=== PATIENT | female | born 1980 | race Caucasian/White ===

== ENCOUNTER 2019-12-20 11:40 | Outpatient (CLI) | payer OTHER, SELFPAY ==
--- NOTE | ~2019-12-20 | XR_ITS ---
XR lumbar spine 6V w bending 12/20/2019 12:26 Indication: Right hip pain Procedure: 7 views of the lumbar spine including oblique and flexion/extension views. Comparison: No prior studies for comparison. Findings: There is mild disc narrowing at L4-5 and L5-S1. No fracture, subluxation or dislocation. No evidence for spondylolysis or spondylolisthesis. No alteration of alignment with flexion/extension. There are mild lower lumbar facet degenerative changes. No spondylolysis. Pedicles intact. Sacral for amen are symmetric. Impression: 1: Mild lumbar spondylosis. Reviewed, dictated and finalized at location A. 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
--- NOTE | ~2019-12-20 | XR_ITS ---
XR hip RT 2V w AP pelvis DATE: 12/20/2019 12:26 INDICATION: Right hip pain TECHNIQUE: AP pelvis. AP, lateral and crosstable lateral views of right hip COMPARISON: None FINDINGS: No pelvic fracture or bone destruction is detected. The pubic symphysis and sacroiliac join ts are intact. Hip joint spaces are symmetric and well preserved. No fracture, dislocation, avascular necrosis or bone destruction of the right hip. IMPRESSION: Negative Reviewed, dictated and finalized at location A. 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
== END 2019-12-20 11:41 | disposition home or self-care (01) ==
PROVIDERS: PCP Internal Medicine; Visit Provider Internal Medicine
DX: M25.551 Pain in right hip (principal); M47.816 Spondylosis without myelopathy or radiculopathy, lumbar region
CPT/HCPCS: 72114; 73502; 73521

== ENCOUNTER 2020-01-04 00:37 | Day surgery (SDC) | payer OTHER, SELFPAY ==
[2020-01-02 15:13] VITALS: BMI 26.7
[2020-01-04 09:32] VITALS: BP 155/99; PULSE 110; RESP 20; TEMP 36.7; O2SAT 100
[2020-01-04] MEDS: LACTATED RINGERS 1,000 ML 150 ML IV CONT (09:45)
--- NOTE | 2020-01-04 10:01 | WPDANESEPPF ---
Anes - Initial Pre Proc Eval Procedure: Operation Date: 01/04/20 10:30 Proposed Procedures p Screening Colonoscopy - Sebastián Huston MD Date/Time: 01/04/20 10:01 Surgeon: Sebastián Huston MD Pre Op Diagnosis: Fam Hx of Colon Ca Patient Data Age: 39 Gender: F Height: 5 ft 5 in Weight: 71 kg Last Vital Signs Temp 36.7 C 01/04/20 09:32 Pulse 110 H 01/04/20 09:32 Resp 20 01/04/20 09:32 BP 155/99 H 01/04/20 09:32 Pulse Ox 100 01/04/20 09:32 Allergies Allergy/AdvReac Type Severity Reaction Status Date / Time No Known Allergies Allergy Unverified 01/04/20 09:30 Home Medications Medication Instructions Recorded Confirmed Type levothyroxine 100 mcg tablet 100 mcg PO DAILY #90 tablet 10/05/19 01/04/20 Rx linaclotide 145 mcg capsule 145 mcg PO DAILY 11/19/19 01/04/20 History sertraline 50 mg tablet 50 mg PO DAILY 11/19/19 01/04/20 History calcium carbonate 600 mg calcium 600 mg PO BID 12/18/19 01/04/20 History (1,500 mg) tablet Patient hx anesthesia problems: none Family hx anesthesia problems: none PMFSH Past Medical History Medical History Anxiety with depression Benign essential hypertension BMI 27.0-27.9,adult Colon cancer screening Drug overdose, intentional Encounter for preventive health examination Encounter for routine adult health examination without abnormal findings Encounter for screening mammogram for malignant neoplasm of breast FHx: colon cancer FHx: type 2 diabetes mellitus History of renal stone Hx pulmonary embolism Hypothyroidism (acquired) IBS (irritable bowel syndrome) 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 Right hip pain RUQ abdominal pain SOB (shortness of breath) Strain of lumbar paraspinal muscle Tachycardia Vitamin D deficiency Family History Family History Mother Hypertension Carcinoma of colon Family history of diabetes mellitus in first degree relative Family history of gastrointestinal disorder Family history of elevated blood lipids Grandparent Family history of rheumatoid arthritis Father Hypertension, Onset Age: 197 Family history of elevated blood lipids Patient's father is Sibling Hypertension Other Cerebrovascular accident Diabetes mellitus Family history of arthritis Family history of cardiovascular disease Family history of malignant neoplasm Family history of mental disorder Family history of seizure disorder Family history of thyroid disease Malignant neoplasm of prostate Social History Social History Smoking status: Never smoker Alcohol intake: never Anes - Eval Final PreProcedure Day of Procedure 01/04/20 10:01 Patient weight: overweight Heart: regular rate and rhythm Lungs: clear to auscultation Airway: Mallampati scale class II Neurological: alert and oriented Last oral intake: >/= 8 hours ASA classification: II Emergent: no Anesthetic plan: proceed Anesthesia type and monitoring: general GIVS and standard monitoring Informed Consent: The patient's anesthetic plan and its attendant risks and benefits were discussed with the patient/family/POA. Questions were solicited and answers provided to the satisfaction of the patient/family/POA.
--- NOTE | 2020-01-04 10:19 | PM.HPGS ---
History of Present Illness History of Present Illness Consent: Risks, benefits, and alternatives have been discussed and questions answered. Patient agrees to proceed with procedure. Chief complaint: Fam Hx of Colon Ca Narrative: Melissa Man is a 39 year old female with a s family history of colon cancer. 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 Right hip pain RUQ abdominal pain SOB (shortness of breath) Strain of lumbar paraspinal muscle Tachycardia Vitamin D deficiency Family History Family History Mother Hypertension Carcinoma of colon Family history of diabetes mellitus in first degree relative Family history of gastrointestinal disorder Family history of elevated blood lipids Grandparent Family history of rheumatoid arthritis Father Hypertension, Onset Age: 197 Family history of elevated blood lipids Patient's father is Sibling Hypertension Other Cerebrovascular accident Diabetes mellitus Family history of arthritis Family history of cardiovascular disease Family history of malignant neoplasm Family history of mental disorder Family history of seizure disorder Family history of thyroid disease Malignant neoplasm of prostate Social History Social History Smoking status: Never smoker Alcohol intake: never Meds Home Medications and Allergies Home Medications Medication Instructions Recorded Confirmed Type levothyroxine 100 mcg tablet 100 mcg PO DAILY #90 tablet 10/05/19 01/04/20 Rx linaclotide 145 mcg capsule 145 mcg PO DAILY 11/19/19 01/04/20 History sertraline 50 mg tablet 50 mg PO DAILY 11/19/19 01/04/20 History calcium carbonate 600 mg calcium 600 mg PO BID 12/18/19 01/04/20 History (1,500 mg) tablet Allergies Allergy/AdvReac Type Severity Reaction Status Date / Time No Known Allergies Allergy Unverified 01/04/20 09:30 Vital Signs Vital Signs - 24 hr 01/04/20 09:32 Temperature 36.7 C Pulse Rate 110 H Respiratory Rate 20 Blood Pressure 155/99 H Pulse Oximetry 100 Exam Resp: Auscultation: clear to auscultation bilaterally Cardio: Rate: regular rate Rhythm: regular rhythm GI: GI Palp: Yes Soft to palpation and No Tenderness to palpation present (GI) Assessment and Plan Assessment and plan (1) FHx: colon cancer: Code(s): Z80.0 - Family history of malignant neoplasm of digestive organs Status: Acute Assessment and Plan: Colonoscopy with possible biopsy or polypectomy or cautery or injection of substances.
[2020-01-04 10:51] VITALS: BP 123/59; PULSE 82; RESP 20; O2SAT 99
[2020-01-04 11:01] VITALS: BP 135/82; PULSE 74; RESP 20; O2SAT 100
[2020-01-04 11:11] VITALS: BP 140/85; PULSE 70; RESP 20; O2SAT 100
== END 2020-01-04 11:29 | disposition home or self-care (01) ==
PROVIDERS: PCP Internal Medicine; Visit Provider Internal Medicine Gastroenterology
PROC: 0DJD8ZZ Inspection of Lower Intestinal Tract, Via Natural or Artificial Opening Endoscopic (ICD-10-PCS; CPT 45378; principal; 2020-01-04 10:30)
DX: Z12.11 Encounter for screening for malignant neoplasm of colon (principal); D12.5 Benign neoplasm of sigmoid colon; Z80.0 Family history of malignant neoplasm of digestive organs; I10 Essential (primary) hypertension; F41.8 Other specified anxiety disorders; E03.9 Hypothyroidism, unspecified; K58.9 Irritable bowel syndrome, unspecified; E55.9 Vitamin D deficiency, unspecified; Z86.711 Personal history of pulmonary embolism
CPT/HCPCS: 45385; 88305; J2704; J7120

== ENCOUNTER 2020-06-13 08:23 | Outpatient (CLI) | payer OTHER, SELFPAY ==
[2020-06-13 08:52] LABS: Basophils Percent Auto 0.6 % (0.2-1.2); Eosinophils Absolute Auto 0.1 K/mm3 (0-0.3); Eosinophils Percent Auto 2.5 % (0-4.4); Hematocrit 37.1 % (37.0-47.0); Hemoglobin 12.8 g/dL (12.0-15.0); Lymphocytes Absolute Auto 1.71 K/mm3 (0.9-3.2); Lymphocytes Percent Auto 33.1 % (18.3-44.2); Mean Corpuscular HGB Conc 34.5 g/dl (32-36); Mean Corpuscular Hemoglobin 31.1 pg (26-34); Mean Platelet Volume 10.2 fl (7.4-10.4); Monocytes Absolute Auto 0.6 K/mm3 (0.1-0.6); Monocytes Percent Auto 10.9 % (2.6-8.5); Neutrophils Absolute Auto 2.7 K/mm3 (1.3-6.7); Neutrophils Percent Auto 52.9 % (45.5-73.1); Platelet Count Result 272 k/mm3 (150-375); Red Blood Count 4.12 M/mm3 (4.2-5.4); Red Cell Distribution Width 12.8 % (11.5-14.5); White Blood Count 5.2 K/mm3 (4.5-10.0)
[2020-06-13 08:59] LABS: Add Urine Microscopic? YES; Appearance Urine Clear (Clear); Bacteria Urine Trace /hpf; Bilirubin Urine Negative (Negative); Blood Urine 1+ (Negative); Color Urine Yellow (Yellow); Glucose Urine UA Negative (Negative); Ketones Urine Negative (Negative); Leukocyte Esterase Ur Trace LEU/UL (NEGATIVE); Mucus Urine Few /lpf; Nitrate Urine Negative (Negative); Protein Urine 1+ mg/dL (Negative); Specific Grav Ur 1.031 (1.001-1.035); Squamous Epithelial Cell Urine Rare /hpf (Few); Urobilinogen Urine Negative mg/dL (<2.0)
[2020-06-13 09:14] LABS: Anion Gap 13.8 mmol/L (7-16); Blood Urea Nitrogen 26 mg/dL (7-17); Carbon Dioxide 23 mmol/L (22-30); Chloride 107 mmol/L (98-107); Cholesterol 179 mg/dL (0-200); Estimated Glomerular Filt Rate > 60; Glucose 84 mg/dL (65-105); HDL Direct 56 mg/dL; Potassium 3.8 mmol/L (3.4-5.0); Sodium 140 mmol/L (137-145); Triglycerides 47 mg/dL (<150)
[2020-06-13 09:24] LABS: LDL Cholesterol Direct 110 mg/dL
[2020-06-13 09:34] LABS: Free T4 Free Thyroxine 1.92 ng/mL (0.78-2.19)
== END 2020-06-13 08:24 | disposition home or self-care (01) ==
PROVIDERS: PCP Internal Medicine; Visit Provider Internal Medicine
DX: E03.9 Hypothyroidism, unspecified (principal); I10 Essential (primary) hypertension; Z79.899 Other long term (current) drug therapy
CPT/HCPCS: 36415; 80048; 80061; 81001; 84439; 84443; 85025

== ENCOUNTER 2020-09-01 11:47 | Outpatient (CLI) | payer OTHER, SELFPAY ==
[2020-09-01 12:48] LABS: Hemoglobin A1C 4.7 % (<5.7)
[2020-09-01 12:50] LABS: Alanine Aminotransferase 14 U/L (4-35); Albumin Level 4.2 g/dL (3.5-5.1); Alkaline Phosphatase 59 U/L (38-126); Anion Gap 10 mmol/L (8-16); Aspartate Amino Transferase 19 U/L (14-36); Bilirubin,Total 0.5 mg/dL (0.2-1.3); Blood Urea Nitrogen 17 mg/dL (7-17); Calcium 9.1 mg/dL (8.4-10.2); Carbon Dioxide 20 mmol/L (22-30); Chloride 111 mmol/L (98-107); Cholesterol 167 mg/dL (0-200); Estimated Glomerular Filt Rate > 60; Glucose 96 mg/dL (65-105); HDL Direct 56 mg/dL; Sodium 141 mmol/L (137-145); Triglycerides 48 mg/dL (<150)
[2020-09-01 13:02] LABS: LDL Cholesterol Direct 100 mg/dL
[2020-09-01 13:20] LABS: Thyroid Stimulating Hormone 0.385 uIU/mL (0.465-4.680)
[2020-09-01 13:32] LABS: Vitamin D 25 Hydroxy 22.9 ng/mL
[2020-09-05 05:54] LABS: Insulin Level Total 8.1 uIU/mL (<=19.6)
== END 2020-09-01 11:48 | disposition home or self-care (01) ==
LOC: ANHLAB 11:49
PROVIDERS: PCP Internal Medicine; Visit Provider Internal Medicine
DX: R51.9 Headache, unspecified (principal); Z79.899 Other long term (current) drug therapy
CPT/HCPCS: 36415; 80048; 80061; 80076; 82306; 83036; 83525; 84443

== ENCOUNTER 2020-12-23 10:08 | Outpatient (CLI) | payer OTHER, SELFPAY ==
[2020-12-23 10:38] LABS: Anion Gap 7 mmol/L (8-16); Blood Urea Nitrogen 13 mg/dL (7-17); Calcium 8.9 mg/dL (8.4-10.2); Carbon Dioxide 27 mmol/L (22-30); Chloride 105 mmol/L (98-107); Cholesterol 169 mg/dL (0-200); Estimated Glomerular Filt Rate > 60; Glucose 94 mg/dL (65-105); HDL Direct 57 mg/dL; Sodium 139 mmol/L (137-145); Triglycerides 50 mg/dL (<150)
[2020-12-23 10:49] LABS: LDL Cholesterol Direct 99 mg/dL
[2020-12-23 11:08] LABS: Thyroid Stimulating Hormone 0.049 uIU/mL (0.465-4.680)
== END 2020-12-23 10:09 | disposition home or self-care (01) ==
PROVIDERS: PCP Internal Medicine; Visit Provider Internal Medicine
DX: E03.9 Hypothyroidism, unspecified (principal); Z79.899 Other long term (current) drug therapy
CPT/HCPCS: 36415; 80048; 80061; 84439; 84443

== ENCOUNTER 2021-01-14 10:18 | Outpatient (CLI) | payer OTHER, SELFPAY ==
--- NOTE | ~2021-01-14 | MM_ITS ---
EXAMINATION: MM screening denny BI w lizy HISTORY: Screening mammogram TECHNIQUE: Craniocaudal and mediolateral oblique 3-D tomosynthesis images were obtained and synthetic 2-D images were generated. CAD analysis was submitted and interpreted. COMPARISON: 01/30/2019, 12/26/2017 bilateral digital screening mammogram examinations BREAST PARENCHYMAL COMPOSITION: There are scattered areas of fibroglandular density. FINDINGS: There is no evidence of suspicious mass, calcification, or architectural distortion to sugg est malignancy in either breast. There has been no suspicious interval change. IMPRESSION: 1. No mammographic evidence of malignancy. 2. Recommend routine screening mammography in one year. BI-RADS Category 1: Negative Reviewed, dictated and finalized at location A. 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
== END 2021-01-14 10:19 | disposition home or self-care (01) ==
PROVIDERS: PCP Internal Medicine; Visit Provider Obstetrics & Gynecology
DX: Z12.31 Encounter for screening mammogram for malignant neoplasm of breast (principal)
CPT/HCPCS: 77063; 77067

== ENCOUNTER 2021-04-15 17:16 | Outpatient (CLI) | payer OTHER, SELFPAY ==
--- NOTE | ~2021-04-15 | US_ITS ---
EXAMINATION:US venous doppler LE RT INDICATION:Right leg swelling TECHNIQUE: Multiple grayscale, color flow and Doppler images of the right lower extremity deep venous systems were obtained and reviewed. COMPARISON:04/08/2016 FINDINGS: The common femoral, superficial femoral and popliteal veins demonstrate normal respiratory variation, augmentation and compressibility. Color flow is also seen within the posterior tibial, pe roneal, greater saphenous and profunda veins. IMPRESSION: 1: No lower extremity deep venous thrombosis. Reviewed, dictated and finalized at location A.
--- NOTE | ~2021-04-15 | CT_ITS ---
EXAMINATION: CTA chest PE protocol DATE: 04/15/2021 16:07 INDICATION: Left chest pain. TECHNIQUE: Computed tomography angiography (CTA) of the chest was performed with 100 mL Omnipaque-350 intravenous contrast timed to evaluate the pulmonary arteries. Coronal maximum intensity projection 3D-reconstructions were created by the technologist. Automated exposure control and iterative reconst ruction technique were employed. The dose-length product was 409.02 mGy-cm. COMPARISON: Chest CT 08/19/2016 FINDINGS: There is mild dependent atelectasis bilaterally. No pleural effusion. The heart size is nor mal. No pericardial effusion. There is no pulmonary embolus. There is a benign bone island in left fi fth rib. There is mild thoracic spondylosis. IMPRESSION: 1. No pulmonary embolus. Reviewed, dictated and finalized at location B. IMPRESSION: 1. No pulmonary embolus.
[2021-04-15 17:33] LABS: Basophils Percent Auto 0.4 % (0.2-1.2); Eosinophils Absolute Auto 0.1 K/mm3 (0-0.3); Eosinophils Percent Auto 1.1 % (0-4.4); Hematocrit 38.4 % (37.0-47.0); Hemoglobin 12.5 g/dL (12.0-15.0); Immature Granulocyte Absolute 0.01 K/mm3 (0.00-0.031); Immature Granulocyte Percent A 0.2 % (0-0.5); Lymphocytes Absolute Auto 0.96 K/mm3 (0.9-3.2); Lymphocytes Percent Auto 20.6 % (18.3-44.2); Mean Corpuscular HGB Conc 32.6 g/dl (32-36); Mean Corpuscular Hemoglobin 28.7 pg (26-34); Mean Corpuscular Volume 88.3 fl (80-100); Mean Platelet Volume 10.3 fl (7.4-10.4); Monocytes Absolute Auto 0.4 K/mm3 (0.1-0.6); Monocytes Percent Auto 8.8 % (2.6-8.5); Neutrophils Absolute Auto 3.2 K/mm3 (1.3-6.7); Neutrophils Percent Auto 68.9 % (45.5-73.1); Platelet Count Result 234 k/mm3 (150-375); Red Blood Count 4.35 M/mm3 (4.2-5.4); Red Cell Distribution Width 13.4 % (11.5-14.5); White Blood Count 4.7 K/mm3 (4.5-10.0)
[2021-04-15 17:42] LABS: INR 0.9
[2021-04-15 17:46] LABS: D Dimer 0.27 ug/mL (<0.48)
== END 2021-04-15 17:17 | disposition home or self-care (01) ==
PROVIDERS: PCP Internal Medicine; Visit Provider Internal Medicine
DX: R07.9 Chest pain, unspecified (principal); R60.0 Localized edema
CPT/HCPCS: 36415; 71275; 85025; 85380; 85610; 93971; Q9967

== ENCOUNTER 2021-04-17 08:38 | Outpatient (CLI) | payer OTHER, SELFPAY ==
--- NOTE | ~2021-04-17 | XR_ITS ---
EXAMINATION:XR cervical spine 4-5V DATE: 04/17/2021 09:10 INDICATION: Neck pain TECHNIQUE: AP, lateral, lateral swimmers and odontoid views of the cervical spine are provided. COMPARISON: None FINDINGS: There is 1 mm retrolisthesis of C5 on C6. The odontoid is intact. No fracture is identified . Vertebral body heights and disk spaces are normal. Prevertebral soft tissues are normal. There is m ild facet osteoarthritis in the lower cervical spine. IMPRESSION: 1. Mild cervical spondylosis without acute findings. Reviewed, dictated and finalized at location D.
--- NOTE | ~2021-04-17 | XR_ITS ---
EXAMINATION: XR lumbar spine 6V w bending DATE: 04/17/2021 09:10 INDICATION: Low back pain TECHNIQUE: Anteroposterior, lateral in neutral, flexion and extension, and bilateral oblique views of the lumbar spine, and cone-down lateral view of the lumbosacral junction were obtained. COMPARISON: 12/20/2019, 10/06/2017 FINDINGS: There are 2 mm of anterolisthesis of L4 on L5. There is no laxity with flexion or extension . Bone alignment is otherwise normal. There is mild facet osteoarthritis of the lower lumbar spine. M ild loss of intervertebral disc space height is seen at L4-5 and L5-S1. There is no fracture. The bow el gas pattern is normal. IMPRESSION: 1. Mild lumbar spondylosis without acute findings or significant interval change. Reviewed, dictated and finalized at location D. IMPRESSION: 1. Mild lumbar spondylosis without acute findings or significant interval tc dockery
== END 2021-04-17 08:39 | disposition home or self-care (01) ==
PROVIDERS: PCP Internal Medicine; Visit Provider Internal Medicine
DX: R07.89 Other chest pain (principal); M47.817 Spondylosis without myelopathy or radiculopathy, lumbosacral region; M47.812 Spondylosis without myelopathy or radiculopathy, cervical region
CPT/HCPCS: 72050; 72114

== ENCOUNTER 2021-07-30 14:46 | Outpatient (CLI) | payer OTHER, SELFPAY ==
[2021-07-30 15:20] LABS: Anion Gap 6 mmol/L (8-16); Blood Urea Nitrogen 18 mg/dL (7-17); Calcium 9.3 mg/dL (8.4-10.2); Carbon Dioxide 25 mmol/L (22-30); Chloride 109 mmol/L (98-107); Cholesterol 176 mg/dL (0-200); Estimated Glomerular Filt Rate > 60; Glucose 106 mg/dL (65-110); HDL Direct 42 mg/dL; Potassium 3.6 mmol/L (3.4-5.0); Sodium 140 mmol/L (137-145); Triglycerides 67 mg/dL (<150)
[2021-07-30 15:31] LABS: LDL Cholesterol Direct 95 mg/dL
[2021-07-30 15:35] LABS: Add Urine Microscopic? YES; Appearance Urine Clear (Clear); Bilirubin Urine Negative (Negative); Blood Urine 3+ (Negative); Color Urine Yellow (Yellow); Glucose Urine UA Negative (Negative); Ketones Urine Negative (Negative); Leukocyte Esterase Ur Negative LEU/UL (NEGATIVE); Mucus Urine Rare /lpf; Nitrate Urine Negative (Negative); Protein Urine Negative (Negative); Specific Grav Ur 1.023 (1.001-1.035); Squamous Epithelial Cell Urine Few /hpf (Few); Urobilinogen Urine Negative mg/dL (<2.0); WBC Urine 0-3 /hpf (0-3)
[2021-07-30 16:39] LABS: Free T4 Free Thyroxine 1.77 ng/mL (0.78-2.19)
[2021-08-04 09:00] LABS: Vitamin D 1,25 (OH)2 Total 33 pg/mL (18-72); Vitamin D2 1,25 (OH)2 <8 pg/mL; Vitamin D3 1,25 (OH)2 33 pg/mL
== END 2021-07-30 14:47 | disposition home or self-care (01) ==
PROVIDERS: PCP Internal Medicine; Visit Provider Internal Medicine
DX: E03.9 Hypothyroidism, unspecified (principal); I10 Essential (primary) hypertension; E55.9 Vitamin D deficiency, unspecified; Z79.899 Other long term (current) drug therapy
CPT/HCPCS: 36415; 80048; 80061; 81001; 82652; 84439; 84443

== ENCOUNTER 2021-08-24 23:28 | Emergency (ER) | payer OTHER, SELFPAY ==
--- NOTE | ~2021-08-24 | CT_ITS ---
EXAMINATION: CT abdomen pelvis wo con DATE: 08/25/2021 01:13 INDICATION: Left flank pain. TECHNIQUE: Computed tomography (CT) of the abdomen and pelvis was performed without intravenous contr ast. Automated exposure control and iterative reconstruction technique were employed. The dose-length product was 728.75 mGy-cm. COMPARISON: CT abdomen and pelvis 10/06/2017 FINDINGS: The visualized portions of the lung bases demonstrate mild atelectasis. No pleural effusion . The heart size is normal. No pericardial effusion. The liver, gallbladder, spleen, pancreas, and ad renal glands are normal. There is a 2 mm stone in right kidney. There is a 2 mm stone in left kidney. There is mild left hydronephrosis. There is a 6 mm stone in proximal left ureter. There is asymmetri c edema around left kidney. There are no dilated loops of bowel. The appendix is normal. There is a l arge volume of stool in the colon. There are no pathologically enlarged lymph nodes. There is no free intraperitoneal fluid. There is mild thoracolumbar spondylosis. IMPRESSION: 1. 6 mm stone in proximal left ureter with mild left hydronephrosis. 2. Small bilateral nonobstructing kidney stones. Reviewed, dictated and finalized at location A.
[2021-08-24 23:41] VITALS: BP 146/89; PULSE 104; RESP 16; TEMP 36.7; O2SAT 99
[2021-08-25 00:21] LABS: Basophils Percent Auto 0.5 % (0.2-1.2); Eosinophils Absolute Auto 0.2 K/mm3 (0-0.3); Eosinophils Percent Auto 1.8 % (0-4.4); Hemoglobin 11.7 g/dL (12.0-15.0); Immature Granulocyte Absolute 0.02 K/mm3 (0.00-0.031); Immature Granulocyte Percent A 0.2 % (0-0.5); Lymphocytes Absolute Auto 1.17 K/mm3 (0.9-3.2); Lymphocytes Percent Auto 14.4 % (18.3-44.2); Mean Corpuscular HGB Conc 34.4 g/dl (32-36); Mean Corpuscular Hemoglobin 29.5 pg (26-34); Mean Corpuscular Volume 85.6 fl (80-100); Mean Platelet Volume 9.9 fl (7.4-10.4); Monocytes Absolute Auto 0.7 K/mm3 (0.1-0.6); Monocytes Percent Auto 8.8 % (2.6-8.5); Neutrophils Absolute Auto 6.1 K/mm3 (1.3-6.7); Neutrophils Percent Auto 74.3 % (45.5-73.1); Platelet Count Result 224 k/mm3 (150-375); Red Blood Count 3.97 M/mm3 (4.2-5.4); Red Cell Distribution Width 14.9 % (11.5-14.5); White Blood Count 8.2 K/mm3 (4.5-10.0)
[2021-08-25 00:24] LABS: Anion Gap 11 mmol/L (8-16); Blood Urea Nitrogen 21 mg/dL (7-17); Calcium 8.6 mg/dL (8.4-10.2); Carbon Dioxide 21 mmol/L (22-30); Chloride 107 mmol/L (98-107); Estimated CRCL calculation 73 ml/min; Estimated Glomerular Filt Rate > 60; Glucose 90 mg/dL (65-110); Potassium 3.9 mmol/L (3.4-5.0); Sodium 139 mmol/L (137-145)
[2021-08-25 00:25] LABS: Add Urine Microscopic? YES; Appearance Urine Clear (Clear); Bilirubin Urine Negative (Negative); Blood Urine 2+ (Negative); Color Urine Yellow (Yellow); Glucose Urine UA Negative (Negative); Ketones Urine Negative (Negative); Leukocyte Esterase Ur Negative LEU/UL (Negative); Mucus Urine Rare /lpf; Nitrate Urine Negative (Negative); Protein Urine Negative (Negative); RBC Urine 0-2 /hpf (0-2); Specific Grav Ur 1.009 (1.001-1.035); Squamous Epithelial Cell Urine Rare /hpf (Few); Urobilinogen Urine Negative mg/dL (<2.0); WBC Urine 0-3 /hpf
[2021-08-25] MEDS: ONDANSETRON INJ 4 MG/2 ML VIAL IV PUSH (00:57)
[2021-08-25] MEDS: SODIUM CHLORIDE 0.9% IV 1,000 ML 999 ML IV CONT (00:57)
[2021-08-25] MEDS: KETOROLAC 30 MG/ML VIAL (*BKC) IV PUSH (00:57)
[2021-08-25 01:45] VITALS: BP 141/88; PULSE 82; RESP 18; O2SAT 100
--- NOTE | 2021-08-25 02:45 | ED.ABDPAIN ---
HPI - Abdominal Pain General Chief Complaint: Abdominal Pain Stated Complaint: Kidney Stone Time Seen by Provider: 08/24/21 23:35 Source: patient Mode of arrival: ambulatory Limitations: no limitations History of Present Illness HPI narrative: 41-year-old female with history of irritable bowel complaining of left flank pain starting suddenly at 2 PM today. Left flank pain rating to the left lower quadrant sharp constant improved with nothing. Patient does have a history of renal stones in the past and says this is similar. Patient is also complains of nausea and dry heaves,. No fever, no dysuria, no hematuria, no STD risk factors no vaginal discharge. No other complaints. Related Data Home Medications Medication Instructions Recorded Confirmed evening primrose oil 500 mg capsule 500 mg PO DAILY cap 08/04/21 08/05/21 mecobalamin (vitamin B12) 1,000 1,000 mcg SUBLINGUAL DAILY 08/04/21 08/05/21 mcg disintegrating tablet,sublingual Allergies Allergy/AdvReac Type Severity Reaction Status Date / Time No Known Allergies Allergy Verified 08/04/21 14:38 Review of Systems Review of Systems: CONSTITUTIONAL: no fever, no weight loss, no confusion EYES: no vision changes, no eye pain ENT: no rhinorrhea, no sore throat, no difficulty swallowing CARDIOVASCULAR: no chest pain, no leg edema, no palpitations RESPIRATORY: no cough, no shortness of breath, no hemoptysis GASTROINTESTINAL: LLQ abdominal pain, positive for nausea and vomiting, no diarrhea GENITOURINARY: left flank pain, no dysuria, no hematuria SKIN: no rash, no jaundice MUSCULOSKELETAL: no back pain, no trauma. NEUROLOGIC: No headache, no dizziness, no focal weakness PSYCHIATRIC: No hallucinations, no suicidal ideation PMFSH Past Medical History Medical History Anxiety with depression Benign essential hypertension BMI 26.0-26.9,adult BMI 27.0-27.9,adult BMI 28.0-28.9,adult Colon cancer screening Drug overdose, intentional Encounter for preventive health examination Encounter for routine adult health examination without abnormal findings Encounter for screening mammogram for malignant neoplasm of breast FHx: colon cancer FHx: type 2 diabetes mellitus History of renal stone Hx pulmonary embolism Hypothyroidism (acquired) IBS (irritable bowel syndrome) Microscopic hematuria Migraine 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 Persistent headaches Right hip pain RUQ abdominal pain SOB (shortness of breath) Strain of lumbar paraspinal muscle Tachycardia Vitamin D deficiency Family History Family History Mother Hypertension Carcinoma of colon Family history of diabetes mellitus in first degree relative Family history of gastrointestinal disorder Family history of elevated blood lipids Grandparent Family history of rheumatoid arthritis Father Hypertension, Onset Age: 197 Family history of elevated blood lipids Patient's father is Sibling Hypertension Other Cerebrovascular accident Diabetes mellitus Family history of arthritis Family history of cardiovascular disease Family history of malignant neoplasm Family history of mental disorder Family history of seizure disorder Family history of thyroid disease Malignant neoplasm of prostate Social History Social History Smoking status: Never smoker Alcohol intake: never Exam Narrative: General: alert, afebrile, answering all questions appropriately Head: normocephalic, atraumatic Eyes: EOMI bilaterally, anicteric, no injection ENT: moist mucous membranes, oropharynx patent, no rhinorrhea Neck: supple, trachea midline, no JVD Chest: equal chest rise bilaterally, no chest wall trauma noted Lungs: clear to auscultation bilaterally, respirations unlabored CV: regular rate, no GLORY B, calf size equ
[2021-08-25 03:45] VITALS: BP 132/84; PULSE 79; RESP 20
== END 2021-08-25 03:49 | disposition home or self-care (01) ==
PROVIDERS: Emergency Provider Emergency Medicine; PCP Internal Medicine
DX: N13.2 Hydronephrosis with renal and ureteral calculous obstruction (principal); K58.9 Irritable bowel syndrome, unspecified; I10 Essential (primary) hypertension; E03.9 Hypothyroidism, unspecified; E55.9 Vitamin D deficiency, unspecified; Z87.442 Personal history of urinary calculi; Z86.711 Personal history of pulmonary embolism
CPT/HCPCS: 36415; 74176; 80048; 81001; 81025; 85025; 96365; 96366; 96375; 99284; J0131; J1885; J2405; J7030

== ENCOUNTER 2021-08-26 09:32 | Outpatient (CLI) | payer OTHER, SELFPAY ==
--- NOTE | ~2021-08-26 | XR_ITS ---
EXAMINATION: XR abdomen/kub 1V EXAM DATE: 08/26/2021 09:35 INDICATION: Calculus of ureter, left flank pain. TECHNIQUE: Frontal projection of the upper abdomen, frontal projection lower abdomen/pelvis for inter pretation. Comparison is made to prior examination from 07/21/2015. Correlation was made with CT scan from yesterday. FINDINGS: There is 7 mm left UPJ stone identified, indicated. Moderate amount of colonic stool and ga s. No small bowel obstruction. There is no organomegaly. Mild bilateral hip primary osteoarthritis. IMPRESSION: 1. Left UPJ 7 mm stone identified. Reviewed, dictated and finalized at location A.
[2021-08-26 11:05] LABS: Folic Acid > 20.0 ng/mL (2.76->20)
[2021-08-30 10:27] LABS: Vitamin B1 41 nmol/L (8-30)
[2021-08-31 03:27] LABS: Vitamin B6 66.8 ng/mL (2.1-21.7)
[2021-09-01 16:51] LABS: Vitamin B2 15.8 nmol/L (6.2-39.0)
== END 2021-08-26 09:33 | disposition home or self-care (01) ==
PROVIDERS: PCP Internal Medicine; Visit Provider Urology
DX: N20.1 Calculus of ureter (principal); E53.9 Vitamin B deficiency, unspecified; E53.8 Deficiency of other specified B group vitamins
CPT/HCPCS: 36415; 74018; 82607; 82746; 84207; 84252; 84425

== ENCOUNTER 2021-08-27 09:54 | Day surgery (SDC) | payer OTHER, SELFPAY ==
[2021-08-27] VITALS (8 sets, daily range): BP systolic 112–141; BP diastolic 63–80; PULSE 82–102; RESP 14–20; TEMP 36.2–36.4; O2SAT 97–100; BMI 28.3
--- NOTE | ~2021-08-27 | XR_ITS ---
EXAMINATION: XR retrograde pyelo w/stent LT EXAM DATE: 08/27/2021 14:51 INDICATION: Left-sided retrograde, stent placement. Obstructive nephropathy. TECHNIQUE: Fluoroscopy used during XR retrograde pyelo w/stent LT performed by Dr. Narendra mckinney MD, urologist. The radiologist Jeremi Smith M.D. dictating this report of the image(s) availabl e was not present for the procedure. Total fluoroscopic time of 44 seconds. The DAP for this proced ure was 696 radcm2. A total of 11 images sent to PACS from the exam. Correlation is made to CT from yesterday. FINDINGS: Left ureter was cannulated, injected. There is mild to moderate left hydronephrosis. A nino ble-J ureteral stent was placed. Correlate with procedure note. IMPRESSION: Mild to moderate left hydronephrosis. Stent in position. Reviewed, dictated and finalized at location G.
--- NOTE | 2021-08-27 12:35 | WPDANESEPPF ---
Anes - Initial Pre Proc Eval Procedure: Operation Date: 08/27/21 15:00 Proposed Procedures p Cystoscopy, Left Retrograde Pyelogram, Left Stent Placement - Narendra Felix MD Date/Time: 08/27/21 12:35 Surgeon: Narendra Felix MD Pre Op Diagnosis: left ureteral calculus Patient Data Age: 41 Gender: F Height: 1.65 m Weight: 77.11 kg Allergies Allergy/AdvReac Type Severity Reaction Status Date / Time No Known Allergies Allergy Verified 08/27/21 13:39 Home Medications Medication Instructions Recorded Confirmed Type rizatriptan 10 mg disintegrating See Rx Instructions PO .COMPLEX 01/15/21 08/27/21 Rx tablet #18 tablet levothyroxine 100 mcg tablet See Rx Instructions .ROUTE 03/16/21 08/27/21 Rx .COMPLEX #90 tablet erenumab-aooe 70 mg/mL See Rx Instructions .ROUTE 05/28/21 08/27/21 Rx subcutaneous auto-injector .COMPLEX #1 ml linaclotide 145 mcg capsule 145 mcg PO DAILY #90 cap 06/12/21 08/27/21 Rx celecoxib 200 mg capsule See Rx Instructions .ROUTE 07/23/21 08/27/21 Rx .COMPLEX #60 cap evening primrose oil 500 mg capsule 500 mg PO DAILY cap 08/04/21 08/27/21 History levomefolate calcium 7.5 mg tablet 7.5 mg PO DAILY #90 tablet 08/04/21 08/27/21 Rx mecobalamin (vitamin B12) 1,000 1,000 mcg SUBLINGUAL DAILY 08/04/21 08/27/21 History mcg disintegrating tablet,sublingual cephalexin 250 mg PO Q6H 7 Days #28 cap 08/25/21 08/27/21 Rx ibuprofen 800 mg PO TID PRN #30 tablet 08/25/21 08/27/21 Rx ondansetron 4 mg PO Q6H PRN #20 tablet 08/25/21 08/27/21 Rx tamsulosin [Flomax] 0.4 mg PO DAILY #5 cap 08/25/21 08/27/21 Rx duloxetine [Cymbalta] 60 mg PO HS 08/27/21 08/27/21 History hydrocodone-acetaminophen 1 tablet PO PRN 08/27/21 08/27/21 History Patient hx anesthesia problems: none Family hx anesthesia problems: none Results Review: All pre-operative results and documents have been reviewed as part of the pre-operative evaluation. [facility] Past Medical History Medical History (Updated 08/27/21 @ 12:35 by Mihir Berrios DO) Anxiety with depression Benign essential hypertension BMI 26.0-26.9,adult BMI 27.0-27.9,adult BMI 28.0-28.9,adult Colon cancer screening Drug overdose, intentional Encounter for preventive health examination Encounter for routine adult health examination without abnormal findings Encounter for screening mammogram for malignant neoplasm of breast History of renal stone Hx pulmonary embolism Hypothyroidism (acquired) IBS (irritable bowel syndrome) Microscopic hematuria Migraine 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 Persistent headaches Right hip pain RUQ abdominal pain SOB (shortness of breath) Strain of lumbar paraspinal muscle Tachycardia Vitamin D deficiency Family History Family History Mother Hypertension Carcinoma of colon Family history of diabetes mellitus in first degree relative Family history of gastrointestinal disorder Family history of elevated blood lipids Grandparent Family history of rheumatoid arthritis Father Hypertension, Onset Age: 197 Family history of elevated blood lipids Patient's father is Sibling Hypertension Other Cerebrovascular accident Diabetes mellitus Family history of arthritis Family history of cardiovascular disease Family history of malignant neoplasm Family history of mental disorder Family history of seizure disorder Family history of thyroid disease Malignant neoplasm of prostate Social History Social History Smoking status: Never smoker Alcohol intake: never Substance use: never Substance use type: does not use Spiritual care concerns: No Anes - Eval Final PreProcedure Day of Procedure 08/27/21 12:35 Patient weight: obese Heart: regular rate and rhythm Lungs: clear to auscultation and normal air movement Airway: Mallampati scale
--- NOTE | 2021-08-27 13:31 | WPDHPUPDATE1 ---
History and Physical Update Update Date/Time: 08/27/21 13:31 History and Physical has been reviewed, including an updated exam of the patient. There are NO changes in the patient's condition. Risks, benefits, and alternatives have been discussed and questions answered. Patient agrees to proceed with procedure. Proceed with cysto, left rpg, left stent placement
[2021-08-27] MEDS: LACTATED RINGERS 1,000 ML 30 ML IV CONT ×2 (13:48→15:18)
[2021-08-27] MEDS: ceFAZolin 2 GM/D5W 50 ML 2 GM/50 ML BAG IVPB (14:18)
[2021-08-27] MEDS: LIDOCAINE HCL 2% GEL UROJET 10 ML PKG MUCOUS MEM (14:40)
--- NOTE | 2021-08-27 14:42 | P.OP_ITS ---
Procedure Note - Detailed Date of Procedure 08/27/21 Pre-op Diagnosis left ureteral calculus Post-op Diagnosis same Procedure Performed Cystoscopy, left retrograde pyelogram, left ureteral stent placement 4.8 x 26 Salvadorean Surgeon Narendra Felix MD Anesthesia general Description of Procedure Patient was taken the operative suite correctly identified. Once anesthesia was obtained she was placed in dorsal lithotomy position and prepped draped usual sterile fashion. Nineteen Salvadorean scope was inserted into the bladder. There are no tumors noted. Left orifice was cannulated with a guidewire. We then placed a [place] catheter in and this appeared to push the stone into the lower pole. Pyelogram was Aubrey Sineff then performed. 4.8 x 26 Salvadorean stent was then placed with the proximal end coiled in the renal pelvis and the distal end in the bladder. Bladder was drained. 2% viscous lidocaine was inserted into the urethra patient is taken recovery stable condition. She will be scheduled for a lithotripsy for left renal calculus in the near future. Drains Yes Packing No Pathology none sent Complications No immediate complications Condition stable Disposition PACU
== END 2021-08-27 16:20 | disposition home or self-care (01) ==
PROVIDERS: PCP Internal Medicine; Visit Provider Urology
PROC: (CPT 52352; principal; 2021-08-27 15:00)
DX: N13.2 Hydronephrosis with renal and ureteral calculous obstruction (principal); I10 Essential (primary) hypertension; F41.8 Other specified anxiety disorders; E03.9 Hypothyroidism, unspecified; K58.9 Irritable bowel syndrome, unspecified; E55.9 Vitamin D deficiency, unspecified; Z86.711 Personal history of pulmonary embolism; E66.9 Obesity, unspecified; Z68.30 Body mass index [BMI] 30.0-30.9, adult
CPT/HCPCS: 52332; 74420; A9270; C1758; C1769; C2617; J0690; J1100; J2250; J2405; J2704; J3010; J7120; Q9966

== ENCOUNTER 2021-08-27 12:39 | Outpatient (CLI) | payer OTHER, SELFPAY ==
[2021-08-27 13:16] LABS: EDCOVIDSCREEN Negative (Negative)
== END 2021-08-27 12:40 | disposition home or self-care (01) ==
LOC: ANHSURGERY 12:41
PROVIDERS: PCP Internal Medicine; Visit Provider Urology
DX: Z01.812 Encounter for preprocedural laboratory examination (principal); Z20.822 Contact with and (suspected) exposure to COVID-19
CPT/HCPCS: 87426; C9803

== ENCOUNTER 2021-09-14 08:49 | Outpatient (CLI) | payer OTHER, SELFPAY ==
[2021-09-14 09:16] LABS: INR 0.8; Prothrombin Time 11.1 Seconds (11.1-14.7)
[2021-09-14 09:17] LABS: Partial Thromboplastin Time 24.4 SECONDS (22.3-36.8)
[2021-09-14 09:33] LABS: Beta HCG Quantitative < 2.39 mIU/ML
== END 2021-09-14 08:50 | disposition home or self-care (01) ==
LOC: ANHSURGERY 08:52
PROVIDERS: PCP Internal Medicine; Visit Provider Urology
DX: N20.0 Calculus of kidney (principal); Z01.818 Encounter for other preprocedural examination
CPT/HCPCS: 36415; 84702; 85610; 85730; 87086

== ENCOUNTER → 2021-09-15 01:31 | Outpatient (CLI) | payer OTHER, SELFPAY ==
[2021-09-15 18:23] LABS: SARS-CoV-2 RNA PCR Negative
== END ==
PROVIDERS: PCP Internal Medicine; Visit Provider Urology
DX: Z01.812 Encounter for preprocedural laboratory examination (principal); Z20.822 Contact with and (suspected) exposure to COVID-19
CPT/HCPCS: C9803; U0003; U0005

== ENCOUNTER 2021-09-18 00:52 | Day surgery (SDC) | payer OTHER, SELFPAY ==
[2021-09-11 10:44] VITALS: BMI 29.9
[2021-09-18] VITALS (7 sets, daily range): BP systolic 121–147; BP diastolic 74–92; PULSE 69–89; RESP 15–16; TEMP 36.5–36.9; O2SAT 96–100
--- NOTE | ~2021-09-18 | XR_ITS ---
EXAMINATION: XR abdomen/kub 1V INDICATION: Left nephrolithiasis TECHNIQUE: Supine views of the abdomen were obtained on 2 radiographs. COMPARISON: 08/26/2021 FINDINGS: A left internal ureteral stent is in expected position. An 8 mm stone is seen in the lower pole of the left kidney. No additional urolithiasis is identified. A large volume of colonic stool is present. IMPRESSION: 1. 8 mm stone in the lower pole of the left kidney with left internal ureteral stent in expected posi tion. Reviewed, dictated and finalized at location A. IMPRESSION: 1. 8 mm stone in the lower pole of the left kidney with left internal ureteral stent in expected position.
--- NOTE | 2021-09-18 07:27 | WPDHPUPDATE1 ---
History and Physical Update Update Date/Time: 09/18/21 07:27 History and Physical has been reviewed, including an updated exam of the patient. There are NO changes in the patient's condition. Risks, benefits, and alternatives have been discussed and questions answered. Patient agrees to proceed with procedure. Proceed with left renal/upj eswl
--- NOTE | 2021-09-18 08:03 | WPDANESEPPF ---
Anes - Initial Pre Proc Eval Procedure: Operation Date: 09/18/21 09:30 Proposed Procedures p Left Ureteropelvic Junction Extracorporeal Shock Wave Lithotripsy - Narendra Felix MD Date/Time: 09/18/21 08:03 Surgeon: Narendra Felix MD Pre Op Diagnosis: Left UPJ Stone Patient Data Age: 41 Gender: F Height: 1.65 m Weight: 84.3 kg Allergies Allergy/AdvReac Type Severity Reaction Status Date / Time No Known Allergies Allergy Verified 09/18/21 07:50 Home Medications Medication Instructions Recorded Confirmed Type rizatriptan 10 mg disintegrating See Rx Instructions PO .COMPLEX 01/15/21 09/18/21 Rx tablet #18 tablet erenumab-aooe 70 mg/mL See Rx Instructions .ROUTE 05/28/21 09/18/21 Rx subcutaneous auto-injector .COMPLEX #1 ml linaclotide 145 mcg capsule 145 mcg PO DAILY #90 cap 06/12/21 09/18/21 Rx celecoxib 200 mg capsule See Rx Instructions .ROUTE 07/23/21 09/18/21 Rx .COMPLEX #60 cap evening primrose oil 500 mg capsule 500 mg PO DAILY cap 08/04/21 09/18/21 History levomefolate calcium 7.5 mg tablet 7.5 mg PO DAILY #90 tablet 08/04/21 09/18/21 Rx mecobalamin (vitamin B12) 1,000 1,000 mcg SUBLINGUAL DAILY 08/04/21 09/18/21 History mcg disintegrating tablet,sublingual ibuprofen 800 mg PO TID PRN #30 tablet 08/25/21 09/18/21 Rx ondansetron 4 mg PO Q6H PRN #20 tablet 08/25/21 09/14/21 Rx duloxetine [Cymbalta] 60 mg PO HS 08/27/21 09/18/21 History hydrocodone-acetaminophen 1 tablet PO PRN PRN 08/27/21 09/18/21 History tamsulosin 0.4 mg capsule 0.4 mg PO DAILY #14 cap 09/03/21 09/18/21 Rx oxybutynin chloride 5 mg PO BID PRN 09/11/21 09/18/21 History levothyroxine 100 mcg tablet See Rx Instructions .ROUTE 09/16/21 09/18/21 Rx .COMPLEX #90 tablet Patient hx anesthesia problems: none Family hx anesthesia problems: none Results Review: All pre-operative results and documents have been reviewed as part of the pre-operative evaluation. [facility] Past Medical History Medical History (Updated 09/14/21 @ 17:23 by Kadi Balderrama) Anxiety with depression Benign essential hypertension BMI 26.0-26.9,adult BMI 27.0-27.9,adult BMI 28.0-28.9,adult Colon cancer screening Drug overdose, intentional Encounter for preventive health examination Encounter for routine adult health examination without abnormal findings Encounter for screening mammogram for malignant neoplasm of breast History of renal stone Hx pulmonary embolism Hypothyroidism (acquired) IBS (irritable bowel syndrome) Kidney stone Microscopic hematuria Migraine Muscle cramps On penitentiary drug therapy Persistent headaches Right hip pain RUQ abdominal pain Screening for lipid disorders SOB (shortness of breath) Strain of lumbar paraspinal muscle Tachycardia Vitamin D deficiency Family History Family History Mother Hypertension Carcinoma of colon Family history of diabetes mellitus in first degree relative Family history of gastrointestinal disorder Family history of elevated blood lipids Grandparent Family history of rheumatoid arthritis Father Hypertension, Onset Age: 197 Family history of elevated blood lipids Patient's father is Sibling Hypertension Other Cerebrovascular accident Diabetes mellitus Family history of arthritis Family history of cardiovascular disease Family history of malignant neoplasm Family history of mental disorder Family history of seizure disorder Family history of thyroid disease Malignant neoplasm of prostate Social History Social History Smoking status: Never smoker Alcohol intake: never Substance use: never Substance use type: does not use Living arrangements: alone Spiritual care concerns: No Anes - Eval Final PreProcedure Day of Procedure 09/18/21 08:03 Patient weight: obese Heart: regular rate and rhythm Lungs
[2021-09-18] MEDS: LACTATED RINGERS 1,000 ML 30 ML IV CONT (08:37)
[2021-09-18] MEDS: ceFAZolin 2 GM/D5W 50 ML 2 GM/50 ML BAG IVPB (09:37)
--- NOTE | 2021-09-18 10:19 | W.PM.PROC2 ---
Procedure Note - Detailed Date of Procedure 09/18/21 Pre-op Diagnosis Left UPJ Stone Post-op Diagnosis same Procedure Performed ESWL left renal calculus Surgeon Narendra Felix MD Anesthesia general Description of Procedure patient is taken the operative suite and correctly identified. Once anesthesia was obtained the stone was localized in both planes. Two thousand five hundred shocks were given the stone. There appeared to be good fragmentation. Patient is taken recovery stable condition. She will follow up in 7-10 days with KUB And possible stent removal Drains No Packing No Pathology none sent Complications No immediate complications Condition stable Disposition PACU
== END 2021-09-18 12:30 | disposition home or self-care (01) ==
PROVIDERS: PCP Internal Medicine; Visit Provider Urology
PROC: (CPT 50590; principal; 2021-09-18 09:30)
DX: N20.0 Calculus of kidney (principal); E03.9 Hypothyroidism, unspecified; F32.9 Major depressive disorder, single episode, unspecified; Z86.711 Personal history of pulmonary embolism; K58.9 Irritable bowel syndrome, unspecified; E55.9 Vitamin D deficiency, unspecified; R00.0 Tachycardia, unspecified; E66.9 Obesity, unspecified; Z68.30 Body mass index [BMI] 30.0-30.9, adult
CPT/HCPCS: 50590; 74018; J0690; J1100; J2250; J2270; J2405; J2704; J7120

== ENCOUNTER 2021-09-29 06:59 | Outpatient (CLI) | payer OTHER, SELFPAY ==
--- NOTE | ~2021-09-29 | XR_ITS ---
EXAMINATION: XR abdomen/kub 1V INDICATION: Calculus of ureter with left stent TECHNIQUE: Supine views of the abdomen were obtained on 2 radiographs. COMPARISON: 09/18/2021 FINDINGS: A left internal ureteral stent is in expected position. There has been interval treatment o f the previously described stone in the left kidney lower pole. No definite stone fragments are ident ified along the internal ureteral stent. The bowel gas pattern is normal. IMPRESSION: 1. Interval treatment of the previously described left kidney stone without identifiable urolithiasis . Reviewed, dictated and finalized at location B. [employer] IMPRESSION: 1. Interval treatment of the previously described left kidney stone without viktoriya ntifiable urolithiasis.
== END 2021-09-29 07:00 | disposition home or self-care (01) ==
LOC: ANHIMG 07:02
PROVIDERS: PCP Internal Medicine; Visit Provider Urology
DX: N20.1 Calculus of ureter (principal)
CPT/HCPCS: 74018

== ENCOUNTER 2022-01-08 09:56 | Outpatient (CLI) | payer OTHER, SELFPAY ==
[2022-01-08 10:51] LABS: Basophils Percent Auto 0.5 % (0.2-1.2); Eosinophils Absolute Auto 0.1 K/mm3 (0-0.3); Eosinophils Percent Auto 2.1 % (0-4.4); Hematocrit 39.5 % (37.0-47.0); Hemoglobin 13.8 g/dL (12.0-15.0); Immature Granulocyte Absolute 0.01 K/mm3 (0.00-0.031); Immature Granulocyte Percent A 0.2 % (0-0.5); Lymphocytes Absolute Auto 1.71 K/mm3 (0.9-3.2); Mean Corpuscular HGB Conc 34.9 g/dl (32-36); Mean Corpuscular Hemoglobin 30.6 pg (26-34); Mean Corpuscular Volume 87.6 fl (80-100); Mean Platelet Volume 10.5 fl (7.4-10.4); Monocytes Absolute Auto 0.5 K/mm3 (0.1-0.6); Monocytes Percent Auto 7.1 % (2.6-8.5); Neutrophils Percent Auto 63.1 % (45.5-73.1); Platelet Count Result 234 k/mm3 (150-375); Red Blood Count 4.51 M/mm3 (4.2-5.4); White Blood Count 6.3 K/mm3 (4.5-10.0)
[2022-01-08 11:01] LABS: Alanine Aminotransferase 16 U/L (4-35); Albumin Level 4.3 g/dL (3.5-5.1); Alkaline Phosphatase 72 U/L (38-126); Anion Gap 11 mmol/L (8-16); Aspartate Amino Transferase 27 U/L (14-36); Bilirubin,Total 0.4 mg/dL (0.2-1.3); Blood Urea Nitrogen 28 mg/dL (7-17); Calcium 9.7 mg/dL (8.4-10.2); Carbon Dioxide 24 mmol/L (22-30); Chloride 104 mmol/L (98-107); Cholesterol 198 mg/dL (0-200); Estimated Glomerular Filt Rate > 60; Glucose 92 mg/dL (65-110); HDL Direct 45 mg/dL; Potassium 3.7 mmol/L (3.4-5.0); Sodium 139 mmol/L (137-145); Triglycerides 88 mg/dL (<150)
[2022-01-08 11:12] LABS: LDL Cholesterol Direct 123 mg/dL
[2022-01-08 12:22] LABS: Free T4 Free Thyroxine 1.53 ng/mL (0.78-2.19); Vitamin D 25 Hydroxy 36.5 ng/mL
== END 2022-01-08 09:57 | disposition home or self-care (01) ==
PROVIDERS: PCP Internal Medicine; Visit Provider Internal Medicine
DX: E03.9 Hypothyroidism, unspecified (principal); Z13.220 Encounter for screening for lipoid disorders; F41.8 Other specified anxiety disorders; E55.9 Vitamin D deficiency, unspecified; Z51.81 Encounter for therapeutic drug level monitoring; Z79.899 Other long term (current) drug therapy
CPT/HCPCS: 36415; 80053; 80061; 82306; 84439; 84443; 85025

== ENCOUNTER 2022-04-23 07:34 | Outpatient (CLI) | payer OTHER, SELFPAY ==
--- NOTE | ~2022-04-23 | MM_ITS ---
EXAMINATION: MM screening denny BI w lizy HISTORY: Screening mammogram TECHNIQUE: Craniocaudal and mediolateral oblique 3-D tomosynthesis images were obtained and synthetic 2-D images were generated. CAD analysis was submitted and interpreted. COMPARISON: 01/10/2021, 01/30/2019, 12/26/2017 bilateral screening mammogram examinations BREAST PARENCHYMAL COMPOSITION: There are scattered areas of fibroglandular density. FINDINGS: There is no evidence of suspicious mass, calcification, or architectural distortion to sugg est malignancy in either breast. There has been no suspicious interval change. IMPRESSION: 1. No mammographic evidence of malignancy. 2. Recommend routine screening mammography in one year. BI-RADS Category 1: Negative Reviewed, dictated and finalized at location A.
== END 2022-04-23 07:35 | disposition home or self-care (01) ==
PROVIDERS: PCP Internal Medicine; Visit Provider Obstetrics & Gynecology
DX: Z12.31 Encounter for screening mammogram for malignant neoplasm of breast (principal)
CPT/HCPCS: 77063; 77067

== ENCOUNTER 2022-05-04 17:09 | Outpatient (CLI) | payer OTHER, SELFPAY ==
--- NOTE | ~2022-05-04 | DEXA_ITS ---
Bone Density Report Name: CORKY OBRIEN Age: 42 Sex: Female Ethnicity: White Date of : 1980 Indication: height loss; Referring Provider: VIRAL WILSON Study: Bone densitometry was performed. Exam Date: May 04, 2022 Accession number: [id number] Bone Density: Region BMD T-score Z-score Classification AP Spine(L1-L4) 1.071 0.2 0.6 Normal Femoral Neck (Left) 0.888 0.4 0.7 Normal Total Hip (Left) 1.036 0.8 1.0 Normal Femoral Neck (Right) 0.856 0.1 0.5 Normal Total Hip (Right) 0.978 0.3 0.6 Normal Total Hip Mean 1.007 0.6 0.8 Normal World Health Organization criteria for BMD impression classify patients as: Normal (T-score at or above -1.0), Osteopenia (T-score between -1.0 and -2.5), or Osteoporosis (T-score at or below -2.5). 10-year Fracture Risk: FRAX not reported because: Premenopausal woman All T-scores for Spine Total, Hip Total, Femoral Neck at or above -1.0 Clinical Information Provided by Patient: Has used the following medications: Vitamin D, Calcium Patient maximum height was 66 Drinks caffeinated beverages Onset of menses at age 14 Premenopausal Number of children 1 Impression: The patient's bone mass is within expected range for age, gender and ethnicity. Discussion: BONE DENSITY IS WITHIN EXPECTED LIMITS FOR AGE, SEX AND RACE. Bone density is within expected limits for age, sex and race at all sites measured. The patient should follow a healthful lifestyle (good nutrition with adequate calcium and vitamin D, and appropriate weight-bearing exercise). Follow-Up: Consider repeating this study in 5 years or sooner if there is some new clinical indication. Reported by: FRANCESCO on 05/04/2022 4:50:00 PM. Reviewed, dictated and finalized at location A.
[2022-05-04 17:39] LABS: Basophils Percent Auto 0.4 % (0.2-1.2); Eosinophils Absolute Auto 0.2 K/mm3 (0-0.3); Hematocrit 39.9 % (37.0-47.0); Hemoglobin 14.1 g/dL (12.0-15.0); Immature Granulocyte Absolute 0.01 K/mm3 (0.00-0.031); Immature Granulocyte Percent A 0.2 % (0-0.5); Lymphocytes Absolute Auto 1.45 K/mm3 (0.9-3.2); Lymphocytes Percent Auto 26.8 % (18.3-44.2); Mean Corpuscular HGB Conc 35.3 g/dl (32-36); Mean Corpuscular Hemoglobin 32.6 pg (26-34); Mean Corpuscular Volume 92.4 fl (80-100); Monocytes Absolute Auto 0.4 K/mm3 (0.1-0.6); Monocytes Percent Auto 7.4 % (2.6-8.5); Neutrophils Absolute Auto 3.4 K/mm3 (1.3-6.7); Neutrophils Percent Auto 62.2 % (45.5-73.1); Platelet Count Result 249 k/mm3 (150-375); Red Blood Count 4.32 M/mm3 (4.2-5.4); Red Cell Distribution Width 12.4 % (11.5-14.5); White Blood Count 5.4 K/mm3 (4.5-10.0)
[2022-05-04 17:48] LABS: Anion Gap 7 mmol/L (8-16); Blood Urea Nitrogen 27 mg/dL (7-17); Calcium 9.2 mg/dL (8.4-10.2); Carbon Dioxide 29 mmol/L (22-30); Chloride 104 mmol/L (98-107); Estimated Glomerular Filt Rate > 60; Glucose 93 mg/dL (65-110); Potassium 3.4 mmol/L (3.4-5.0); Sodium 140 mmol/L (137-145)
[2022-05-04 18:26] LABS: Iron 84 ug/dL (37-170)
[2022-05-04 18:35] LABS: Percent Iron Saturation 23 % (20-50)
[2022-05-04 19:28] LABS: Folic Acid > 20.0 ng/mL (2.76->20); Vitamin B12 > 1000.0 pg/mL (239-931)
[2022-05-04 19:29] LABS: Vitamin D 25 Hydroxy 69.6 ng/mL
[2022-05-05 10:54] LABS: Cholesterol 172 mg/dL (0-200); HDL Direct 45 mg/dL; Triglycerides 71 mg/dL (<150)
[2022-05-05 11:05] LABS: LDL Cholesterol Direct 97 mg/dL
[2022-05-07 16:28] LABS: Zinc 92 mcg/dL (60-130)
[2022-05-09 09:47] LABS: Vitamin B1 66 nmol/L (8-30)
[2022-05-10 12:05] LABS: Vitamin B6 145.7 ng/mL (2.1-21.7)
== END 2022-05-04 17:10 | disposition home or self-care (01) ==
PROVIDERS: PCP Internal Medicine; Referring Provider Internal Medicine; Visit Provider Obstetrics & Gynecology
DX: R29.890 Loss of height (principal); E53.9 Vitamin B deficiency, unspecified; Z79.899 Other long term (current) drug therapy; I10 Essential (primary) hypertension; E55.9 Vitamin D deficiency, unspecified; E53.8 Deficiency of other specified B group vitamins; D50.9 Iron deficiency anemia, unspecified; E78.5 Hyperlipidemia, unspecified
CPT/HCPCS: 36415; 77080; 80048; 80061; 82306; 82607; 82728; 82746; 83540; 83550; 84207; 84252; 84425; 84630; 85025

== ENCOUNTER 2022-07-22 12:05 | Outpatient (CLI) | payer OTHER, SELFPAY ==
--- NOTE | ~2022-07-22 | XR_ITS ---
EXAMINATION: XR abdomen/kub 1V INDICATION: Abdominal pain, nausea and vomiting TECHNIQUE: Supine views of the abdomen were obtained on 2 radiographs. COMPARISON: 09/29/2021, 09/18/2021 FINDINGS: The left internal ureteral stent has been removed. No urolithiasis is identified. A tubal l igation clip projects in the left pelvis. There is also a phlebolith of the left pelvis. The bowel ga s pattern is normal. 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 There appears to be a surgical staple line in the upper abdomen. IMPRESSION: 1. No urolithiasis identified. Reviewed, dictated and finalized at location A.
== END 2022-07-22 12:06 | disposition home or self-care (01) ==
LOC: ANHIMG 12:08
PROVIDERS: PCP Internal Medicine; Visit Provider Nurse Practitioner
DX: R10.9 Unspecified abdominal pain (principal); R11.2 Nausea with vomiting, unspecified; R19.4 Change in bowel habit
CPT/HCPCS: 74018

== ENCOUNTER 2022-07-29 06:56 | Outpatient (CLI) | payer OTHER, SELFPAY ==
[2022-07-29 07:26] LABS: Basophils Percent Auto 0.4 % (0.2-1.2); Eosinophils Absolute Auto 0.2 K/mm3 (0-0.3); Eosinophils Percent Auto 3.5 % (0-4.4); Hematocrit 39.3 % (37.0-47.0); Hemoglobin 13.4 g/dL (12.0-15.0); Immature Granulocyte Absolute 0.01 K/mm3 (0.00-0.031); Immature Granulocyte Percent A 0.2 % (0-0.5); Lymphocytes Absolute Auto 1.82 K/mm3 (0.9-3.2); Lymphocytes Percent Auto 33.1 % (18.3-44.2); Mean Corpuscular HGB Conc 34.1 g/dl (32-36); Mean Corpuscular Hemoglobin 31.3 pg (26-34); Mean Corpuscular Volume 91.8 fl (80-100); Mean Platelet Volume 10.2 fl (7.4-10.4); Monocytes Absolute Auto 0.6 K/mm3 (0.1-0.6); Monocytes Percent Auto 10.4 % (2.6-8.5); Neutrophils Absolute Auto 2.9 K/mm3 (1.3-6.7); Neutrophils Percent Auto 52.4 % (45.5-73.1); Platelet Count Result 265 k/mm3 (150-375); Red Blood Count 4.28 M/mm3 (4.2-5.4); Red Cell Distribution Width 12.3 % (11.5-14.5); White Blood Count 5.5 K/mm3 (4.5-10.0)
[2022-07-29 07:45] LABS: Alanine Aminotransferase 21 U/L (6-35); Albumin Level 4.6 g/dL (3.5-5.1); Alkaline Phosphatase 79 U/L (38-126); Anion Gap 15 mmol/L (8-16); Aspartate Amino Transferase 26 U/L (14-36); Bilirubin,Total 0.4 mg/dL (0.2-1.3); Blood Urea Nitrogen 29 mg/dL (7-17); Calcium 8.8 mg/dL (8.4-10.2); Carbon Dioxide 26 mmol/L (22-30); Chloride 98 mmol/L (98-107); Estimated Glomerular Filt Rate > 60; Glucose 94 mg/dL (65-110); Potassium 3.8 mmol/L (3.4-5.0); Sodium 139 mmol/L (137-145)
[2022-07-29 07:58] LABS: Free T4 Free Thyroxine 1.56 ng/mL (0.78-2.19); Hemoglobin A1C 4.7 % (<5.7); Vitamin D 25 Hydroxy 43.7 ng/mL
[2022-08-02 07:08] LABS: Apolipoprotein B 86 mg/dL (<90)
== END 2022-07-29 06:57 | disposition home or self-care (01) ==
LOC: ANHLAB 06:57
PROVIDERS: PCP Internal Medicine; Visit Provider Internal Medicine
DX: E78.5 Hyperlipidemia, unspecified (principal); I10 Essential (primary) hypertension; Z13.1 Encounter for screening for diabetes mellitus; Z79.899 Other long term (current) drug therapy; E55.9 Vitamin D deficiency, unspecified; E03.9 Hypothyroidism, unspecified
CPT/HCPCS: 36415; 80053; 82172; 82306; 83036; 84439; 84443; 85025

== ENCOUNTER 2022-08-04 08:27 | Outpatient (CLI) | payer OTHER, SELFPAY ==
--- NOTE | ~2022-08-04 | CT_ITS ---
EXAMINATION: CT abdomen pelvis w con INDICATION: Abdominal pain, change in bowel habits TECHNIQUE: Computed tomographic images of the abdomen and pelvis were obtained after the administrati on of 100 cc of Omnipaque 350 intravenous contrast. The dose-length product (DLP) was 409.50 mGy-cm. Automated exposure control and iterative reconstruction technique were employed. COMPARISON: 08/25/2021 FINDINGS: The lung bases are clear. The heart size is normal. There appear to be changes of interval gastric sleeve surgery. There is focal fatty infiltration of the liver near the ligamentum teres. The spleen, pancreas, gallbladder, and adrenal glands are normal. Hypoattenuating lesions in the kidneys , measuring up to 5 mm on the right, are too small to characterize but likely represent cysts. No pat hologically enlarged abdominal or pelvic lymph nodes are identified. There is no free intraperitoneal gas or evidence of bowel obstruction. A large volume of colonic stool is present. There is mild lumb ar spondylosis. IMPRESSION: 1. Constipation. Reviewed, dictated and finalized at location B. IMPRESSION: 1. Constipation.
== END 2022-08-04 08:28 | disposition home or self-care (01) ==
PROVIDERS: PCP Internal Medicine; Visit Provider Nurse Practitioner
DX: R10.9 Unspecified abdominal pain (principal); R11.2 Nausea with vomiting, unspecified; K59.00 Constipation, unspecified
CPT/HCPCS: 74177; Q9967

== ENCOUNTER 2022-09-01 06:45 | Outpatient (CLI) | payer OTHER, SELFPAY ==
[2022-09-01 08:10] LABS: Thyroid Stimulating Hormone 0.418 uIU/mL (0.465-4.680)
[2022-09-01 08:50] LABS: Free T4 Free Thyroxine 1.85 ng/mL (0.78-2.19)
== END 2022-09-01 06:46 | disposition home or self-care (01) ==
LOC: ANHLAB 06:47
PROVIDERS: PCP Internal Medicine; Visit Provider Internal Medicine
DX: E03.9 Hypothyroidism, unspecified (principal)
CPT/HCPCS: 36415; 84439; 84443

== ENCOUNTER 2022-09-24 10:39 | Outpatient (RCR) | payer OTHER, SELFPAY | END 2022-12-13 13:40 | disposition home or self-care (01) | LOC: ANHPT 10:39 | PROVIDERS: PCP Internal Medicine; Visit Provider Nurse Practitioner | DX: K62.3 Rectal prolapse (principal); K59.09 Other constipation | CPT/HCPCS: 99199 ==

== ENCOUNTER 2022-09-24 22:46 | Emergency (ER) | payer OTHER, SELFPAY ==
--- NOTE | ~2022-09-24 | XR_ITS ---
XR chest 2V DATE: 09/24/2022 23:18 INDICATION: Chest pain, tachycardia, hypertension TECHNIQUE: PA and lateral views COMPARISON: 04/15/2021 CT pulmonary scan 06/09/2016 portable AP chest FINDINGS: Normal heart size. No hilar or mediastinal enlargement. No pulmonary infiltrate or consolid ation, pleural effusion or pulmonary vascular congestion or pneumothorax. Surgical clips overlying left upper quadrant of abdomen. Included skeletal structures are unremarkable. IMPRESSION: No active cardiopulmonary disease Reviewed, dictated and finalized at location A.
--- NOTE | ~2022-09-24 | CT_ITS ---
EXAMINATION: CTA chest PE protocol DATE: 09/25/2022 04:02 INDICATION: Racing heart. Elevated d-dimer. TECHNIQUE: Computed tomography angiography (CTA) of the chest was performed with 100 mL Omnipaque-350 intravenous contrast timed to evaluate the pulmonary arteries. Coronal maximum intensity projection 3D-reconstructions were created by the technologist. Automated exposure control and iterative reconst ruction technique were employed. Exam dose: 274.00 mGy-cm total exam DLP. COMPARISON: 04/15/2021 CT pulmonary scan FINDINGS: There is moderate opacification the pulmonary arteries and no evidence of pulmonary embolis m. No thoracic aortic aneurysm or dissection. No hilar or mediastinal mass lesion or lymphadenopathy. Normal heart size. No pericardial or pleural effusion. No pulmonary infiltrate or consolidation or pulmonary mass lesion. Normal morphology of the adrenal glands. 4.7 x 5.6 mm left renal pelvic calculus. 2 mm left renal calculus. IMPRESSION: No evidence of pulmonary embolism Left renal pelvic 4.7 x 5.6 mm calculus, 2 mm left renal calculus Reviewed, dictated and finalized at Location A. Reviewed, dictated and finalized at location A.
[2022-09-24 22:49] VITALS: BP 158/106; PULSE 140; RESP 18; TEMP 36.3; O2SAT 98
--- NOTE | 2022-09-24 23:05 | ECG_ITS ---
Measurements Intervals [place] Rate: 128 P: 49 AL: 152 QRS: 44 QRSD: 72 T: 34 QT: 280 QTc: 409 Interpretive Statements SINUS TACHYCARDIA BASELINE WANDER- V4-V6 ABNORMAL ECG NO PREVIOUS ECG AVAILABLE FOR COMPARISON Electronically Signed On 09-25-2022 7:32:37 CDT by David Villegas D.O.
[2022-09-24 23:17] LABS: Basophils Percent Auto 0.4 % (0.2-1.2); Eosinophils Percent Auto 0.4 % (0-4.4); Hematocrit 37.6 % (37.0-47.0); Hemoglobin 13.2 g/dL (12.0-15.0); Immature Granulocyte Absolute 0.01 K/mm3 (0.00-0.031); Immature Granulocyte Percent A 0.2 % (0-0.5); Lymphocytes Absolute Auto 1.14 K/mm3 (0.9-3.2); Lymphocytes Percent Auto 20.8 % (18.3-44.2); Mean Corpuscular HGB Conc 35.1 g/dl (32-36); Mean Corpuscular Volume 91.3 fl (80-100); Mean Platelet Volume 9.4 fl (7.4-10.4); Monocytes Absolute Auto 0.4 K/mm3 (0.1-0.6); Monocytes Percent Auto 6.7 % (2.6-8.5); Neutrophils Absolute Auto 3.9 K/mm3 (1.3-6.7); Neutrophils Percent Auto 71.5 % (45.5-73.1); Platelet Count Result 314 k/mm3 (150-375); Red Blood Count 4.12 M/mm3 (4.2-5.4); Red Cell Distribution Width 12.7 % (11.5-14.5); White Blood Count 5.5 K/mm3 (4.5-10.0)
[2022-09-24 23:28] LABS: INR 0.9
[2022-09-24 23:29] LABS: Partial Thromboplastin Time 24.3 SECONDS (22.3-36.8)
[2022-09-24 23:32] LABS: Alanine Aminotransferase 19 U/L (6-35); Albumin Level 4.3 g/dL (3.5-5.1); Alkaline Phosphatase 87 U/L (38-126); Anion Gap 15 mmol/L (8-16); Aspartate Amino Transferase 31 U/L (14-36); Bilirubin,Total 0.3 mg/dL (0.2-1.3); Blood Urea Nitrogen 13 mg/dL (7-17); Calcium 8.6 mg/dL (8.4-10.2); Carbon Dioxide 21 mmol/L (22-30); Chloride 104 mmol/L (98-107); Estimated CRCL calculation 108 ml/min; Estimated Glomerular Filt Rate > 60; Glucose 110 mg/dL (65-110); Lipase 125 U/L (23-300); Potassium 3.5 mmol/L (3.4-5.0); Sodium 140 mmol/L (137-145)
[2022-09-24 23:43] LABS: Troponin I < 0.012 ng/mL (0.000-0.034)
[2022-09-24 23:47] VITALS: BP 165/104; PULSE 118; PULSE 120; RESP 22; RESP 24; O2SAT 99
[2022-09-24 23:48] VITALS: BP 165/104; PULSE 112; RESP 17; O2SAT 100
--- NOTE | 2022-09-24 23:59 | ED.ARRPALP ---
HPI - Arrhythmia/Palpitations General Chief Complaint: Arrhythmia/Palpitations Stated Complaint: palpitations Time Seen by Provider: 09/24/22 23:47 Source: patient, RN notes reviewed and old records reviewed Mode of arrival: EMS Limitations: no limitations History of Present Illness HPI narrative: This is a 42 year old female who presents for evaluation of heart racing. Patient states around 4 pm she developed rapid heart rate. She states she just feels her heart pound. This has been constant since 4 pm. She denies associated chest pain, dizziness, nausea, vomiting, diarrhea, or abdominal pain. She states her synthroid was increased from 100 mcg to 125 mg 2 months ago , but her levels have been rechecked and they are fine. She also reports she had throbbing headache on Tuesday so she tested herself for covid on Tuesday. Her test returned positive. Otherwise she has been asymptomatic and her headache has resolved. She reports history of PE several years ago but she does not take anticoagulation. Related Data Home Medications Medication Instructions Recorded Confirmed evening primrose oil 500 mg capsule 500 mg PO DAILY 08/04/21 08/17/22 Saccharomyces boulardii 250 mg 250 mg PO BID 07/22/22 08/17/22 capsule (Digest Probiotic (S.boulardii)) docusate sodium 100 mg capsule 100 mg PO BID 07/22/22 08/17/22 omeprazole 20 mg capsule,delayed 20 mg PO BID 07/22/22 08/17/22 release lactulose 20 gram oral packet 10 g PO DAILY 08/17/22 08/17/22 Allergies Allergy/AdvReac Type Severity Reaction Status Date / Time No Known Allergies Allergy Verified 08/17/22 11:26 Review of Systems Review of Systems: All systems reviewed & are unremarkable except as noted in HPI and below Constitutional: Constitutional: Denies chills, Denies fatigue and Denies fever(s) Eyes: Eyes: Denies change in vision ENT: Denies sore throat Cardiovascular: Cardiovascular: Denies chest pain, Reports rapid heart rate and Denies radiating jaw, neck or arm pain Respiratory: Respiratory: Denies chest congestion and Denies cough Gastrointestinal: Gastrointestinal: Denies abdominal pain, Denies nausea and Denies vomiting Neurologic: Denies dizziness and Denies syncope [facility] Past Medical History Medical History Abdominal pain Anxiety with depression Benign essential hypertension BMI 24.0-24.9, adult BMI 26.0-26.9,adult BMI 27.0-27.9,adult BMI 28.0-28.9,adult BMI 30.0-30.9,adult Change in bowel habits Chondromalacia of patella Colon cancer screening Contusion of left knee Drug overdose, intentional DUB (dysfunctional uterine bleeding) Encounter for preventive health examination Encounter for routine adult health examination without abnormal findings Encounter for screening mammogram for malignant neoplasm of breast Hepatic steatosis History of renal stone Hx of adenomatous colonic polyps Hx pulmonary embolism Hypothyroidism (acquired) IBS (irritable bowel syndrome) Impingement of left knee joint Irritable bowel syndrome with constipation Kidney stone Microscopic hematuria Migraine Muscle cramps Nausea and vomiting On senior care drug therapy Persistent headaches Pneumonia of both lungs Right foot pain Right hip pain RUQ abdominal pain Screening for lipid disorders SOB (shortness of breath) Strain of lumbar paraspinal muscle Tachycardia Vitamin D deficiency Weight gain Surgical History Surgical History H/O tubal ligation History of gastric surgery Hx of hand surgery Hx of laparoscopic partial gastrectomy Family History Family History Mother Hypertension Carcinoma of colon Family history of diabetes mellitus in first degree relative Family history of gastrointestinal disorder Family history of elevated blood lipids Grandparent Family history of rheumatoid arth
[2022-09-25] VITALS (29 sets, daily range): BP systolic 140–157; BP diastolic 90–102; PULSE 88–112; RESP 15–23; O2SAT 97–100
[2022-09-25] MEDS: SODIUM CHLORIDE 0.9% IV 1,000 ML 999 ML IV CONT (00:10)
[2022-09-25 01:01] LABS: Magnesium 1.8 mg/dL (1.6-2.3)
[2022-09-25 01:07] LABS: D Dimer 0.66 ug/mL (<0.48)
[2022-09-25 02:14] LABS: Thyroid Stimulating Hormone Reflex 0.159 uIU/mL (0.465-4.68)
[2022-09-25 02:30] LABS: Troponin I < 0.012 ng/mL (0.000-0.034)
[2022-09-25 03:20] LABS: Free T4 Free Thyroxine Reflex 0.96 ng/dL (0.78-2.19)
[2022-09-25 04:17] LABS: Total Triiodothyronine (T3) 0.95 NG/ML (0.97-1.69)
[2022-09-25] MEDS: ALPRAZolam (*CRX) 0.5 MG TABLET 0.25 MG PO (04:39)
[2022-09-25] MEDS: ONDANSETRON INJ 4 MG/2 ML VIAL IV PUSH (04:39)
[2022-09-25 05:46] LABS: Troponin I < 0.012 ng/mL (0.000-0.034)
== END 2022-09-25 07:10 | disposition home or self-care (01) ==
PROVIDERS: Preventive Medicine Aerospace Medicine; Emergency Provider General Practice; PCP Internal Medicine
DX: R00.0 Tachycardia, unspecified (principal); R00.2 Palpitations; F41.9 Anxiety disorder, unspecified; I10 Essential (primary) hypertension; K58.1 Irritable bowel syndrome with constipation; E03.9 Hypothyroidism, unspecified; E55.9 Vitamin D deficiency, unspecified; Z86.010 Personal history of colon polyps; Z87.442 Personal history of urinary calculi; Z87.01 Personal history of pneumonia (recurrent); Z86.711 Personal history of pulmonary embolism
CPT/HCPCS: 36415; 71046; 71275; 80053; 83690; 83735; 84439; 84443; 84480; 84484; 85025; 85380; 85610; 85730; 93005; 96361; 96374; 99284; A9270; J2405; J7030; Q9967

== ENCOUNTER 2022-11-04 10:25 | Emergency (ER) | payer OTHER, SELFPAY ==
--- NOTE | ~2022-11-04 | CT_ITS ---
CT Abdomen and Pelvis with contrast. History: Abdominal pain. Spiral CT of the abdomen and pelvis was performed after the administration of intravenous contrast. 100 cc of Omnipaque 350 was administered intravenously without complication. Dose reduction technique was used on this scan by utilizing automated exposure control and iterative reconstruction technique . The dose-length product (DLP) was 421.23 mGy-cm. COMPARISON: 08/04/2022 Findings: Scans through the lung bases demonstrate mild atelectatic change. The liver, spleen, pancreas, gallbladder, adrenals and kidneys are within normal limits. No evidence of aortic aneurysm. No lymphadenopathy is seen. There is no evidence of bowel obstruction. There is no evidence to suggest acute appendicitis or dive rticulitis. Images through the pelvis were performed. Tiny bubbles of air present in the urinary bladder. No sign ificant adnexal mass seen. No ascites is seen. Impression: Tiny bubbles of air in urinary bladder. Correlate for iatrogenic air. Moderate stool suggests constipation. Reviewed, dictated and finalized at location [] [employer] Impression: Tiny bubbles of air in urinary bladder. Correlate for iatrogenic air. Moderate stool suggests constipation.
[2022-11-04 10:32] VITALS: BP 135/86; PULSE 113; RESP 14; TEMP 36.4; O2SAT 99
--- NOTE | 2022-11-04 10:54 | ED.ABDPAIN ---
HPI - Abdominal Pain General Chief Complaint: Abdominal Pain Stated Complaint: ABD Pain x3 days Time Seen by Provider: 11/04/22 10:40 History of Present Illness HPI narrative: 42-year-old female history of migraine headaches, hypothyroidism, anxiety depression, IBS, status post gastric sleeve presents to the emergency room for evaluation of diffuse abdominal pain for several days. Patient states her last bowel movement was 10 days ago. Normally takes Linzess and Metamucil for this but has not produced any results. Patient denies any dysuria or back pain. Reportedly had 1 episode of nonbilious nonbloody emesis last night. Patient also endorses fever with a T-max of 101. Patient's PCP encouraged her to come to the emergency room for further evaluation. Related Data Home Medications Medication Instructions Recorded Confirmed evening primrose oil 500 mg capsule 500 mg PO DAILY 08/04/21 10/29/22 Saccharomyces boulardii 250 mg 250 mg PO BID 07/22/22 10/29/22 capsule (Digest Probiotic (S.boulardii)) docusate sodium 100 mg capsule 100 mg PO BID 07/22/22 10/29/22 omeprazole 20 mg capsule,delayed 20 mg PO BID 07/22/22 10/29/22 release cholecalciferol (vitamin D3) 50 50 mcg PO DAILY 10/28/22 10/29/22 mcg (2,000 unit) capsule multivitamin 1 tablet PO DAILY 10/28/22 10/29/22 Allergies Allergy/AdvReac Type Severity Reaction Status Date / Time No Known Allergies Allergy Verified 10/28/22 13:20 Review of Systems Review of Systems: CONSTITUTIONAL: Denies fever, chills, or sweats. EYES: Denies visual changes, redness, or discharge. ENT: Denies rhinorrhea, congestion, sore throat, or otalgia. CARDIOVASCULAR: Denies chest pain, palpitations, or edema. RESPIRATORY: Denies cough or dyspnea. GASTROINTESTINAL: Reports abdominal pain, constipation GENITOURINARY: Denies dysuria or hematuria. SKIN: Denies rash or itching. MUSCULOSKELETAL: Denies back pain, joint pain, or myalgia. NEUROLOGIC: Denies headache, numbness, dizziness, or weakness. PSYCHIATRIC: Denies anxiety or depression. [facility] Past Medical History Medical History Abdominal pain Anxiety with depression Benign essential hypertension BMI 24.0-24.9, adult BMI 25.0-25.9,adult BMI 26.0-26.9,adult BMI 27.0-27.9,adult BMI 28.0-28.9,adult BMI 30.0-30.9,adult Change in bowel habits Chondromalacia of patella Colon cancer screening Contusion of left knee Drug overdose, intentional DUB (dysfunctional uterine bleeding) Encounter for preventive health examination Encounter for routine adult health examination without abnormal findings Encounter for screening mammogram for malignant neoplasm of breast Hepatic steatosis History of renal stone Hx of adenomatous colonic polyps Hx pulmonary embolism Hypothyroidism (acquired) IBS (irritable bowel syndrome) Impingement of left knee joint Irritable bowel syndrome with constipation Kidney stone Microscopic hematuria Migraine Muscle cramps Nausea and vomiting On technician terminal and repeater drug therapy Persistent headaches Pneumonia of both lungs Right foot pain Right hip pain RUQ abdominal pain Screening for lipid disorders SOB (shortness of breath) Strain of lumbar paraspinal muscle Tachycardia Vitamin D deficiency Weight gain Surgical History Surgical History H/O tubal ligation History of gastric surgery Hx of hand surgery Hx of laparoscopic partial gastrectomy Family History Family History Mother Hypertension Carcinoma of colon Family history of diabetes mellitus in first degree relative Family history of gastrointestinal disorder Family history of elevated blood lipids Grandparent Family history of rheumatoid arthritis Father Hypertension, Onset Age: 197 Family history of elevated blood lipids Patient's father is Sibling Hypertensi
[2022-11-04 11:17] LABS: Basophils Percent Auto 0.3 % (0.2-1.2); Eosinophils Absolute Auto 0.1 K/mm3 (0-0.3); Eosinophils Percent Auto 2.1 % (0-4.4); Hematocrit 39.5 % (37.0-47.0); Hemoglobin 13.6 g/dL (12.0-15.0); Immature Granulocyte Absolute 0.02 K/mm3 (0.00-0.031); Immature Granulocyte Percent A 0.3 % (0-0.5); Lymphocytes Absolute Auto 0.89 K/mm3 (0.9-3.2); Lymphocytes Percent Auto 15.2 % (18.3-44.2); Mean Corpuscular HGB Conc 34.4 g/dl (32-36); Mean Corpuscular Hemoglobin 32.1 pg (26-34); Mean Corpuscular Volume 93.2 fl (80-100); Mean Platelet Volume 10.1 fl (7.4-10.4); Monocytes Absolute Auto 0.5 K/mm3 (0.1-0.6); Monocytes Percent Auto 9.1 % (2.6-8.5); Neutrophils Absolute Auto 4.3 K/mm3 (1.3-6.7); Platelet Count Result 301 k/mm3 (150-375); Red Blood Count 4.24 M/mm3 (4.2-5.4); Red Cell Distribution Width 12.7 % (11.5-14.5); White Blood Count 5.8 K/mm3 (4.5-10.0)
[2022-11-04 11:20] LABS: Add Urine Microscopic? YES; Appearance Urine Clear (Clear); Bilirubin Urine Negative (Negative); Blood Urine 1+ (Negative); Color Urine Yellow (Yellow); Glucose Urine UA Negative (Negative); Ketones Urine Trace mg/dL (Negative); Leukocyte Esterase Ur Negative LEU/UL (Negative); Nitrate Urine Negative (Negative); Protein Urine Trace mg/dL (Negative); Specific Grav Ur 1.025 (1.001-1.035); Urobilinogen Urine 0.2 mg/dL (<2.0)
[2022-11-04] MEDS: SODIUM CHLORIDE 0.9% IV 1,000 ML 999 ML IV CONT (11:27)
[2022-11-04 11:28] LABS: Alanine Aminotransferase 16 U/L (6-35); Albumin Level 3.3 g/dL (3.5-5.1); Alkaline Phosphatase 61 U/L (38-126); Anion Gap 4 mmol/L (8-16); Aspartate Amino Transferase 27 U/L (14-36); Bilirubin,Total 0.2 mg/dL (0.2-1.3); Blood Urea Nitrogen 14 mg/dL (7-17); Calcium 6.8 mg/dL (8.4-10.2); Carbon Dioxide 23 mmol/L (22-30); Chloride 110 mmol/L (98-107); Estimated Glomerular Filt Rate > 60; Glucose 72 mg/dL (65-110); Lactic Acid Reflex 0.8 mmol/L (0.7-2.0); Lipase 42 U/L (23-300); Potassium 3.1 mmol/L (3.4-5.0); Sodium 137 mmol/L (137-145)
[2022-11-04 11:35] LABS: Bacteria Urine Trace /hpf; Mucus Urine Few /lpf; Squamous Epithelial Cell Urine Few /hpf (Few); WBC Urine 0-3 /hpf
== END 2022-11-04 14:00 | disposition home or self-care (01) ==
PROVIDERS: Emergency Provider Nurse Practitioner Family; PCP Internal Medicine
DX: K58.1 Irritable bowel syndrome with constipation (principal); I10 Essential (primary) hypertension; E55.9 Vitamin D deficiency, unspecified; Z98.84 Bariatric surgery status; Z87.442 Personal history of urinary calculi; Z86.711 Personal history of pulmonary embolism; Z87.01 Personal history of pneumonia (recurrent)
CPT/HCPCS: 36415; 74177; 80053; 81001; 83605; 83690; 85025; 96360; 99284; J7030; Q9967

== ENCOUNTER 2022-11-25 09:47 | Outpatient (CLI) | payer OTHER, SELFPAY ==
[2022-11-25 10:17] LABS: Alanine Aminotransferase 19 U/L (6-35); Albumin Level 3.8 g/dL (3.5-5.1); Alkaline Phosphatase 79 U/L (38-126); Anion Gap 1 mmol/L (8-16); Aspartate Amino Transferase 24 U/L (14-36); Bilirubin,Total < 0.1 mg/dL (0.2-1.3); Blood Urea Nitrogen 18 mg/dL (7-17); Calcium 8.1 mg/dL (8.4-10.2); Carbon Dioxide 30 mmol/L (22-30); Chloride 105 mmol/L (98-107); Estimated Glomerular Filt Rate > 60; Glucose 102 mg/dL (65-110); Magnesium 2.1 mg/dL (1.6-2.3); Potassium 3.4 mmol/L (3.4-5.0); Sodium 136 mmol/L (137-145)
[2022-11-25 10:35] LABS: Free T4 Free Thyroxine 1.11 ng/mL (0.78-2.19); Vitamin D 25 Hydroxy 44.7 ng/mL
[2022-11-25 10:48] LABS: Thyroid Stimulating Hormone 0.247 uIU/mL (0.465-4.680)
== END 2022-11-25 09:48 | disposition home or self-care (01) ==
LOC: ANHLAB 09:49
PROVIDERS: PCP Internal Medicine; Visit Provider Internal Medicine
DX: R00.2 Palpitations (principal); Z79.899 Other long term (current) drug therapy; E03.9 Hypothyroidism, unspecified; E55.9 Vitamin D deficiency, unspecified; F32.A Depression, unspecified; I10 Essential (primary) hypertension
CPT/HCPCS: 36415; 80053; 82306; 83735; 84439; 84443

== ENCOUNTER 2022-12-25 02:54 | Emergency (ER) | payer OTHER, SELFPAY ==
[2022-12-25 02:59] VITALS: BP 130/75; PULSE 93; RESP 18; TEMP 36.4; O2SAT 100
--- NOTE | 2022-12-25 03:14 | ED.GENADULT ---
HPI - General Adult General Chief complaint: Headache Stated complaint: migraine since midnight, hx of Time Seen by Provider: 12/25/22 02:58 History of Present Illness HPI narrative: 42-year-old female presented the emergency department for evaluation of cute onset of a migraine that started approximately midnight. Patient reports she does have a prior history of migraines. Patient reports this does feel similar to her previous migraines and onset and character although it is more intense than usual. Patient describes a frontal headache with associated nausea and vomiting and light sensitivity. Patient denies any fevers. Patient denies any falls or injuries. Patient did take Maxalt with no improvement Related Data Home Medications Medication Instructions Recorded Confirmed evening primrose oil 500 mg capsule 500 mg PO DAILY 08/04/21 12/01/22 Saccharomyces boulardii 250 mg 250 mg PO BID 07/22/22 12/01/22 capsule (Digest Probiotic (S.boulardii)) docusate sodium 100 mg capsule 100 mg PO BID 07/22/22 12/01/22 omeprazole 20 mg capsule,delayed 20 mg PO BID 07/22/22 12/01/22 release cholecalciferol (vitamin D3) 50 50 mcg PO DAILY 10/28/22 12/01/22 mcg (2,000 unit) capsule multivitamin 1 tablet PO DAILY 10/28/22 12/01/22 Allergies Allergy/AdvReac Type Severity Reaction Status Date / Time No Known Allergies Allergy Verified 11/30/22 15:27 Review of Systems Review of Systems: CONSTITUTIONAL: Denies fever, chills, or sweats. EYES: Denies visual changes, redness, or discharge. ENT: Denies rhinorrhea, congestion, sore throat, or otalgia. CARDIOVASCULAR: Denies chest pain, palpitations, or edema. RESPIRATORY: Denies cough or dyspnea. GASTROINTESTINAL: Nausea and vomiting GENITOURINARY: Denies dysuria or hematuria. SKIN: Denies rash or itching. MUSCULOSKELETAL: Denies back pain, joint pain, or myalgia. NEUROLOGIC: See HPI [facility] Past Medical History Medical History Abdominal pain Anxiety with depression Benign essential hypertension BMI 24.0-24.9, adult BMI 25.0-25.9,adult BMI 26.0-26.9,adult BMI 27.0-27.9,adult BMI 28.0-28.9,adult BMI 30.0-30.9,adult Change in bowel habits Chondromalacia of patella Colon cancer screening Contusion of left knee Drug overdose, intentional DUB (dysfunctional uterine bleeding) Encounter for preventive health examination Encounter for routine adult health examination without abnormal findings Encounter for screening mammogram for malignant neoplasm of breast Hepatic steatosis History of renal stone Hx of adenomatous colonic polyps Hx pulmonary embolism Hypothyroidism (acquired) IBS (irritable bowel syndrome) Impingement of left knee joint Irritable bowel syndrome with constipation Kidney stone Microscopic hematuria Migraine Muscle cramps Nausea and vomiting On 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 Persistent headaches Pneumonia of both lungs Right foot pain Right hip pain RUQ abdominal pain Screening for lipid disorders SOB (shortness of breath) Strain of lumbar paraspinal muscle Tachycardia Vitamin D deficiency Weight gain Surgical History Surgical History H/O tubal ligation History of gastric surgery Hx of hand surgery Hx of laparoscopic partial gastrectomy Family History Family History Mother Hypertension Carcinoma of colon Family history of diabetes mellitus in first degree relative Family history of gastrointestinal disorder Family history of elevated blood lipids Grandparent Family history of rheumatoid arthritis Father Hypertension, Onset Age: 197 Family history of elevated blood lipids Patient's father is Sibling Hypertension Other Cerebrovascular accident Diabetes mellitus Family history of arthritis Family history of cardiovascular disease Family history of rochelle
[2022-12-25 03:28] VITALS: BP 118/80; PULSE 80; RESP 16; O2SAT 97
[2022-12-25] MEDS: SODIUM CHLORIDE 0.9% IV 1,000 ML 999 ML IV CONT (03:37)
[2022-12-25] MEDS: diphenhydrAMINE HCl INJ 50 MG/ML VIAL 25 MG IV PUSH (03:38)
[2022-12-25] MEDS: KETOROLAC 15 MG/ML VIAL (*BKC) IV PUSH (03:38)
[2022-12-25] MEDS: PROCHLORPERAZINE EDISYLATE 10 MG/2 ML VIAL IV PUSH (03:38)
[2022-12-25 03:46] VITALS: BP 118/82; PULSE 77; O2SAT 96
[2022-12-25 04:01] VITALS: BP 106/75; PULSE 75; O2SAT 94
[2022-12-25 04:49] VITALS: BP 103/81; PULSE 76; RESP 16; O2SAT 96
== END 2022-12-25 04:54 | disposition home or self-care (01) ==
LOC: ANHED 03:47
PROVIDERS: Emergency Provider Emergency Medicine; PCP Internal Medicine
DX: G43.909 Migraine, unspecified, not intractable, without status migrainosus (principal); I10 Essential (primary) hypertension; E03.9 Hypothyroidism, unspecified; Z86.711 Personal history of pulmonary embolism
CPT/HCPCS: 96361; 96374; 96375; 99284; J0780; J1200; J1885; J7030

== ENCOUNTER 2023-01-09 14:44 | Emergency (ER) | payer OTHER, SELFPAY ==
[2023-01-09] VITALS (7 sets, daily range): BP systolic 127–161; BP diastolic 91–109; PULSE 103–141; RESP 15–25; TEMP 36.6; O2SAT 98–100
--- NOTE | ~2023-01-09 | CT_ITS ---
EXAMINATION: CT abdomen pelvis w con DATE: 01/09/2023 21:00 INDICATION: gen Abd pain, N/V x2 weeks, history of IBS TECHNIQUE: Computed tomography (CT) of the abdomen and pelvis was performed with 100 mL Omnipaque-350 intravenous contrast. Automated exposure control and iterative reconstruction technique were employe d. The dose-length product was 510.39 mGy-cm. COMPARISON: 11/04/2022. FINDINGS: Lower thorax: Unremarkable Liver: Normal. Biliary/Gallbladder: Gallbladder is normal. No bile duct dilation. Pancreas: No mass or duct dilation. Spleen: Normal. Surgical clips adjacent to the medial portion of the spleen. Adrenals:No mass. Kidneys: Multiple hypodensities, too small to characterize but most likely represent cysts. No suspic ious mass. No obstructing calcification. Punctate left midpole calcification. No hydronephrosis GI tract: Mild distal esophageal and antral wall edema. Prior gastric surgery. No small or large oswaldo l dilation. Diffuse colonic wall edema. Submucosal colonic fat deposition as can be seen with chronic IBD. The appendix is not confidently identified. Mesentery/Peritoneum: No ascites, mass, or free air. Retroperitoneum: No mass. Pelvis: Pelvic organs are within normal limits. Soft Tissues: Soft tissues and body wall unremarkable. Bones: No acute osseous finding. IMPRESSION: Esophagitis/gastritis. Diffuse colonic wall edema likely representing an acute flare of IBS. Reviewed, dictated and finalized at location K. DOCTOR
[2023-01-09 15:27] LABS: Basophils Absolute Auto 0.1 K/mm3 (0.0-0.1); Basophils Percent Auto 1.1 % (0.2-1.2); Eosinophils Percent Auto 0.8 % (0-4.4); Hematocrit 44.3 % (37.0-47.0); Hemoglobin 15.3 g/dL (12.0-15.0); Immature Granulocyte Absolute 0.01 K/mm3 (0.00-0.031); Immature Granulocyte Percent A 0.2 % (0-0.5); Lymphocytes Absolute Auto 1.51 K/mm3 (0.9-3.2); Lymphocytes Percent Auto 28.7 % (18.3-44.2); Mean Corpuscular HGB Conc 34.5 g/dl (32-36); Mean Corpuscular Hemoglobin 31.4 pg (26-34); Mean Corpuscular Volume 90.8 fl (80-100); Mean Platelet Volume 9.7 fl (7.4-10.4); Monocytes Absolute Auto 0.5 K/mm3 (0.1-0.6); Monocytes Percent Auto 9.9 % (2.6-8.5); Neutrophils Absolute Auto 3.1 K/mm3 (1.3-6.7); Neutrophils Percent Auto 59.3 % (45.5-73.1); Platelet Count Result 337 k/mm3 (150-375); Red Blood Count 4.88 M/mm3 (4.2-5.4); Red Cell Distribution Width 14.1 % (11.5-14.5); White Blood Count 5.3 K/mm3 (4.5-10.0)
[2023-01-09 15:44] LABS: Alanine Aminotransferase 34 U/L (6-35); Albumin Level 3.5 g/dL (3.5-5.1); Alkaline Phosphatase 93 U/L (38-126); Anion Gap 8 mmol/L (8-16); Aspartate Amino Transferase 52 U/L (14-36); Bilirubin,Total 0.5 mg/dL (0.2-1.3); Blood Urea Nitrogen 22 mg/dL (7-17); Calcium 7.7 mg/dL (8.4-10.2); Carbon Dioxide 23 mmol/L (22-30); Chloride 102 mmol/L (98-107); Estimated CRCL calculation 92 ml/min; Estimated Glomerular Filt Rate > 60; Glucose 152 mg/dL (65-110); Sodium 133 mmol/L (137-145)
[2023-01-09 16:12] LABS: Lipase 130 U/L (23-300)
--- NOTE | 2023-01-09 16:58 | ED.NAVMDI ---
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 History of IBS with constipation last bowel movement was today. Patient maxed out on Linzess and currently on Motegrity 2 mg once a day. Patient reports a lot of stress lately. Did not go to work for the last 2 weeks. She denies abdominal pain. Related Data Home Medications Medication Instructions Recorded Confirmed evening primrose oil 500 mg capsule 500 mg PO DAILY 08/04/21 12/01/22 Saccharomyces boulardii 250 mg 250 mg PO BID 07/22/22 12/01/22 capsule (Digest Probiotic (S.boulardii)) docusate sodium 100 mg capsule 100 mg PO BID 07/22/22 12/01/22 omeprazole 20 mg capsule,delayed 20 mg PO BID 07/22/22 12/01/22 release cholecalciferol (vitamin D3) 50 50 mcg PO DAILY 10/28/22 12/01/22 mcg (2,000 unit) capsule multivitamin 1 tablet PO DAILY 10/28/22 12/01/22 Allergies Allergy/AdvReac Type Severity Reaction Status Date / Time No Known Allergies Allergy Verified 11/30/22 15:27 Review of Systems Review of Systems: All systems reviewed & are unremarkable except as noted in HPI and below PMFSH Past Medical History Medical History Abdominal pain Anxiety with depression Benign essential hypertension BMI 24.0-24.9, adult BMI 25.0-25.9,adult BMI 26.0-26.9,adult BMI 27.0-27.9,adult BMI 28.0-28.9,adult BMI 30.0-30.9,adult Change in bowel habits Chondromalacia of patella Colon cancer screening Contusion of left knee Drug overdose, intentional DUB (dysfunctional uterine bleeding) Encounter for preventive health examination Encounter for routine adult health examination without abnormal findings Encounter for screening mammogram for malignant neoplasm of breast Hepatic steatosis History of renal stone Hx of adenomatous colonic polyps Hx pulmonary embolism Hypothyroidism (acquired) IBS (irritable bowel syndrome) Impingement of left knee joint Irritable bowel syndrome with constipation Kidney stone Microscopic hematuria Migraine Muscle cramps Nausea and vomiting On mcc drug therapy Persistent headaches Pneumonia of both lungs Right foot pain Right hip pain RUQ abdominal pain Screening for lipid disorders SOB (shortness of breath) Strain of lumbar paraspinal muscle Tachycardia Vitamin D deficiency Weight gain Surgical History Surgical History H/O tubal ligation History of gastric surgery Hx of hand surgery Hx of laparoscopic partial gastrectomy Family History Family History Mother Hypertension Carcinoma of colon Family history of diabetes mellitus in first degree relative Family history of gastrointestinal disorder Family history of elevated blood lipids Grandparent Family history of rheumatoid arthritis Father Hypertension, Onset Age: 197 Family history of elevated blood lipids Patient's father is Sibling Hypertension Other Cerebrovascular accident Diabetes mellitus Family history of arthritis Family history of cardiovascular disease Family history of malignant neoplasm Family history of mental disorder Family history of seizure disorder Family history of thyroid disease Malignant neoplasm of prostate Social History Social History Smoking status: Never smoker Alcohol intake: never Substance use: never Substance use type: does not use Lack of Transportation: No
[2023-01-09] MEDS: SODIUM CHLORIDE 0.9% IV 1,000 ML 999 ML IV CONT ×2 (20:15→21:56)
[2023-01-09] MEDS: ONDANSETRON INJ 4 MG/2 ML VIAL IV PUSH (21:32)
[2023-01-09] MEDS: diphenhydrAMINE HCl INJ 50 MG/ML VIAL IV PUSH (21:32)
[2023-01-09] MEDS: METOCLOPRAMIDE HCL INJ 10 MG/2 ML VIAL IV PUSH (21:32)
[2023-01-09 21:39] LABS: Appearance Urine Clear (Clear); Bilirubin Urine Negative (Negative); Blood Urine Trace-intact (Negative); Color Urine Yellow (Yellow); Glucose Urine UA Negative (Negative); Ketones Urine Negative (Negative); Leukocyte Esterase Ur Negative LEU/UL (Negative); Nitrate Urine Negative (Negative); Protein Urine Negative (Negative); Urobilinogen Urine 0.2 mg/dL (<2.0); pH Urine 5.5 (5.0-9.0)
[2023-01-09 21:42] LABS: RBC Urine 0-2 /hpf (0-2); Squamous Epithelial Cell Urine Rare /hpf (Few); WBC Urine 0-3 /hpf
[2023-01-09 21:58] LABS: Add Urine Microscopic? YES
[2023-01-09] MEDS: LORazepam INJ (*CRX) 2 MG/ML VIAL 1 MG IV PUSH (22:52)
== END 2023-01-09 23:09 | disposition home or self-care (01) ==
PROVIDERS: Emergency Provider Emergency Medicine; PCP Internal Medicine
DX: K58.1 Irritable bowel syndrome with constipation (principal); E03.9 Hypothyroidism, unspecified; Z86.711 Personal history of pulmonary embolism; Z87.442 Personal history of urinary calculi; Z87.01 Personal history of pneumonia (recurrent); E55.9 Vitamin D deficiency, unspecified
CPT/HCPCS: 36415; 74177; 80053; 81001; 81025; 83690; 85025; 96361; 96374; 96375; 99284; J1200; J2060; J2405; J2765; J7030; Q9967

== ENCOUNTER 2023-01-17 07:20 | Outpatient (CLI) | payer OTHER, SELFPAY ==
[2023-01-17 07:53] LABS: Basophils Percent Auto 0.4 % (0.2-1.2); Eosinophils Absolute Auto 0.1 K/mm3 (0-0.3); Eosinophils Percent Auto 1.8 % (0-4.4); Hematocrit 39.5 % (37.0-47.0); Hemoglobin 13.3 g/dL (12.0-15.0); Immature Granulocyte Absolute 0.02 K/mm3 (0.00-0.031); Immature Granulocyte Percent A 0.4 % (0-0.5); Lymphocytes Absolute Auto 1.54 K/mm3 (0.9-3.2); Lymphocytes Percent Auto 30.1 % (18.3-44.2); Mean Corpuscular HGB Conc 33.7 g/dl (32-36); Mean Corpuscular Hemoglobin 32.9 pg (26-34); Mean Corpuscular Volume 97.8 fl (80-100); Mean Platelet Volume 10.1 fl (7.4-10.4); Monocytes Absolute Auto 0.4 K/mm3 (0.1-0.6); Monocytes Percent Auto 7.6 % (2.6-8.5); Neutrophils Absolute Auto 3.1 K/mm3 (1.3-6.7); Neutrophils Percent Auto 59.7 % (45.5-73.1); Platelet Count Result 212 k/mm3 (150-375); Red Blood Count 4.04 M/mm3 (4.2-5.4); Red Cell Distribution Width 15.1 % (11.5-14.5); White Blood Count 5.1 K/mm3 (4.5-10.0)
[2023-01-17 08:03] LABS: Alanine Aminotransferase 81 U/L (6-35); Albumin Level 3.3 g/dL (3.5-5.1); Alkaline Phosphatase 93 U/L (38-126); Anion Gap 6 mmol/L (8-16); Aspartate Amino Transferase 55 U/L (14-36); Bilirubin,Total 0.7 mg/dL (0.2-1.3); Blood Urea Nitrogen 13 mg/dL (7-17); CRP < 0.5 mg/dL (<1.0); Calcium 8.3 mg/dL (8.4-10.2); Carbon Dioxide 24 mmol/L (22-30); Chloride 101 mmol/L (98-107); Cholesterol 153 mg/dL (0-200); Estimated Glomerular Filt Rate > 60; Glucose 100 mg/dL (65-110); HDL Direct 41 mg/dL; Potassium 3.3 mmol/L (3.4-5.0); Sodium 131 mmol/L (137-145); Triglycerides 241 mg/dL (<150)
[2023-01-17 08:17] LABS: LDL Cholesterol Direct 72 mg/dL
[2023-01-17 08:43] LABS: Erythrocyte Sedimentation Rate 7 mm/hr (0-20)
[2023-01-17 08:53] LABS: Free T4 Free Thyroxine 1.46 ng/mL (0.78-2.19); Vitamin D 25 Hydroxy 52.7 ng/mL
[2023-01-17 23:23] LABS: Appearance Urine Cloudy (Clear); Bacteria Urine 1+ /hpf; Bilirubin Urine 1+ (Negative); Blood Urine Negative (Negative); Color Urine Dark Yellow (Yellow); Glucose Urine UA Negative (Negative); Ketones Urine Trace mg/dL (Negative); Leukocyte Esterase Ur 2+ LEU/UL (Negative); Need Manual Microscopic Reviewed; Nitrate Urine Negative (Negative); Protein Urine 1+ mg/dL (Negative); Specific Grav Ur 1.025 (1.001-1.035); Squamous Epithelial Cell Urine Moderate /hpf (Few); WBC Urine 21-50 /hpf
[2023-01-17 23:28] LABS: Add Urine Microscopic? YES
== END 2023-01-17 07:21 | disposition home or self-care (01) ==
PROVIDERS: PCP Internal Medicine; Referring Provider Nurse Practitioner; Visit Provider Internal Medicine
DX: E03.9 Hypothyroidism, unspecified (principal); E55.9 Vitamin D deficiency, unspecified; I10 Essential (primary) hypertension; Z79.899 Other long term (current) drug therapy; Z83.3 Family history of diabetes mellitus; K63.9 Disease of intestine, unspecified
CPT/HCPCS: 36415; 80053; 80061; 81001; 82306; 83036; 84439; 84443; 85025; 85652; 86140; 87086

== ENCOUNTER 2023-01-17 21:07 | Emergency (ER) | payer OTHER, SELFPAY ==
[2023-01-17] VITALS (7 sets, daily range): BP systolic 98–119; BP diastolic 72–84; PULSE 95–137; RESP 12–20; TEMP 36.6; O2SAT 93–100
--- NOTE | ~2023-01-17 | CT_ITS ---
EXAMINATION: CT brain wo con DATE: 01/17/2023 22:44 INDICATION: AMS, difficulty walking . TECHNIQUE: Computed tomography (CT) of the head was performed without intravenous contrast. The mA wa s adjusted according to patient size. Iterative reconstruction technique was employed. The dose-lengt h product was 605.33 mGy-cm. COMPARISON: None. FINDINGS: No acute intracranial hemorrhage or extra-axial fluid collection. No hydrocephalus, mass, or herniation. No acute ischemic infarct. Unremarkable dural venous sinus attenuation. No acute osseous abnormality. The aerated spaces are clear. IMPRESSION: No acute intracranial process. Reviewed, dictated and finalized at location K. INUOUS MINING MACHINE OPERATOR
--- NOTE | ~2023-01-17 | XR_ITS ---
EXAMINATION: XR chest 1V Exam Date/Time: 01/17/2023 22:37 PRESS OPERATOR MEAT HISTORY: weakness Comparison: 09/24/2022. RESULT: Lines, tubes, and devices: Surgical clips over the GE junction. Lungs and pleura: Clear. Cardiomediastinal silhouette: Stable. Other: No acute osseous or upper abdominal finding. IMPRESSION: No acute cardiopulmonary process. Reviewed, dictated and finalized at location K. S OPERATOR MEAT
--- NOTE | ~2023-01-17 | XR_ITS ---
Right foot Technique: AP, oblique, and lateral views were obtained. Clinical History: Heel puncture wound Findings: No acute fracture or dislocation is seen. Mild hallux valgus noted. Joint spaces are preser chad without erosive or degenerative change. Soft tissues are unremarkable. Impression: No acute abnormality. Mild hallux valgus. Reviewed, dictated and finalized at [facility]. SHIFT SUPERVISOR Impression: No acute abnormality. Mild hallux valgus.
--- NOTE | 2023-01-17 21:20 | ECG_ITS ---
Measurements Intervals [place] Rate: 124 P: 24 VA: 150 QRS: 12 QRSD: 79 T: 14 QT: 306 QTc: 440 Interpretive Statements SINUS TACHYCARDIA ABNORMAL RHYTHM ECG COMPARED TO ECG 09/24/2022 23:05:43 NO SIGNIFICANT CHANGES Electronically Signed On 01-18-2023 11:34:33 BUSINESS INSIGHT AND ANALYTICS MANAGER by Donna Jack M.D.
[2023-01-17 21:48] LABS: Basophils Percent Auto 0.4 % (0.2-1.2); Eosinophils Absolute Auto 0.1 K/mm3 (0-0.3); Eosinophils Percent Auto 1.8 % (0-4.4); Hematocrit 38.6 % (37.0-47.0); Immature Granulocyte Absolute 0.01 K/mm3 (0.00-0.031); Immature Granulocyte Percent A 0.2 % (0-0.5); Lymphocytes Absolute Auto 1.25 K/mm3 (0.9-3.2); Lymphocytes Percent Auto 27.4 % (18.3-44.2); Mean Corpuscular HGB Conc 33.7 g/dl (32-36); Mean Corpuscular Hemoglobin 32.3 pg (26-34); Mean Platelet Volume 10.4 fl (7.4-10.4); Monocytes Absolute Auto 0.4 K/mm3 (0.1-0.6); Monocytes Percent Auto 9.4 % (2.6-8.5); Neutrophils Absolute Auto 2.8 K/mm3 (1.3-6.7); Neutrophils Percent Auto 60.8 % (45.5-73.1); Platelet Count Result 231 k/mm3 (150-375); Red Blood Count 4.02 M/mm3 (4.2-5.4); Red Cell Distribution Width 14.9 % (11.5-14.5); White Blood Count 4.6 K/mm3 (4.5-10.0)
[2023-01-17 21:57] LABS: Alanine Aminotransferase 68 U/L (6-35); Albumin Level 3.4 g/dL (3.5-5.1); Alkaline Phosphatase 102 U/L (38-126); Anion Gap 8 mmol/L (8-16); Aspartate Amino Transferase 47 U/L (14-36); Bilirubin,Total 0.5 mg/dL (0.2-1.3); Blood Urea Nitrogen 14 mg/dL (7-17); Calcium 8.2 mg/dL (8.4-10.2); Carbon Dioxide 22 mmol/L (22-30); Chloride 106 mmol/L (98-107); Estimated CRCL calculation 70 ml/min; Estimated Glomerular Filt Rate > 60; Glucose 109 mg/dL (65-110); Potassium 3.4 mmol/L (3.4-5.0); Sodium 136 mmol/L (137-145)
[2023-01-17 22:01] LABS: INR 0.9; Prothrombin Time 12.1 Seconds (11.1-14.7)
[2023-01-17 22:02] LABS: Partial Thromboplastin Time 23.1 SECONDS (22.3-36.8)
--- NOTE | 2023-01-17 22:08 | PC.NURSE ---
Patient endorses auditory/visual hallucinations since around 10pm last night. Patient first noticed these hallucinations when she woke up last night. Patient states that she has been having conversations with people who are not there. Patient is concerned that her electrolytes are off, and that is what is causing the hallucinations. Patient states that she is also experiencing abdominal pain, and has not had a bowel movement in 7 days. Hx IBS.
[2023-01-17] MEDS: SODIUM CHLORIDE 0.9% IV 1,000 ML 999 ML IV CONT (23:05)
--- NOTE | 2023-01-17 23:14 | ED.AMS ---
HPI - Altered Mental Status General Chief Complaint: Altered Mental Status Stated Complaint: AMS Time Seen by Provider: 01/17/23 21:50 Source: patient, RN notes reviewed and old records reviewed Mode of arrival: ambulatory Limitations: no limitations History of Present Illness HPI narrative: This is a 42 year old female with history of depression and IBS who presents for evaluation of hallucinations. Patient states she has been having visual hallucinations since yesterday. She reports she thought she saw her sister and she was having full conversation with her. She also reports thinking she saw a young child at her house and that she needed to perform urinary catherization. She was evaluated by her psychiatrist today and they thought she was having psychosis likely due to electrolyte abnormalities. She reports that she has fallen 3 times. She reports this falls involved using the stairs. She also reports step on nail with right foot. She denies headache. She reports issues of nausea and vomiting for weeks due to IBS. She denies history of hallucinations. She states no recent medication changes. Her Cymbalta was increased 6 months ago. Related Data Home Medications Medication Instructions Recorded Confirmed evening primrose oil 500 mg capsule 500 mg PO DAILY 08/04/21 01/18/23 Saccharomyces boulardii 250 mg 250 mg PO BID 07/22/22 01/18/23 capsule (Digest Probiotic (S.boulardii)) docusate sodium 100 mg capsule 100 mg PO BID 07/22/22 01/18/23 omeprazole 20 mg capsule,delayed 20 mg PO BID 07/22/22 01/18/23 release cholecalciferol (vitamin D3) 50 50 mcg PO DAILY 10/28/22 01/18/23 mcg (2,000 unit) capsule multivitamin 1 tablet PO DAILY 10/28/22 01/18/23 aripiprazole 2 mg tablet 2 mg PO DAILY 01/18/23 01/18/23 buspirone 5 mg tablet 5 mg PO TID PRN Anxiety 01/18/23 01/18/23 rizatriptan 10 mg disintegrating See Rx Instructions .Route .COMPLEX 01/18/23 01/18/23 tablet (Maxalt-PUMP TESTER) Allergies Allergy/AdvReac Type Severity Reaction Status Date / Time No Known Allergies Allergy Verified 01/18/23 10:20 Review of Systems Constitutional: Constitutional: Reports weakness Cardiovascular: Cardiovascular: Denies syncope, Denies rapid heart rate, Denies irregular heart rhythm, Denies leg edema and Denies dyspnea Respiratory: Respiratory: Denies chest congestion, Denies hemoptysis, Denies excessive phlegm production and Denies dyspnea Gastrointestinal: Gastrointestinal: Denies abdominal pain, Denies hematochezia, Denies diarrhea, Reports nausea and Reports vomiting Genitourinary: Genitourinary: Denies hematuria and Denies dysuria Musculoskeletal: Musculoskeletal: Denies joint swelling, Denies loss of height and Reports muscle weakness Neurologic: Denies syncope, Denies focal weakness and Reports weakness Psychiatric: Psychiatric: Reports anxiety, Reports depression, Denies homicidal ideation and Denies suicidal ideation [facility] Past Medical History Medical History Abdominal pain Anxiety with depression Benign essential hypertension BMI 24.0-24.9, adult BMI 25.0-25.9,adult BMI 26.0-26.9,adult BMI 27.0-27.9,adult BMI 28.0-28.9,adult BMI 30.0-30.9,adult Change in bowel habits Chondromalacia of patella Colon cancer screening Colon wall thickening Contusion of left knee Drug overdose, intentional DUB (dysfunctional uterine bleeding) Encounter for preventive health examination Encounter for routine adult health examination without abnormal findings Encounter for screening mammogram for malignant neoplasm of breast Hepatic steatosis History of renal stone Hx of adenomatous colonic polyps Hx pulmonary embolism Hypothyroidism (acquired) IBS (irritable bowel syndrome) Impingement of left knee joint Irritable bowel syndrome with constipation Kidney stone Microscopic hematuria Migraine Muscle cramps Nausea and vomiting On alf drug therapy Persistent headaches
[2023-01-17 23:18] LABS: Ammonia < 9 umol/L (9-30); Ethanol < 10 mg/dL (<10)
[2023-01-17 23:18] LABS: Lactic Acid Reflex 1.2 mmol/L (0.7-2.0)
[2023-01-17 23:52] LABS: Amphetamine Screen Urine Negative (Negative); Barbiturate Screen Urine Negative (Negative); Benzodiazepines Screen Urine Negative (Negative); Cannabinoid Screen Urine Negative (Negative); Cocaine Screen Urine Negative (Negative); Methadone Screen Urine Negative (Negative); Opiate Screen Urine Negative (Negative); Phencyclidine Screen Urine Negative (Negative)
--- NOTE | 2023-01-18 00:40 | PC.NURSE ---
Pt states Somebody just squeezed my legs and I don't know who it was. Dr. Beltran aware.
[2023-01-18 00:42] VITALS: BP 113/74; PULSE 88
[2023-01-18 00:46] VITALS: BP 119/86; PULSE 93
[2023-01-18 00:50] VITALS: BP 120/83; PULSE 111
--- NOTE | 2023-01-18 02:15 | PC.NURSE ---
pt states she wants to sign out AMA because she has 7 animals to care for. states she will come back tomorrow if Dr. Ortiz wants her to. Dr. Beltran aware
[2023-01-18] MEDS: TETANUS,DIPHTHERIA,AC PERTUSSIS ADULT (0.5 ML) BOOSTRIX IM (02:17)
[2023-01-18 02:25] LABS: SARS-CoV-2 RNA PCR Negative
== END 2023-01-18 02:58 | disposition left against medical advice (07) ==
LOC: ANHED 21:55
PROVIDERS: Emergency Provider General Practice; PCP Internal Medicine
DX: R44.1 Visual hallucinations (principal); Z20.822 Contact with and (suspected) exposure to COVID-19; I10 Essential (primary) hypertension; F41.8 Other specified anxiety disorders; Z23 Encounter for immunization; Z87.442 Personal history of urinary calculi; Z86.010 Personal history of colon polyps; K58.1 Irritable bowel syndrome with constipation; Z86.711 Personal history of pulmonary embolism; E03.9 Hypothyroidism, unspecified; Z87.01 Personal history of pneumonia (recurrent); E55.9 Vitamin D deficiency, unspecified; Z98.84 Bariatric surgery status; R00.0 Tachycardia, unspecified; M20.11 Hallux valgus (acquired), right foot
CPT/HCPCS: 36415; 70450; 71045; 73630; 80053; 80307; 81025; 82140; 83605; 84443; 85025; 85610; 85730; 87040; 90471; 90715; 93005; 96360; 99284; J7030; U0003; U0005

== ENCOUNTER 2023-01-18 05:46 | Observation (INO) | payer OTHER, SELFPAY ==
[2023-01-18] VITALS (9 sets, daily range): BP systolic 100–113; BP diastolic 56–79; PULSE 84–108; RESP 16–22; TEMP 36.4–36.5; O2SAT 96–100
--- NOTE | ~2023-01-18 | XR_ITS ---
EXAMINATION: XR lumbar puncture diagnostic DATE: 01/18/2023 09:41 INDICATION: Altered mental status. TECHNIQUE: The procedure including the risks, benefits, and alternatives was discussed with the patie nt. Risks discussed included spinal headache, cerebrospinal fluid leak, bleeding, and infection. The patient understood the risks and agreed to proceed. A timeout was performed to verify the patient' s name, date of , and procedure to be performed. The skin overlying the L3-L4 level was prepped and draped in usual sterile fashion. Subcutaneous 1% lidocaine was used for local anesthesia. A 20 gauge spinal needle was advanced under fluoroscopic guidance. The needle was removed and the entry s ite was cleaned and dressed. There were no immediate complications. Fluoroscopy exposure time was 0. 1 minutes. The total number of images was 1. FINDINGS: Real-time fluoroscopy demonstrates the needle at the L3-L4 level. The opening pressure was 12 cm water (Normal range is variably defined as 6-20 cm water and up to 25 cm water in obese patient s. Pressure >25 cm water is one of the modified Dandy criteria for idiopathic intracranial hypertensi on). 13 mL of clear, colorless fluid was collected in 4 tubes. IMPRESSION: 1. Successful fluoro-guided lumbar puncture. Reviewed, dictated and finalized at location A. K SANDER
--- NOTE | ~2023-01-18 | MR_ITS ---
MRI of the brain Clinical History: Hallucinations Technique: Axial and sagittal T1-weighted images were acquired. These were followed by axial T2-weigh christy, diffusion weighted, gradient, and FLAIR images. Findings: No significant signal abnormality seen in the brain parenchyma. No acute infarct, intracran ial hemorrhage, or mass lesion. Ventricles and subarachnoid spaces are unremarkable. Orbits are unremarkable. Paranasal sinuses and m astoid air cells are clear. Major intracranial flow voids are intact. Sagittal midline structures are intact. IMPRESSION: Unremarkable exam. Reviewed, dictated and finalized at location M. D DEVELOPER IMPRESSION: Unremarkable exam.
--- NOTE | ~2023-01-18 | CT_ITS ---
CT of the Abdomen and Pelvis: Indication: Abdominal pain Technique: 2.5 mm axial scans were obtained through the abdomen and pelvis following intravenous adm inistration of 100 cc of Omnipaque 350. Dose reduction technique was used on this scan by utilizing a utomated exposure control and iterative reconstruction technique. The dose-length product (DLP) was 5 33.52 mGy-cm. COMPARISON: 01/09/2023 Findings: Scans through the lung bases demonstrate left basilar atelectatic change. Probable diffuse fatty infiltration of the liver noted. The spleen, pancreas, gallbladder, adrenals a nd kidneys are within normal limits. No evidence of aortic aneurysm. No lymphadenopathy. No bowel obstruction or bowel wall thickening. Large amount stool present in the right colon. No acut e inflammatory process identified. Images through the pelvis were performed. Urinary bladder unremarkable. No adnexal mass seen. No asci wayne. Impression: Diffuse fatty infiltration of the liver. Large amount of stool in the right colon with air distention of transverse colon. Correlate for const ipation. Reviewed, dictated and finalized at location M. AGE ENGINEER Impression: Diffuse fatty infiltration of the liver. Large amount of stool in the right colon with air distention of transverse colo n. Correlate for constipation.
--- NOTE | 2023-01-18 07:18 | ED.GENADULT ---
HPI - General Adult General Chief complaint: Unspecified Stated complaint: AMS Time Seen by Provider: 01/18/23 06:56 Related Data Home Medications Medication Instructions Recorded Confirmed evening primrose oil 500 mg capsule 500 mg PO DAILY 08/04/21 12/01/22 Saccharomyces boulardii 250 mg 250 mg PO BID 07/22/22 12/01/22 capsule (Digest Probiotic (S.boulardii)) docusate sodium 100 mg capsule 100 mg PO BID 07/22/22 12/01/22 omeprazole 20 mg capsule,delayed 20 mg PO BID 07/22/22 12/01/22 release cholecalciferol (vitamin D3) 50 50 mcg PO DAILY 10/28/22 12/01/22 mcg (2,000 unit) capsule multivitamin 1 tablet PO DAILY 10/28/22 12/01/22 Allergies Allergy/AdvReac Type Severity Reaction Status Date / Time No Known Allergies Allergy Verified 11/30/22 15:27 [facility] Past Medical History Medical History Abdominal pain Anxiety with depression Benign essential hypertension BMI 24.0-24.9, adult BMI 25.0-25.9,adult BMI 26.0-26.9,adult BMI 27.0-27.9,adult BMI 28.0-28.9,adult BMI 30.0-30.9,adult Change in bowel habits Chondromalacia of patella Colon cancer screening Colon wall thickening Contusion of left knee Drug overdose, intentional DUB (dysfunctional uterine bleeding) Encounter for preventive health examination Encounter for routine adult health examination without abnormal findings Encounter for screening mammogram for malignant neoplasm of breast Hepatic steatosis History of renal stone Hx of adenomatous colonic polyps Hx pulmonary embolism Hypothyroidism (acquired) IBS (irritable bowel syndrome) Impingement of left knee joint Irritable bowel syndrome with constipation Kidney stone Microscopic hematuria Migraine Muscle cramps Nausea and vomiting On alf drug therapy Persistent headaches Pneumonia of both lungs Right foot pain Right hip pain RUQ abdominal pain Screening for lipid disorders SOB (shortness of breath) Strain of lumbar paraspinal muscle Tachycardia Vitamin D deficiency Weight gain Surgical History Surgical History H/O tubal ligation History of gastric surgery Hx of hand surgery Hx of laparoscopic partial gastrectomy Family History Family History Mother Hypertension Carcinoma of colon Family history of diabetes mellitus in first degree relative Family history of gastrointestinal disorder Family history of elevated blood lipids Grandparent Family history of rheumatoid arthritis Father Hypertension, Onset Age: 197 Family history of elevated blood lipids Patient's father is Sibling Hypertension Other Cerebrovascular accident Diabetes mellitus Family history of arthritis Family history of cardiovascular disease Family history of malignant neoplasm Family history of mental disorder Family history of seizure disorder Family history of thyroid disease Malignant neoplasm of prostate Social History Social History Smoking status: Never smoker Alcohol intake: never Substance use: never Substance use type: does not use Lack of Transportation: No Lack of Food: Never True Current Housing: I Have Housing Concerned About Future Housing: No Difficulty Paying Gas/Electric Bills: No Difficulty Paying for Meds: No Currently Unemployed: No Education: Associate Degree Difficulty w/ Childcare or Family Care: No Living arrangements: alone Occupation/Education: occupation Gender identity (if verbalized by the patient): Female Spiritual care concerns: No Course Vital Signs Vital signs: Vital Signs Temperature 97.6 F 01/18/23 05:49 Pulse Rate 108 H 01/18/23 05:49 Respiratory Rate 18 01/18/23 05:49 Blood Pressure 106/79 01/18/23 05:49 Pulse Oximetry 99 01/18/23 05:49 Oxygen Deliv
--- NOTE | 2023-01-18 07:19 | ED.GENADULT ---
HPI - General Adult General Chief complaint: Unspecified Stated complaint: AMS Time Seen by Provider: 01/18/23 06:56 History of Present Illness HPI narrative: 42-year-old female presenting to the emergency department for evaluation of hallucinations. Patient reports over the last few weeks she has had some nausea vomiting with associated lower abdominal pain and urine frequency. Patient followed up with her primary care physician and was found to have a negative UA. Patient reports yesterday she started having hallucinations of family members including her mother. Patient was evaluated last night in the emergency department and the plan that was discussed with the hospitalist was for treatment with Vanco Zosyn and acyclovir and admission for suspected viral meningitis with an LP pending. Prior to getting admitted patient left AMA because she had to take care of her animals. Patient did present back to the emergency department this morning for evaluation. Related Data Home Medications Medication Instructions Recorded Confirmed evening primrose oil 500 mg capsule 500 mg PO DAILY 08/04/21 01/18/23 Saccharomyces boulardii 250 mg 250 mg PO BID 07/22/22 01/18/23 capsule (Digest Probiotic (S.boulardii)) docusate sodium 100 mg capsule 100 mg PO BID 07/22/22 01/18/23 omeprazole 20 mg capsule,delayed 20 mg PO BID 07/22/22 01/18/23 release cholecalciferol (vitamin D3) 50 50 mcg PO DAILY 10/28/22 01/18/23 mcg (2,000 unit) capsule multivitamin 1 tablet PO DAILY 10/28/22 01/18/23 aripiprazole 2 mg tablet 2 mg PO DAILY 01/18/23 01/18/23 buspirone 5 mg tablet 5 mg PO TID 01/18/23 01/18/23 rizatriptan 10 mg disintegrating See Rx Instructions .Route .COMPLEX 01/18/23 01/18/23 tablet (Maxalt-PEDIATRIC ONCOLOGIST) Allergies Allergy/AdvReac Type Severity Reaction Status Date / Time No Known Allergies Allergy Verified 01/18/23 10:20 Review of Systems Review of Systems: CONSTITUTIONAL: Denies fever, chills, or sweats. EYES: Denies visual changes, redness, or discharge. ENT: Denies rhinorrhea, congestion, sore throat, or otalgia. CARDIOVASCULAR: Denies chest pain, palpitations, or edema. RESPIRATORY: Denies cough or dyspnea. GASTROINTESTINAL: See HPI GENITOURINARY: Denies dysuria or hematuria. SKIN: Denies rash or itching. MUSCULOSKELETAL: Denies back pain, joint pain, or myalgia. NEUROLOGIC: Denies headache, numbness, or weakness. PSYCHIATRIC: Hallucinations [facility] Past Medical History Medical History Abdominal pain Anxiety with depression Benign essential hypertension BMI 24.0-24.9, adult BMI 25.0-25.9,adult BMI 26.0-26.9,adult BMI 27.0-27.9,adult BMI 28.0-28.9,adult BMI 30.0-30.9,adult Change in bowel habits Chondromalacia of patella Colon cancer screening Colon wall thickening Contusion of left knee Drug overdose, intentional DUB (dysfunctional uterine bleeding) Encounter for preventive health examination Encounter for routine adult health examination without abnormal findings Encounter for screening mammogram for malignant neoplasm of breast Hepatic steatosis History of renal stone Hx of adenomatous colonic polyps Hx pulmonary embolism Hypothyroidism (acquired) IBS (irritable bowel syndrome) Impingement of left knee joint Irritable bowel syndrome with constipation Kidney stone Microscopic hematuria Migraine Muscle cramps Nausea and vomiting On halfway drug therapy Persistent headaches Pneumonia of both lungs Right foot pain Right hip pain RUQ abdominal pain Screening for lipid disorders SOB (shortness of breath) Strain of lumbar paraspinal muscle Tachycardia Vitamin D deficiency Weight gain Surgical History Surgical History H/O tubal ligation History of gastric surgery Hx of hand surgery Hx of laparoscopic partial gastrectomy Family History Family History (Reviewed 01/18/23 @ 17:08 by Niki Machado
--- NOTE | 2023-01-18 07:34 | PC.NURSE ---
Assumed care. Pt talking to Dalia . No other person present in the room.
[2023-01-18] MEDS: ACYCLOVIR SODIUM IVPB 800 MG in DEXTROSE 5% IN WATER 250 ML 266 MG IVPB (08:02)
--- NOTE | 2023-01-18 09:02 | PM.IMHP ---
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 She had been seen in the ER a few times over the last week for nausea, vomiting and abdominal pain as well as dysuria. UA so far had been negative for infection. She then presented with new onset auditory and visual hallucinations. She does have a history of depression and anxiety and has been seen by Psychiatry in the past. She denies any headaches or vision changes. She denies chest pain, shortness a breath. No fevers or chills. No sick contacts or recent travel. She states her double bowel syndrome has been much worse over the last year. She states she has been under lot of stress over the last year as well. She also notes that she has been off balance and had several falls over the last week. In the ER, she was started on broad-spectrum antibiotics antivirals and LP was ordered for possible meningitis. Screening labs including a urine drug screen and serum alcohol level were all done and negative for any etiology noted. Review of Systems Review of Systems: 12 point review of systems was assessed and was negative except as noted in the HPI [facility] Past Medical History Medical History Abdominal pain Anxiety with depression Benign essential hypertension BMI 24.0-24.9, adult BMI 25.0-25.9,adult BMI 26.0-26.9,adult BMI 27.0-27.9,adult BMI 28.0-28.9,adult BMI 30.0-30.9,adult Change in bowel habits Chondromalacia of patella Colon cancer screening Colon wall thickening Contusion of left knee Drug overdose, intentional DUB (dysfunctional uterine bleeding) Encounter for preventive health examination Encounter for routine adult health examination without abnormal findings Encounter for screening mammogram for malignant neoplasm of breast Hepatic steatosis History of renal stone Hx of adenomatous colonic polyps Hx pulmonary embolism Hypothyroidism (acquired) IBS (irritable bowel syndrome) Impingement of left knee joint Irritable bowel syndrome with constipation Kidney stone Microscopic hematuria Migraine Muscle cramps Nausea and vomiting On fpc drug therapy Persistent headaches Pneumonia of both lungs Right foot pain Right hip pain RUQ abdominal pain Screening for lipid disorders SOB (shortness of breath) Strain of lumbar paraspinal muscle Tachycardia Vitamin D deficiency Weight gain Surgical History Surgical History H/O tubal ligation History of gastric surgery Hx of hand surgery Hx of laparoscopic partial gastrectomy Family History Family History Mother Hypertension Carcinoma of colon Family history of diabetes mellitus in first degree relative Family history of gastrointestinal disorder Family history of elevated blood lipids Grandparent Family history of rheumatoid arthritis Father Hypertension, Onset Age: 197 Family history of elevated blood lipids Patient's father is Sibling Hypertension Other Cerebrovascular accident Diabetes mellitus Family history of arthritis Family history of cardiovascular disease Family history of malignant neoplasm Family history of mental disorder Family history of seizure disorder Family history of thyroid disease Malignant neoplasm of prostate Social History Social History Smoking status: Never smoker Alcohol intake: current Drinks per week: 2 Substance use: current Substance use type: does not use Lack
[2023-01-18 09:10] LABS: Influenza A QL RT-PCR Negative (Negative); Influenza B QL RT-PCR Negative (Negative); RSV RNA, RT-PCR Negative (Negative); SARS-CoV-2 RNA PCR Negative
--- NOTE | 2023-01-18 10:11 | ADMGEN ---
This patient, Melissa Man, was admitted to Medical Room 247-. Patient/family oriented to hospital policies and general routines including ID bracelet, bed and alarms, visiting hours, pain management, procedures, bathroom and other care routines, personal items, smoking policy, room service/diet, and visiting hours. Information on how to activate the Rapid Response Team has been discussed. Patient/Family are encouraged to report perceived risks to care and to ask questions if they do not understand what they are told or what they should do.
[2023-01-18 10:15] LABS: Glucose CSF 66 mg/dL (40-70); Total Protein CSF 23 mg/dL (12-60)
[2023-01-18 11:14] LABS: Appearance CSF Clear (Clear); CSF source CSF; Color CSF Colorless (Colorless)
[2023-01-18 11:16] LABS: Nucleated Cell CSF 1 /uL (0-5); Red Blood Cell CSF < 2000 (0-2)
[2023-01-18] MEDS: SACCHAROMYCES BOULARDII 250 MG CAPSULE PO (16:57)
[2023-01-18] MEDS: DOCUSATE SODIUM 100 MG CAPSULE PO (16:57)
[2023-01-18] MEDS: POTASSIUM CHLORIDE 20 MEQ TABLET.ER PO (16:57)
[2023-01-18 17:38] LABS: Basophils Percent Auto 0.8 % (0.2-1.2); Eosinophils Absolute Auto 0.1 K/mm3 (0-0.3); Eosinophils Percent Auto 2.4 % (0-4.4); Hematocrit 34.4 % (37.0-47.0); Hemoglobin 11.2 g/dL (12.0-15.0); Immature Granulocyte Absolute 0.01 K/mm3 (0.00-0.031); Immature Granulocyte Percent A 0.4 % (0-0.5); Lymphocytes Absolute Auto 0.54 K/mm3 (0.9-3.2); Lymphocytes Percent Auto 21.3 % (18.3-44.2); Mean Corpuscular HGB Conc 32.6 g/dl (32-36); Mean Corpuscular Hemoglobin 32.2 pg (26-34); Mean Corpuscular Volume 98.9 fl (80-100); Mean Platelet Volume 9.9 fl (7.4-10.4); Monocytes Absolute Auto 0.3 K/mm3 (0.1-0.6); Monocytes Percent Auto 12.2 % (2.6-8.5); Neutrophils Absolute Auto 1.6 K/mm3 (1.3-6.7); Neutrophils Percent Auto 62.9 % (45.5-73.1); Platelet Count Result 163 k/mm3 (150-375); Red Blood Count 3.48 M/mm3 (4.2-5.4); Red Cell Distribution Width 15.3 % (11.5-14.5); White Blood Count 2.5 K/mm3 (4.5-10.0)
[2023-01-18] MEDS: busPIRone HCL 5 MG TABLET PO (17:43)
[2023-01-18 17:49] LABS: Alanine Aminotransferase 51 U/L (6-35); Albumin Level 2.9 g/dL (3.5-5.1); Alkaline Phosphatase 84 U/L (38-126); Anion Gap 5 mmol/L (8-16); Aspartate Amino Transferase 34 U/L (14-36); Bilirubin,Total 0.4 mg/dL (0.2-1.3); Blood Urea Nitrogen 11 mg/dL (7-17); Calcium 7.7 mg/dL (8.4-10.2); Carbon Dioxide 27 mmol/L (22-30); Chloride 106 mmol/L (98-107); Estimated CRCL calculation 108 ml/min; Estimated Glomerular Filt Rate > 60; Glucose 86 mg/dL (65-110); Potassium 3.1 mmol/L (3.4-5.0); Sodium 138 mmol/L (137-145)
[2023-01-18] MEDS: PANTOPRAZOLE 40 MG TABLET PO (20:37)
--- NOTE | 2023-01-18 22:52 | WPDCNPSYCH ---
[facility] Data of Consult Date/Time: 01/18/23 22:52 Requesting Physician: Niki Bui DO Primary Care Provider: Catracho Guerrero MD Consult Narrative Narrative: CHIEF COMPLAINT/REASON FOR PSYCHIATRIC CONSULTATION: Patient is a 42-year-old lady admitted for new onset psychosis. HISTORY OF PRESENT ILLNESS: Emergency department documentation: Over the past few weeks the patient has been having nausea, vomiting, lower abdominal pain, and urinary frequency. Her primary care practitioner performed a urinalysis that was negative. On the day prior to admission the patient started having hallucinations of family members including her mother. She came to the hospital on the day prior to admission and underwent initial evaluation and rather than be admitted at that moment the patient left against medical advice because she needed to take care of her 7 animals. She then returned to the emergency department today for ongoing evaluation and treatment. Admitting physician documentation: About 1 year ago the patient had a gastric sleeve procedure and has lost 50lb since then. She has been having new onset auditory and visual hallucinations. In the emergency department the patient was started on antibiotics. Nurses report: The patient was having delusions that people were at her house taking care of patients. The patient had been off of her medications for a while. 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 The patient also has been having frequent falls at home. She has continued today to sometimes see shadows out of the corner of her eyes or see other movements in her room. Patient encounter with psychiatrist: The patient reports that she has been treated for irritable bowel syndrome since May 2022. Her sister has been helping her sporadically. The patient reports that on Tuesday she had a dream it was quite vivid and when she awoke from the dream she was seeING supervisors in her bedroom. The 1 rubber stamps and dies supervisor asked the patient to help another rubber stamps and dies supervisor. The patient told hallucinated supervisors that she was on FMLA. The supervisors than left. Later that Tuesday night, the patient texted her rubber stamps and dies supervisor who said that she was not in the patient's home. On Tuesday the patient awoke from another vivid dream and saw her sister in her room. The patient then began to talk with her sister however her sister would not speak to the patient. Suddenly the sister was gone. The patient then got up and was wandering about her home trying to find her sister. On the kitchen table the patient Nia other people on her table. She also saw her sister. She then started searching her whole home looking again for her sister. While she did so she could not find her sister and she could not find the people who were on the table. The patient then called her sister who told the patient that the sister was at the sister's home all night and was not in the patient's home. On Tuesday when the patient presented in the emergency department she was at her house and her nephew was there too. The patient went to sleep and when she awoke suddenly there was in entire operating room team present in her house. One of the OR nurses was acting quite oddly. There was the certified nurse's aide present in the patient then sat with that certified nurse's aide and they had a conversation with 1 another. The nurse would open and close the door to the patient's craft room oddly. The patient then went downstairs and found several other nurses were there and they had a variety of conversations. They decided that an indwelling Mchugh catheter kit was needed so our patient went to the hospital and went to the OB carrion where she worked to get a catheter kit. The staff there were concerned about her mental status change and had her go to the emergency room. She then underwent evalu
[2023-01-18] MEDS: LORazepam (*CRX) 0.5 MG TABLET PO (22:53)
[2023-01-19] MEDS: ARIPiprazole 10 MG TABLET PO (00:04)
[2023-01-19] MEDS: ARIPiprazole 5 MG TABLET PO (00:04)
[2023-01-19 01:53] LABS: Ammonia < 9 umol/L (9-30)
[2023-01-19 02:11] LABS: Vitamin D 25 Hydroxy 39.5 ng/mL
[2023-01-19 02:33] LABS: HIV 1/2 Ab P24 Ag Result Negative (Negative)
[2023-01-19 02:39] LABS: Cholesterol 145 mg/dL (0-200); HDL Direct 49 mg/dL; Lipase 78 U/L (23-300); Triglycerides 93 mg/dL (<150)
[2023-01-19 02:53] LABS: Hepatitis B Surface Antigen Negative (Negative)
[2023-01-19 02:56] LABS: LDL Cholesterol Direct 87 mg/dL
[2023-01-19 02:59] LABS: HAV RESULT Negative (Negative); Hepatitis B Core IgM Result Negative (Negative)
[2023-01-19 03:11] LABS: Hepatitis C Virus Antibody Negative (Negative)
[2023-01-19 04:18] LABS: Folic Acid > 20.0 ng/mL (2.76->20)
[2023-01-19 05:14] LABS: Basophils Percent Auto 0.4 % (0.2-1.2); Eosinophils Absolute Auto 0.1 K/mm3 (0-0.3); Hematocrit 28.6 % (37.0-47.0); Hemoglobin 9.4 g/dL (12.0-15.0); Immature Granulocyte Absolute 0.01 K/mm3 (0.00-0.031); Immature Granulocyte Percent A 0.4 % (0-0.5); Lymphocytes Percent Auto 34.3 % (18.3-44.2); Mean Corpuscular HGB Conc 32.9 g/dl (32-36); Mean Corpuscular Hemoglobin 32.1 pg (26-34); Mean Corpuscular Volume 97.6 fl (80-100); Mean Platelet Volume 10.4 fl (7.4-10.4); Monocytes Absolute Auto 0.3 K/mm3 (0.1-0.6); Neutrophils Absolute Auto 1.2 K/mm3 (1.3-6.7); Neutrophils Percent Auto 49.9 % (45.5-73.1); Platelet Count Result 140 k/mm3 (150-375); Red Blood Count 2.93 M/mm3 (4.2-5.4); Red Cell Distribution Width 15.2 % (11.5-14.5); White Blood Count 2.3 K/mm3 (4.5-10.0)
[2023-01-19 05:19] LABS: Alanine Aminotransferase 39 U/L (6-35); Albumin Level 2.4 g/dL (3.5-5.1); Alkaline Phosphatase 70 U/L (38-126); Anion Gap 2 mmol/L (8-16); Aspartate Amino Transferase 27 U/L (14-36); Bilirubin,Total 0.4 mg/dL (0.2-1.3); Blood Urea Nitrogen 10 mg/dL (7-17); Calcium 7.4 mg/dL (8.4-10.2); Carbon Dioxide 26 mmol/L (22-30); Chloride 109 mmol/L (98-107); Estimated CRCL calculation 108 ml/min; Estimated Glomerular Filt Rate > 60; Glucose 93 mg/dL (65-110); Potassium 2.9 mmol/L (3.4-5.0); Sodium 137 mmol/L (137-145)
[2023-01-19] MEDS: LEVOTHYROXINE SODIUM 125 MCG TABLET BY MOUTH (05:58)
[2023-01-19 06:00] VITALS: BP 116/67; PULSE 83; RESP 18; TEMP 36.6; O2SAT 97
[2023-01-19] MEDS: CHOLECALCIFEROL 1,000 UNITS TABLET 2000 UNITS PO (08:50)
[2023-01-19] MEDS: busPIRone HCL 5 MG TABLET PO ×3 (08:50→16:41)
[2023-01-19] MEDS: MULTIVITAMINS THERAPEUTIC TAB (*BKC) 1 TABLET PO (08:50)
[2023-01-19] MEDS: POTASSIUM CHLORIDE 20 MEQ TABLET.ER PO ×2 (08:50→16:41)
[2023-01-19] MEDS: DULoxetine HCL 60 MG CAPSULE.DR BY MOUTH (08:50)
[2023-01-19] MEDS: DULoxetine HCL 30 MG CAPSULE.DR PO (08:51)
[2023-01-19] MEDS: DOCUSATE SODIUM 100 MG CAPSULE PO ×2 (08:51→16:41)
[2023-01-19] MEDS: dilTIAZem HCL CD 180 MG CAP.ER.24H PO (08:51)
[2023-01-19] MEDS: PANTOPRAZOLE 40 MG TABLET PO ×2 (08:51→20:55)
[2023-01-19] MEDS: SACCHAROMYCES BOULARDII 250 MG CAPSULE PO ×2 (08:52→16:41)
[2023-01-19 10:51] VITALS: O2SAT 97
[2023-01-19 11:57] LABS: Rapid Plasma Reagin Non-Reactive (NonReactive)
[2023-01-19 16:17] VITALS: BP 120/79; PULSE 110; RESP 18; TEMP 36.4; O2SAT 96
[2023-01-19] MEDS: LORazepam (*CRX) 0.5 MG TABLET PO (16:41)
--- NOTE | 2023-01-19 17:59 | PM.IMPN ---
Progress Note: A&P Assessment and Plan (1) Hallucinations: Code(s): R44.3 - Hallucinations, unspecified Status: Inactive Assessment and Plan: Patient presents with complaints of hallucinations. MRI brain showing no acute findings. LP showing RBC but no WBC. Other testing pending. UDS negative. RPR, HIV negative. Hepatitis panel negative. Uncertain etiology. Due to late onset, organic brain disorder such as schizophrenia less likely. 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 UPT negative. Appreciate Psychiatry input. Only on Vanco IV. Not on ampicillin, rocephin or acycolivir. She is improving clinically. Will stop Vanco and follow culture results. (2) IBS (irritable bowel syndrome): Qualifiers: Irritable bowel syndrome type: unspecified Qualified Code(s): K58.9 - Irritable bowel syndrome without diarrhea Code(s): K58.9 - Irritable bowel syndrome without diarrhea Status: Acute Assessment and Plan: Appears to be in exacerbation over the last few weeks. Complains of constipation today. She follows with GI for this. (3) Hypothyroidism (acquired): Code(s): E03.9 - Hypothyroidism, unspecified Status: Acute Assessment and Plan: TSH normal. Continue levothyroxine Plan Pancytopenia - noted. B12/folate normal. Iron studies normal in April. Medciation related from acyclovir? Viral? Follow DVT prophylaxis with SCDs Code status full code Subjective Date/time seen: 01/19/23 17:59 Interval history: 42yo female with HTN, anxiety and depression here for hallucinations. Assuming care. Chart reviewed. Patient states that she saw some shadows the last evening but no further hallucinations. She feels better overall. She is requesting outpatient treatment because she has 7 animals at home that need to be cared for. She does mention that her last bowel movement was 8 days ago. She has chronic issues with constipation. She does feel weak in the legs when she is walking to the bathroom. She feels this is related to her electrolyte issues. Exam Narrative: AF 97.5 120/79 110 18 96% ra Gen - NARD Chest - CTA bilaterally, nml RR CV - RRR S1/S2 Abd - Soft, NT/ND, Positive BS Ext - No pedal edema Neuro - Alert and oriented. Nonfocal exam. Psych - Nml mood and affect. Does become tearful when discussing her pets and concern about finding someone to care for them Skin - Warm and dry Objective Data Vital Signs Vital Signs: Vital Signs - 24 hr 01/18/23 22:00 01/19/23 06:00 01/19/23 08:50 Temperature 97.7 F 97.8 F Pulse Rate 104 H 83 Respiratory Rate 21 H 18 Blood Pressure 100/56 L 116/67 Pulse Oximetry 100 97 Oxygen Delivery Room Air 01/19/23 10:51 01/19/23 16:17 Temperature 97.5 F L Pulse Rate 110 H Respiratory Rate 18 Blood Pressure 120/79 Pulse Oximetry 97 96 Oxygen Delivery Room Air Intake/Output Intake/Output: Intake & Output 01/16/23 01/17/23 01/18/23 01/19/23 23:59 23:59 23:59 23:59 Intake Total 1526 1230 Balance 1526 1230 Meds/Results Medications: Active Medications Generic Name Dose Route Start Last Admin Trade Name Freq PRN Reason Stop Dose Admin Aripiprazole 5 mg 01/19/23 00:00 01/19/23 00:04 Aripiprazole 5 Mg Tablet PO 5 mg DAILY LIUDMILA Administration Aripiprazole 10 mg 01/19/23 00:00 01/19/23 00:04 Aripiprazole 10 Mg Tablet PO 10 mg DAILY LIUDMILA Administration Buspirone HCl 5 mg 01/18/23 17:20 01/19/23 16:41 Buspirone Hcl 5 Mg Tablet PO 5 mg TID LIUDMILA Administration Diltiazem HCl 180 mg 01/19/23 09:00 01/19/23 08:51 Diltiazem Hcl Cd 180 Mg Cap.Er.24h PO 180 mg DAILY LIUDMILA Administration Docusate Sodium 100 mg 01/18/23 17:00 01/19/23 16:41 Docusate Sodium 100 Mg Capsule PO 100 mg BID LIUDMILA Administration Duloxetine HCl 30 mg 01/19/23 09:00 01/19/23 08:51 Duloxetine Hcl 30 Mg Capsule.Dr PO 30 mg DAILY LIUDMILA
[2023-01-19] MEDS: polyethylene glycoL 3350 17 GM POWD.PACK PO (18:18)
[2023-01-19 21:11] VITALS: BP 121/85; PULSE 100; RESP 16; TEMP 36.6; O2SAT 100
[2023-01-19] MEDS: NEOMYCIN/POLYMYXIN/BACITRACIN OINTMENT 15 GM TUBE 1 APPLIC TOPICAL (22:27)
[2023-01-20 05:51] LABS: Basophils Percent Auto 0.8 % (0.2-1.2); Eosinophils Absolute Auto 0.1 K/mm3 (0-0.3); Eosinophils Percent Auto 2.3 % (0-4.4); Hematocrit 30.2 % (37.0-47.0); Hemoglobin 9.7 g/dL (12.0-15.0); Lymphocytes Absolute Auto 0.94 K/mm3 (0.9-3.2); Lymphocytes Percent Auto 36.2 % (18.3-44.2); Mean Corpuscular HGB Conc 32.1 g/dl (32-36); Mean Corpuscular Hemoglobin 32.4 pg (26-34); Mean Platelet Volume 10.4 fl (7.4-10.4); Monocytes Absolute Auto 0.3 K/mm3 (0.1-0.6); Monocytes Percent Auto 13.1 % (2.6-8.5); Neutrophils Absolute Auto 1.2 K/mm3 (1.3-6.7); Neutrophils Percent Auto 47.6 % (45.5-73.1); Platelet Count Result 150 k/mm3 (150-375); Red Blood Count 2.99 M/mm3 (4.2-5.4); Red Cell Distribution Width 15.5 % (11.5-14.5); White Blood Count 2.6 K/mm3 (4.5-10.0)
[2023-01-20 06:10] LABS: Alanine Aminotransferase 38 U/L (6-35); Albumin Level 2.5 g/dL (3.5-5.1); Alkaline Phosphatase 68 U/L (38-126); Anion Gap 2 mmol/L (8-16); Aspartate Amino Transferase 29 U/L (14-36); Bilirubin,Total 0.3 mg/dL (0.2-1.3); Blood Urea Nitrogen 9 mg/dL (7-17); Calcium 7.4 mg/dL (8.4-10.2); Carbon Dioxide 27 mmol/L (22-30); Chloride 107 mmol/L (98-107); Estimated CRCL calculation 108 ml/min; Estimated Glomerular Filt Rate > 60; Glucose 79 mg/dL (65-110); Magnesium 1.8 mg/dL (1.6-2.3); Sodium 136 mmol/L (137-145)
[2023-01-20] MEDS: LEVOTHYROXINE SODIUM 125 MCG TABLET BY MOUTH (06:16)
[2023-01-20] MEDS: LORazepam (*CRX) 0.5 MG TABLET PO ×2 (06:18→16:26)
[2023-01-20 06:40] VITALS: BP 103/51; PULSE 83; RESP 14; TEMP 36.6; O2SAT 97
[2023-01-20] MEDS: polyethylene glycoL 3350 17 GM POWD.PACK PO ×2 (08:35→16:26)
[2023-01-20] MEDS: DOCUSATE SODIUM 100 MG CAPSULE PO ×2 (08:35→16:27)
[2023-01-20] MEDS: SACCHAROMYCES BOULARDII 250 MG CAPSULE PO ×2 (08:35→16:27)
[2023-01-20] MEDS: DULoxetine HCL 30 MG CAPSULE.DR PO (08:36)
[2023-01-20] MEDS: POTASSIUM CHLORIDE 20 MEQ TABLET.ER PO ×2 (08:36→16:27)
[2023-01-20] MEDS: MULTIVITAMINS THERAPEUTIC TAB (*BKC) 1 TABLET PO (08:36)
[2023-01-20] MEDS: ARIPiprazole 5 MG TABLET PO (08:36)
[2023-01-20] MEDS: PANTOPRAZOLE 40 MG TABLET PO ×2 (08:36→20:59)
[2023-01-20] MEDS: busPIRone HCL 5 MG TABLET PO ×3 (08:37→16:26)
[2023-01-20] MEDS: CHOLECALCIFEROL 1,000 UNITS TABLET 2000 UNITS PO (08:37)
[2023-01-20] MEDS: dilTIAZem HCL CD 180 MG CAP.ER.24H PO (08:37)
[2023-01-20] MEDS: ARIPiprazole 10 MG TABLET PO (08:37)
[2023-01-20] MEDS: DULoxetine HCL 60 MG CAPSULE.DR BY MOUTH (08:38)
[2023-01-20] MEDS: MAGNESIUM SULF 2 GM/WATER 50ML 2 GM/50 ML BAG IVPB (08:41)
[2023-01-20] MEDS: POTASSIUM CHLORIDE 20 MEQ TABLET 40 MEQ PO (08:41)
[2023-01-20] MEDS: NEOMYCIN/POLYMYXIN/BACITRACIN OINTMENT 15 GM TUBE 1 APPLIC TOPICAL (08:42)
--- NOTE | 2023-01-20 13:41 | PM.IMPN ---
Progress Note: A&P Assessment and Plan (1) Hallucinations: Code(s): R44.3 - Hallucinations, unspecified Status: Inactive Assessment and Plan: Patient presents with complaints of hallucinations. MRI brain showing no acute findings. LP showing RBC but no WBC. Other testing pending. UDS negative. RPR, HIV negative. Hepatitis panel negative. Uncertain etiology. Due to late onset, organic brain disorder such as schizophrenia less likely. 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 UPT negative. Appreciate Psychiatry input. Was only on Vanco IV. Not on ampicillin, rocephin or acycolivir. She is improving clinically so abx stopped and will follow culture results. Plan for placement at a facility that does ECT therapy per psychiatry. (2) IBS (irritable bowel syndrome): Qualifiers: Irritable bowel syndrome type: unspecified Qualified Code(s): K58.9 - Irritable bowel syndrome without diarrhea Code(s): K58.9 - Irritable bowel syndrome without diarrhea Status: Acute Assessment and Plan: Appears to be in exacerbation over the last few weeks. Still with complaints of constipation. She follows with GI for this with colonoscopy planned in about 1 week. Contineu Miralax. (3) Hypothyroidism (acquired): Code(s): E03.9 - Hypothyroidism, unspecified Status: Acute Assessment and Plan: TSH normal. Continue levothyroxine Plan Pancytopenia - noted. B12/folate normal. Iron studies normal in April. Medciation related from acyclovir? Viral? Levels better today. Continue to follow DVT prophylaxis with SCDs Code status full code Subjective Date/time seen: 01/20/23 13:41 Interval history: 42yo female with HTN, anxiety and depression here for hallucinations. Denies any further hallucinations. She feels well. Still with occasional crampy abdominal pain. No BMs. Exam Narrative: AF 103/51 83 14 97% ra Gen - NARD Chest - CTA bilaterally, nml RR CV - RRR S1/S2 Abd - Soft, NT/ND, Positive BS Ext - No pedal edema Psych - Nml mood and affect. Skin - Warm and dry Objective Data Vital Signs Vital Signs: Vital Signs - 24 hr 01/19/23 16:17 01/19/23 21:11 01/20/23 06:40 Temperature 97.5 F L 97.8 F 97.8 F Pulse Rate 110 H 100 83 Respiratory Rate 18 16 14 Blood Pressure 120/79 121/85 103/51 L Pulse Oximetry 96 100 97 Oxygen Delivery 01/20/23 07:55 Temperature Pulse Rate Respiratory Rate Blood Pressure Pulse Oximetry Oxygen Delivery Room Air Intake/Output Intake/Output: Intake & Output 01/17/23 01/18/23 01/19/23 01/20/23 23:59 23:59 23:59 23:59 Intake Total 1526 3379 840 Balance 1526 3379 840 Meds/Results Medications: Active Medications Generic Name Dose Route Start Last Admin Trade Name Freq PRN Reason Stop Dose Admin Aripiprazole 5 mg 01/19/23 00:00 01/20/23 08:36 Aripiprazole 5 Mg Tablet PO 5 mg DAILY LIUDMILA Administration Aripiprazole 10 mg 01/19/23 00:00 01/20/23 08:37 Aripiprazole 10 Mg Tablet PO 10 mg DAILY LIUDMILA Administration Buspirone HCl 5 mg 01/18/23 17:20 01/20/23 12:10 Buspirone Hcl 5 Mg Tablet PO 5 mg TID LIUDMILA Administration Diltiazem HCl 180 mg 01/19/23 09:00 01/20/23 08:37 Diltiazem Hcl Cd 180 Mg Cap.Er.24h PO 180 mg DAILY LIUDMILA Administration Docusate Sodium 100 mg 01/18/23 17:00 01/20/23 08:35 Docusate Sodium 100 Mg Capsule PO 100 mg BID LIUDMILA Administration Duloxetine HCl 30 mg 01/19/23 09:00 01/20/23 08:36 Duloxetine Hcl 30 Mg Capsule.Dr PO 30 mg DAILY LIUDMILA Administration Duloxetine HCl 60 mg 01/19/23 09:00 01/20/23 08:38 Duloxetine Hcl 60 Mg Capsule.Dr BY MOUTH 60 mg DAILY LIUDMILA Administration Lactulose 10 gm 01/18/23 15:08 Lactulose 20 Gm/30 Ml Udc PO BID PRN constipation Levothyroxine Sodium 125 mcg 01/19/23 06:30 01/20/23 06:16 Levothyroxine Sodium 125 Mcg Tablet BY MOUTH 125 mc
[2023-01-20 15:39] VITALS: BP 117/65; PULSE 107; RESP 18; TEMP 36.3; O2SAT 97
[2023-01-20] MEDS: ACETAMINOPHEN 325 MG TABLET 650 MG PO (16:22)
[2023-01-20 16:32] LABS: Herpes Simplex Type 1 DNA PCR Not Detected (Not Detected); Herpes Simplex Type 2 DNA PCR Not Detected (Not Detected)
[2023-01-20 17:30] LABS: Epstein Barr Virus DNA PCR Not Detected (Not Detected); Source Epstein Barr Virus CSF
[2023-01-20 17:46] LABS: Varicella IgM Antibody <=0.90 (<=0.90)
[2023-01-20 19:33] VITALS: BP 105/73; PULSE 103; RESP 20; TEMP 36.3; O2SAT 98
[2023-01-21] MEDS: LORazepam (*CRX) 0.5 MG TABLET PO ×3 (01:33→14:50)
[2023-01-21 04:13] VITALS: BP 112/74; PULSE 88; RESP 18; TEMP 36.3; O2SAT 97
[2023-01-21 04:54] LABS: Basophils Percent Auto 0.8 % (0.2-1.2); Eosinophils Absolute Auto 0.1 K/mm3 (0-0.3); Eosinophils Percent Auto 2.7 % (0-4.4); Hemoglobin 9.5 g/dL (12.0-15.0); Immature Granulocyte Absolute 0.01 K/mm3 (0.00-0.031); Immature Granulocyte Percent A 0.4 % (0-0.5); Lymphocytes Absolute Auto 0.92 K/mm3 (0.9-3.2); Mean Corpuscular HGB Conc 31.7 g/dl (32-36); Mean Corpuscular Hemoglobin 32.2 pg (26-34); Mean Corpuscular Volume 101.7 fl (80-100); Mean Platelet Volume 10.2 fl (7.4-10.4); Monocytes Absolute Auto 0.3 K/mm3 (0.1-0.6); Monocytes Percent Auto 10.6 % (2.6-8.5); Neutrophils Absolute Auto 1.3 K/mm3 (1.3-6.7); Neutrophils Percent Auto 50.5 % (45.5-73.1); Platelet Count Result 167 k/mm3 (150-375); Red Blood Count 2.95 M/mm3 (4.2-5.4); Red Cell Distribution Width 15.7 % (11.5-14.5); White Blood Count 2.6 K/mm3 (4.5-10.0)
[2023-01-21 05:16] LABS: Alanine Aminotransferase 35 U/L (6-35); Albumin Level 2.6 g/dL (3.5-5.1); Alkaline Phosphatase 63 U/L (38-126); Anion Gap 2 mmol/L (8-16); Aspartate Amino Transferase 32 U/L (14-36); Bilirubin,Total 0.3 mg/dL (0.2-1.3); Blood Urea Nitrogen 12 mg/dL (7-17); Calcium 7.4 mg/dL (8.4-10.2); Carbon Dioxide 27 mmol/L (22-30); Chloride 106 mmol/L (98-107); Estimated CRCL calculation 108 ml/min; Estimated Glomerular Filt Rate > 60; Glucose 81 mg/dL (65-110); Magnesium 2.1 mg/dL (1.6-2.3); Potassium 4.1 mmol/L (3.4-5.0); Sodium 135 mmol/L (137-145)
[2023-01-21] MEDS: LEVOTHYROXINE SODIUM 125 MCG TABLET BY MOUTH (06:18)
[2023-01-21] MEDS: CHOLECALCIFEROL 1,000 UNITS TABLET 2000 UNITS PO (08:15)
[2023-01-21] MEDS: dilTIAZem HCL CD 180 MG CAP.ER.24H PO (08:16)
[2023-01-21] MEDS: PANTOPRAZOLE 40 MG TABLET PO (08:16)
[2023-01-21] MEDS: DULoxetine HCL 60 MG CAPSULE.DR BY MOUTH (08:17)
[2023-01-21] MEDS: SACCHAROMYCES BOULARDII 250 MG CAPSULE PO (08:17)
[2023-01-21] MEDS: DULoxetine HCL 30 MG CAPSULE.DR PO (08:17)
[2023-01-21] MEDS: ARIPiprazole 10 MG TABLET PO (08:17)
[2023-01-21] MEDS: busPIRone HCL 5 MG TABLET PO ×2 (08:17→14:50)
[2023-01-21] MEDS: ARIPiprazole 5 MG TABLET PO (08:17)
[2023-01-21] MEDS: DOCUSATE SODIUM 100 MG CAPSULE PO (08:17)
[2023-01-21] MEDS: POTASSIUM CHLORIDE 20 MEQ TABLET.ER PO (08:18)
[2023-01-21] MEDS: polyethylene glycoL 3350 17 GM POWD.PACK PO (08:18)
[2023-01-21] MEDS: MULTIVITAMINS THERAPEUTIC TAB (*BKC) 1 TABLET PO (08:18)
[2023-01-21 11:22] LABS: Amphetamine Screen Urine Negative (Negative); Barbiturate Screen Urine Negative (Negative); Benzodiazepines Screen Urine Negative (Negative); Cannabinoid Screen Urine Negative (Negative); Cocaine Screen Urine Negative (Negative); Methadone Screen Urine Negative (Negative); Opiate Screen Urine Negative (Negative); Phencyclidine Screen Urine Negative (Negative)
--- NOTE | 2023-01-21 13:27 | PM.DS ---
DS: Admitting Diagnosis Discharge Date 01/21/23 Admitting Diagnosis Hallucinations DS: Discharge Diagnosis Discharge Diagnosis (1) Hallucinations: Code(s): R44.3 - Hallucinations, unspecified Status: Inactive (2) IBS (irritable bowel syndrome): Qualifiers: Irritable bowel syndrome type: unspecified Qualified Code(s): K58.9 - Irritable bowel syndrome without diarrhea Code(s): K58.9 - Irritable bowel syndrome without diarrhea Status: Acute (3) Hypothyroidism (acquired): Code(s): E03.9 - Hypothyroidism, unspecified Status: Acute (4) Pancytopenia: Code(s): D61.818 - Other pancytopenia Status: Acute DS: Summary Hospital Course Reason for hospitalization: 42yo female with HTN, anxiety and depression here for hallucinations. Please see H&P for details Hospital Course: Patient presents with complaints of hallucinations. MRI brain showing no acute findings. LP showing RBC but no WBC. UDS negative. RPR, HIV negative. Hepatitis panel negative. CSF HSV PCR negative. CSF EBV PCR negative. Appreciate Psychiatry input. They recommended placement at a facility that does ECT therapy but patient refused placement. She is not suicidal or homicidal. Was having complaints of constipation. She follows with GI for this with colonoscopy planned in about 1 week. Treated with Miralax with benefit.?Pancytopenia noted. B12/folate normal. Iron studies normal in April. Medication related from acyclovir? Viral? Levels better. Will repeat CBC as outpatient. Her hallucinations resolved. Crisis did see the patient and felt the patient could go home with safety contract. She overall did well and was able to be discharged home on 01/21/23. She has a follow-up with her counselor on 01/27/23. I recommended she contact her psychiatry provider to be seen within 1 week. I left a message with her provider to call me to discuss. Left message with psychiatry as well. Status at Discharge Cognitive/behavioral status at discharge: Stable Time Spent with Patient Time attestation: Total time spent providing and/or coordinating discharge services: 35 minutes Time spent: Greater than 30 minutes Exam Narrative: AF 112/74 88 18 97% ra Gen - NARD Chest - CTA bilaterally, nml RR CV - RRR S1/S2 Abd - Soft, NT/ND, Positive BS Ext - No pedal edema Psych - Nml mood and affect. Skin - Warm and dry DS: Data Data Completed and Pending Completed studies during hospitalization: Pending at discharge 01/18/23 07:25 Cytology [PTH] Routine Labs on day of discharge: Labs from last 24 hours 01/21/23 01/21/23 01/21/23 10:34 04:27 04:27 WBC 2.6 L RBC 2.95 L Hgb 9.5 L Hct 30.0 L MCV 101.7 H MCH 32.2 MCHC 31.7 L RDW 15.7 H Plt Count 167 MPV 10.2 Immature Gran % (Auto) 0.4 Neut % (Auto) 50.5 Lymph % (Auto) 35.0 [place] % (Auto) 10.6 H Eos % (Auto) 2.7 Baso % (Auto) 0.8 Lymph # (Auto) 0.92 [place] # (Auto) 0.3 Eos # (Auto) 0.1 Baso # (Auto) 0.0 Abs Immat Gran (auto) 0.01 Absolute Neuts (auto) 1.3 Absolute Nucleated RBC 0.0 Nucleated RBC % 0.0 Sodium 135 L Potassium 4.1 Chloride 106 Carbon Dioxide 27 Anion Gap 2 L BUN 12 Creatinine 0.50 L Estim Creat Clear Calc 108 Estimated GFR > 60 Glucose 81 Calcium 7.4 L Magnesium 2.1 Total Bilirubin 0.3 AST 32 ALT 35 Alkaline Phosphatase 63 Total Protein 5.0 L Albumin 2.6 L Fluid EBV Source CSF EBV DNA (PCR) CSF Herpes I DNA (PCR) CSF Herpes II DNA (PCR) Urine Opiates Screen Negative Urine Methadone Screen Negative Ur Barbiturates Screen Negative Ur Phencyclidine Scrn Negative Ur Amphetamine Screen Negative U Benzodiazepines Scrn Negative Urine Cocaine Screen Negative U Cannabinoids Screen Negative HSV (PCR) Source VZV IgG Antibody VZV IgM Antibody 01/18/23 0
[2023-01-21 15:21] LABS: GGT 79 U/L (3-55)
== END 2023-01-21 17:13 | disposition home or self-care (01) ==
LOC: ANHED 07:52 → ANH2MED 17:45
PROVIDERS: Psychiatry & Neurology Psychiatry; Admitting Provider Student in an Organized Health Care Education/Training Program; Emergency Provider Emergency Medicine; PCP Internal Medicine; Referring Provider Internal Medicine Gastroenterology; Visit Provider Internal Medicine
DX: R44.3 Hallucinations, unspecified (principal); K58.9 Irritable bowel syndrome, unspecified; E03.9 Hypothyroidism, unspecified; D61.818 Other pancytopenia; F41.8 Other specified anxiety disorders; K76.0 Fatty (change of) liver, not elsewhere classified; G43.909 Migraine, unspecified, not intractable, without status migrainosus; Z11.4 Encounter for screening for human immunodeficiency virus [HIV]; E55.9 Vitamin D deficiency, unspecified; F10.90 Alcohol use, unspecified, uncomplicated; Z90.3 Acquired absence of stomach [part of]; Z98.84 Bariatric surgery status; Z86.711 Personal history of pulmonary embolism; Z79.899 Other long term (current) drug therapy; Z83.79 Family history of other diseases of the digestive system
CPT/HCPCS: 36415; 62328; 70551; 74177; 80053; 80061; 80074; 80307; 82140; 82306; 82607; 82746; 82945; 82977; 83690; 83735; 84157; 85025; 86592; 86703; 86787; 87015; 87040; 87070; 87116; 87206; 87255; 87529; 87637; 87798; 88108; 89051; 96365; 96366; 96367; 96375; 99285; A9270; G0378; G0432; J2543; J3370; J3475; J7060; Q9967

== ENCOUNTER 2023-01-27 11:09 | Outpatient (CLI) | payer OTHER, SELFPAY ==
[2023-01-27 12:13] LABS: Basophils Absolute Auto 0.1 K/mm3 (0.0-0.1); Eosinophils Absolute Auto 0.1 K/mm3 (0-0.3); Eosinophils Percent Auto 1.6 % (0-4.4); Hematocrit 37.2 % (37.0-47.0); Hemoglobin 11.8 g/dL (12.0-15.0); Immature Granulocyte Absolute 0.01 K/mm3 (0.00-0.031); Immature Granulocyte Percent A 0.2 % (0-0.5); Lymphocytes Absolute Auto 1.12 K/mm3 (0.9-3.2); Lymphocytes Percent Auto 22.2 % (18.3-44.2); Mean Corpuscular HGB Conc 31.7 g/dl (32-36); Mean Corpuscular Hemoglobin 32.3 pg (26-34); Mean Corpuscular Volume 101.9 fl (80-100); Mean Platelet Volume 9.5 fl (7.4-10.4); Monocytes Absolute Auto 0.4 K/mm3 (0.1-0.6); Monocytes Percent Auto 8.5 % (2.6-8.5); Neutrophils Absolute Auto 3.4 K/mm3 (1.3-6.7); Neutrophils Percent Auto 66.5 % (45.5-73.1); Platelet Count Result 354 k/mm3 (150-375); Red Blood Count 3.65 M/mm3 (4.2-5.4); Red Cell Distribution Width 14.9 % (11.5-14.5); White Blood Count 5.1 K/mm3 (4.5-10.0)
[2023-02-07 01:17] LABS: Calprotectin, Stool 900 mcg/g
== END 2023-01-27 11:10 | disposition home or self-care (01) ==
PROVIDERS: PCP Internal Medicine; Referring Provider Internal Medicine; Visit Provider Nurse Practitioner
DX: D61.818 Other pancytopenia (principal); K63.9 Disease of intestine, unspecified
CPT/HCPCS: 36415; 83993; 85025; 87045; 87269; 87427

== ENCOUNTER 2023-01-28 01:15 | Day surgery (SDC) | payer OTHER, SELFPAY ==
[2023-01-20 09:24] VITALS: BMI 25.0
--- NOTE | 2023-01-27 12:27 | PM.HPGS ---
History of Present Illness History of Present Illness Consent: Risks, benefits, and alternatives have been discussed and questions answered. Patient agrees to proceed with procedure. Chief complaint: Abnormal Radiology Findings,Gastric Wall Thicken Narrative: Melissa Man is a 42 year old female Referred for endoscopy because of a recent abnormality on CT scan. She had a CT scan that showed some thickening in the distal part of the stomach. Likewise there was an abnormality in the right side of the colon, with diffuse colonic wall thickening. A subsequent CT scan week later actually did not show that change. Review of Systems Review of Systems: All systems reviewed & are unremarkable except as noted in HPI and below PMFSH Past Medical History Medical History Abdominal pain Anxiety with depression Benign essential hypertension BMI 24.0-24.9, adult BMI 25.0-25.9,adult BMI 26.0-26.9,adult BMI 27.0-27.9,adult BMI 28.0-28.9,adult BMI 30.0-30.9,adult Change in bowel habits Chondromalacia of patella Colon cancer screening Colon wall thickening Contusion of left knee Drug overdose, intentional DUB (dysfunctional uterine bleeding) Encounter for preventive health examination Encounter for routine adult health examination without abnormal findings Encounter for screening mammogram for malignant neoplasm of breast Hepatic steatosis History of renal stone Hx of adenomatous colonic polyps Hx pulmonary embolism Hypothyroidism (acquired) IBS (irritable bowel syndrome) Impingement of left knee joint Irritable bowel syndrome with constipation Kidney stone Microscopic hematuria Migraine Muscle cramps Nausea and vomiting On press 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 long goods drug 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 Pancytopenia Persistent headaches Pneumonia of both lungs Right foot pain Right hip pain RUQ abdominal pain Screening for lipid disorders SOB (shortness of breath) Strain of lumbar paraspinal muscle Tachycardia Vitamin D deficiency Weight gain Surgical History Surgical History H/O tubal ligation History of gastric surgery Hx of hand surgery Hx of laparoscopic partial gastrectomy Family History Family History Mother Hypertension Carcinoma of colon Family history of diabetes mellitus in first degree relative Family history of gastrointestinal disorder Family history of elevated blood lipids Grandparent Family history of rheumatoid arthritis Father Hypertension, Onset Age: 197 Family history of elevated blood lipids Patient's father is Sibling Hypertension Other Cerebrovascular accident Diabetes mellitus Family history of arthritis Family history of cardiovascular disease Family history of malignant neoplasm Family history of mental disorder Family history of seizure disorder Family history of thyroid disease Malignant neoplasm of prostate Social History Social History Smoking status: Former smoker Alcohol intake: current Drinks per week: 2 Alcohol use details: social Substance use: current Substance use type: does not use Lack of Transportation: No Lack of Food: Never True Current Housing: I Have Housing Concerned About Future Housing: No Difficulty Paying Gas/Electric Bills: No Difficulty Paying for Meds: No Currently Unemployed: No Education: Associate Degree Difficulty w/ Childcare or Family Care: No Living arrangements: alone Occupation/Education: occupation Gender identity (if verbalized by the patient): Female Spiritual care concerns: No Meds Home Medications and Allergies Home Medications Medication Instructions Recorded Confirmed Type evening primrose oil 500 mg capsule 500 mg PO BID 08/04/21 01/28/23 History Saccharomyces boulardii 250 mg 250 mg PO BID 09
[2023-01-28 10:10] VITALS: BP 136/86; PULSE 104; RESP 16; TEMP 35.8; O2SAT 100
--- NOTE | 2023-01-28 10:13 | WPDANESEPPF ---
Anes - Initial Pre Proc Eval Procedure: Operation Date: 01/28/23 11:00 Proposed Procedures p Esophagogastroduodenoscopy & Colonoscopy - Sebastián Huston MD Date/Time: 01/28/23 10:13 Surgeon: Sebastián Huston MD Pre Op Diagnosis: Abnormal Radiology Findings,Gastric Wall Thicken Patient Data Age: 42 Gender: F Height: 1.65 m Weight: 68.3 kg Allergies Allergy/AdvReac Type Severity Reaction Status Date / Time No Known Allergies Allergy Verified 01/28/23 10:08 Home Medications Medication Instructions Recorded Confirmed Type evening primrose oil 500 mg capsule 500 mg PO BID 08/04/21 01/28/23 History Saccharomyces boulardii 250 mg 250 mg PO BID 07/22/22 01/28/23 History capsule (Digest Probiotic (S.boulardii)) docusate sodium 100 mg capsule 100 mg PO BID 07/22/22 01/28/23 History omeprazole 20 mg capsule,delayed 20 mg PO BID 07/22/22 01/28/23 History release lactulose 10 gram/15 mL (15 mL) 10 g (15 mL) PO BID PRN 08/17/22 01/28/23 Rx oral solution constipation #1,440 mL ondansetron 8 mg disintegrating 8 mg PO Q8H PRN nausea and 08/25/22 01/28/23 Rx tablet vomiting #30 tabs cholecalciferol (vitamin D3) 50 50 mcg PO DAILY 10/28/22 01/28/23 History mcg (2,000 unit) capsule multivitamin 1 tablet PO DAILY 10/28/22 01/28/23 History diltiazem HCl 180 mg 180 mg PO DAILY #30 caps 11/30/22 01/28/23 Rx capsule,extended release 24 hr levomefolate calcium 7.5 mg tablet See Rx Instructions .Route 11/30/22 01/28/23 Rx .COMPLEX #90 tabs erenumab-aooe 70 mg/mL See Rx Instructions .Route 12/21/22 01/28/23 Rx subcutaneous auto-injector .COMPLEX #1 mL (Aimovig Autoinjector) potassium chloride 20 mEq 20 meq PO BID #4 tabs 01/17/23 01/28/23 Rx tablet,extended release buspirone 5 mg tablet 5 mg PO TID 01/18/23 01/28/23 History rizatriptan 10 mg disintegrating See Rx Instructions .Route .COMPLEX 01/18/23 01/28/23 History tablet (Maxalt-NIGHT TIME NANNY) aripiprazole 5 mg tablet 15 mg PO DAILY 01/20/23 01/28/23 History duloxetine 60 mg capsule,delayed 60 mg PO DAILY 01/20/23 01/28/23 History release levothyroxine 125 mcg tablet 125 mcg PO DAILY 01/20/23 01/28/23 History prucalopride 2 mg tablet 2 mg PO DAILY 01/20/23 01/28/23 History (Motegrity) lorazepam 0.5 mg tablet 0.5 mg PO TID PRN anxiety #50 tabs 01/26/23 01/28/23 Rx Patient hx anesthesia problems: none Family hx anesthesia problems: none Results Review: All pre-operative results and documents have been reviewed as part of the pre-operative evaluation. [facility] Past Medical History Medical History (Updated 01/28/23 @ 10:17 by Murtaza Iyer MD) Abdominal pain Anxiety with depression Benign essential hypertension BMI 24.0-24.9, adult BMI 25.0-25.9,adult BMI 26.0-26.9,adult BMI 27.0-27.9,adult BMI 28.0-28.9,adult BMI 30.0-30.9,adult Change in bowel habits Chondromalacia of patella Colon cancer screening Colon wall thickening Contusion of left knee Drug overdose, intentional DUB (dysfunctional uterine bleeding) Encounter for preventive health examination Encounter for routine adult health examination without abnormal findings Encounter for screening mammogram for malignant neoplasm of breast Hepatic steatosis History of renal stone Hx of adenomatous colonic polyps Hx pulmonary embolism Hypothyroidism (acquired) IBS (irritable bowel syndrome) Impingement of left knee joint Irritable bowel syndrome with constipation Kidney stone Microscopic hematuria Migraine Muscle cramps Nausea and vomiting On watermaster drug therapy Pancytopenia Persistent headaches Pneumonia of both lungs Right foot pain Right hip pain RUQ abdominal pain Screening for lipid disorders SOB (shortness of breath) Strain of lumbar paraspinal muscle Tachycardia Vitamin D deficiency Weight gain Surgical History Surgical History H/O tubal ligation History of gastric surgery Hx of hand surgery Hx o
[2023-01-28] MEDS: LACTATED RINGERS 1,000 ML 150 ML IV CONT (10:25)
--- NOTE | 2023-01-28 11:06 | SUR.OPER ---
EGD END 1058 COLONOSCOPY START 1104
[2023-01-28 11:21] VITALS: BP 122/81; PULSE 90; RESP 20; O2SAT 100
[2023-01-28 11:31] VITALS: BP 118/84; PULSE 98; RESP 18; O2SAT 100
[2023-01-28 11:41] VITALS: BP 127/87; PULSE 90; RESP 18; O2SAT 100
== END 2023-01-28 11:55 | disposition home or self-care (01) ==
PROVIDERS: PCP Internal Medicine; Visit Provider Internal Medicine Gastroenterology
PROC: 0DJ08ZZ Inspection of Upper Intestinal Tract, Via Natural or Artificial Opening Endoscopic (ICD-10-PCS; CPT 43235; principal; 2023-01-28 11:00)
DX: R93.3 Abnormal findings on diagnostic imaging of other parts of digestive tract (principal); I10 Essential (primary) hypertension; K76.0 Fatty (change of) liver, not elsewhere classified; K58.1 Irritable bowel syndrome with constipation; E03.9 Hypothyroidism, unspecified; E55.9 Vitamin D deficiency, unspecified; F41.9 Anxiety disorder, unspecified; F32.A Depression, unspecified; Z80.0 Family history of malignant neoplasm of digestive organs; Z79.899 Other long term (current) drug therapy; Z86.010 Personal history of colon polyps; Z86.711 Personal history of pulmonary embolism; Z98.84 Bariatric surgery status
CPT/HCPCS: 45378; 43239; 87081; 88305; J2704; J7120

== ENCOUNTER 2023-02-17 08:44 | Outpatient (CLI) | payer OTHER, SELFPAY ==
[2023-02-23 13:02] LABS: Gliadin AB, IgG <1.0 U/mL (<15.0); TTG IGA AB <1.0 U/mL (<15.0)
[2023-02-24 19:57] LABS: Calprotectin, Stool 285 mcg/g
== END 2023-02-17 08:45 | disposition home or self-care (01) ==
PROVIDERS: PCP Internal Medicine; Visit Provider Nurse Practitioner
DX: K58.1 Irritable bowel syndrome with constipation (principal); R19.5 Other fecal abnormalities
CPT/HCPCS: 36415; 83993; 86255; 86364

== ENCOUNTER 2023-02-23 08:13 | Outpatient (CLI) | payer OTHER, SELFPAY ==
--- NOTE | 2023-02-23 08:30 | ECHO_ITS ---
Patient Info Name: Melissa Man Age: 42 years : 1980 Gender: Female Ht: 65 in Wt: 170 lbs BSA: 1.90 m2 HR: 97 bpm BP: 123 / 103 mmHg Technical Quality: Good Exam Date: 02/23/2023 8:41 AM Exam Location: [facility] Patient Status: Outpatient Admit Date: 02/23/2023 Staff Ordering Physician: Catracho Guerrero MD Care Administrative Tech: Mann Abbott, JOHNSON, RT Attending Provider: Catracho Guerrero MD Referring Physician: Yolanda HENNESSY; Exam Type: CA echo doppler color flow Study Info Indications R00.0 - Tachycardia, unspecified Complete two-dimensional, color flow and Doppler transthoracic echocardiogram is performed. Strain analysis performed. Summary 1. Complete two-dimensional, color flow and Doppler transthoracic echocardiogram is performed. 2. Left ventricular chamber dimension is normal. 3. Left ventricular systolic function is normal, estimated at 60-65%. 4. There is mild concentric increased left ventricular wall thickness. 5. The left ventricular diastolic function is grade I diastolic dysfunction. 6. E/e' 4 is not elevated. 7. Global longitudinal strain is abnormal at -15.4%. Left Ventricle E/e' 4 is not elevated. Global longitudinal strain is abnormal at -15.4%. Left ventricular chamber dimension is normal. Left ventricular systolic function is normal, estimated at 60-65%. There is mild concentric increased left ventricular wall thickness. The left ventricular diastolic function is grade I diastolic dysfunction. Right Ventricle Right ventricular systolic function is normal and with normal TAPSE 2.4 cm. Right ventricular chamber dimension is normal. Left Atria Left atrial chamber dimension is normal. Right Atria Right atrial chamber dimension is normal. Aortic Valve The aortic valve is trileaflet. There is no aortic valve stenosis. There is no aortic valve regurgitation. Pulmonic Valve There is no pulmonic regurgitation. Mitral Valve There is no mitral valve stenosis. There is no mitral valve regurgitation. Tricuspid Valve There is no tricuspid valve regurgitation. Pericardium/Pleural There is no pericardial effusion. Inferior Vena Cava Normal inferior vena cava with >50% collapse upon inspiration consistent with normal right atrial pressure, 5 mmHg. Aorta The aortic root size at the sinus of Valsalva is normal. Left Ventricular Outflow Tract Name Value Normal LVOT 2D LVOT Diameter 2.0 cm LVOT Doppler LVOT Peak Gradient 3 mmHg LVOT Mean Gradient 2 mmHg LVOT VTI 14 cm LVOT VTI/AV VTI Ratio 0.7 LVOT Stroke Volume 45 ml LVOT CO 4.7 l/min LVOT CI 2.5 l/min/m2 Mitral Valve Name Value Normal MV Doppler
--- NOTE | 2023-02-28 16:44 | WPDHOLTEREM ---
Holter/Event Monitor Holter/Event Monitor Date of procedure: 02/23/23 Holter/Event Procedure: 48 Hr Holter Monitor Indications: Tachycardia Conclusion: 1. 48 hour holter monitor on 02/23/23. 2. Underlying rhythm is sinus rhythm. HR range 78-182 bpm; average HR 108 bpm. HR at 182 bpm was probably sinus tachycardia at 18:42 with underlying baseline artifact. 3. There are 2 premature supraventricular complexes and 1 supraventricular couplet. No supraventricular tachycardia. 4. There are 7 premature ventricular complexes, 1 ventricular couplet and 1 ventricular triplet. No ventricular tachycardia. 5. No sinoatrial or atrioventricular blocks. No significant pauses greater than 2 seconds. 6. Patient reports symptoms of pounding heart beat, chest heaviness, flushed and neck larson which demonstrate sinus rhythm, HR range 86-136 bpm.
== END 2023-02-23 08:14 | disposition home or self-care (01) ==
PROVIDERS: PCP Internal Medicine; Visit Provider Internal Medicine
DX: R00.0 Tachycardia, unspecified (principal)
CPT/HCPCS: 93225; 93226; 93306

== ENCOUNTER 2023-03-01 09:17 | Outpatient (CLI) | payer OTHER, SELFPAY ==
--- NOTE | ~2023-03-01 | XR_ITS ---
EXAMINATION: XR small bowel follow through DATE: 03/01/2023 12:58 INDICATION: Irritable bowel syndrome with constipation. TECHNIQUE: Oral contrast was administered, and a time course of radiographs of the abdomen was obtain ed. Fluoroscopy of the small bowel was not performed. Fluoroscopy exposure time was 0 minutes. The to sergey number of images was 9. COMPARISON: CT abdomen and pelvis 01/18/2023 FINDINGS: The maintenance painter apprentice radiograph demonstrates a large volume of stool in the colon. There are no dilated loops of small bowel. No abnormal mass or stricture. The terminal ileum is normal. Transit time from the stom ach to proximal colon was approximately 2.5 hours. IMPRESSION: 1. Normal small bowel. Reviewed, dictated and finalized at location A. IMPRESSION: 1. Normal small bowel.
== END 2023-03-01 09:18 | disposition home or self-care (01) ==
LOC: ANHIMG 09:19
PROVIDERS: PCP Internal Medicine; Visit Provider Nurse Practitioner
DX: K58.1 Irritable bowel syndrome with constipation (principal); R19.5 Other fecal abnormalities
CPT/HCPCS: 74250

== ENCOUNTER 2023-03-08 11:56 | Emergency (ER) | payer OTHER, SELFPAY ==
[2023-03-08 12:26] VITALS: BP 119/73; PULSE 128; RESP 18; TEMP 36.4; O2SAT 98
[2023-03-08 12:38] LABS: Basophils Percent Auto 0.5 % (0.2-1.2); Eosinophils Absolute Auto 0.1 K/mm3 (0-0.3); Eosinophils Percent Auto 0.8 % (0-4.4); Hematocrit 34.6 % (37.0-47.0); Hemoglobin 11.2 g/dL (12.0-15.0); Immature Granulocyte Absolute 0.01 K/mm3 (0.00-0.031); Immature Granulocyte Percent A 0.2 % (0-0.5); Lymphocytes Absolute Auto 1.99 K/mm3 (0.9-3.2); Lymphocytes Percent Auto 33.1 % (18.3-44.2); Mean Corpuscular HGB Conc 32.4 g/dl (32-36); Mean Corpuscular Volume 92.8 fl (80-100); Mean Platelet Volume 9.4 fl (7.4-10.4); Monocytes Absolute Auto 0.4 K/mm3 (0.1-0.6); Monocytes Percent Auto 7.3 % (2.6-8.5); Neutrophils Absolute Auto 3.5 K/mm3 (1.3-6.7); Neutrophils Percent Auto 58.1 % (45.5-73.1); Platelet Count Result 363 k/mm3 (150-375); Red Blood Count 3.73 M/mm3 (4.2-5.4); Red Cell Distribution Width 13.4 % (11.5-14.5)
[2023-03-08 12:52] LABS: Alanine Aminotransferase 27 U/L (6-35); Albumin Level 4.4 g/dL (3.5-5.1); Alkaline Phosphatase 85 U/L (38-126); Anion Gap 9 mmol/L (8-16); Aspartate Amino Transferase 29 U/L (14-36); Bilirubin,Total 0.3 mg/dL (0.2-1.3); Blood Urea Nitrogen 17 mg/dL (7-17); Calcium 8.8 mg/dL (8.4-10.2); Carbon Dioxide 24 mmol/L (22-30); Chloride 102 mmol/L (98-107); Estimated CRCL calculation 91 ml/min; Estimated Glomerular Filt Rate > 60; Glucose 98 mg/dL (65-110); Lipase 192 U/L (23-300); Potassium 4.3 mmol/L (3.4-5.0); Sodium 135 mmol/L (137-145)
[2023-03-08 13:01] LABS: Appearance Urine Cloudy (Clear); Bacteria Urine None Seen /hpf; Bilirubin Urine Negative (Negative); Blood Urine Negative (Negative); Color Urine Yellow (Yellow); Glucose Urine UA Negative (Negative); Ketones Urine Negative (Negative); Leukocyte Esterase Ur Negative LEU/UL (Negative); Need Manual Microscopic Reviewed; Nitrate Urine Negative (Negative); Non Pathogenic Casts 0-2; Protein Urine Negative (Negative); Specific Grav Ur 1.013 (1.001-1.035); Squamous Epithelial Cell Urine Occasional /hpf (Few); Urobilinogen Urine 0.2 mg/dL (<2.0); WBC Urine 0-5 /hpf; pH Urine 6.5 (5.0-9.0)
[2023-03-08 13:04] LABS: Add Urine Microscopic? YES
== END 2023-03-08 14:50 | disposition left against medical advice (07) ==
PROVIDERS: Emergency Provider Emergency Medicine; PCP Internal Medicine
DX: R11.10 Vomiting, unspecified (principal)
CPT/HCPCS: 36415; 80053; 81001; 81025; 83690; 85025; 99199

== ENCOUNTER 2023-04-13 08:49 | Outpatient (CLI) | payer OTHER, SELFPAY ==
--- NOTE | 2023-05-09 10:34 | WPDSLEEPSTUD ---
Sleep Study Date of Study: 04/13/23 Ordering Provider: Avel Young, Interpreting Physician: Xiomara Alvarado MD Sleep Study Type: Polysomnogram Height: 1.65 m Weight: 81.647 kg Body Mass Index: 29.9 Neck Circumference (inches): 14 Pride: 18 Reason for Sleep Study Episode of hallucinations and altered mental status upon waking up, occurred once on 01/18/23. Reports feeling constantly tired, unmotivated. Sleep History Melissa Man is a 43-year-old female with history of depression, anxiety, GERD, IBS with constipation who presents for a sleep study due to hypersomnolence and evaluation after an episode of hallucinations and altered mental status upon waking up 01/18/23. She rarely awakens from sleep short of breath. She rarely awakens at night with heartburn, belching or cough.? She occasionally has trouble sleeping when she has a cold. She rarely wakes up gasping for breath during the night. She rarely has breathing problems at night. She occasionally sweats excessively at night. She occasionally notices her heart pounding or beating irregularly during the night. She occasionally falls asleep during the day. She rarely falls asleep involuntarily however she occasionally falls asleep while driving. She rarely experiences loss of muscle tone with strong emotion. She occasionally has trouble at work because of sleepiness. She rarely feels paralyzed on waking or falling asleep. She occasionally experiences vivid dreams upon waking or falling asleep. She does not feel afraid of going to sleep. She occasionally has nightmares. She occasionally recalls her dreams. She occasionally has thoughts racing through her mind. She constantly feels sad or depressed. She constantly feels anxiety or worry about things. She frequently notices parts of her body jerk. She occasionally kicks during the night. She frequently feels crawling or aching feelings in her legs. She occasionally feels leg pain (aching) at night. She never grinds her teeth or has morning jaw pain. She occasionally feels bothered by pain during the day and is rarely awakened by pain during the night. She occasionally wakes up feeling stiff in the morning. She frequently wakes up feeling sore or achy in the morning with pain in her neck, spine, or joints. 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 Normal bedtime is around 7:30am on the weekdays and 9pm on the weekends, taking 1 hour to fall asleep. She typically gets about 8 to 12 hours of sleep per night. Her wake up time is around noon on the weekdays and same on the weekends. She typically wakes up several per night, can be awake up to 2 hours. She will try to stay in bed and reposition to go back to sleep. Habits:? Never smoked tobacco. She drinks 1 caffeinated beverage per day. No alcohol or recreational substances. [facility] Past Medical History Medical History Abdominal pain Anxiety with depression Benign essential hypertension BMI 27.0-27.9,adult BMI 28.0-28.9,adult Change in bowel habits Chondromalacia of patella Colon cancer screening Colon wall thickening Contusion of left knee Dehydration Drug overdose, intentional DUB (dysfunctional uterine bleeding) Elevated fecal calprotectin Encounter for preventive health examination Encounter for routine adult health examination without abnormal findings Encounter for screening mammogram for malignant neoplasm of breast Hepatic steatosis History of renal stone Hx of adenomatous colonic polyps Hx pulmonary embolism Hypothyroidism (acquired) Impingement of left knee joint Irritable bowel syndrome with constipation Irritable bowel syndrome with constipation Kidney stone Microscopic hematuria Migraine Muscle cramps Nausea and vomiting On 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
[2023-05-09 10:49] VITALS: BMI 29.9
== END 2023-04-14 06:45 | disposition home or self-care (01) ==
LOC: ANHCSM 08:50
PROVIDERS: PCP Internal Medicine; Visit Provider Psychiatry & Neurology Psychiatry
DX: G47.13 Recurrent hypersomnia (principal); G47.61 Periodic limb movement disorder
CPT/HCPCS: 95810

== ENCOUNTER 2023-04-27 19:07 | Emergency (ER) | payer OTHER, SELFPAY ==
--- NOTE | ~2023-04-27 | XR_ITS ---
EXAMINATION: XR chest 1V portable INDICATION: Nausea and vomiting, hypertension TECHNIQUE: Portable AP chest at 1934 hours COMPARISON: 01/17/2023 FINDINGS: The lungs are free of acute opacities. No pleural effusion or pneumothorax. The cardiomedia stinal silhouette is normal. The visualized bones and soft tissues are unremarkable. IMPRESSION: 1. No acute cardiopulmonary abnormality. Reviewed, dictated and finalized at location F.
--- NOTE | ~2023-04-27 | CT_ITS ---
EXAMINATION: CT abdomen pelvis w con INDICATION: Nausea and vomiting TECHNIQUE: Computed tomographic images of the abdomen and pelvis were obtained after the administrati on of 100 cc of Omnipaque 350 intravenous contrast. The dose-length product (DLP) was 778.70 mGy-cm. Automated exposure control and iterative reconstruction technique were employed. COMPARISON: 01/18/2023 FINDINGS: Minimal dependent atelectasis is present in the lung bases. The heart size is normal. The l iver is diffusely low in attenuation when compared with the spleen, consistent with hepatic steatosis . The spleen, pancreas, gallbladder, and adrenal glands are normal. Surgical changes of the stomach l ikely reflecting gastric sleeve surgery. Hypoattenuating lesions in the kidneys, measuring up to 5 mm on the right, are too small to characterize but likely represent cysts. No pathologically enlarged a bdominal or pelvic lymph nodes are identified. No free intraperitoneal gas or evidence of bowel obstr uction. IMPRESSION: 1. No CT correlate for the patient's symptoms. Reviewed, dictated and finalized at location F.
[2023-04-27 19:08] VITALS: BP 136/94; PULSE 114; RESP 16; TEMP 36.8; O2SAT 99
--- NOTE | 2023-04-27 19:23 | ECG_ITS ---
Measurements Intervals [place] Rate: 98 P: 30 VT: 149 QRS: 10 QRSD: 84 T: 18 QT: 355 QTc: 454 Interpretive Statements SINUS RHYTHM LOW QRS VOLTAGE IN PRECORDIAL LEADS [QRS DEFLECTION < 1.0 mV IN CHEST LEADS] COMPARED TO ECG 01/17/2023 21:23:32 SINUS RHYTHM NOW PRESENT Electronically Signed On 04-28-2023 10:48:38 CDT by Donna Jack M.D.
[2023-04-27 19:39] LABS: Basophils Absolute Auto 0.1 K/mm3 (0.0-0.1); Basophils Percent Auto 0.9 % (0.2-1.2); Eosinophils Absolute Auto 0.1 K/mm3 (0-0.3); Eosinophils Percent Auto 0.9 % (0-4.4); Hematocrit 38.6 % (37.0-47.0); Hemoglobin 12.4 g/dL (12.0-15.0); Immature Granulocyte Absolute 0.01 K/mm3 (0.00-0.031); Immature Granulocyte Percent A 0.2 % (0-0.5); Lymphocytes Absolute Auto 2.37 K/mm3 (0.9-3.2); Lymphocytes Percent Auto 43.9 % (18.3-44.2); Mean Corpuscular HGB Conc 32.1 g/dl (32-36); Mean Corpuscular Hemoglobin 27.5 pg (26-34); Mean Corpuscular Volume 85.6 fl (80-100); Mean Platelet Volume 9.3 fl (7.4-10.4); Monocytes Absolute Auto 0.6 K/mm3 (0.1-0.6); Monocytes Percent Auto 10.4 % (2.6-8.5); Neutrophils Absolute Auto 2.4 K/mm3 (1.3-6.7); Neutrophils Percent Auto 43.7 % (45.5-73.1); Platelet Count Result 419 k/mm3 (150-375); Red Blood Count 4.51 M/mm3 (4.2-5.4); Red Cell Distribution Width 15.7 % (11.5-14.5); White Blood Count 5.4 K/mm3 (4.5-10.0)
[2023-04-27] MEDS: SODIUM CHLORIDE 0.9% IV 2,000 ML 999 ML IV CONT (19:40)
[2023-04-27] MEDS: ONDANSETRON INJ 4 MG/2 ML VIAL IV PUSH (19:42)
[2023-04-27 19:45] LABS: INR 1.2; Prothrombin Time 15.2 Seconds (11.1-14.7)
[2023-04-27 19:47] LABS: Partial Thromboplastin Time 31.8 SECONDS (22.3-36.8)
[2023-04-27 19:52] LABS: Alanine Aminotransferase 27 U/L (6-35); Albumin Level 3.4 g/dL (3.5-5.1); Alkaline Phosphatase 66 U/L (38-126); Anion Gap 6 mmol/L (8-16); Aspartate Amino Transferase 42 U/L (14-36); Bilirubin,Total 0.3 mg/dL (0.2-1.3); Blood Urea Nitrogen 21 mg/dL (7-17); Calcium 7.6 mg/dL (8.4-10.2); Carbon Dioxide 27 mmol/L (22-30); Chloride 102 mmol/L (98-107); Estimated CRCL calculation 71 ml/min; Estimated Glomerular Filt Rate > 60; Glucose 114 mg/dL (65-110); Magnesium 2.1 mg/dL (1.6-2.3); Potassium 3.4 mmol/L (3.4-5.0); Sodium 135 mmol/L (137-145)
[2023-04-27 19:53] LABS: Glucose Point of Care 116 mg/dl (65-105)
[2023-04-27 20:00] LABS: Lipase 129 U/L (23-300)
[2023-04-27 20:32] LABS: Influenza A QL RT-PCR Negative (Negative); Influenza B QL RT-PCR Negative (Negative); RSV RNA, RT-PCR Negative (Negative); SARS-CoV-2 RNA PCR Negative (Negative)
[2023-04-27 20:41] VITALS: BP 110/74; PULSE 88; RESP 15; O2SAT 100
[2023-04-27 21:08] LABS: Lactic Acid Reflex 1.3 mmol/L (0.7-2.0)
[2023-04-27 21:51] VITALS: BP 144/98; PULSE 104; RESP 16; O2SAT 100
--- NOTE | 2023-04-27 22:53 | ED.GENADULT ---
HPI - General Adult General Chief complaint: Nausea/Vomiting/Diarrhea Stated complaint: n/v History of Present Illness HPI narrative: A 43-year-old female presenting ED with chief complaint of nausea and vomiting. Patient has been having nausea and vomiting for the last several days. Additionally she feels like she has not had a good bowel movement in the last 2 weeks. She has been taking large doses of MiraLax to try to have a BM. She has not had 1 in 2 days. Now she has developed nausea and vomiting. She is still passing gas. No other complaints. Patient has a history of irritable bowel syndrome and multiple abdominal complaints. Related Data Home Medications Medication Instructions Recorded Confirmed evening primrose oil 500 mg capsule 500 mg PO BID 08/04/21 02/21/23 Saccharomyces boulardii 250 mg 250 mg PO BID 07/22/22 02/21/23 capsule (Digest Probiotic (S.boulardii)) docusate sodium 100 mg capsule 100 mg PO BID 07/22/22 02/21/23 omeprazole 20 mg capsule,delayed 20 mg PO BID 07/22/22 02/21/23 release cholecalciferol (vitamin D3) 50 50 mcg PO DAILY 10/28/22 02/21/23 mcg (2,000 unit) capsule multivitamin 1 tablet PO DAILY 10/28/22 02/21/23 rizatriptan 10 mg disintegrating See Rx Instructions .Route .COMPLEX 01/18/23 02/21/23 tablet (Maxalt-LOT ASSOCIATE) aripiprazole 5 mg tablet 15 mg PO DAILY 01/20/23 02/21/23 duloxetine 60 mg capsule,delayed 60 mg PO DAILY 01/20/23 02/21/23 release levothyroxine 125 mcg tablet 125 mcg PO DAILY 01/20/23 02/21/23 buspirone 7.5 mg tablet 7.5 mg PO TID 02/03/23 02/21/23 polyethylene glycol 3350 17 17 g PO DAILY 02/03/23 02/21/23 gram/dose oral powder (Miralax) Allergies Allergy/AdvReac Type Severity Reaction Status Date / Time No Known Allergies Allergy Verified 04/27/23 19:16 [facility] Past Medical History Medical History Abdominal pain Anxiety with depression Benign essential hypertension BMI 27.0-27.9,adult BMI 28.0-28.9,adult Change in bowel habits Chondromalacia of patella Colon cancer screening Colon wall thickening Contusion of left knee Dehydration Drug overdose, intentional DUB (dysfunctional uterine bleeding) Elevated fecal calprotectin Encounter for preventive health examination Encounter for routine adult health examination without abnormal findings Encounter for screening mammogram for malignant neoplasm of breast Hepatic steatosis History of renal stone Hx of adenomatous colonic polyps Hx pulmonary embolism Hypothyroidism (acquired) Impingement of left knee joint Irritable bowel syndrome with constipation Irritable bowel syndrome with constipation Kidney stone Microscopic hematuria Migraine Muscle cramps Nausea and vomiting 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 Pancytopenia Persistent headaches Pneumonia of both lungs Reflux esophagitis Right foot pain Right hip pain RUQ abdominal pain Screening for lipid disorders SOB (shortness of breath) Strain of lumbar paraspinal muscle Tachycardia Vitamin D deficiency Weight gain Surgical History Surgical History H/O tubal ligation History of gastric surgery Hx of hand surgery Hx of laparoscopic partial gastrectomy Family History Family History Mother Hypertension Carcinoma of colon Family history of diabetes mellitus in first degree relative Family history of gastrointestinal disorder Family history of elevated blood lipids Grandparent Family history of rheumatoid arthritis Father Hypertension, Onset Age: 197 Family history of elevated blood lipids Patient's father is Sibling Hypertension Other Cerebrovascular accident Diabetes mellitus Family history of arthritis Family history of cardiovascular disease Family history of malignant neoplasm Family history of mental disorder Family history of seizure di
[2023-04-28 00:05] VITALS: BP 138/90; PULSE 74; RESP 15; O2SAT 100
== END 2023-04-28 00:06 | disposition home or self-care (01) ==
PROVIDERS: Emergency Provider Emergency Medicine; PCP Internal Medicine
DX: R11.2 Nausea with vomiting, unspecified (principal); K58.1 Irritable bowel syndrome with constipation; Z20.822 Contact with and (suspected) exposure to COVID-19; E03.9 Hypothyroidism, unspecified; E55.9 Vitamin D deficiency, unspecified; K21.00 Gastro-esophageal reflux disease with esophagitis, without bleeding; F41.8 Other specified anxiety disorders; Z86.711 Personal history of pulmonary embolism; Z86.010 Personal history of colon polyps; Z87.442 Personal history of urinary calculi; Z87.891 Personal history of nicotine dependence; Z98.84 Bariatric surgery status
CPT/HCPCS: 36415; 71045; 74177; 80053; 82948; 83605; 83690; 83735; 85025; 85610; 85730; 87637; 93005; 96361; 96374; 99284; J2405; J7030; Q9967

== ENCOUNTER 2023-05-13 12:47 | Outpatient (CLI) | payer OTHER, SELFPAY ==
[2023-05-13 13:35] LABS: Iron 77 ug/dL (37-170)
[2023-05-13 13:44] LABS: Percent Iron Saturation 19 % (20-50)
== END 2023-05-13 12:48 | disposition home or self-care (01) ==
LOC: ANHLAB 12:48
PROVIDERS: PCP Internal Medicine; Visit Provider Internal Medicine
DX: R25.2 Cramp and spasm (principal); Z79.899 Other long term (current) drug therapy
CPT/HCPCS: 36415; 82728; 83540; 83550

== ENCOUNTER 2023-08-02 13:52 | Outpatient (CLI) | payer OTHER, SELFPAY ==
[2023-08-02 15:33] LABS: Alanine Aminotransferase 16 U/L (6-35); Aspartate Amino Transferase 25 U/L (14-36)
== END 2023-08-02 13:53 | disposition home or self-care (01) ==
PROVIDERS: PCP Internal Medicine; Visit Provider Podiatrist Foot & Ankle Surgery
DX: B35.1 Tinea unguium (principal)
CPT/HCPCS: 36415; 84450; 84460

== ENCOUNTER 2023-08-16 12:37 | Outpatient (CLI) | payer OTHER, SELFPAY ==
[2023-08-16 13:41] LABS: Thyroid Stimulating Hormone 0.541 uIU/mL (0.465-4.680)
[2023-08-16 13:42] LABS: Alanine Aminotransferase 18 U/L (6-35); Albumin Level 4.6 g/dL (3.5-5.1); Alkaline Phosphatase 93 U/L (38-126); Amylase 46 U/L (30-110); Anion Gap 14 mmol/L (8-16); Aspartate Amino Transferase 25 U/L (14-36); Bilirubin,Total 0.4 mg/dL (0.2-1.3); Blood Urea Nitrogen 6 mg/dL (7-17); Calcium 8.9 mg/dL (8.4-10.2); Carbon Dioxide 24 mmol/L (22-30); Chloride 94 mmol/L (98-107); Estimated Glomerular Filt Rate 60; Glucose 110 mg/dL (65-110); Lipase 81 U/L (23-300); Potassium 2.8 mmol/L (3.4-5.0); Sodium 132 mmol/L (137-145)
[2023-08-16 14:08] LABS: Free T4 Free Thyroxine 2.03 ng/mL (0.78-2.19)
[2023-08-19 16:47] LABS: GGT 55 U/L (3-55)
== END 2023-08-16 12:38 | disposition home or self-care (01) ==
LOC: ANHLAB 12:37
PROVIDERS: PCP Internal Medicine; Visit Provider Internal Medicine
DX: E03.9 Hypothyroidism, unspecified (principal); Z79.899 Other long term (current) drug therapy; R11.2 Nausea with vomiting, unspecified; R10.9 Unspecified abdominal pain
CPT/HCPCS: 36415; 80053; 82150; 82977; 83690; 84439; 84443

== ENCOUNTER 2023-08-30 10:30 | Outpatient (CLI) | payer OTHER, SELFPAY ==
[2023-08-30 16:55] LABS: Anion Gap 11 mmol/L (8-16); Blood Urea Nitrogen 11 mg/dL (7-17); Calcium 9.2 mg/dL (8.4-10.2); Carbon Dioxide 24 mmol/L (22-30); Chloride 102 mmol/L (98-107); Estimated Glomerular Filt Rate > 60; Glucose 101 mg/dL (65-110); Potassium 3.6 mmol/L (3.4-5.0); Sodium 137 mmol/L (137-145)
== END 2023-08-30 10:31 | disposition home or self-care (01) ==
LOC: ANHWCLAB 10:31
PROVIDERS: PCP Internal Medicine; Visit Provider Internal Medicine
DX: E87.6 Hypokalemia (principal)
CPT/HCPCS: 36415; 80048

== ENCOUNTER 2023-09-05 08:19 | Outpatient (CLI) | payer OTHER, SELFPAY ==
--- NOTE | ~2023-09-05 | XR_ITS ---
EXAMINATION: XR UGIAC w small bowel DATE: 09/05/2023 11:04 INDICATION: One year of chronic worsening vomiting TECHNIQUE: The patient drank thick barium, gas-producing crystals, and thin barium. Conventional supi ne abdomen radiographs and fluoroscopic spot radiographs of the esophagus, stomach, and proximal smal l bowel were obtained. Additional overhead radiographs were obtained during the transit through the s mall bowel. Spot fluoroscopic images of the small bowel were obtained upon contrast reaching the cec um. Fluoroscopy exposure time was 2.8 minutes. A total of 543 fluoroscopic images and 9 overhead radi ographs were obtained. Total DAP was 222.9 Gycm^2. COMPARISON: CT dated 04/27/2023 FINDINGS: The esophagus is normal without mass or stricture. Esophageal motility is normal. There is no hiatal hernia. Postoperative change of prior sleeve gastrectomy with suture line along the greater curvature of the stomach. The stomach is otherwise unremarkable. There are additional surgical clips in the le ft upper quadrant. There was no gastroesophageal reflux with provocative maneuvers. Transit time from the stomach to proximal colon was approximately 35 minutes. There is normal caliber and mucosal fold pattern throughout the small bowel. Terminal ileum was unable to be clearly disting uished from multiple overlapping loops of small bowel in the right lower quadrant however no abnormal small bowel loops are identified in this region. No tethering or abnormal mass effect observed upon the small bowel with real-time fluoroscopy. IMPRESSION: 1. Status post sleeve gastrectomy. Otherwise normal upper GI and small bowel follow-through study. Reviewed, dictated and finalized at location A. IMPRESSION: 1. Status post sleeve gastrectomy. Otherwise normal upper GI and small bowel fo llow-through study.
== END 2023-09-05 08:20 | disposition home or self-care (01) ==
PROVIDERS: PCP Internal Medicine; Visit Provider Internal Medicine
DX: R11.2 Nausea with vomiting, unspecified (principal)
CPT/HCPCS: 74246; 74248

== ENCOUNTER 2023-09-05 14:09 | Outpatient (CLI) | payer OTHER, SELFPAY ==
--- NOTE | ~2023-09-05 | MM_ITS ---
EXAMINATION: MM screening denny BI w lizy HISTORY: Screening TECHNIQUE: Craniocaudal and mediolateral oblique 3-D tomosynthesis images were obtained and synthetic 2-D images were generated. CAD analysis was submitted and interpreted. COMPARISON: Comparison to multiple prior studies sequentially, with oldest reviewed study dated 01/30. BREAST PARENCHYMAL COMPOSITION: There are scattered areas of fibroglandular density. FINDINGS: There is no evidence of suspicious mass, calcification, or architectural distortion to sugg est malignancy in either breast. There has been no suspicious interval change. IMPRESSION: 1. No mammographic evidence of malignancy. 2. Recommend routine screening mammography in one year. BI-RADS Category 1: Negative Reviewed, dictated and finalized at location A.
== END 2023-09-05 14:10 | disposition home or self-care (01) ==
LOC: ANHIMG 14:10
PROVIDERS: PCP Internal Medicine; Visit Provider Obstetrics & Gynecology
DX: Z12.31 Encounter for screening mammogram for malignant neoplasm of breast (principal)
CPT/HCPCS: 77063; 77067

== ENCOUNTER 2023-09-23 08:26 | Outpatient (CLI) | payer OTHER, SELFPAY ==
--- NOTE | ~2023-09-23 | US_ITS ---
US abdomen limited DATE: 09/23/2023 08:57 INDICATION: Nausea and vomiting TECHNIQUE: Real-time imaging of liver, pancreas, gallbladder COMPARISON: 04/27/2023 CT abdomen pelvis FINDINGS: No hepatic or pancreatic space-occupying mass lesion is detected. There is hepatopedal port al venous flow. No gallstones or gallbladder wall thickening. Negative sonographic Abbott's sign. The common bile omar t measures 5 mm, within normal range. IMPRESSION: No significant abnormality Reviewed, dictated and finalized at Location A. Reviewed, dictated and finalized at location B. IMPRESSION: No significant abnormality
== END 2023-09-23 08:27 | disposition home or self-care (01) ==
PROVIDERS: PCP Internal Medicine; Visit Provider Internal Medicine
DX: R11.2 Nausea with vomiting, unspecified (principal); R10.9 Unspecified abdominal pain
CPT/HCPCS: 76705

== ENCOUNTER 2023-10-25 09:00 | Outpatient (RCR) | payer OTHER, SELFPAY ==
--- NOTE | 2023-08-04 11:45 | OPREHPOC ---
Outpatient Therapy Plan of Care This is a Multidisciplinary Plan of Care that may contain components documented by all disciplines (PT, OT, and ST.) PT Problem 1 PT Problem #1 Knowledge Deficit PT Goal 1 Goal 1. Patient will perform independent HEP 2. Patient will verbalize understanding of toileting strategies and fiber intake Target Visit 5 PT Problem 2 PT Problem #2 Pain PT Goal 1 Goal 1. Patient able to do all ADL's with abdominal pain no higher than 3/10 Target Visit 4 PT Problem 3 PT Problem #3 Impaired Functional ADLs PT Goal 1 Goal 1. Patient will report no limitation with activities at home or going out in the community due to symptoms Target Visit 4 PT Problem 4 PT Problem #4 Impaired Strength PT Goal 1 Goal 1. Improve pelvic floor strength to 3/5 to decrease incontinence
--- NOTE | 2023-08-04 11:45 | PTOPEVAL1 ---
Assessment and note entered by Clementina Frias DPT Evaluation Information Assessment Status Evaluation Subjective Information Pt reports she has IBS with constipation and recently had anal manometry test and recommended therapy. Unsure results but thinks she is not relaxing fully. Denies pelvic pain, reports abdominal cramping and feels the urge to have a BM but can't. Voids 8 times a day, sometimes 1 time at night. Urinary incontinence with coughing or vomiting, typically 3 times a week. Variable volume of incontinence. Denies incontinence of stool. BM may be up to 1 every 15 days, with medicine. Has been dealing with the constipation for 2 years but has been getting worse over time. Also does bowel preps. Has tried dietary changes, drinking miralax, fiber gummies. Pt has had 1 vaginal deliveries, had an episiotomy. Reports when she gets constipated she gets very painful and uncomfortable, does not do as many activities at home and is not going out in the community as much. No return visit to MD scheduled right now. Patient goal: increase how often she has a BM. Gastric sleeve in 2021. Tubal ligation in 1999. Reported Pain Level Pain Score 0: Self Report Assessment PT Clinical Summary The patient is presenting to skilled therapy with a history of worsening constipation and also reports urinary incontinence. She demonstrates decreased pelvic floor strength and decreased core /hip strength which are contributing to her constipation and incontinence and difficulty performing typical activities. She will benefit from therapy to address these impairments and education on other strategies to decrease constipation and return to prior level of function . Plan of Care Interventions Electrical Stimulation,Hot Pack/Cold Pack,Manual Therapy,Neuro Re-education,Patient/Caregiver Education,Therapeutic Activities,Therapeutic Exercise PT Services Indicated Yes Treatment Frequency and 1 time a week for 4 visits Duration These treatments will address the objective and functional deficits as defined above. The patient will be advanced safely and appropriately in order for the patient to progress towards his/her prior level of function. Additional exercises will be introduced and as well as a comprehensive home exercise program upon dis
--- NOTE | 2023-08-30 11:40 | OPREHPOC ---
Outpatient Therapy Plan of Care This is a Multidisciplinary Plan of Care that may contain components documented by all disciplines (PT, OT, and ST.) PT Problem 1 PT Problem #1 Knowledge Deficit PT Goal 1 Goal 1. Patient will perform independent HEP 2. Patient will verbalize understanding of toileting strategies and fiber intake Target Visit 5 Progress Partially Met PT Problem 2 PT Problem #2 Pain PT Goal 1 Goal 1. Patient able to do all ADL's with abdominal pain no higher than 3/10 Target Visit 4 Progress Partially Met Comment 5/10 on 08/30/23 PT Problem 3 PT Problem #3 Impaired Functional ADLs PT Goal 1 Goal 1. Patient will report no limitation with activities at home or going out in the community due to symptoms Target Visit 5 Progress Not Met PT Problem 4 PT Problem #4 Impaired Strength PT Goal 1 Goal 1. Improve pelvic floor strength to 3/5 to decrease incontinence Target Visit 5 Progress Met
--- NOTE | 2023-08-30 11:40 | PTOPPROG ---
Assessment and note entered by Clementina Frias DPT Evaluation Information Assessment Status Progress Subjective Information Pt reports she thinks therapy is going well so far . Has incorporated new strategies to improve toileting. Did have an episode of vomiting last week and her potassium is low and now is addressing that with her physician. Highest abdominal pain in last week 5/10 and lowest 0/10. Last BM 5 days ago and had been 10 days before that one. Assessment PT Clinical Summary The patient has attended 3 sessions of therapy and reports some improvements so far. She continues to have abdominal pain and constipation but decreased somewhat to 1 BM every 10 days at the most. She demonstrates improved pelvic floor strength/activation and improved hip strength. Due to her progress but continued pain, constipation, and increased pelvic floor muscle tone she will benefit from further therapy to decrease symptoms and return to full function. Plan of Care Interventions Electrical Stimulation,Hot Pack/Cold Pack,Manual Therapy,Neuro Re-education,Patient/Caregiver Education,Therapeutic Activities,Therapeutic Exercise PT Services Indicated Yes Treatment Frequency and 1 time a week for 4 visits Duration These treatments will address the objective and functional deficits as defined above. The patient will be advanced safely and appropriately in order for the patient to progress towards his/her prior level of function. Additional exercises will be introduced and as well as a comprehensive home exercise program upon discharge, if needed, ?to ensure carryover of functional gains achieved in the clinic. This treatment plan has been reviewed and agreement upon by the patient.
--- NOTE | 2023-09-16 10:53 | PCPTNOTE ---
Patient called to cancel appointment on 09/16/23 due to illness.
--- NOTE | 2023-09-29 13:12 | OPREHPOC ---
Outpatient Therapy Plan of Care This is a Multidisciplinary Plan of Care that may contain components documented by all disciplines (PT, OT, and ST.) PT Problem 1 PT Problem #1 Knowledge Deficit PT Goal 1 Goal 1. Patient will perform independent HEP 2. Patient will verbalize understanding of toileting strategies and fiber intake Target Visit 9 Progress Met PT Problem 2 PT Problem #2 Pain PT Goal 1 Goal 1. Patient able to do all ADL's with abdominal pain no higher than 3/10 Target Visit 9 Progress Met PT Problem 3 PT Problem #3 Impaired Functional ADLs PT Goal 1 Goal 1. Patient will report no limitation with activities at home or going out in the community due to symptoms Target Visit 9 Progress Partially Met PT Problem 4 PT Problem #4 Impaired Strength PT Goal 1 Goal 1. Improve pelvic floor strength to 3/5 to decrease incontinence Target Visit 5 Progress Met
--- NOTE | 2023-09-29 13:12 | PTOPPROG ---
Assessment and note entered by Clementina Frias DPT Evaluation Information Assessment Status Progress Subjective Information Pt reports she noticed improvement after using the e-stim for constipation last visit and had a BM. Highest pain in last week 2/10 and lowest 0/10. Urinary incontinence is only happening if she gets sick and vomits, not on a daily basis. Assessment PT Clinical Summary The patient has made good progress in therapy so far. She reports decreased pain overall and improvements with frequency of BM. She demonstrates improved LE strength. Due to her progress, plan to continue therapy to further reduce pain and improve motility and overall function/participation in ADL's, work, and community activities. Plan of Care Interventions Electrical Stimulation,Hot Pack/Cold Pack,Manual Therapy,Neuro Re-education,Patient/Caregiver Education,Therapeutic Activities,Therapeutic Exercise PT Services Indicated Yes Treatment Frequency and 1 time a week for 4 weeks Duration These treatments will address the objective and functional deficits as defined above. The patient will be advanced safely and appropriately in order for the patient to progress towards his/her prior level of function. Additional exercises will be introduced and as well as a comprehensive home exercise program upon discharge, if needed, ?to ensure carryover of functional gains achieved in the clinic. This treatment plan has been reviewed and agreement upon by the patient.
--- NOTE | 2023-10-11 08:27 | PCPTNOTE ---
Patient called to cancel appointment for 10/14/23 due to testing positive for covid.
--- NOTE | 2023-10-25 09:37 | PTOPDC ---
Assessment and note entered by Clementina Frias DPT Evaluation Information Assessment Status Discharge Subjective Information Pt reports motility has improved and is now having a BM every 3-4 days. Also reports less sense of bloating. Reported Pain Level Pain Score 0: Self Report Assessment PT Clinical Summary The patient has made excellent progress in therapy and reports overall reduction in abdominal/pelvic pain, constipation, and urinary incontinence. She reports she is now averaging BM every 3-4 days. Due to her progress in therapy, plan for discharge to home plan at this time. She has been educated to follow up with MD and/or PT as needed. Plan of Care PT Services Indicated No
== END 2023-10-25 14:31 | disposition home or self-care (01) ==
LOC: ANHPT 09:00
PROVIDERS: PCP Internal Medicine; Visit Provider Nurse Practitioner Family
DX: K62.3 Rectal prolapse (principal); K59.09 Other constipation
CPT/HCPCS: 97014; 97110; 97140; 97162; 97530; G0283

== ENCOUNTER 2023-12-07 14:10 | Outpatient (CLI) | payer OTHER, SELFPAY ==
[2023-12-07 14:52] LABS: Alanine Aminotransferase 23 U/L (6-35); Aspartate Amino Transferase 31 U/L (14-36)
== END 2023-12-07 14:11 | disposition home or self-care (01) ==
LOC: ANHLAB 14:12
PROVIDERS: PCP Internal Medicine; Visit Provider Podiatrist Foot & Ankle Surgery
DX: B35.1 Tinea unguium (principal)
CPT/HCPCS: 36415; 84450; 84460

== ENCOUNTER 2024-02-16 13:43 | Outpatient (CLI) | payer OTHER, SELFPAY ==
--- NOTE | 2024-02-16 13:51 | ECHO_ITS ---
Patient Info Name: Melissa Man Age: 43 years : 1980 Gender: Female Ht: 65 in Wt: 196 lbs BSA: 2.05 m2 HR: 78 bpm BP: 110 / 89 mmHg Heart Rhythm: Sinus Rhythm Technical Quality: Good Exam Date: 02/16/2024 2:15 PM Exam Location: Echo Lab Patient Status: Outpatient Admit Date: 02/16/2024 Staff Ordering Physician: Catracho Guerrero MD [employer] Anchor: Libby Sprague RDCS Attending Provider: Catracho Guerrero MD Referring Physician: Yolanda HENNESSY; Exam Type: CA echo doppler color flow Study Info Indications - ABN EKG Complete two-dimensional, color flow and Doppler transthoracic echocardiogram is performed. Summary 1. Complete two-dimensional, color flow and Doppler transthoracic echocardiogram is performed. 2. Left ventricular chamber dimension is normal. 3. Left ventricular systolic function is normal, estimated at 60-65%. 4. The left ventricular diastolic function is normal. 5. E/e' 10 is mildly elevated. 6. No pulmonary hypertension, estimated pulmonary arterial systolic pressure is 15 mmHg. Left Ventricle E/e' 10 is mildly elevated. Left ventricular chamber dimension is normal. Left ventricular systolic function is normal, estimated at 60-65%. The left ventricular diastolic function is normal. Right Ventricle Right ventricular systolic function is normal and with normal TAPSE 2.5 cm. Right ventricular chamber dimension is normal. Left Atria Left atrial chamber dimension is normal. Right Atria Right atrial chamber dimension is normal. Aortic Valve The aortic valve is trileaflet. There is no aortic valve stenosis. There is no aortic valve regurgitation. Pulmonic Valve There is no pulmonic regurgitation. Mitral Valve There is no mitral valve stenosis. There is no mitral valve regurgitation. Tricuspid Valve There is no tricuspid valve regurgitation. No pulmonary hypertension, estimated pulmonary arterial systolic pressure is 15 mmHg. Pericardium/Pleural There is no pericardial effusion. Inferior Vena Cava Normal inferior vena cava with >50% collapse upon inspiration consistent with normal right atrial pressure, 5 mmHg. Aorta The aortic root size at the sinus of Valsalva is normal. Left Ventricular Outflow Tract Name Value Normal LVOT 2D LVOT Diameter 2.0 cm LVOT Doppler LVOT Peak Gradient 4 mmHg LVOT Mean Gradient 3 mmHg LVOT VTI 23 cm LVOT VTI/AV VTI Ratio 1.0 LVOT Stroke Volume 71 ml LVOT CO 6.1 l/min LVOT CI 3.0 l/min/m2 Pulmonic Valve Name Value Normal RVOT Doppler RVOT Peak Gradient 3 mmHg PV Doppler PV Peak Gradient 5 mmHg Mitral Valve
[2024-02-16 15:22] LABS: Alanine Aminotransferase 17 U/L (6-35); Albumin Level 4.3 g/dL (3.5-5.1); Alkaline Phosphatase 85 U/L (38-126); Amylase 68 U/L (30-110); Anion Gap 14 mmol/L (4-12); Aspartate Amino Transferase 27 U/L (14-36); Bilirubin,Total 0.2 mg/dL (0.2-1.3); Blood Urea Nitrogen 5 mg/dL (7-17); Calcium 9.3 mg/dL (8.4-10.2); Carbon Dioxide 15 mmol/L (22-30); Chloride 105 mmol/L (98-107); Estimated Glomerular Filt Rate > 60; Glucose 86 mg/dL (65-110); Lipase 204 U/L (23-300); Potassium 3.6 mmol/L (3.4-5.0); Sodium 134 mmol/L (137-145)
== END 2024-02-16 13:44 | disposition home or self-care (01) ==
LOC: ANHCARD 13:45
PROVIDERS: PCP Internal Medicine; Visit Provider Internal Medicine
DX: R94.31 Abnormal electrocardiogram [ECG] [EKG] (principal); R00.0 Tachycardia, unspecified; R11.14 Bilious vomiting
CPT/HCPCS: 36415; 80053; 82150; 83690; 93306

== ENCOUNTER 2024-03-01 08:19 | Outpatient (CLI) | payer OTHER, SELFPAY ==
[2024-03-01 09:01] LABS: Basophils Percent Auto 0.4 % (0.2-1.2); Eosinophils Percent Auto 0.4 % (0-4.4); Hemoglobin 10.9 g/dL (12.0-15.0); Immature Granulocyte Absolute 0.02 K/mm3 (0.00-0.031); Immature Granulocyte Percent A 0.4 % (0-0.5); Lymphocytes Absolute Auto 0.81 K/mm3 (0.9-3.2); Lymphocytes Percent Auto 14.9 % (18.3-44.2); Mean Corpuscular HGB Conc 32.1 g/dl (32-36); Mean Corpuscular Hemoglobin 30.2 pg (26-34); Mean Corpuscular Volume 94.2 fl (80-100); Mean Platelet Volume 9.4 fl (7.4-10.4); Monocytes Absolute Auto 0.4 K/mm3 (0.1-0.6); Monocytes Percent Auto 7.2 % (2.6-8.5); Neutrophils Absolute Auto 4.2 K/mm3 (1.3-6.7); Neutrophils Percent Auto 76.7 % (45.5-73.1); Platelet Count Result 298 k/mm3 (150-375); Red Blood Count 3.61 M/mm3 (4.2-5.4); Red Cell Distribution Width 17.1 % (11.5-14.5); White Blood Count 5.4 K/mm3 (4.5-10.0)
[2024-03-01 09:26] LABS: Alanine Aminotransferase 30 U/L (6-35); Albumin Level 4.3 g/dL (3.5-5.1); Alkaline Phosphatase 105 U/L (38-126); Anion Gap 10 mmol/L (4-12); Aspartate Amino Transferase 37 U/L (14-36); Bilirubin,Total 0.3 mg/dL (0.2-1.3); Blood Urea Nitrogen 3 mg/dL (7-17); Calcium 9.4 mg/dL (8.4-10.2); Carbon Dioxide 20 mmol/L (22-30); Chloride 109 mmol/L (98-107); Cholesterol 181 mg/dL (0-200); Estimated Glomerular Filt Rate > 60; Glucose 121 mg/dL (65-110); HDL Direct 66 mg/dL; Potassium 3.9 mmol/L (3.4-5.0); Sodium 139 mmol/L (137-145); Triglycerides 283 mg/dL (<150)
[2024-03-01 09:36] LABS: LDL Cholesterol Direct 90 mg/dL
[2024-03-01 09:52] LABS: Iron 67 ug/dL (37-170)
[2024-03-01 10:04] LABS: Percent Iron Saturation 14 % (20-50)
[2024-03-01 10:05] LABS: Vitamin D 25 Hydroxy 19.3 ng/mL
[2024-03-01 10:28] LABS: Free T4 Free Thyroxine 1.25 ng/mL (0.78-2.19)
[2024-03-01 10:30] LABS: Folic Acid 1.7 ng/mL (2.76->20)
[2024-03-01 10:51] LABS: Hemoglobin A1C 4.9 % (<5.7)
[2024-03-20 07:34] LABS: Vitamin B6 45.9
[2024-03-24 11:37] LABS: Vitamin B2 <5.0
== END 2024-03-01 08:20 | disposition home or self-care (01) ==
LOC: ANHLAB 08:21
PROVIDERS: PCP Internal Medicine; Visit Provider Internal Medicine
DX: E03.9 Hypothyroidism, unspecified (principal); Z13.1 Encounter for screening for diabetes mellitus; Z79.899 Other long term (current) drug therapy; E53.8 Deficiency of other specified B group vitamins; D50.9 Iron deficiency anemia, unspecified; E55.9 Vitamin D deficiency, unspecified; I10 Essential (primary) hypertension; Z13.220 Encounter for screening for lipoid disorders; E53.9 Vitamin B deficiency, unspecified
CPT/HCPCS: 36415; 80053; 80061; 82306; 82607; 82728; 82746; 83036; 83540; 83550; 84207; 84252; 84439; 84443; 85025

== ENCOUNTER 2024-03-21 07:48 | Outpatient (CLI) | payer OTHER, SELFPAY ==
--- NOTE | ~2024-03-21 | XR_ITS ---
EXAMINATION: XR UGI w barium swallow DATE: 03/21/2024 08:32 INDICATION: Nausea with vomiting. TECHNIQUE: The patient drank thick barium, gas-producing crystals, and thin barium. Fluoroscopy of th e esophagus, stomach, and proximal small bowel was performed. Fluoroscopy exposure time was 0.5 minut es. The total number of images was 275. Total dose-area product was 2.026 Gy-cm^2. COMPARISON: CT abdomen and pelvis 04/27/2023, upper gastrointestinal series 09/05/2023 FINDINGS: There is no mass or stricture of the esophagus. There is spasm of the lower esophagus. The patient vomited during the exam. Esophageal motility is otherwise normal. There is no hiatal hernia. There are changes of gastric sleeve procedure. IMPRESSION: 1. Spasm of the lower esophagus. The patient vomited during the exam. 2. Surgical changes of gastric sleeve procedure. Reviewed, dictated and finalized at location A.
== END 2024-03-21 07:49 | disposition home or self-care (01) ==
PROVIDERS: PCP Internal Medicine; Visit Provider Internal Medicine
DX: R11.2 Nausea with vomiting, unspecified (principal); Z98.890 Other specified postprocedural states; K21.00 Gastro-esophageal reflux disease with esophagitis, without bleeding
CPT/HCPCS: 74240

== ENCOUNTER 2024-04-27 10:18 | Outpatient (CLI) | payer OTHER, SELFPAY ==
--- NOTE | ~2024-04-27 | XR_ITS ---
3 VIEWS LUMBAR SPINE Ordering provider: Catracho Guerrero MD History: . Dorsalgia, unspecified, PAIN BACK AFTER VOMITING YESTERDAY . Comparison: None. FINDINGS: VERTEBRAL BODIES:Very minimal anterolisthesis at the level of L4-L5. No visible fracture or subluxat ion. DISK SPACES: Slight narrowing of the disc L4-L5. SOFT TISSUES: Normal. IMPRESSION: No acute osseous abnormality lumbar spine. Reviewed, dictated and finalized at location A.
--- NOTE | ~2024-04-27 | XR_ITS ---
Thoracic spine: Clinical Indication: Back pain AP and lateral views were performed. No fracture is seen. There is normal alignment of the vertebrae. The intervertebral disc spaces appe ar normal. Paravertebral soft tissues appear normal. Impression: No significant abnormalities noted. Reviewed, dictated and finalized at [facility]. Impression: No significant abnormalities noted.
== END 2024-04-27 10:19 | disposition home or self-care (01) ==
PROVIDERS: PCP Internal Medicine; Visit Provider Internal Medicine
DX: M54.9 Dorsalgia, unspecified (principal)
CPT/HCPCS: 72070; 72100

== ENCOUNTER 2024-05-18 01:54 | Day surgery (SDC) | payer OTHER, SELFPAY ==
[2024-05-07 14:04] VITALS: BMI 30.8
[2024-05-18 12:15] VITALS: BP 99/53; PULSE 92; RESP 18; TEMP 36.6; O2SAT 98
[2024-05-18] MEDS: LACTATED RINGERS 1,000 ML 150 ML IV CONT (12:22)
--- NOTE | 2024-05-18 12:30 | WPDANESEPPF ---
Anes - Initial Pre Proc Eval Procedure: Operation Date: 05/18/24 14:30 Proposed Procedures p Esophagogastroduodenoscopy - Kevin Hollins MD Date/Time: 05/18/24 12:30 Surgeon: Kevin Hollins MD Pre Op Diagnosis: Dyskinesia of esophagus,Vomiting, Dysphagia Patient Data Age: 44 Gender: F Height: 1.65 m Weight: 84 kg Last Vital Signs Temp 97.9 F 05/18/24 12:15 Pulse 92 05/18/24 12:15 Resp 18 05/18/24 12:15 BP 99/53 L 05/18/24 12:15 Pulse Ox 98 05/18/24 12:15 O2 Del Method Room Air 05/18/24 12:15 Allergies Allergy/AdvReac Type Severity Reaction Status Date / Time No Known Allergies Allergy Verified 05/18/24 12:14 Home Medications Medication Instructions Recorded Confirmed Type cholecalciferol (vitamin D3) 50 50 mcg PO DAILY 10/28/22 05/07/24 History mcg (2,000 unit) capsule polyethylene glycol 3350 17 17 g PO DAILY 02/03/23 05/07/24 History gram/dose oral powder (Miralax) diltiazem HCl 360 mg capsule,24 360 mg PO DAILY #90 caps 03/01/23 05/07/24 Rx hr,extended release brexpiprazole 1 mg tablet (Rexulti) 2 mg PO DAILY 08/16/23 05/07/24 History losartan 50 mg-hydrochlorothiazide 1 tablet PO DAILY #90 tabs 03/01/24 05/07/24 Rx 12.5 mg tablet ferrous sulfate 325 mg (65 mg 325 mg PO BID 03/02/24 05/07/24 History iron) tablet folic acid 1 mg tablet 1 mg PO DAILY 03/02/24 05/07/24 History mecobalamin (vitamin B12) 1,000 1,000 mcg PO DAILY 03/02/24 05/07/24 History mcg chewable tablet fluoxetine 20 mg capsule 20 mg PO DAILY 03/21/24 05/07/24 History erenumab-aooe 70 mg/mL See Rx Instructions .Route 04/05/24 05/07/24 Rx subcutaneous auto-injector .COMPLEX #1 mL (Aimovig Autoinjector) levothyroxine 125 mcg tablet See Rx Instructions .Route 04/05/24 05/07/24 Rx .COMPLEX #30 tabs hyoscyamine sulfate 0.125 mg 0.125 mg sublingual QID PRN 04/24/24 05/07/24 Rx sublingual tablet (Levsin/SL) dyspepsia #120 tabs pantoprazole 40 mg tablet,delayed 40 mg PO BID #60 tabs 04/24/24 05/07/24 Rx release hydroxyzine HCl 10 mg tablet 10 mg PO TID PRN Anxiety 05/07/24 05/07/24 History lorazepam 0.5 mg tablet 0.5 mg PO TID PRN Anxiety 05/07/24 05/07/24 History terbinafine HCl 250 mg tablet 250 mg PO DAILY 05/07/24 05/07/24 History metoclopramide HCl 5 mg tablet 5 mg PO DAILY PRN nausea and 05/08/24 05/18/24 Rx (Reglan) vomiting #20 tabs ondansetron 8 mg disintegrating See Rx Instructions .Route 05/14/24 05/18/24 Rx tablet .COMPLEX #30 tabs Patient hx anesthesia problems: none Family hx anesthesia problems: none Results Review: All pre-operative results and documents have been reviewed as part of the pre-operative evaluation. [facility] Past Medical History Medical History Abdominal pain Abnormal CT scan, gastrointestinal tract Altered mental status, unspecified Anxiety with depression Benign essential hypertension BMI 27.0-27.9,adult BMI 28.0-28.9,adult BMI 32.0-32.9,adult BMI 33.0-33.9,adult BMI 34.0-34.9,adult Change in bowel habits Chondromalacia of patella Colon cancer screening Colon wall thickening Contusion of left knee Dehydration Drug overdose, intentional DUB (dysfunctional uterine bleeding) Elevated fecal calprotectin Encounter for preventive health examination Encounter for routine adult health examination without abnormal findings Follow up Hepatic steatosis History of renal stone Hx of adenomatous colonic polyps Hx pulmonary embolism Hypothyroidism (acquired) Impingement of left knee joint Iron deficiency anemia Irritable bowel syndrome with constipation Irritable bowel syndrome with constipation Kidney stone Microscopic hematuria Migraine Muscle cramps Nausea and vomiting 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
--- NOTE | 2024-05-18 13:16 | WPDHPUPDATE1 ---
History and Physical Update Update Date/Time: 05/18/24 13:16 History and Physical has been reviewed, including an updated exam of the patient. There are NO changes in the patient's condition. Risks, benefits, and alternatives have been discussed and questions answered. Patient agrees to proceed with procedure.
[2024-05-18 13:23] VITALS: BP 93/48; PULSE 67; RESP 18; O2SAT 94
[2024-05-18 13:33] VITALS: BP 95/58; PULSE 72; RESP 18; O2SAT 97
[2024-05-18 13:43] VITALS: BP 110/75; PULSE 76; RESP 18; O2SAT 98
== END 2024-05-18 13:56 | disposition home or self-care (01) ==
PROVIDERS: PCP Internal Medicine; Referring Provider Nurse Practitioner; Visit Provider Internal Medicine Gastroenterology
PROC: 0DJ08ZZ Inspection of Upper Intestinal Tract, Via Natural or Artificial Opening Endoscopic (ICD-10-PCS; CPT 43235; principal; 2024-05-18 14:30)
DX: R11.2 Nausea with vomiting, unspecified (principal); K22.4 Dyskinesia of esophagus; R13.10 Dysphagia, unspecified; K29.70 Gastritis, unspecified, without bleeding; K58.1 Irritable bowel syndrome with constipation; E03.9 Hypothyroidism, unspecified; Z86.711 Personal history of pulmonary embolism; E55.9 Vitamin D deficiency, unspecified; E53.8 Deficiency of other specified B group vitamins
CPT/HCPCS: 43239; 88305; J2704; J7120

== ENCOUNTER 2024-05-30 08:08 | Outpatient (CLI) | payer OTHER, SELFPAY ==
--- NOTE | ~2024-05-30 | NM_ITS ---
EXAM: NM gastric emptying study DATE: 05/30/2024 15:01 INDICATION: Cyclical nausea and vomiting TECHNIQUE: A gastric emptying study was performed using the methodology of Rosemarie DAVE, et al. J Nucl Med 2007; 48:568-572. The patient was given a meal consisting of 2 scrambled eggs labeled with 0.953 mCi Tc-99m sulfur colloid, 2 slices of toast, two packages of jam, and approximately 120 mL of water . Simultaneous anterior and posterior 1-min images of the abdomen were obtained with the patient supi ne at multiple time points over a total period of 4 hours. The geometric mean of anterior and posteri or views was determined, and the percentage retention was calculated for each time point. COMPARISON: None. FINDINGS: Gastric retention of the radiotracer-labeled meal was 18%, 5%, and 1% at the 1-hour, 2-hour, and 4-ho ur time points, respectively. With this technique, apparent rapid gastric emptying is suggested by <3 0% gastric retention at 1 hour. Delayed gastric emptying is defined by gastric retention of >90% at 1 hour, >60% retention at 2 hours, or >10% retention at 4 hours. IMPRESSION: 1. Rapid gastric emptying. Reviewed, dictated and finalized at location A. IMPRESSION: 1. Rapid gastric emptying.
[2024-05-30 09:46] LABS: Basophils Percent Auto 0.5 % (0.2-1.2); Eosinophils Absolute Auto 0.1 K/mm3 (0-0.3); Eosinophils Percent Auto 1.2 % (0-4.4); Hemoglobin 12.1 g/dL (12.0-15.0); Immature Granulocyte Absolute 0.01 K/mm3 (0.00-0.031); Immature Granulocyte Percent A 0.2 % (0-0.5); Lymphocytes Absolute Auto 1.33 K/mm3 (0.9-3.2); Lymphocytes Percent Auto 20.2 % (18.3-44.2); Mean Corpuscular HGB Conc 32.7 g/dl (32-36); Mean Corpuscular Hemoglobin 28.9 pg (26-34); Mean Corpuscular Volume 88.3 fl (80-100); Mean Platelet Volume 9.8 fl (7.4-10.4); Monocytes Absolute Auto 0.4 K/mm3 (0.1-0.6); Monocytes Percent Auto 6.7 % (2.6-8.5); Neutrophils Absolute Auto 4.7 K/mm3 (1.3-6.7); Neutrophils Percent Auto 71.2 % (45.5-73.1); Platelet Count Result 406 k/mm3 (150-375); Red Blood Count 4.19 M/mm3 (4.2-5.4); Red Cell Distribution Width 15.5 % (11.5-14.5); White Blood Count 6.6 K/mm3 (4.5-10.0)
[2024-05-30 10:44] LABS: Free T4 Free Thyroxine 2.33 ng/mL (0.78-2.19)
[2024-05-30 10:46] LABS: Alanine Aminotransferase 33 U/L (6-35); Albumin Level 4.6 g/dL (3.5-5.1); Alkaline Phosphatase 55 U/L (38-126); Anion Gap 14 mmol/L (4-12); Aspartate Amino Transferase 41 U/L (14-36); Bilirubin,Total 0.4 mg/dL (0.2-1.3); Blood Urea Nitrogen 20 mg/dL (7-17); Calcium 9.3 mg/dL (8.4-10.2); Carbon Dioxide 28 mmol/L (22-30); Chloride 97 mmol/L (98-107); Cholesterol 264 mg/dL (0-200); Estimated Glomerular Filt Rate > 60; Glucose 149 mg/dL (65-110); HDL Direct 56 mg/dL; Potassium 2.9 mmol/L (3.4-5.0); Sodium 139 mmol/L (137-145); Triglycerides 126 mg/dL (<150)
[2024-05-30 10:57] LABS: LDL Cholesterol Direct 148 mg/dL
[2024-05-30 14:25] LABS: Vitamin D 25 Hydroxy > 126.0 ng/mL
[2024-05-30 21:04] LABS: Hemoglobin A1C 5.1 % (<5.7)
== END 2024-05-30 08:09 | disposition home or self-care (01) ==
PROVIDERS: PCP Internal Medicine; Visit Provider Nurse Practitioner
DX: R11.15 Cyclical vomiting syndrome unrelated to migraine (principal); E03.9 Hypothyroidism, unspecified; Z79.899 Other long term (current) drug therapy; Z13.1 Encounter for screening for diabetes mellitus; I10 Essential (primary) hypertension; E55.9 Vitamin D deficiency, unspecified; Z13.220 Encounter for screening for lipoid disorders
CPT/HCPCS: 36415; 78264; 80053; 80061; 82306; 83036; 84439; 84443; 85025; A9541

== ENCOUNTER 2024-07-25 18:11 | Observation (INO) | payer OTHER, SELFPAY ==
[2024-07-25] VITALS (8 sets, daily range): BP systolic 109–124; BP diastolic 60–73; PULSE 77–114; RESP 13–19; TEMP 36.4–36.6; O2SAT 96–100
--- NOTE | ~2024-07-25 | MR_ITS ---
MRI of the brain Clinical History: Seizure Technique: Axial and sagittal T1-weighted images were acquired. These were followed by axial T2-weigh christy, diffusion weighted, gradient, and FLAIR images. Coronal T1-weighted and FLAIR images were also p erformed. Following intravenous administration of 18 cc MultiHance gadolinium, T1-weighted fat-sat im aging was performed in the axial and sagittal planes. COMPARISON: 01/19/2023 Findings: No abnormal signal seen in the brain parenchyma. No acute infarct, intracranial hemorrhage, or mass lesion. Ventricles and subarachnoid spaces are unremarkable. Orbits are unremarkable. Paranasal sinuses and m astoid air cells are clear. Major intracranial flow voids are intact. Sagittal midline structures are intact. No evidence for mesial temporal sclerosis identified. No abnormal postcontrast enhancement identified. IMPRESSION: Unremarkable exam. Reviewed, dictated and finalized at location . IMPRESSION: Unremarkable exam.
--- NOTE | ~2024-07-25 | CT_ITS ---
EXAMINATION: CT cervical spine wo con DATE: 07/25/2024 18:27 INDICATION: Seizure. Fall. TECHNIQUE: Computed tomography (CT) of the cervical spine was performed without intravenous contrast. Automated exposure control and iterative reconstruction technique were employed. The dose-length pro duct was 426.52 mGy-cm. COMPARISON: None FINDINGS: There is mild cervical kyphosis. Vertebral body heights and intervertebral disc heights are normal. The following disc levels are specifically discussed: C2-C3: There is no uncovertebral joint osteoarthritis. There is moderate right facet joint osteoarthr itis. There is no neural foraminal stenosis. There is no central canal stenosis. C3-C4: There is no uncovertebral joint osteoarthritis. There is moderate right and severe left facet joint osteoarthritis. There is no neural foraminal stenosis. There is no central canal stenosis. C4-C5: There is mild bilateral uncovertebral joint osteoarthritis. There is no facet joint osteoarthr itis. There is no neural foraminal stenosis. There is no central canal stenosis. C5-C6: There is mild bilateral uncovertebral joint osteoarthritis. There is no facet joint osteoarthr itis. There is no neural foraminal stenosis. There is no central canal stenosis. C6-C7: There is mild bilateral uncovertebral joint osteoarthritis. There is no facet joint osteoarthr itis. There is no neural foraminal stenosis. There is mild central canal stenosis. C7-T1: There is no uncovertebral joint osteoarthritis. There is mild right and moderate left facet shannon int osteoarthritis. There is no neural foraminal stenosis. There is no central canal stenosis. IMPRESSION: 1. No fracture. 2. Mild cervical spondylosis. Reviewed, dictated and finalized at location A.
--- NOTE | ~2024-07-25 | CT_ITS ---
EXAMINATION: CT brain wo con DATE: 07/25/2024 18:27 INDICATION: Seizure. Fall. TECHNIQUE: Computed tomography (CT) of the head was performed without intravenous contrast. The mA wa s adjusted according to patient size. Iterative reconstruction technique was employed. The dose-lengt h product was 681.00 mGy-cm. COMPARISON: Head CT 01/17/2023 FINDINGS: There is no intracranial hemorrhage, acute infarction, or abnormal intracranial mass lesion . The ventricles are normal in size. There is a laceration of the frontal scalp. The orbits are zeeshan l. The mastoid air cells are normal. IMPRESSION: 1. Normal brain. Reviewed, dictated and finalized at location A. IMPRESSION: 1. Normal brain.
--- NOTE | 2024-07-25 18:34 | ECG_ITS ---
Test Date: 2024-07-25 18:30:11 Measurements Intervals [place] Rate: 103 P: 79 VA: 140 QRS: 68 QRSD: 84 T: 61 QT: 280 QTc: 368 Interpretive Statements SINUS TACHYCARDIA LOW QRS VOLTAGE IN LIMB LEADS BASELINE ARTIFACT- II, III, AVR, AVL, AVF, V1-V2 BORDERLINE ECG No previous ECG available for comparison Electronically Signed On 07-25-2024 20:05:04 CDT by David Villegas D.O.
[2024-07-25 18:44] LABS: Basophils Percent Auto 0.3 % (0.2-1.2); Eosinophils Percent Auto 0.3 % (0-4.4); Hematocrit 33.6 % (37.0-47.0); Hemoglobin 10.9 g/dL (12.0-15.0); Immature Granulocyte Absolute 0.03 K/mm3 (0.00-0.031); Immature Granulocyte Percent A 0.4 % (0-0.5); Lymphocytes Absolute Auto 1.63 K/mm3 (0.9-3.2); Lymphocytes Percent Auto 21.6 % (18.3-44.2); Mean Corpuscular HGB Conc 32.4 g/dl (32-36); Mean Corpuscular Hemoglobin 28.4 pg (26-34); Mean Corpuscular Volume 87.5 fl (80-100); Monocytes Absolute Auto 0.5 K/mm3 (0.1-0.6); Monocytes Percent Auto 6.5 % (2.6-8.5); Neutrophils Absolute Auto 5.3 K/mm3 (1.3-6.7); Neutrophils Percent Auto 70.9 % (45.5-73.1); Platelet Count Result 300 k/mm3 (150-375); Red Blood Count 3.84 M/mm3 (4.2-5.4); Red Cell Distribution Width 14.5 % (11.5-14.5); White Blood Count 7.5 K/mm3 (4.5-10.0)
[2024-07-25 18:58] LABS: Alkaline Phosphatase 101 U/L (38-126); Anion Gap 18 mmol/L (4-12); Aspartate Amino Transferase 154 U/L (14-36); Bilirubin,Total 0.4 mg/dL (0.2-1.3); Blood Urea Nitrogen 16 mg/dL (7-17); Calcium 9.4 mg/dL (8.4-10.2); Carbon Dioxide 16 mmol/L (22-30); Chloride 99 mmol/L (98-107); Estimated CRCL calculation 41 ml/min; Estimated Glomerular Filt Rate 37; Glucose 164 mg/dL (65-110); Potassium 3.4 mmol/L (3.4-5.0); Sodium 133 mmol/L (137-145)
[2024-07-25 19:03] LABS: Lactic Acid Reflex 7.2 mmol/L (0.7-2.0)
[2024-07-25 19:07] LABS: Alanine Aminotransferase 77 U/L (6-35)
[2024-07-25] MEDS: levETIRAcetam 1500MG/NACL100ML 1,500 MG/100 ML BAG 400 MG IVPB (19:07)
[2024-07-25 19:09] LABS: Glucose Point of Care 154 mg/dl (65-105)
[2024-07-25 19:28] LABS: Ethanol < 10 mg/dL (<10)
--- NOTE | 2024-07-25 20:42 | ED.GENADULT ---
HPI - General Adult General Chief complaint: Seizure Stated complaint: seizure Time Seen by Provider: 07/25/24 18:51 History of Present Illness HPI narrative: 44-year-old female with no history of seizures presenting after seizure-like activity. 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 While she was working she lost conscious. Co-worker saw her have generalized clonic tonic activity for 1-2 minutes before she became postictal. The patient fell striking her head sustaining a large laceration to her forehead. At this time the patient is complaining of headache but no other complaints. The patient says she has not been feeling well for the last tear to. No fevers chills URI symptoms chest pain abdominal pain or diarrhea. She does have nausea and vomiting but that is typical her after having a gastric bypass. Patient says she has not eaten very much today and was limited to a banana and a protein bar. Patient says that she takes 0.5mg Xanax occasionally her last dose was 2 days ago. Related Data Home Medications Medication Instructions Recorded Confirmed cholecalciferol (vitamin D3) 50 50 mcg PO DAILY 10/28/22 06/04/24 mcg (2,000 unit) capsule polyethylene glycol 3350 17 17 g PO DAILY 02/03/23 06/04/24 gram/dose oral powder (Miralax) brexpiprazole 1 mg tablet (Rexulti) 2 mg PO DAILY 08/16/23 06/04/24 ferrous sulfate 325 mg (65 mg 325 mg PO BID 03/02/24 06/04/24 iron) tablet folic acid 1 mg tablet 1 mg PO DAILY 03/02/24 06/04/24 mecobalamin (vitamin B12) 1,000 1,000 mcg PO DAILY 03/02/24 06/04/24 mcg chewable tablet fluoxetine 20 mg capsule 20 mg PO DAILY 03/21/24 06/04/24 hydroxyzine HCl 10 mg tablet 10 mg PO TID PRN Anxiety 05/07/24 06/04/24 lorazepam 0.5 mg tablet 0.5 mg PO TID PRN Anxiety 05/07/24 06/04/24 terbinafine HCl 250 mg tablet 250 mg PO DAILY 05/07/24 06/04/24 Allergies Allergy/AdvReac Type Severity Reaction Status Date / Time No Known Allergies Allergy Verified 06/04/24 09:25 [facility] Past Medical History Medical History Abdominal pain Abnormal CT scan, gastrointestinal tract Altered mental status, unspecified Anxiety with depression Benign essential hypertension BMI 27.0-27.9,adult BMI 28.0-28.9,adult BMI 32.0-32.9,adult BMI 33.0-33.9,adult BMI 34.0-34.9,adult Change in bowel habits Chondromalacia of patella Colon cancer screening Colon wall thickening Contusion of left knee Dehydration Drug overdose, intentional DUB (dysfunctional uterine bleeding) Elevated fecal calprotectin Encounter for preventive health examination Encounter for routine adult health examination without abnormal findings Follow up Hepatic steatosis History of renal stone Hx of adenomatous colonic polyps Hx pulmonary embolism Hyperlipidemia Hypothyroidism (acquired) Impingement of left knee joint Iron deficiency anemia Irritable bowel syndrome with constipation Irritable bowel syndrome with constipation Kidney stone Microscopic hematuria Migraine Muscle cramps Nausea and vomiting On [facility] drug therapy Pancytopenia Pedal edema Persistent headaches Pneumonia of both lungs Reflux esophagitis Right foot pain Right hip pain RUQ abdominal pain Screening for lipid disorders SOB (shortness of breath) Strain of lumbar paraspinal muscle Tachycardia Vitamin B12 deficiency Vitamin D deficiency Weight gain Surgical History Surgical History H/O tubal ligation Hx of hand surgery Hx of laparoscopic partial gastrectomy Family History Family History Mother Hypertension Carcinoma of colon Family history of diabetes mellitus in first degree relative Family history of gastrointestinal disorder Family history of elevated blood lipids Grandparent Family history of rheumatoid arthritis Father Hypertension, Onset Age: 197 Family history
[2024-07-25] MEDS: SODIUM CHLORIDE 0.9% IV 2,000 ML 999 ML IV CONT (21:40)
[2024-07-25 21:41] LABS: Reflex Lactic Acid Yes or No Add Lactic
[2024-07-25 22:46] LABS: Salicylate < 1.0 mg/dL (2-20)
[2024-07-25 22:55] LABS: BEDSIDEPREGUCG Negative
[2024-07-25 23:05] LABS: Amphetamine Screen Urine Negative (Negative); Barbiturate Screen Urine Negative (Negative); Benzodiazepines Screen Urine Negative (Negative); Cannabinoid Screen Urine Negative (Negative); Cocaine Screen Urine Negative (Negative); Methadone Screen Urine Negative (Negative); Opiate Screen Urine Negative (Negative); Phencyclidine Screen Urine Negative (Negative)
[2024-07-25 23:19] LABS: Lactic Acid 0.5 mmol/L (0.7-2.0)
[2024-07-25] MEDS: LACTATED RINGERS 1,000 ML 150 ML IV CONT (23:33)
[2024-07-25 23:57] LABS: Add Urine Microscopic? YES; Appearance Urine Cloudy (Clear); Bacteria Urine 4+ /hpf; Bilirubin Urine Negative (Negative); Blood Urine Negative (Negative); Color Urine Yellow (Yellow); Glucose Urine UA Negative (Negative); Hyaline Casts Urine Present /lpf; Ketones Urine Trace mg/dL (Negative); Leukocyte Esterase Ur 3+ LEU/UL (Negative); Need Manual Microscopic Reviewed; Nitrate Urine Negative (Negative); Protein Urine Negative (Negative); Specific Grav Ur 1.012 (1.001-1.035); Squamous Epithelial Cell Urine Few /hpf (Few); Urobilinogen Urine 0.2 mg/dL (<2.0); WBC Urine 21-50 /hpf (0-3)
[2024-07-26] VITALS (9 sets, daily range): BP systolic 101–124; BP diastolic 54–88; PULSE 66–95; RESP 15–18; TEMP 36.1–36.6; O2SAT 97–100; BMI 30.1
--- NOTE | 2024-07-26 01:43 | ADMGEN ---
This patient, Melissa Man, was admitted to 3 [facility] Surg Room 320-01. Patient/family oriented to hospital policies and general routines including ID bracelet, bed and alarms, visiting hours, pain management, procedures, bathroom and other care routines, personal items, smoking policy, room service/diet, and visiting hours. Information on how to activate the Rapid Response Team has been discussed. Patient/Family are encouraged to report perceived risks to care and to ask questions if they do not understand what they are told or what they should do.
[2024-07-26 06:22] LABS: Hematocrit 27.5 % (37.0-47.0); Hemoglobin 8.8 g/dL (12.0-15.0); Mean Corpuscular Hemoglobin 28.1 pg (26-34); Mean Corpuscular Volume 87.9 fl (80-100); Mean Platelet Volume 9.6 fl (7.4-10.4); Platelet Count Result 194 k/mm3 (150-375); Red Blood Count 3.13 M/mm3 (4.2-5.4); Red Cell Distribution Width 14.6 % (11.5-14.5); White Blood Count 4.6 K/mm3 (4.5-10.0)
[2024-07-26 06:37] LABS: Alanine Aminotransferase 55 U/L (6-35); Alkaline Phosphatase 78 U/L (38-126); Anion Gap 4 mmol/L (4-12); Aspartate Amino Transferase 67 U/L (14-36); Bilirubin,Total 0.2 mg/dL (0.2-1.3); Blood Urea Nitrogen 11 mg/dL (7-17); Calcium 8.3 mg/dL (8.4-10.2); Carbon Dioxide 28 mmol/L (22-30); Chloride 104 mmol/L (98-107); Estimated CRCL calculation 66 ml/min; Estimated Glomerular Filt Rate 60; Glucose 98 mg/dL (65-110); Potassium 3.5 mmol/L (3.4-5.0); Sodium 136 mmol/L (137-145)
--- NOTE | 2024-07-26 09:47 | PM.IMHP ---
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 Patient has a known medical history of major depressive disorder with prior suicide attempt, distant history of patient most drinking approximately 2015, sleeve gastrectomy approximately 2 years ago with complications, anxiety, GERD, migraines. The patient reports that she was in her usual state of health with chronic nausea since her gastric sleeve 2 years ago. She had an EGD as outpatient but Dr. Huston in April. She does not have much of an appetite due to this. She a drinker protein shake and eaten a banana but had not had much else tea during the day. She was under extra stress due to a busy work day. She does not remember feeling ill. She evidently mention to a co-worker that she has been having some ringing in her ears. The next thing she knows she woke up in the CT scanner. Staff reported the patient had 2 minute tonic clonic seizure. She did injure her tongue and had a extremely large laceration across her central and right forehead. When she woke up she did not have any significant headache. She denies any increased headache from her baseline. She reports that she has been on her current psych meds for many months. Her new a psych med is Rexulti which was started in February. She has never had a seizure before. She reports that her depression has been worse over the last couple of months since she has not yet followed up with her psychiatrist. However she completely denies any suicidal or high homicidal ideation. She was recently admitted for hallucinations and delusions in December before initiation of Rexulti. She does take Xanax 0.5 mg once daily as needed for anxiety. Her last dose was 2 days ago. She does not take the Xanax very frequently. She has not been having any tremors, paresthesias, distortions of perception or symptoms that would be concerning for partial seizures. Her urine in the ER did demonstrate trace ketones 3+ esterase and 21-50 wbc's and 4+ bacteria. She did not have any squamous cells. She has not had significant urinary symptoms. Accu-Chek performed during rapid response was normal. The patient reports that since she has had gastric sleeve she has frequent nausea and vomiting and has rapid gastric transit resulting in emesis. The she reports that around chaitanya Shelly her weight has gone up and is higher than her preop weight after sleeve gastrectomy despite not eating much and having difficulty keeping food down. Review of Systems Review of Systems: 12 systems were reviewed with pertinent positives and negatives per HPI. Except as documented in the HPI, all other systems were reviewed and are negative. [facility] Past Medical History Medical History (Updated 07/26/24 @ 10:14 by Sandra Haines DO) Altered mental status, unspecified Anxiety with depression Benign essential hypertension Chondromalacia of patella Cyclical vomiting with nausea Dehydration Drug overdose, intentional Calcium channel blockers, insulin DUB (dysfunctional uterine bleeding) Esophageal spasm Hepatic steatosis History of renal stone Hx of adenomatous colonic polyps Hx pulmonary embolism Hyperlipidemia Hypothyroidism (acquired) Impingement of left knee joint Iron deficiency anemia Irritable bowel syndrome with constipation Kidney stone Microscopic hematuria Migraine Pancytopenia Pedal edema Persistent headaches PLMD (periodic limb movement disorder) Reflux esophagitis Vitamin B12 deficiency Vitamin D deficiency Surgical History Surgical History (Updated 07/26/24 @ 10:05 by Sandra Haines DO) H/O tubal ligation Hx of hand surgery Hx of laparoscopic partial gastrectomy (~2021) Family History Family History (Reviewed 07/26/24 @ 10:07 by Sandra
--- NOTE | 2024-07-26 15:18 | PM.DS ---
DS: Admitting Diagnosis Discharge Date 07/26/2024 Admitting Diagnosis Seizure and facial laceration DS: Discharge Diagnosis Discharge Diagnosis (1) Seizure: Code(s): R56.9 - Unspecified convulsions Status: Acute Assessment and Plan: as per admission history - Patient has had an acute seizure. Exact cause unknown. Patient has not had any recent changes in her medications she was not hypoglycemic she has not had any reported alcohol use, as illicit substance use or withdrawal from medications. She only rarely takes her Ativan and this is unlikely to cause withdrawal with infrequent intermediate use. Patient been placed on seizure precautions. Neurology has been consulted for further recommendations. Pt had mri head which was negative pt had EEG which is not resulted yet Discussed case with Dr Wen Pt can follow with neurology next week for EEG results Pt was not started on keppra on DC Pt advised no driving for one week and to be off work until she sees neurology next week. Pt will like to see neurology before starting any antiseizure meds. if pt has another event before next week she will return to ED again, pt is keen to go home and rest. sister by bedside willing to drive her home. (2) Facial laceration: Qualifiers: Encounter type: subsequent encounter Qualified Code(s): S01.81XD - Laceration without foreign body of other part of head, subsequent encounter Code(s): S01.81XA - Laceration without foreign body of other part of head, initial encounter Status: Acute Assessment and Plan: Patient has forehead laceration was sutured in the ER with good result. May apply ice or cool compresses to help with swelling. Please note these are dissolvable stitches (3) Protein calorie malnutrition: Qualifiers: Protein-calorie malnutrition severity: unspecified severity Qualified Code(s): E46 - Unspecified protein-calorie malnutrition Code(s): E46 - Unspecified protein-calorie malnutrition Status: Acute Assessment and Plan: Low calories pt did not eat much before event. Patient does have protein calorie malnutrition was likely soda sedated with her difficulties following gastric sleeve procedure. Patient may benefit from nutritional supplementation. pt wants to go home. (4) Major depressive disorder: Qualifiers: Active/Remission status: currently active Major depression episode severity: mild Major depression recurrence: recurrent Qualified Code(s): F33.0 - Major depressive disorder, recurrent, mild Code(s): F32.9 - Major depressive disorder, single episode, unspecified Status: Acute Assessment and Plan: Pt is on antidepressants mood is stable on exam Plan Also patient does have chronic transaminitis with history of hepatic steatosis as well. But transaminases are higher than baseline. terbinafine stopped on dc pt states she was using it for a fungal infection only. Patient does have an abnormal urine that could be suspicious for UTI. She did not specifically mention urinary symptoms at the time my evaluation but I filled ask specific questions regarding voiding symptoms but she was started on empiric antibiotic therapy in the ER. Her ate urine does not appear to be contaminated with squamous cells. I suspect patient has more of a asymptomatic bacteriuria. 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 Patient has a known medical history of major depressive disorder with prior suicide attempt, distant history of patient most drinking approximately 2015, sleeve gastrectomy approximately 2 years ago with complications, anxiety, GERD, migraines. The patient reports that she was in her usual state of health with chronic nausea si
--- NOTE | 2024-07-31 13:07 | WPDNEUROLOGY ---
Neurology EEG Report General Information Date of Study: 07/26/24 TEST eeg DIAGNOSIS seizures CONDITION OF RECORDING awake drowsy and sleep EEG NUMBER [id number] CLINICAL HISTORY patient reports she was here working yesterday when she fell to the floor and had a witnessed grand mal seizure previous history of seizures. EEG DESCRIPTION Background rhythm consists of low-voltage 15 to 18 hertz per 2nd beta activity admixed with multiple movements artifacts. Intermittent low-voltage 11 to 13 hertz per 2nd alpha seen posteriorly. Bilateral symmetrical sleep activity is noted with admixture of the beta and theta and Alpha activity in addition to multiple movement artifacts and also poor anteroposterior gradient. Photic stimulation not done. Hyperventilation not done. Non paroxysmal. Nonfocal. Nonlateralizing. IMPRESSION No significant abnormalities noted.
== END 2024-07-26 16:18 | disposition home or self-care (01) ==
LOC: ANHED 21:05 → ANH3MEDSUR 07-26 15:17
PROVIDERS: Emergency Medicine; Admitting Provider Internal Medicine; Emergency Provider Emergency Medicine; PCP Internal Medicine; Visit Provider Family Medicine
DX: R56.9 Unspecified convulsions (principal); S01.81XA Laceration without foreign body of other part of head, initial encounter; E46 Unspecified protein-calorie malnutrition; W18.39XA Other fall on same level, initial encounter; I10 Essential (primary) hypertension; F41.8 Other specified anxiety disorders; F33.0 Major depressive disorder, recurrent, mild; E78.5 Hyperlipidemia, unspecified; E03.9 Hypothyroidism, unspecified; D50.9 Iron deficiency anemia, unspecified; E55.9 Vitamin D deficiency, unspecified; E53.8 Deficiency of other specified B group vitamins; Z98.84 Bariatric surgery status; Z91.51 Personal history of suicidal behavior; Z86.711 Personal history of pulmonary embolism; Z68.30 Body mass index [BMI] 30.0-30.9, adult; Z79.899 Other long term (current) drug therapy
CPT/HCPCS: 36415; 70450; 70553; 72125; 80053; 80307; 81001; 81025; 82948; 83605; 85025; 85027; 87086; 87088; 93005; 95816; A9577; G0378; J0696; J1953; J7030; J7120

== ENCOUNTER 2024-10-30 09:44 | Outpatient (CLI) | payer OTHER, SELFPAY ==
[2024-10-30 10:12] LABS: Basophils Percent Auto 0.4 % (0.2-1.2); Eosinophils Percent Auto 0.7 % (0-4.4); Hematocrit 35.5 % (37.0-47.0); Hemoglobin 11.1 g/dL (12.0-15.0); Immature Granulocyte Absolute 0.05 K/mm3 (0.00-0.031); Immature Granulocyte Percent A 0.9 % (0-0.5); Lymphocytes Absolute Auto 1.06 K/mm3 (0.9-3.2); Lymphocytes Percent Auto 19.8 % (18.3-44.2); Mean Corpuscular HGB Conc 31.3 g/dl (32-36); Mean Corpuscular Hemoglobin 27.5 pg (26-34); Mean Corpuscular Volume 88.1 fl (80-100); Mean Platelet Volume 10.5 fl (7.4-10.4); Monocytes Absolute Auto 0.4 K/mm3 (0.1-0.6); Monocytes Percent Auto 6.5 % (2.6-8.5); Neutrophils Absolute Auto 3.8 K/mm3 (1.3-6.7); Neutrophils Percent Auto 71.7 % (45.5-73.1); Platelet Count Result 170 k/mm3 (150-375); Red Blood Count 4.03 M/mm3 (4.2-5.4); Red Cell Distribution Width 22.9 % (11.5-14.5); White Blood Count 5.4 K/mm3 (4.5-10.0)
[2024-10-30 10:21] LABS: Alanine Aminotransferase 501 U/L (6-35); Albumin Level 3.4 g/dL (3.5-5.1); Alkaline Phosphatase 102 U/L (38-126); Anion Gap 8 mmol/L (4-12); Aspartate Amino Transferase 178 U/L (14-36); Bilirubin,Total 1.4 mg/dL (0.2-1.3); Blood Urea Nitrogen 22 mg/dL (7-17); Calcium 8.8 mg/dL (8.4-10.2); Carbon Dioxide 23 mmol/L (22-30); Chloride 108 mmol/L (98-107); Cholesterol 171 mg/dL (0-200); Estimated Glomerular Filt Rate 44; Glucose 107 mg/dL (65-110); HDL Direct 44 mg/dL; Potassium 3.7 mmol/L (3.4-5.0); Sodium 139 mmol/L (137-145); Triglycerides 154 mg/dL (<150)
[2024-10-30 10:32] LABS: LDL Cholesterol Direct 99 mg/dL
[2024-10-30 10:41] LABS: Anisocytosis 2+; Platelet Estimate Adequate (Adequate)
[2024-10-30 10:42] LABS: Schistocytes None Seen
[2024-10-30 10:43] LABS: Iron 127 ug/dL (37-170)
[2024-10-30 10:52] LABS: Thyroid Stimulating Hormone 0.058 uIU/mL (0.465-4.680)
[2024-10-30 10:53] LABS: Percent Iron Saturation 37 % (20-50)
[2024-10-30 11:00] LABS: Free T4 Free Thyroxine 2.42 ng/dL (0.78-2.19)
[2024-10-30 11:30] LABS: Folic Acid 7.8 ng/mL (2.76->20); Vitamin B12 > 1000.0 pg/mL (239-931)
[2024-10-30 11:47] LABS: Hemoglobin A1C 5.1 % (<5.7)
[2024-11-01 03:24] LABS: Prolactin 20.9 ng/mL
== END 2024-10-30 09:45 | disposition home or self-care (01) ==
LOC: ANHLAB 09:45
PROVIDERS: Psychiatry & Neurology Neurology; PCP Internal Medicine; Visit Provider Internal Medicine
DX: D50.9 Iron deficiency anemia, unspecified (principal); I10 Essential (primary) hypertension; Z79.899 Other long term (current) drug therapy; Z13.1 Encounter for screening for diabetes mellitus; E78.5 Hyperlipidemia, unspecified; E03.9 Hypothyroidism, unspecified; E53.8 Deficiency of other specified B group vitamins; R40.20 Unspecified coma; F32.9 Major depressive disorder, single episode, unspecified; R56.9 Unspecified convulsions; S01.81XA Laceration without foreign body of other part of head, initial encounter; I45.81 Long QT syndrome; X58.XXXA Exposure to other specified factors, initial encounter
CPT/HCPCS: 36415; 80053; 80061; 82607; 82728; 82746; 83036; 83540; 83550; 84146; 84439; 84443; 85025

== ENCOUNTER 2024-11-12 09:18 | Outpatient (CLI) | payer OTHER, SELFPAY ==
--- NOTE | ~2024-11-12 | XR_ITS ---
XR abdomen/kub 1V Ordering provider: Catracho Guerrero MD History: . R30.0 - Dysuria, bilateral flank pain . Comparison: None. FINDINGS: BOWEL: Nonobstructive bowel gas pattern. ORGANOMEGALY: None. SIGNIFICANT PATHOLOGIC CALCIFICATIONS: None. OTHER: No free air is seen under the diaphragm. IMPRESSION: NO ACUTE ABDOMINAL FINDINGS. Reviewed, dictated and finalized at location A. RY ASSISTANT
[2024-11-12 10:40] LABS: Add Urine Microscopic? YES; Appearance Urine Clear (Clear); Bacteria Urine None Seen /hpf; Bilirubin Urine Negative (Negative); Blood Urine Negative (Negative); Color Urine Yellow (Yellow); Glucose Urine UA Negative (Negative); Ketones Urine Negative (Negative); Leukocyte Esterase Ur 1+ LEU/UL (Negative); Need Manual Microscopic Reviewed; Nitrate Urine Negative (Negative); Non Pathogenic Casts 0-2; Protein Urine Negative (Negative); RBC Urine 0-2 /hpf (0-2); Specific Grav Ur 1.017 (1.001-1.035); Squamous Epithelial Cell Urine Occasional /hpf (Few); Urobilinogen Urine 0.2 mg/dL (<2.0); WBC Urine 0-5 /hpf (0-3)
== END 2024-11-12 09:19 | disposition home or self-care (01) ==
LOC: ANHLAB 09:19
PROVIDERS: PCP Internal Medicine; Visit Provider Internal Medicine
DX: R10.9 Unspecified abdominal pain (principal); R30.0 Dysuria
CPT/HCPCS: 74018; 81001; 87086

== ENCOUNTER 2024-11-22 06:53 | Outpatient (CLI) | payer OTHER, SELFPAY ==
[2024-11-22 08:22] LABS: Alanine Aminotransferase 27 U/L (6-35); Albumin Level 3.8 g/dL (3.5-5.1); Alkaline Phosphatase 86 U/L (38-126); Anion Gap 4 mmol/L (4-12); Aspartate Amino Transferase 25 U/L (14-36); Bilirubin,Total 0.4 mg/dL (0.2-1.3); Blood Urea Nitrogen 15 mg/dL (7-17); Calcium 9.2 mg/dL (8.4-10.2); Carbon Dioxide 22 mmol/L (22-30); Chloride 111 mmol/L (98-107); Estimated Glomerular Filt Rate > 60; Glucose 98 mg/dL (65-110); Sodium 137 mmol/L (137-145)
[2024-11-22 08:41] LABS: Free T4 Free Thyroxine 2.25 ng/dL (0.78-2.19)
--- OUTSIDE RECORDS SUMMARY | 2024-11-29 01:18 | XMS_ITS ---
Author Organization [facility] [employer] Address [facility] [facility] [address] [place] [address] Care Team Providers Care B Operator Name Role Phone Janeth Pickens Unavailable [phone] REASON FOR VISIT RE:update Medications Medication SIG (Take, Route, Fr equency, Duration) Notes Start Date End Date Status FLUoxetine HCl 40 MG 1 capsule Orally On ce a day for 90 days Active Social History Sex Assigned At : Social History Observation Description Sex Assigned At Female Encounters Encounter Location Date Provider Diagnosis [facility] [address] [facility] [address] [place] [address] 11/02/2024 Janeth Pickens Major depressive disorder, recurrent severe without psychotic features F33.2 Assessments Encounter Date Diagnosis (ICD Code) Assessment Notes Treatment Notes Treatment Clinical Notes Section Notes 11/02/2024 Major depressive disorder, recurrent severe without psychotic features (ICD-10 - F33.2) Plan Of Treatment Medication Medication Name Sig Start Date Stop Date Notes FLUoxetine HCl 40 MG 1 capsule Orally On ce a day for 90 days Progress Notes * CORKY OBRIEN ADOB: 8 (44 yo F)Acc No.[id number]:11/02/2024 Patient:?CORKY OBRIEN :1980???Age:44 Y???Sex:Female Address:[address] [place] [address], [place], [address] * Refills? Refill FLUoxetine HCl Capsule, 40 MG, Orally, 90, 1 capsule, Once a day, 90 days, Refills=0 * true * Date:? Generated for Printi ng/Ana/Mikeitting on:?11/29/2024 01:18 AM GLOBAL PROGRAM DIRECTOR
--- OUTSIDE RECORDS SUMMARY | 2024-11-29 01:18 | XMS_ITS ---
Author Organization [facility] [employer] [facility] Address [address] [facility] [address] [place] [address] Care Team Providers Care Telephone Lines Repairer Name Role Phone Janeth Pickens Unavailable [phone] REASON FOR VISIT update Social History Sex Assigned At : Social History Observation Description Sex Assigned At Female Encounters Encounter Location Date Provider Diagnosis [facility] [address] [place] [address] [address] 11/02/2024 Janeth Pickens Plan Of Treatment No Information Progress Notes * CORKY OBRIEN ADOB: [birth year] (44 yo F)Acc No.[id number]:11/02/2024 Patient:?CORKY OBRIEN :1980???Age:44 Y???Sex:Female Address:[address] [place] [address], [place], [address] * true * Date:? Generated for Printi ng/Favalenteg/eTransmitting on:?11/29/2024 01:18 AM BUSINESS CONTINUITY COORDINATOR
--- OUTSIDE RECORDS SUMMARY | 2024-11-29 01:18 | XMS_ITS ---
Author Organization [facility] [employer] [facility] Address [address] [facility] [place] [facility] [address] [place] [address] Care Team Providers Care Calender Runner Name Role Phone Janeth Pickens Unavailable [phone] REASON FOR VISIT RE:update Social History Sex Assigned At : Social History Observation Description Sex Assigned At Female Encounters Encounter Location Date Provider Diagnosis [place] [address] [address] [facility] [address] [facility] [facility] [address] [place] [address] 11/02/2024 Janeth Pickens Plan Of Treatment No Information Progress Notes * CORKY OBRIEN ADOB: [birth year] (44 yo F)Acc No.[id number]:11/02/2024 Patient:?CORKY OBRIEN :1980???Age:44 Y???Sex:Female Address:[address] [place] [address], [place], [address] * true * Date:? Generated for Shalai tuyet/Ana/eTransmitting on:?11/29/2024 01:18 AM STAFF NURSE
--- OUTSIDE RECORDS SUMMARY | 2024-11-29 01:19 | XMS_ITS | Clinical Summary ---
Author Organization [employer] Address [address] [place] [address] Care Team Providers Care Mold Operator Name Role Phone Catracho Guerrero MD Primary Care Provider [phone] Libby Lopez MD Unavailable Analia connolly Source Comments [employer] [facility],non-owned Affiliates and Associated Physician Practices is amultiple site organization consisting of ambulatory clinics and hospital sitesin [place], [place] and [place]. This disclosure is being madepursuant to the Care Everywhere program and may not contain all information available regarding this patient. Last updated 18.[facility] Allergies No known active allergies Medications * Be aware that medications may not be up to date on this document. Alwaysverify current medications with the patient. Medication Sig Dispensed Refills Start Date End Date Status levothyroxine (SYNTHROID) 100 MCG tablet Take 100 mcg by mouth daily before breakfast. Active vitamin B-12 (CYANOCOBALAMIN) 1000 MCG tablet Take 1,000 mcg by mouth once daily. Active spironolactone (ALDACTONE) 50 MG tablet Take 50 mg by mouth once daily. Active nebivolol (BYSTOLIC) 2.5 MG tablet Take 2.5 mg by mouth once daily. Active DULoxetine HCl (CYMBALTA PO) Take 60 mg by mouth once daily. Active niacin, Immediate Release, 500 MG tablet Take 500 mg by mouth at bedtime. Active multivitamins (ONE A DAY) tablet Take 1 Tab by mouth once daily. Active ibuprofen (MOTRIN) 200 MG tablet Take by mouth every 6 hours as needed. Active aspirin 81 MG tabletIndications:Morb id obesity (HCC) Take 2 Tabs by mouth at bedtime. Active BIOTIN POIndications:Morbid obesity (HCC) Take 1,000 mg by mouth once daily. Active Calcium Carbonate-Vitamin D (CALCIUM + D PO)Indications:Morbid obesity (HCC) 1 Tab once daily. Acti ve Active Problems Problem Noted Date Diagnosed Date Hypothyroidism 01/22/2014 Overview (08/21/2015): Essential hypertension 01/22/2014 Overview (08/21/2015): Other malaise and fatigue 01/22/2014 Polycystic ovaries 01/22/2014 Family History Medical History Relation Name Comments CAD (Coronary Artery Disease) Other CVA Other Cancer Other Diabetes Other Hypertension Other Relation Name Status Comments Other Social History Tobacco Use Types Packs/Day Years Used Date Smoking Tobacco: Never Alcohol Use Standard Drinks/Week Comments No 0 (1 standard drink = 0.6 oz pur e alcohol) Sex and Gender Information Value Date Recorded Sex Assigned at Not on file Gender Identity Not on file Sexual Orientation Not on file Last Filed Vital Signs Vital Sign Reading Time Taken Comments Blood Pressure 139/87 09/22/2012 8:45 AM CDT Pulse 84 09/22/2012 8:45 AM CDT Temperature - - Respiratory Rate - - Oxygen Saturation - - Inhaled Oxygen Concentration - - Weight 107.7 kg (237 lb 8 oz) 09/22/2012 8:45 AM CDT Height 165.1 cm (5' 5 ) 09/22/2012 8:45 AM CDT Body Mass Index 39.52 09/22/2012 8:45 AM CDT Plan of Treatment Health Maintenance Due Date Last Done Comments COLOGUARD (AGES 45-75) - COL ON CA SCREENING 1978 COLON MONITORING 1978 COLONOSCOPY - COLON CA SCREENING 1978 CT COLONOGRAPHY - COLON CA SCREENING 1978 Colorectal Cancer Screening 1978 FIT - COLON CA SCREENING 1978 FLEX SIG - COLON CA SCREENING 1978 LIPID TESTING 1978 MAMMOGRAM 1978 PAP SMEAR 1978 HIV SCREENING 1993 HEPATITIS C SCREENING 03/06/1996 DTAP/TDAP/TD VACCINES (1 - Tdap) 1997 HEPATITIS B VACCINE (1 of 3 - 19+ 3-dose series) 1997 COVID-19 VACCINE (2023-2 5 season) 2024 INFLUENZA VACCINE (#1) 2024 DEPRESSION SCREENING 11/21/2024 ZOSTER VACCINE (1 of 2) 2028 HIB VACCINE Aged Out No longer eligi ble based on patient's age to complete this topic HPV VACCINE Aged Out No longer eligi ble based on patient's age to complete this topic MENINGOCOCCAL VACCINE Aged Out No kusum humberto eligible based on patient's age to complete this topic PNEUMOCOCCAL VACCINE Aged Out No long er eligible based on patient's age to complete this topic Care Teams Mold Operator Relationship Specialty Start Date End Date Catracho Guerrero MD [address] [place] [address] PCP - General 09/05/12 Libby Lopez MD [address] [place] [address] Endocrinology 01/22/14
--- OUTSIDE RECORDS SUMMARY | 2024-11-29 01:19 | XMS_ITS | Patient Health Summary ---
Author Organization [facility] [email or web address] Address [address] [place] [address] Care Team Providers Care Hat Former Name Role Phone Catracho Guerrero MD Primary Care Provider [phone] Libby Lopez MD Unavailable Averyi labarturo Note from [facility],non-owned Affiliates and Associated Physician Practices is amultiple site organization consisting of ambulatory clinics and hospital sitesin [place], [place], [place] and [place]. This disclosure is being madepursuant to the Care Everywhere program and may not contain all information available regarding this patient. Last updated 18.[facility] [email or web address] Allergies No known active allergies Medications * Be aware that medications may not be up to date on this document. Alwaysverify current medications with the patient. * levothyroxine (SYNTHROID) 100 MCG tablet Take 100 mcg by mouth daily before breakfast. * vitamin B-12 (CYANOCOBALAMIN) 1000 MCG tablet Take 1,000 mcg by mouth once daily. * spironolactone (ALDACTONE) 50 MG tablet Take 50 mg by mouth once daily. * nebivolol (BYSTOLIC) 2.5 MG tablet Take 2.5 mg by mouth once daily. * DULoxetine HCl (CYMBALTA PO) Take 60 mg by mouth once daily. * niacin, Immediate Release, 500 MG tablet Take 500 mg by mouth at bedtime. * multivitamins (ONE A DAY) tablet Take 1 Tab by mouth once daily. * ibuprofen (MOTRIN) 200 MG tablet Take by mouth every 6 hours as needed. * aspirin 81 MG tablet Take 2 Tabs by mouth at bedtime. * BIOTIN PO Take 1,000 mg by mouth once daily. * Calcium Carbonate-Vitamin D (CALCIUM + D PO) 1 Tab once daily. Active Problems Problem Noted Date Diagnosed Date Hypothyroidism 01/22/2014 Essential hypertension 01/22/2014 Other malaise and fatigue 01/22/2014 Polycystic ovaries 01/22/2014 Social History Tobacco Use Types Packs/Day Years [...] Mass Index 39.52 09/22/2012 8:45 AM CDT Care Teams Hat Former Relationship Specialty Start Date End Date Catracho Guerrero MD [address] [place] [id number] PCP - General 09/05/12 Libby Lopez MD [address] [place] [address] Endocrinology 01/22/14
--- OUTSIDE RECORDS SUMMARY | 2024-11-29 01:19 | XMS_ITS | Encounter Summary ---
Author Organization [facility] Address [address] [place] [address] Care Team Providers Care Technical Marketing Engineer Name Role Phone Catracho Guerrero MD Primary Care Provider [phone] Reason for Visit * Reason Comments Pre-op Consult pre op consult Encounter Details Date Type Department Care Team (Late st Contact Info) Description 09/22/2012 9:00 AM CDT Office Visit [facility] [address], [address] [place] [address] [place] [address] [address] [place] [address] Morbid obesity (HCC) (Primary Dx) Social History Tobacco Use Types Packs/Day Years Used Date Smoking Tobacco: Never Assessed Sex and Gender Information Value Date Recorded Sex Assigned at Not on file Gender Identity Not on file Sexual Orientation Not on file documented as of this encounter Last Filed Vital Signs Vital Sign Reading [...] Mass Index 39.52 09/22/2012 8:45 AM CDT documented in this encounter Progress Notes * Randal Gonzalez MD - 09/22/2012 9:59 AM CDT BARIATRIC EVALUATION HISTORY & PHYSICAL Height: 5' 5 (165.1 cm) Weight: 237 lb 8 oz (107.729 kg) BMI 40 Chief Complaint: Morbid Obesity HPI: Pt is a 32yo F with a hx of morbid obesity who presents for surgical tx. Pt has attempted multiple weight loss regimens in the past including medical, exercise and dietary without keno terminal operator success. Pt has developed multiple comorbid conditions that include Benign Essential HTN, Dyspnea on exertion, Multiple arthropathies, Depression and Morbid Obesity. These comorbid condition(s) have progressively worsened due to the patients morbid obesity and no other contributing factors. Pt has now attained a BMI (Calculated): 39.6 and has failed multiple non surgical weight loss regimens for >5yrs. Past Medical History Diagnosis Date ??? Depression ??? HTN (hypertension) ??? Hypothyroid ??? Arm vein blood clot ??? Family history of clotting disorder Mother Past Surgical History Procedure Date ??? Tubal ligation, laparoscopic ??? Other surgery open repair of right hand ??? Laparoscopy, diagnostic for endometriosis ??? Dilation and curettage PATIENT MEDICAL HISTORY SCREENING: Diabetes............................................No Hypertension.....................................Yes Gastroesophageal reflux disease.....No Chest pain.........................................No Heart trouble......................................No Hypercholesterolemia.......................Yes Stress incontinence..........................No Dyspnea on exertion.........................Yes Multiple arthropathies........................Yes Depression........................................Yes Sleep apnea......................................No MVP...................................................No Morbid Obesity..................................Yes Blood clots........................................No Other................................................. FAMILY HISTORY SCREENING: Significant for obesity....................... No Diabetes........................................... Yes Heart disease................................... Yes Stroke............................................... No Cancer.............................................. No Hypertension..................................... Yes Blood clots........................................ No Other................................................. none Has the patient had a positive history of MRSA No. Current Outpatient Prescriptions Medication ??? aspirin 81 MG tablet ??? BIOTIN PO ??? Calcium Carbonate-Vitamin D (CALCIUM + D PO) ??? levothyroxine (SYNTHROID) 100 MCG tablet ??? vitamin B-12 (CYANOCOBALAMIN) 1000 MCG tablet ??? spironolactone (ALDACTONE) 50 MG tablet ??? nebivolol (BYSTOLIC) 2.5 MG tablet ??? DULoxetine HCl (CYMBALTA PO) ??? niacin, Immediate Release, 500 MG tablet ??? multivitamins (ONE A DAY) tablet ??? ibuprofen (MOTRIN) 200 MG tablet No Known Allergies Social History Smoking Status: Not on file Smokeless Status: Not on file Alcohol Use: Not on file Drug Use: Not on file Sexual Activity: Not on file Review of Systems: HEENT: Denies headaches, vision or auditory changes Cardiovascular: +HTN, Denies chest pain, orthopnea or palpitations Respiratory: Denies cough, hemoptysis. Oxygen dependent : No Gastrointestinal: Denies abdominal pain, no melena or hematemesis Genitourinary: denies hematuria, dysuria Musculoskeletal: denies muscle weakness Endocrine: Denies diabetes mellitus or thyroid issues Allergic / Immuno: Normal Neuro / Psych: denies depression, SI/SA Functional Health Status prior to surgery : Independent- The patient does not require assistance from another person for any ADLs.. Physical Examination: BP 139/87 Pulse 84 Wt 237 lb 8 oz (107.729 kg) BMI 39.52 kg/m2 HEENT: Normocephalic, atraumatic, no evidence of abnormalities. PEERL, EOM- intact, sclera clear Lungs: Clear to ascultation Heart: Regular rate and rythm. Abdomen: No masses, organomegally, tenderness, rebound, guarding, rigidity Extremities: Symmetrical, equal, no signs of deformities. Peripheral pusles intact. No edema. Neurologic: Alert, oriented, cranial nerves 2-12 intact. Station, gait, coordination intact. Skin: No rashes. No skin lesions. Risk / Benefits Risks and benefits were reviewed with patient including but not limited to enteral leaks, hemorrhage, damage to organs, infections etc. Questions were answered. Bariatric Surgery Patient Education: The patient was informed of other factors that are necessary to achieve weight loss in addition to surgery. Specifically, the patient was informed of the different surgical procedures, including the richmond y gastric bypass, the sleeve gastrectomy and the adjustable gastric band. It was explained thatbariatric surgery is part of the overall weight loss program which includes a low calorie nutritional program with nutritional and vitamin supplementation, a frequent and consistent exercise program and a social support program or network. The patient will experience successful and keno terminal operator weightloss when these components along with bariatric surgery are followed. The patient has had the above discussions with multiple program team members including surgeon, figure refinisher and repairer, bariatric nurse and mental health dry pan charger. Impression: Morbid obesity with above listed comorbidities. Multiple failed diet attempts. Plan: L Sleeve Liquid Diet: Yes Liquid Protein Diet: Yes1 Week Weight Goal: Surgeon Assist: Yes / encinas Additional Testing: No Heme:coagulation studies, performed at OSH and [facility] Comments: Limited incision, 6S, no olmedo, 1 day stay Randal Gonzalez MD 09/22/2012 documented in this encounter Plan of Treatment Not on file documented as of this encounter Visit Diagnoses Diagnosis Morbid obesity (HCC)- Primary Morbid obesity documented in this encounter Care Teams Technical Marketing Engineer Relationship Specialty Start Date End Date Catracho Guerrero MD [address] [place] [address] PCP - General 09/05/12 documented as of this encounter
--- OUTSIDE RECORDS SUMMARY | 2024-11-29 01:19 | XMS_ITS | Patient Health Record ---
Author Organization [facility] Address [address] [place] [address] Care Team Providers Care Market Garden Worker Name Role Phone Janeth Pickens Unavailable [phone] Migration, Provider Unavailable Unavailable Allergies No Known Allergies Reason For Referral No Information Medications Medication SIG (Take, Route, Frequency, Duration) Notes Start Date End Date Status FLUoxetine HCl 20 MG 1 capsule Orally Once a day for 30 days 11/26/2024 Active hydrOXYzine HCl 10 MG 1 tablet Orally three times a day for 30 days As needed Active FLUoxetine HCl 40 MG 1 capsule Orally Once a day for 90 days Active miSOPROStol 200 MCG Oral 03/15/2024 Active VITAMIN D3 1.25 MG (55428 UT) CAPS *Reorder from [facility] for eRx and Interaction Alerts* 03/15/2024 Active LORazepam 0.5 MG 1 tablet Orally twice daily for 30 days As needed 10/02/2024 Active Losartan Potassium-HCTZ 50-12.5 MG Oral 03/15/2024 Active Triamterene-HCTZ 37.5-25 MG Oral 03/15/2024 Active Cholecalciferol 1.25 MG (23599 UT) Oral 03/15/2024 Active Promethazine HCl 25 MG Oral 03/15/2024 Active metFORMIN HCl ER 500 MG Oral 03/15/2024 Active Ondansetron 8 MG Oral 03/15/2024 Ac tive Terbinafine HCl 250 MG Oral 03/15/2024 Active busPIRone HCl 5 MG Oral 03/15/2024 Active Rexulti 2 MG 1 tablet Orally Once a day for 90 days Active Omeprazole 40 MG Oral 03/15/2024 Ac tive Linzess 290 MCG Oral 03/15/2024 Act addison Levothyroxine Sodium 125 MCG Oral 03/15/2024 Active AIMOVIG AUTOINJECTOR 70 mg/mL SUBCUTANEOUS *Reorder from [facility] for eRx and Interaction Alerts* 03/15/2024 Active hydrOXYzine HCl 25 MG 1 tablet as needed Orally three times a day for 90 days Active dilTIAZem HCl ER Beads 360 MG Oral 03/15/2024 Active Immunizations Vaccine Route Administration Date Status Comme nts Tdap Unknown 01/18/2023 Administered Influenza, unspecified formulation Unknown 08/21/2022 A dministered COVID-19 (SARS-COV-2) vaccin e, unspecified Unknown 09/11/2021 Administered Social History Tobacco Use: Social History Observation Description Date Details (start date - stop date) Never Smoker NA - NA Sex Assigned At : Social History Observation Description Sex Assigned At Female Tobacco Control (Standard) Question Answer Notes Tobacco use: Nonsmoker AUDIT-C (Standard) Question Answer Notes Did you have a drink contain ing alcohol in the past year? Yes How often did you have six o r more drinks on one occasion in the past year? Less than monthly (1 point) Problems Problem Type SNOMED Code ICD Code Onset Dates Problem Status W/U Status Risk Notes Problem Severe recurrent major depression without psychotic features (84873351) Major depressive disorder, recurrent severe without psychotic features (F33.2) Active confirmed Problem Generalized anxiety disorder (33706813) Generalized anxiety disorder (F41.1) Active confirmed Problem 75460033 TODD (generalized anxiety disorder) (F41.1) Active confirmed Problem 325508005 MDD (major depressive disorder), recurrent episode, mild (F33.0) Active confirmed Vital Signs Heart Rate 88 /min 04/24/2024 Oximetry 98 % 02/14/2024 Height-cm 165.10 cm 04/24/2024 Blood pressure diastolic 84 mm Hg 04/24/2024 Weight-kg 89.81 kg 03/07/2024 Height 65.00 in 04/24/2024 Blood pressure systolic 118 mm Hg 04/24/2024 Weight 198.00 lbs 03/07/2024 BMI 32.9 kg/m2 03/07/2024 Encounters Encounter Location Date Provider Diagnosis [facility] [address] [place] [address] [address] [facility] [address] [place] [address] 11/30/2023 Janeth Nelia Major depressive disorder, recurrent severe without psychotic features F33.2 [facility], [facility] [address] [place] [address] 12/05/2023 Janeth Nelia Generalized anxiety disorder F41.1 and Major depressive disorder, recurrent severe without psychotic features F33.2 [facility], [facility] [address] [place] [address] 12/06/2023 Janeth Nelia Major depressive disorder, recurrent severe without psychotic features F33.2 [facility], [facility] [address] [place] [address] 12/19/2023 Janeth Nelia Major depressive disorder, recurrent severe without psychotic features F33.2 [facility], [facility] [address] [place] [address] 12/26/2023 Provider Migration Major depressive disorder, recurrent severe without psychotic features F33.2 [facility], [facility] [address] [place] [address] 12/27/2023 Janeth Nelia Major depressive disorder, recurrent severe without psychotic features F33.2 [facility], [facility] [address] [place] [address] 01/02/2024 Janeth Nelia Major depressive disorder, recurrent severe without psychotic features F33.2 [facility], [facility] [address] [place] [address] 01/05/2024 Janeth Nelia Generalized anxiety disorder F41.1 and Major depressive disorder, recurrent severe without psychotic features F33.2 [facility], [facility] [address] [place] [address] 01/09/2024 Janeth Nelia Major depressive disorder, recurrent severe without psychotic features F33.2 [facility] [employer], [facility] [address] [place] [address] 01/27/2024 Janeth Nelia Major depressive disorder, recurrent severe without psychotic features F33.2 [facility], [facility] [address] [place] [address] 01/31/2024 Janeth Nelia Major depressive disorder, recurrent severe without psychotic features F33.2 and Generalized anxiety disorder F41.1 [facility], [facility] [address] [place] [address] 02/14/2024 Janeth Nelia Generalized anxiety disorder F41.1 and Major depressive disorder, recurrent severe without psychotic features F33.2 [facility], [facility] [address] [place] [address] 02/22/2024 Provider Migration Major depressive disorder, recurrent severe without psychotic features F33.2 [facility], [facility] [address] [place] [address] 02/29/2024 Provider Migration [facility], [facility] [address] [place] [address] 03/07/2024 Janeth Nelia Major depressive disorder, recurrent severe without psychotic features F33.2 and Generalized anxiety disorder F41.1 [facility], [facility] [address] [place] [address] 03/15/2024 Janeth Nelia Generalized anxiety disorder F41.1 and Major depressive disorder, recurrent severe without psychotic features F33.2 [facility], [facility] [address] [place] [address] 04/24/2024 Janeth Nelia MDD (major depressive disorder), recurrent episode, mild F33.0 and TODD (generalized anxiety disorder) F41.1 [facility], [facility] [address] [place] [address] 05/21/2024 Janeth Nelia Major depressive disorder, recurrent severe without psychotic features F33.2 and Generalized anxiety disorder F41.1 [facility], [facility] [address] [place] [address] 12/26/2023 Provider Migration [facility], [facility] [address] [place] [address] 02/22/2024 Provider Migration [facility], [facility] [address] [place] [address] 02/29/2024 Provider Migration [facility], [facility] [address] [place] [address] 03/21/2024 Provider Migration [facility], [facility] [address] [place] [address] 04/07/2024 Provider Migration [facility], [facility] [address] [place] [address] 04/08/2024 Provider Migration [facility], [facility] [address] [place] [address] 05/16/2024 Janeth Nelia [facility], [facility] [address] [place] [address] 05/28/2024 Janeth Nelia [facility], [facility] [address] [place] [address] 07/03/2024 Janeth Nelia [facility], [facility] [address] [place] [address] 07/01/2024 Janeth Pickens [facility], [facility] [address] [place] [address] 10/09/2024 Janeth Nelia [facility], [facility] [address] [place] [address] 11/02/2024 Janeth Nelia [facility], [facility] [address] [place] [address] 11/02/2024 Janeth Pickens Major depressive disorder, recurrent severe without psychotic features F33.2 [facility], [facility] [address] [place] [address] 11/02/[address] [facility], [facility] [address] [place] [address] 11/23/[address] [facility], [facility] [address] [place] [address] 11/26/2024 Janeth Pickens Assessments Encounter Date Diagnosis (ICD Code) Assessment Notes Treatment Notes Treatment Clinical Notes Section Notes 05/21/2024 Major depressive disorder, recurrent severe without psychotic features (ICD-10 - F33.2) 05/21/2024 Generalized anxiety disorder (ICD-10 - F41.1) 11/02/2024 Major depressive disorder, recurrent severe without psychotic features (ICD-10 - F33.2) 11/30/2023 Major depressive disorder, recurrent severe without psychotic features (ICD-10 - F33.2) 12/05/2023 Major depressive disorder, recurrent severe without psychotic features (ICD-10 - F33.2) 12/05/2023 Generalized anxiety disorder (ICD-10 - F41.1) 12/06/2023 Major depressive disorder, recurrent severe without psychotic features (ICD-10 - F33.2) 12/19/2023 Major depressive disorder, recurrent severe without psychotic features (ICD-10 - F33.2) 12/26/2023 Major depressive disorder, recurrent severe without psychotic features (ICD-10 - F33.2) 12/27/2023 Major depressive disorder, recurrent severe without psychotic features (ICD-10 - F33.2) 01/02/2024 Major depressive disorder, recurrent severe without psychotic features (ICD-10 - F33.2) 01/05/2024 Major depressive disorder, recurrent severe without psychotic features (ICD-10 - F33.2) 01/05/2024 Generalized anxiety disorder (ICD-10 - F41.1) 01/09/2024 Major depressive disorder, recurrent severe without psychotic features (ICD-10 - F33.2) 01/27/2024 Major depressive disorder, recurrent severe without psychotic features (ICD-10 - F33.2) 01/31/2024 Major depressive disorder, recurrent severe without psychotic features (ICD-10 - F33.2) 01/31/2024 Generalized anxiety disorder (ICD-10 - F41.1) 02/14/2024 Major depressive disorder, recurrent severe without psychotic features (ICD-10 - F33.2) 02/14/2024 Generalized anxiety disorder (ICD-10 - F41.1) 02/22/2024 Major depressive disorder, recurrent severe without psychotic features (ICD-10 - F33.2) 03/07/2024 Major depressive disorder, recurrent severe without psychotic features (ICD-10 - F33.2) 03/07/2024 Generalized anxiety disorder (ICD-10 - F41.1) 03/15/2024 Major depressive disorder, recurrent severe without psychotic features (ICD-10 - F33.2) 03/15/2024 Generalized anxiety disorder (ICD-10 - F41.1) 04/24/2024 TODD (generalized anxiety disorder) (ICD-10 - F41.1) Depression and anxiety have improved with fluoxetine. Side effects mostly subsided since stopping Trintellix. Pt happy with current treatment plan. 04/24/2024 MDD (major depressive disorder), recurrent episode, mild (ICD-10 - F33.0) Depression and anxiety have improved with fluoxetine. Side effects mostly subsided since stopping Trintellix. Pt happy with current treatment plan. 04/24/2024 Other Stable, continue current medications. Depression and anxiety have improved with fluoxetine. Side effects mostly subsided since stopping Trintellix. Pt happy with current treatment plan. 05/21/2024 Other Increase hydroxyzine to 25mg TID PRN for anxiety. Consider increase in fluoxetine if anxiety continues, although seems to be situational secondary to recent stressors. Patient educated on all medications including potential benefits, side effects, risks. Educated on proper dosing schedule and importance of compliance. Plan Of Treatment No Information Insurance Providers Payer Name Payer Address Payer Phone Subscriber Number Group Number Insured Name Patient Relationship to Insured Coverage Start Date Coverage End Date [facility] [address] [address] [place] [address] [id number] CORKY OBRIEN Self - patient is the insured Medical (General) History Medical History History ICD Code Problems: Generalized anxiety disorder Mild recurrent major depression Recurrent hypersomnia Severe recurrent major depression withou t psychotic features , Surgical History Surgery Date(Month/Year) Myringotomy tube placement 11/21/2000 Other 11/21/2000 Any surgical history 01/04/2022
--- OUTSIDE RECORDS SUMMARY | 2024-11-29 01:19 | XMS_ITS | Referral Summary ---
Author Organization [facility] Address [address] [facility] [place] [address] Care Team Providers Care Matrix Supervisor Name Role Phone Catracho Guerrero MD Primary Care Provider [phone] Libby Lopez MD Unavailable Analia connolly Source Comments [facility],non-owned Affiliates and Associated Physician Practices is amultiple site organization consisting of ambulatory clinics and hospital sitesin [place], [place], [place] and [place]. This disclosure is being madepursuant to the Care Everywhere program and may not contain all information available regarding this patient. Last updated 18.[employer] [facility] Allergies No known active allergies Medications * [...] 09/22/2012 8:45 AM CDT Plan of Treatment Not on file Care Teams Matrix Supervisor Relationship Specialty Start Date End Date Catracho Guerrero MD [address] [place] [address] PCP - General 09/05/12 Libby Lopez MD [address] [place] [address] Endocrinology 01/22/14
--- OUTSIDE RECORDS SUMMARY | 2024-11-29 01:20 | XMS_ITS | Encounter Summary ---
Author Organization [facility] Address [address] [place] [address] Care Team Providers Care Environmental Services Worker Name Role Phone Unavailable Primary Care Provider Unavailabl e Reason for Referral * Evaluate & Treat - Closed Specialty Diagnoses / Procedures Referred By Contac t Referred To Contact Diagnoses Morbid obesity (HCC) Randal Gonzalez MD [address] [place] [address] Referral ID Status Reason Start Date Expiration Date Visits Re quested Visits Authorized [id number] Closed 08/25/2012 02/21/2013 1 1 Encounter Details Date Type Department Care Team (Late st Contact Info) Description 08/25/2012 Orders Only [facility] [address] [place] [id number] [place] [address] [facility] [address] [place] [address] Morbid obesity (HCC) Social History Tobacco Use Types Packs/Day Years Used Date Smoking Tobacco: Never Assessed Sex and Gender Information Value Date Recorded Sex Assigned at Not on file Gender Identity Not on file Sexual Orientation Not on file documented as of this encounter Plan of Treatment Scheduled Referrals Name Type Priority Associated Diagnoses Orde r Schedule AMB REFERRAL TO EQUIPMENT MAINTENANCE ENGINEER Outpatient Referral Routine Morbid obesity (HCC) Ordered: 08/25/2012 documented as of this encounter Visit Diagnoses Diagnosis Morbid obesity (HCC)- Primary Morbid obesity documented in this encounter
--- OUTSIDE RECORDS SUMMARY | 2024-11-29 01:20 | XMS_ITS | Encounter Summary ---
Author Organization [facility] Address [address] [place] [address] Care Team Providers Care Template Inspector Name Role Phone Catracho Guerrero MD Primary Care Provider [phone] Reason for Visit * Reason Onset Date Comments Medical Clearance 09/07/2012 Encounter Details Date Type Department Care Team (Late st Contact Info) Description 09/07/2012 Telephone [facility] [employer] [facility] [address] [facility], [address] [place] [address] [place] [address] [facility] [address] [place] [address] Medical Clearance Social History Tobacco Use Types Packs/Day Years Used Date Smoking Tobacco: Never Assessed Sex and Gender Information Value Date Recorded Sex Assigned at Not on file Gender Identity Not on file Sexual Orientation Not on file documented as of this encounter Miscellaneous Notes * Telephone Encounter - Kadi Shetty RN - 09/07/2012 12:24 PM CDT cld to discuss clearances pt reports having had coag studies drawn, and has turned in cardiac cl form to bakery team member. Informed pt advocate will be calling to schedule consult soon Instructed to call office if has any further concerns or questions. Verbalized understanding. documented in this encounter Plan of Treatment Not on file documented as of this encounter Visit Diagnoses Not on filedocumented in this encounter Care Teams Template Inspector Relationship Specialty Start Date End Date Catracho Guerrreo MD [address] [place] [address] PCP - General 09/05/12 documented as of this encounter
--- OUTSIDE RECORDS SUMMARY | 2024-11-29 01:20 | XMS_ITS | Encounter Summary ---
Author Organization [facility] Address [address] [place] [address] Care Team Providers Care Clinical Documentation Improvement Specialist Name Role Phone Catracho Guerrero MD Primary Care Provider [phone] Encounter Details Date Type Department Care Team (Latest Contact Info) Description 09/05/2012 10:00 AM CDT Clinical Support [facility] [employer] [facility] [address] [place] [id number] Morbid obesity (HCC) Social History Tobacco Use Types Packs/Day Years Used Date Smoking Tobacco: Never Assessed Sex and Gender Information Value Date Recorded Sex Assigned at Not on file Gender Identity Not on file Sexual Orientation Not on file documented as of this encounter Last Filed Vital Signs Vital Sign Reading Time Taken Comments Blood Pressure - - Pulse - - Temperature - - Respiratory Rate - - Oxygen Saturation - - Inhaled Oxygen Concentration - - Weight 109.1 kg (240 lb 8 oz) 09/05/2012 8:00 AM CDT Height 165.1 cm (5' 5 ) 09/05/2012 8:00 AM CDT Body Mass Index 40.02 09/05/2012 8:00 AM CDT documented in this encounter Progress Notes * Daina Rush RN - 09/05/2012 11:18 AM CDT Patient has completed the following one on one assessment with the Bariatric Nurse Coordinator. Reviewed items include: 1.) 3 Bariatric surgical procedures: Shiraz-en-Y Gastric Bypass, Sleeve Gastrectomy, Adjustable gastric banding 2.) Insurance and [facility] [place] requirements for surgery 3.) Potential complications 4.) Percent of expected weight loss 5.) Expectations of the patient 6.) Expectations of the staff 7.) Dietary and medication guidelines 8.) Pre-operative clear liquid with high protein shakes 9.) Mineral and protein supplements 10.) Obtain Medical and Surgical history 11.) Obtain allergies and related reaction 12.) Obtain Medication list 13.) BOLD data collection 14.) Provide Tereza education (Allergalida) log in for additional education prior to meeting with the surgeon for consult 15.) Initial and sign Bariatric Surgical Contract. Copy given to patient after review. 16.) Schedule surgical consult per protocol 17.) Provide list of additional clearances (Cardiology) required prior to surgical consult 18.) Instructed to stop NSAID's and fish oil at least 5 days before surgery. Instructed to inform prescribing MD if on prescription anticoagulants of pending surgery to obtain stop date. Pt denies questions at this time. Pt is given contact information for the [facility] call for any questions or concerns. Pt has reasonable weight loss expectations. Wishes to lose approx 90.8 lbs of the estimated 90.4 lbs determined by calculations. Pt has scheduled dietary consults. Pt states she had a sleep study 4 years ago that was negative for sleep apnea. Instructed pt of need to keep in contact with PCP/specialists re: changing medication doses as loses weight. Pt will have personal and family history coagulation studies done d/t her history of a blood clot in her arm and her mother's history of blood clot. Daina Rush RN [facility] [place] * Daina Rush RN - 09/05/2012 11:14 AM CDT Patient has completed the following one on one assessment with the Bariatric Nurse Coordinator. Reviewed items include: 1.) 3 Bariatric surgical procedures: Shiraz-en-Y Gastric Bypass, Sleeve Gastrectomy, Adjustable gastric banding 2.) Insurance and [facility] [place] requirements for surgery 3.) Potential complications 4.) Percent of expected weight loss 5.) Expectations of the patient 6.) Expectations of the staff 7.) Dietary and medication guidelines 8.) Pre-operative clear liquid with high protein shakes 9.) Mineral and protein supplements 10.) Obtain Medical and Surgical history 11.) Obtain allergies and related reaction 12.) Obtain Medication list 13.) BOLD data collection 14.) Provide Tereza education (Allergan) log in for additional education prior to meeting with the surgeon for consult 15.) Initial and sign Bariatric Surgical Contract. Copy given to patient after review. 16.) Schedule surgical consult per protocol 17.) Provide list of additional clearances (Cardiology) required prior to surgical consult 18.) Instructed to stop NSAID's and fish oil at least 5 days before surgery. Instructed to inform prescribing MD if on prescription anticoagulants of pending surgery to obtain stop date. Pt denies questions at this time. Pt is given contact information for the [facility] call for any questions or concerns. Pt has reasonable weight loss expectations. Wishes to lose approx 90.8 lbs of the estimated 90.4 lbs determined by calculations. Pt has scheduled dietary consults. Pt states she had a sleep study 4 years ago that was negative for sleep apnea. Instructed pt of need to keep in contact with PCP/specialists re: changing medication doses as loses weight. Daina Rush RN [facility] [place] documented in this encounter Plan of Treatment Not on file documented as of this encounter Visit Diagnoses Diagnosis Morbid obesity (HCC)- Primary Morbid obesity documented in this encounter Care Teams Clinical Documentation Improvement Specialist Relationship Specialty Start Date End Date Catracho Guerrero MD [address] [place] [address] PCP - General 09/05/12 documented as of this encounter
--- OUTSIDE RECORDS SUMMARY | 2024-11-29 01:20 | XMS_ITS | Encounter Summary ---
Author Organization [facility] Address [address] [facility] [place] [address] Care Team Providers Care Price Lister Name Role Phone Catracho Guerrero MD Primary Care Provider [phone] Encounter Details Date Type Department Care Team (Latest Contact Info) Description 09/05/2012 9:00 AM CDT - 09/05/2012 11:59 PM CDT Hospital Encounter [facility] [address] [place] [id number] Discharge Disposition: Home or Self Care Social History Tobacco Use Types Packs/Day Years [...] 109.1 kg (240 lb 8 oz) 09/05/2012 10:00 A M CDT Height 165.1 cm (5' 5 ) 09/05/2012 10:00 AM CDT Body Mass Index 40.02 09/05/2012 10:00 AM CDT documented in this encounter Medications at Time of Discharge Medication Sig Dispensed Refills Start Date End Date aspirin 81 MG tabletIndications:Morbid obesity (HCC) Take 2 Tabs by mouth at bedtime. BIOTIN POIndications:Morbid obesity (HCC) Take 1,000 mg by mouth once daily. Calcium Carbonate-Vitamin D (CALCIUM + D PO)Indications:Morbid obesity (HCC) 1 Tab once daily. DULoxetine HCl (CYMBALTA PO) Take 60 mg by mouth once daily. ibuprofen (MOTRIN) 200 MG tablet Take by mouth every 6 hours as needed. levothyroxine (SYNTHROID) 100 MCG tablet Take 100 mcg by mouth daily before breakfast. multivitamins (ONE A DAY) tablet Take 1 Tab by mouth once daily. nebivolol (BYSTOLIC) 2.5 MG tablet Take 2.5 mg by mouth once daily. niacin, Immediate Release, 500 MG tablet Take 500 mg by mouth at bedtime. spironolactone (ALDACTONE) 50 MG tablet Take 50 mg by mouth once daily. vitamin B-12 (CYANOCOBALAMIN) 1000 MCG tablet Take 1,000 mcg by mouth once daily. documented as of this encounter Progress Notes * Amita Grullon RD/PATY - 09/05/2012 10:10 AM CDT Pre-Surgical Bariatric Session 1 Date: 09/05/2012 Patient: Melissa Man Date of : 1980 (32 y.o.) PCP Physician: Catracho Guerrero Referring Physician: Randal Gonzalez MD Assessment: Pt planning the Sleeve Gastrectomy. 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. Melissa has not had any soda to drink since December. She likes 16 ounces of coffee per day. Melissa may have a mixed drink once every other month. She does not smoke. Melissa drinks 4 bottles(16.9 oz) of water perday. Currently she eats 2 scrambled eggs or cereal with skim milk for breakfast. She has a salad [employer] for lunch. Her boyfriend, Christian, prepares a balanced meal for dinner. Melissa notes she had issues with control and anorexia for a year when she was 15 years old, losing 70 lbs in 1 1/2 monthsby drinking only water and some Slim Fast. She currently works out with a personal fitness manager twice per week and does cardio(treadmill or elliptical) for 1 hour 5x/week. Melissa expressed frustration in her inability to lose weight with dieting and exercise. She states a goal of reaching 150 lbs. Comorbidities: HTN, Morbid obesity and Other: IBS, hypothyroid Diets patient has tried: Weight Watchers, Nutrisystem, Veronica Roland: Phentermine, OTC diet pills, Slim Fast Exercise regimens patient has participated in: Gym[employer]Club Membership and personal fitness manager Patient currently participates in exercise: 5-7 times/week Pertinent Labs: n/a Pertinent Medications: Niacin, Synthroid, baby ASA Clinical Data: Height: 5' 5 (165.1 cm) Weight: 240 lb 8 oz (109.09 kg) BMI (Calculated): 40.1 Diagnostic Statement: Obesity related to excess energy intake/decreased physical activity AEB elevated BMI. Interventions: Patient was instructed on [id number] calorie weight loss diet, portion sizes using food models, post-surgery diet progression, post-surgery protein requirements/protein supplements, Bariatric vitamin/mineral supplementation recommendations, adequate hydration, proper eating habits, pot ential Bariatric post-op concerns: dumping syndrome, nausea/vomiting, constipation, importance of routine activity, no alcohol/carbonation, and attending support group, tips for dining out and goals for a lifetime of success and previous food records, goals, and behavior modification tips reviewed. Materials provided: Bariatric Nutrition Guide, Food and Activity Guide, Support Group Schedule and High Protein Liquid Supplement Handout Monitor: Pt encouraged to call RD with questions and/or concerns. Goals: Behavior modification and gradual weight loss. Eat three meals per day. Switch to sugar free, non-carbonated beverages and consume 64 ounces of fluid per day. Increase physical activity per physician approval. Keep food and activity journal. Evaluation of Overall Compliance Potential: Patient verbalizes understanding of concepts discussed. Session Information Session date: 09/05/2012 Session total minutes: [address]/PATY documented in this encounter Plan of Treatment Not on file documented as of this encounter Visit Diagnoses Not on filedocumented in this encounter Care Teams Price Lister Relationship Specialty Start Date End Date Catracho Guerrero MD [address] [place] [address] PCP - General 09/05/12 documented as of this encounter
--- OUTSIDE RECORDS SUMMARY | 2024-11-29 01:20 | XMS_ITS | Encounter Summary ---
Author Organization [facility] Address [address] [place] [address] Care Team Providers Care Bearing Inspector Name Role Phone Catracho Guerrero MD Primary Care Provider [phone] Encounter Details Date Type Department Care Team (Latest Contact Info) Description 09/05/2012 7:32 AM CDT - 09/05/2012 11:59 PM T Hospital Encounter [facility] [address] [place] [address] [place] [address] [facility] [address] [place] [address] Nutrition Discharge Disposition: Home or Self Care Social History Tobacco Use Types Packs/Day Years Used Date Smoking Tobacco: Never Assessed Sex and Gender Information Value Date Recorded Sex Assigned at Not on file Gender Identity Not on file Sexual Orientation Not on file documented as of this encounter Medications at Time of Discharge [...] once daily. documented as of this encounter Miscellaneous Notes * Miscellaneous Scans - Document, Scanned - 09/14/2012 2:46 PM CDT documented in this encounter Plan of Treatment Not on file documented as of this encounter Visit Diagnoses Diagnosis Morbid obesity (HCC) Morbid obesity documented in this encounter Care Teams Bearing Inspector Relationship Specialty Start Date End Date Catracho Guerrero MD [address] [place] [id number] PCP - General 09/05/12 documented as of this encounter
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
--- OUTSIDE RECORDS SUMMARY | 2024-11-29 01:20 | XMS_ITS | Encounter Summary ---
Author Organization [facility] Address [address] [address] Care Team Providers Care Venue Attendant Name Role Phone Catracho Guerrero MD Primary Care Provider [phone] Encounter Details Date Type Department Care Team (Late st Contact Info) Description 09/05/2012 Orders Only [facility] [address] [facility] [address] [place] [address] [place] [address] [facility] [address] [place] [address] Social History Tobacco Use Types Packs/Day Years Used Date Smoking Tobacco: Never Assessed Sex and Gender Information Value Date Recorded Sex Assigned at Not on file Gender Identity Not on file Sexual Orientation Not on file documented as of this encounter Plan of Treatment Not on file documented as of this encounter Visit Diagnoses Not on filedocumented in this encounter Care Teams Venue Attendant Relationship Specialty Start Date End Date Catracho Guerrero MD [address] [place] [id number] PCP - General 09/05/12 documented as of this encounter
== END 2024-11-22 06:54 | disposition home or self-care (01) ==
LOC: ANHLAB 06:54
PROVIDERS: PCP Internal Medicine; Visit Provider Internal Medicine
DX: E03.9 Hypothyroidism, unspecified (principal); K76.0 Fatty (change of) liver, not elsewhere classified; R79.89 Other specified abnormal findings of blood chemistry; Z79.899 Other long term (current) drug therapy
CPT/HCPCS: 36415; 80048; 80076; 84439; 84443

== ENCOUNTER 2024-11-29 15:31 | Outpatient (CLI) | payer OTHER, SELFPAY ==
[2024-11-29 16:06] LABS: Hematocrit 33.9 % (37.0-47.0); Hemoglobin 11.3 g/dL (12.0-15.0); Mean Corpuscular HGB Conc 33.3 g/dl (32-36); Mean Corpuscular Hemoglobin 27.6 pg (26-34); Mean Corpuscular Volume 82.9 fl (80-100); Mean Platelet Volume 9.6 fl (7.4-10.4); Platelet Count Result 344 k/mm3 (150-375); Red Blood Count 4.09 M/mm3 (4.2-5.4); Red Cell Distribution Width 18.9 % (11.5-14.5); White Blood Count 5.7 K/mm3 (4.5-10.0)
[2024-11-29 16:38] LABS: INR 0.9; Prothrombin Time 12.9 Seconds (11.1-14.7)
[2024-11-29 16:39] LABS: Immunoglobulin G 334 mg/dL (700-1600)
[2024-11-29 16:53] LABS: Iron 58 ug/dL (37-170)
[2024-11-29 17:10] LABS: Percent Iron Saturation 12 % (20-50)
[2024-11-29 22:57] LABS: Hepatitis B Surface Antigen Negative (Negative)
[2024-11-29 23:03] LABS: HAV RESULT Negative (Negative); Hepatitis B Core IgM Result Negative (Negative)
[2024-11-29 23:14] LABS: Hepatitis C Virus Antibody Negative (Negative)
[2024-12-01 03:04] LABS: Alpha-1-Antitrypsin, QN 184 mg/dL (83-199); Ceruloplasmin 30 mg/dL (14-48)
[2024-12-04 23:23] LABS: ALT 24 U/L (6-29); Alpha-2-Macroglobulin 174 mg/dL (106-279); Apolipoprotein A1 196 mg/dL (101-198); Fibrosis Score 0.05; Fibrosis Stage F0; GGT 46 U/L (3-55); Haptoglobin 233 mg/dL (43-212); Necroinflammat Act Grade A0; Reference ID 5286191; Total Bilirubin 0.3 mg/dL (0.2-1.2)
== END 2024-11-29 15:32 | disposition home or self-care (01) ==
LOC: ANHLAB 15:32
PROVIDERS: PCP Internal Medicine; Visit Provider Nurse Practitioner
DX: R74.01 Elevation of levels of liver transaminase levels (principal)
CPT/HCPCS: 36415; 80074; 81596; 82103; 82105; 82390; 82728; 82784; 83520; 83540; 83550; 85027; 85610; 86038; 86039

== ENCOUNTER 2025-02-06 12:29 | Outpatient (CLI) | payer OTHER, SELFPAY ==
--- OUTSIDE RECORDS SUMMARY | 2025-02-06 13:55 | XMS_ITS | Patient Health Record ---
Author Organization [facility] As [employer] [facility] Address [address] [place] [address] Care Team Providers Care Laser Technician Name Role Phone Janeth Pickens Unavailable [phone] Migration, Provider Unavailable Unavailable Allergies No Known Allergies Reason For Referral No Information Medications Medication SIG (Take, Route, Frequency, Duration) Notes Start Date End Date Status FLUoxetine HCl 20 MG 1 capsule Orally Once a day for 30 days 11/26/2024 Active miSOPROStol 200 MCG Oral 03/15/2024 Active VITAMIN D3 1.25 MG (72304 UT) CAPS *Reorder from [employer] for eRx and Interaction Alerts* 03/15/2024 Active Losartan Potassium-HCTZ 50-12.5 MG Oral 03/15/2024 Active Triamterene-HCTZ 37.5-25 MG Oral 03/15/2024 Active Cholecalciferol 1.25 MG (27824 UT) Oral 03/15/2024 Active Promethazine HCl 25 MG Oral 03/15/2024 Active metFORMIN HCl ER 500 MG Oral 03/15/2024 Active Ondansetron 8 MG Oral 03/15/2024 Ac tive Terbinafine HCl 250 MG Oral 03/15/2024 Active busPIRone HCl 5 MG Oral 03/15/2024 Active Omeprazole 40 MG Oral 03/15/2024 Ac tive Linzess 290 MCG Oral 03/15/2024 Act addison Levothyroxine Sodium 125 MCG Oral 03/15/2024 Active AIMOVIG AUTOINJECTOR 70 mg/mL SUBCUTANEOUS *Reorder from [employer] for eRx and Interaction Alerts* 03/15/2024 Active hydrOXYzine HCl 25 MG 1 tablet as needed Orally three times a day for 90 days Active dilTIAZem HCl ER Beads 360 MG Oral 03/15/2024 Active Rexulti 2 MG 1 tablet Orally Once a day for 30 days Active LORazepam 0.5 MG 1 tablet Orally twice daily for 30 days As needed 11/30/2024 Active hydrOXYzine HCl 10 MG 1 tablet Orally three times a day for 30 days As needed Active FLUoxetine HCl 40 MG Take 1 capsule by mouth once daily for 90 Active Immunizations Vaccine Route Administration Date Status [...] Severe recurrent major depression without psychotic features (45974062) Major depressive disorder, recurrent severe without psychotic features (F33.2) Active confirmed Problem Generalized anxiety disorder (14236347) Generalized anxiety disorder (F41.1) Active confirmed Problem 31534877 TODD (generalized anxiety disorder) (F41.1) Active confirmed Problem [id number] MDD (major depressive disorder), recurrent episode, mild (F33.0) Active confirmed Vital Signs Heart Rate 88 /min 04/24/2024 Height-cm 165.10 cm 04/24/2024 Blood pressure diastolic 84 mm Hg 04/24/2024 Oximetry 98 % 02/14/2024 Weight-kg 89.81 kg 03/07/2024 Height 65.00 in 04/24/2024 Blood pressure systolic 118 mm Hg 04/24/2024 Weight 198.00 lbs 03/07/2024 BMI 32.9 kg/m2 03/07/2024 Encounters Encounter Location Date Provider Diagnosis [facility] [address] [place] [address] [address] [facility] [address] [place] [address] 02/14/2024 Janeth Nelia Generalized anxiety disorder F41.1 and Major depressive disorder, recurrent severe without psychotic features F33.2 [facility], [facility] [address] [place] [address] 02/22/2024 Provider Migration Major depressive disorder, recurrent severe without psychotic features F33.2 [facility], [facility] [address] [place] [address] 02/29/2024 Provider Migration [facility], [facility] [address] [place] [address] 03/07/2024 Janeth Nelia Major depressive disorder, recurrent severe without psychotic features F33.2 and Generalized anxiety disorder F41.1 [facility], [facility] [address] [place] [address] 03/15/2024 Janeth Nelia Generalized anxiety disorder F41.1 and Major depressive disorder, recurrent severe without psychotic features F33.2 [facility], [facility] [address] [place] [address] 04/24/2024 Janeth Pickens MDD (major depressive disorder), recurrent episode, mild F33.0 and TODD (generalized anxiety disorder) F41.1 [facility], [facility] [address] [place] [address] 05/21/2024 Janeth Nelia Major depressive disorder, recurrent severe without psychotic features F33.2 and Generalized anxiety disorder F41.1 [facility], [facility] [address] [place] [address] 02/22/2024 Provider Migration [facility], [facility] [address] [place] [address] 02/29/2024 Provider Migration [facility], [facility] [address] [place] [address] 03/21/2024 Provider Migration [facility], [facility] [address] [place] [address] 04/07/2024 Provider Migration [facility], [facility] [address] [place] [address] 04/08/2024 Provider Migration [facility], [facility] [address] [place] [address] 05/16/20[facility] [address] [place] [address] 05/28/2024 Janeth Pickens [facility], [facility] [address] [place] [address] 07/03/2024 Janeth Pickens [facility], [facility] [address] [place] [address] 07/01/2024 Janeth Pickens [facility], [facility] [address] [place] [address] 10/09/2024 Janeth Pickens [facility], [facility] [address] [place] [address] 11/02/2024 Janeth Pickens [facility], [facility] [address] [place] [address] 11/02/2024 Janeth Pickens Major depressive disorder, recurrent severe without psychotic features F33.2 [facility], [facility] [address] [place] [address] 11/02/2024 Janeth Pickens [facility], [facility] [address] [place] [address] 11/23/2024 Janeth Pickens [facility], [facility] [address] [place] [address] 11/26/2024 Janeth Pickens [facility], [facility] [address] [place] [address] 01/25/2025 Janeth Pickens Assessments Encounter Date Diagnosis (ICD Code) Assessment Notes Treatment Notes Treatment Clinical Notes Section Notes 05/21/2024 Major depressive disorder, recurrent severe without psychotic features (ICD-10 - F33.2) 05/21/2024 Generalized anxiety disorder (ICD-10 - F41.1) 11/02/2024 Major depressive disorder, recurrent severe without psychotic features (ICD-10 - F33.2) 02/14/2024 Major depressive disorder, recurrent severe without [...] Insured Coverage Start Date Coverage End Date [facility] [address] [address] [place] [address] [id number] CORKY OBRIEN Self - patient is the insured Medical (General) History Medical History History ICD Code Problems: Generalized anxiety disorder Mild recurrent major depression Recurrent hypersomnia Severe recurrent major depression withou t psychotic features , Surgical History Surgery Date(Month/Year) Myringotomy tube placement 11/21/2000 Other 11/21/2000 Any surgical history 01/04/2022
--- OUTSIDE RECORDS SUMMARY | 2025-02-06 13:55 | XMS_ITS | Clinical Summary ---
Author Organization [employer] [facility] Address [address] [place] [address] Care Team Providers Care Hospital Manager Name Role Phone Catracho Guerrero MD Primary Care Provider [phone] Libby Lopez MD Unavailable Analia connolly Source Comments [facility],non-owned Affiliates and Associated Physician Practices is amultiple site organization consisting of ambulatory clinics and hospital sitesin [place], [place], [place] and [place]. This disclosure is being madepursuant to the Care Everywhere program and may not contain all information available regarding this patient. Last updated 18.[employer] Allergies No known active allergies Medications * [...] patient's age to complete this topic MENINGOCOCCAL (Group B) VACC INE SHARED DECISION-MAKING Aged Out No longer eligibl e based on patient's age to complete this topic MENINGOCOCCAL GROUPS A/C/Y/W VACCINE Aged Out No longer eligible b ased on patient's age to complete this topic PNEUMOCOCCAL VACCINE Aged Out No long er eligible based on patient's age to complete this topic Care Teams Hospital Manager Relationship Specialty Start Date End Date Catracho Guerrero MD [address] [place] [phone] PCP - General 09/05/12 Libby Lopez MD [address] [place] [address] Endocrinology 01/22/14
[2025-02-06 13:58] LABS: Free T4 Free Thyroxine 1.83 ng/dL (0.78-2.19)
== END 2025-02-06 12:30 | disposition home or self-care (01) ==
LOC: ANHLAB 12:31
PROVIDERS: PCP Internal Medicine; Visit Provider Internal Medicine
DX: E03.9 Hypothyroidism, unspecified (principal)
CPT/HCPCS: 36415; 84439; 84443

== ENCOUNTER 2025-03-05 12:31 | Outpatient (CLI) | payer OTHER, SELFPAY ==
[2025-03-05 12:47] LABS: Basophils Percent Auto 0.3 % (0.2-1.2); Eosinophils Absolute Auto 0.1 K/mm3 (0-0.3); Eosinophils Percent Auto 0.8 % (0-4.4); Hematocrit 35.4 % (37.0-47.0); Immature Granulocyte Absolute 0.02 K/mm3 (0.00-0.031); Immature Granulocyte Percent A 0.2 % (0-0.5); Lymphocytes Absolute Auto 1.12 K/mm3 (0.9-3.2); Lymphocytes Percent Auto 11.8 % (18.3-44.2); Mean Corpuscular HGB Conc 31.1 g/dl (32-36); Mean Corpuscular Hemoglobin 25.6 pg (26-34); Mean Corpuscular Volume 82.3 fl (80-100); Mean Platelet Volume 9.9 fl (7.4-10.4); Monocytes Absolute Auto 0.4 K/mm3 (0.1-0.6); Monocytes Percent Auto 4.3 % (2.6-8.5); Neutrophils Absolute Auto 7.9 K/mm3 (1.3-6.7); Neutrophils Percent Auto 82.6 % (45.5-73.1); Platelet Count Result 378 k/mm3 (150-375); Red Cell Distribution Width 18.4 % (11.5-14.5); White Blood Count 9.5 K/mm3 (4.5-10.0)
[2025-03-05 12:56] LABS: Alanine Aminotransferase 63 U/L (6-35); Albumin Level 4.2 g/dL (3.5-5.1); Alkaline Phosphatase 87 U/L (38-126); Anion Gap 15 mmol/L (4-12); Aspartate Amino Transferase 38 U/L (14-36); Bilirubin,Total 0.3 mg/dL (0.2-1.3); Blood Urea Nitrogen 25 mg/dL (7-17); Calcium 9.5 mg/dL (8.4-10.2); Carbon Dioxide 12 mmol/L (22-30); Chloride 110 mmol/L (98-107); Cholesterol 307 mg/dL (0-200); Estimated Glomerular Filt Rate > 60; Glucose 92 mg/dL (65-110); HDL Direct 65 mg/dL; Sodium 137 mmol/L (137-145); Triglycerides 155 mg/dL (<150)
[2025-03-05 13:04] LABS: Hemoglobin A1C 5.2 % (<5.7)
[2025-03-05 13:07] LABS: LDL Cholesterol Direct 173 mg/dL
--- OUTSIDE RECORDS SUMMARY | 2025-03-05 13:25 | XMS_ITS | Patient Health Record ---
Author Organization [facility] As [employer] [facility] Address [address] [place] [address] Care Team Providers Care School Plant Consultant Name Role Phone Yolanda LÓPEZ, Catracho Primary Care Provider Unavailab Janeth Mcdonnell Unavailable [phone] Migration, Provider Unavailable Unavailable Allergies No Known Allergies Reason For Referral No Information Medications Medication SIG (Take, Route, Frequency, Duration) Notes Start Date End Date Status Omeprazole 40 MG Oral 03/15/2024 Ac tive FLUoxetine HCl 40 MG 1 capsule Oral Once a day for 90 days Active Terbinafine HCl 250 MG Oral 03/15/2024 Active Triamterene-HCTZ 37.5-25 MG Oral 03/15/2024 Active Ajovy 225 MG/1.5ML as directed Subcutaneous Active Promethazine HCl 25 MG Oral 03/15/2024 Active Cholecalciferol 1.25 MG (79718 UT) Oral 03/15/2024 Active metFORMIN HCl ER 500 MG Oral 03/15/2024 Active Rexulti 3 MG 1 tablet Oral Once a day for 30 days Active VITAMIN D3 1.25 MG (29031 UT) CAPS *Reorder from [employer] for eRx and Interaction Alerts* 03/15/2024 Active LORazepam 0.5 MG 1 tablet Orally twice daily for 10 days As needed 02/15/2025 Active FLUoxetine HCl 20 MG 1 capsule Orally Once a day for 90 days Active dilTIAZem HCl ER Beads 360 MG Oral 03/15/2024 Active hydrOXYzine HCl 10 MG 1 tablet Orally three times a day for 30 days As needed Active hydrOXYzine HCl 25 MG 1 tablet as needed Orally three times a day for 90 days Active Ondansetron 8 MG Oral 03/15/2024 Ac tive Linzess 290 MCG Oral 03/15/2024 Not -Taking LORazepam 0.5 MG Take 1 tablet by mouth twice daily as needed Active miSOPROStol 200 MCG Oral 03/15/2024 Active Levothyroxine Sodium 125 MCG Oral 03/15/2024 Active Losartan Potassium-HCTZ 50-12.5 MG Oral 03/15/2024 Active FLUoxetine HCl 20 MG 1 capsule Orally Once a day for 30 days 11/26/2024 Active Immunizations Vaccine Route Administration Date Status Comme nts COVID-19 (SARS-COV-2) vaccin e, unspecified Unknown 09/11/2021 Administered Influenza, unspecified formulation Unknown 08/21/2022 A dministered Tdap Unknown 01/18/2023 Administered Social History Tobacco Use: Social History [...] Severe recurrent major depression without psychotic features (51415374) Major depressive disorder, recurrent severe without psychotic features (F33.2) Active confirmed Problem Generalized anxiety disorder (51737470) Generalized anxiety disorder (F41.1) Active confirmed Problem 12723138 TODD (generalized anxiety disorder) (F41.1) Active confirmed Problem 363564554 MDD (major depressive disorder), recurrent episode, mild (F33.0) Active confirmed Vital Signs Heart Rate 120 /min 02/18/2025 Height-cm 165.10 cm 02/18/2025 Blood pressure diastolic 73 mm Hg 02/18/2025 Weight-kg 79.83 kg 02/18/2025 Height 65.00 in 02/18/2025 Blood pressure systolic 105 mm Hg 02/18/2025 Weight 176 lbs 02/18/2025 BMI 29.28 kg/m2 02/18/2025 Encounters Encounter Location Date Provider Diagnosis [facility] [address] [address] 03/07/2024 Janeth Pickens Major depressive disorder, recurrent severe without psychotic features F33.2 and Generalized anxiety disorder F41.1 [facility], [facility] [address] [place] [address] 03/15/2024 Janeth Pickens Generalized anxiety disorder F41.1 and Major depressive disorder, recurrent severe without psychotic features F33.2 [facility], [facility] [address] [place] [address] 04/24/2024 Janeth Pickens MDD (major depressiv e disorder), recurrent episode, mild F33.0 and TODD (generalized anxiety disorder) F41.1 [facility], [facility] [address] [place] [address] 05/21/2024 Janeth Pickens Major depressive disorder, recurrent severe without psychotic features F33.2 and Generalized anxiety disorder F41.1 [facility], [facility] [address] [place] [address] 02/18/2025 Janeth Pickens Encounter for screening for depression Z13.31 ; Major depressive disorder, recurrent severe without psychotic features F33.2 ; Generalized anxiety disorder F41.1 and Encounter for screening for cardiovascular disorders Z13.6 [facility], [facility] [address] [place] [address] 03/21/2024 Provider Migration [facility], [facility] [address] [place] [address] 04/07/2024 Provider Migration [facility], [facility] [address] [place] [address] 04/08/2024 Provider Migration [facility], [facility] [address] [place] [address] 05/16/2024 Janeth Pickens [facility], [facility] [address] [place] [address] 05/28/2024 Janeth Pickens [facility], [facility] [address] [place] [address] 07/03/2024 Janeth Pickens [facility], [facility] [address] [place] [address] 07/01/2024 Janeth Pickens [facility], [facility] [address] [place] [address] 10/09/2024 Janeth Pickens [facility], [facility] [address] [place] [address] 11/02/2024 Janeth Pickens [facility] [address] [place] [address] 11/02/2024 Janeth Pickens Major depressive disorder, recurrent severe without psychotic features F33.2 [place] [address] [facility] [address] [place] [address] 11/02/2024 Janeth [facility], [facility] [address] [facility] [address] [place] [address] 11/23/2024 Janeth [facility], [facility] [address] [facility] [address] [place] [address] 11/26/2024 Janeth [facility] [address] [facility] [address] [place] [address] 01/25/2025 Janeth [facility], [place] [address] [facility] [address] [place] [address] 02/15/2025 Janeth Nelia Generalized anxiety disorder F41.1 Assessments Encounter Date Diagnosis (ICD Code) Assessment Notes Treatment Notes Treatment Clinical Notes Section Notes 05/21/2024 Major depressive disorder, recurrent severe without psychotic features (ICD-10 - F33.2) 05/21/2024 Generalized anxiety disorder (ICD-10 - F41.1) 11/02/2024 Major depressive disorder, recurrent severe without psychotic features (ICD-10 - F33.2) 02/15/2025 Generalized anxiety disorder (ICD-10 - F41.1) 02/18/2025 Encounter for screening for depression (ICD-10 - Z13.31) 03/07/2024 Major depressive disorder, recurrent severe without [...] [employer]. Pt happy with current treatment plan. 02/18/2025 Major depressive disorder, recurrent severe without psychotic features (ICD-10 - F33.2) SSRI/SNRI side effects discussed including but not limited to, gastric upset, nausea, vomiting, diarrhea and/or constipation, weight changes, sexual side effects including loss of libido, increased suicidal thoughts/behavio rs in children and young adults, and serotonin syndrome. 02/18/2025 Generalized anxiety disorder (ICD-10 - F41.1) 02/18/2025 Encounter for screening for cardiovascular disorders (ICD-10 - Z13.6) 04/24/2024 Other Stable, continu e current medications. Depression and anxiety have improved [...] proper dosing schedule and importance of compliance. 02/18/2025 Other Increase Rexulti to 3mg daily for mood, anxiety Patient educated on all medications including potential benefits, side effects, risks. Educated on proper dosing schedule and importance of compliance. [place] PDMP report checked and consistent with prescription history, no controlled substance prescriptions from other providers. -Assessment and treatment plan reviewed with patient. -Compliance with treatment plan importance discussed. -Discussed the risks/benefits of this medication -Discussed medication side effects. -Contact office if symptoms worsen. -Discussed that it can take up to 6-8 weeks to see full therapeutic effects of psychotropic medications. -Crisis prevention hotline [phone]. Plan Of Treatment Next Appt Details Provider Name:Janeth Pickens, 03/18/2025 10:30:00 AM, [address], [place], [address], Insurance Providers Payer Name Payer Address Payer Phone Subscriber Number Group Number Insured Name Patient Relationship to Insured Coverage Start Date Coverage End Date [employer] [address] [address] [place] [address] [id number] CORKY OBRIEN Self - patient is the insured Medical (General) History Medical History History ICD Code Problems: Generalized anxiety disorder Mild recurrent major depression Recurrent hypersomnia Severe recurrent major depression withou t psychotic features , Surgical History Surgery Date(Month/Year) Myringotomy tube placement 11/21/2000 Other 11/21/2000 Any surgical history 01/04/2022
--- OUTSIDE RECORDS SUMMARY | 2025-03-05 13:25 | XMS_ITS | Clinical Summary ---
Author Organization [employer] [facility] Address [address] [place] [address] Care Team Providers Care Mechanic/Welder Name Role Phone Catracho Guerrero MD Primary Care Provider [phone] Libby Lopez MD Unavailable Analia connolly Source Comments [facility],non-owned Affiliates and Associated Physician Practices is amultiple site organization consisting of ambulatory clinics and hospital [place]in [place] and [place]. This disclosure is being madepursuant to the Care Everywhere program and may not contain all information available regarding this patient. Last updated 18.[employer] Allergies No known active allergies Medications * Be aware that medications may not be up to date on this document. Alwaysverify current medications with the patient. levothyroxine (SYNTHROID) 100 MCG tablet Take 100 [...] hours as needed. Active aspirin 81 MG tabletIndication s:Morbid obesity (HCC) Take 2 Tabs by mouth at bedtime. Active BIOTIN POIndications:Mo rbid obesity (HCC) Take 1,000 mg by mouth once daily. Active Calcium Carbonate-Vitami n D (CALCIUM + D PO)Indications:M orbid obesity (HCC) 1 Tab once daily. 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 Gender Identity Not on file Sexual Orientation [...] - 19+ 3-dose series) 1997 COVID-19 VACCINE (1 - 2023-2 5 season) 2024 DEPRESSION SCREENING 11/21/2024 INFLUENZA VACCINE (Season Ended) 2025 ZOSTER VACCINE (1 of 2) 2028 HIB [...] on patient's age to complete this topic Insurance /[facility] * Guarantor: CORKY MAN Account Type Relation to Patient Date of Phone Billing Address Personal/Family [address] [place] [address] [employer] SELF PAY NO INSURANCE Member Subscriber Plan / Payer (Ef fective for All Dates) Name:Corky Man Member ID:Not on file Relation to Subscriber:Not on file Name:CORKY MAN Subscriber ID:Not on file Address: [address] [place] [address] Payer ID:Not on file Group ID:Not on file Type:Self Pay Address: [place], [place] * Guarantor: CORKY MAN Account Type Relation to Patient Date of Phone Billing Address Personal/Family [address] [place] [address] HEALTH CARE SELF PAY NO INSURANCE Member Subscriber Plan / Payer (Ef fective for All Dates) Name:Corky Man Member ID:Not on file Relation to Subscriber:Not on file Name:CORKY MAN Subscriber ID:Not on file Address: [address] [place] [address] Payer ID:Not on file Group ID:Not on file Type:Self Pay Address: [place], [place] * Guarantor: CORKY MAN Account Type Relation to Patient Date of Phone Billing Address Personal/Family [address] [place] [address] [facility] Address: [address] [address] SELF PAY NO INSURANCE Member Subscriber Plan / Payer (Ef fective for All Dates) Name:Corky Man Member ID:Not on file Relation to Subscriber:Not on file Name:CORKY MAN Subscriber ID:Not on file Address: [address] [place] [phone] Payer ID:Not on file Group ID:Not on file Type:Self Pay Address: [place], [place] Care Teams Mechanic/Welder Relationship Specialty Start Date End Date Catracho Guerrero MD [address] [place] [address] PCP - General 09/05/12 Libby Lopez MD [address] [place] [address] Endocrinology 01/22/14
[2025-03-05 13:37] LABS: Free T4 Free Thyroxine 1.53 ng/dL (0.78-2.19); Vitamin D 25 Hydroxy 60.2 ng/mL
== END 2025-03-05 12:32 | disposition home or self-care (01) ==
LOC: ANHLAB 12:33
PROVIDERS: PCP Internal Medicine; Visit Provider Internal Medicine
DX: E78.5 Hyperlipidemia, unspecified (principal); E03.9 Hypothyroidism, unspecified; I10 Essential (primary) hypertension; E55.9 Vitamin D deficiency, unspecified; Z79.899 Other long term (current) drug therapy; Z13.1 Encounter for screening for diabetes mellitus
CPT/HCPCS: 36415; 80053; 80061; 82306; 83036; 84439; 84443; 85025

== ENCOUNTER 2025-03-08 06:58 | Outpatient (CLI) | payer OTHER, SELFPAY ==
--- NOTE | ~2025-03-08 | XR_ITS ---
XR abdomen/kub 1V 03/08/2025 07:14 INDICATION: Right flank pain TECHNIQUE: KUB COMPARISON: None FINDINGS: Bowel gas pattern is normal. There are cholecystectomy clips. There are left pelvic phlebol iths. There is no evidence of free air, mass, organomegaly, ascites or obstruction. No abnormal calc renard are seen. The bones appear intact. There are surgical changes in the left upper abdomen. IMPRESSION: 1: No acute abdominal abnormality identified. Reviewed, dictated and finalized at location B.
--- OUTSIDE RECORDS SUMMARY | 2025-03-08 07:02 | XMS_ITS | Clinical Summary ---
Author Organization [facility] Address [address] [place] [address] Care Team Providers Care Model Set Artist Name Role Phone Catracho Guerrero MD Primary Care Provider [phone] Libby Lopez MD Unavailable Analia connolly Source Comments [facility],non-owned Affiliates and Associated Physician Practices is amultiple site organization consisting of ambulatory clinics and hospital sitesin [place], [place], [place] and [place]. This disclosure is being madepursuant to the Care Everywhere program and may not contain all information available regarding this patient. 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 Gender Identity Not on file Sexual Orientation [...] patient's age to complete this topic Insurance /[facility] * Guarantor: CORKY MAN Account Type Relation to Patient Date of Phone Billing Address Personal/Family [address] [place] [address] [employer] SELF PAY NO INSURANCE Member Subscriber Plan / Payer (Ef fective for All Dates) Name:Corky Man Member ID:Not on file Relation to Subscriber:Not on file Name:CORKY MAN Subscriber ID:Not on file Address: [address] [place] [address] Payer ID:Not on file Group ID:Not on file Type:Self Pay Address: [place], [place] * Guarantor: CORKY MAN Account Type Relation to Patient Date of Phone Billing Address Personal/Family [address] [place] [address] HEALTH CARE SELF PAY NO INSURANCE Member Subscriber Plan / Payer (Ef fective for All Dates) Name:Corky Man Member ID:Not on file Relation to Subscriber:Not on file Name:CORKY MAN Subscriber ID:Not on file Address: [address] [place] [address] Payer ID:Not on file Group ID:Not on file Type:Self Pay Address: [place], [place] * Guarantor: CORKY MAN Account Type Relation to Patient Date of Phone Billing Address Personal/Family [address] [place] [address] [facility] SELF PAY NO INSURANCE Member Subscriber Plan / Payer (Ef fective for All Dates) Name:Corky Man Member ID:Not on file Relation to Subscriber:Not on file Name:CORKY MAN Subscriber ID:Not on file Address: [address] [place] [id number] Payer ID:Not on file Group ID:Not on file Type:Self Pay Address: [place], [place] Care Teams Model Set Artist Relationship Specialty Start Date End Date Catracho Guerrero MD [address] [place] [address] PCP - General 09/05/12 Libby Lopez MD [address] [place] [address] Endocrinology 01/22/14
--- OUTSIDE RECORDS SUMMARY | 2025-03-08 07:02 | XMS_ITS | Patient Health Record ---
Author Organization [facility] Address [address] [place] [address] Care Team Providers Care Porter Baggage Name Role Phone Yolanda LÓPEZ, Catracho Primary Care Provider Unavailab Janeth Mcdonnell Unavailable [phone] Migration, Provider Unavailable Unavailable Allergies No Known [...] MG Oral 03/15/2024 Active Cholecalciferol 1.25 MG (50162 UT) Oral 03/15/2024 Active metFORMIN HCl ER 500 MG Oral 03/15/2024 Active Rexulti 3 MG 1 tablet Oral Once a day for 30 days Active VITAMIN D3 1.25 MG (54151 UT) CAPS *Reorder from [facility] for eRx and Interaction Alerts* 03/15/2024 Active [...] Severe recurrent major depression without psychotic features (64369546) Major depressive disorder, recurrent severe without psychotic features (F33.2) Active confirmed Problem Generalized anxiety disorder (53693982) Generalized anxiety disorder (F41.1) Active confirmed Problem 40762200 TODD (generalized anxiety disorder) (F41.1) Active confirmed Problem [id number] MDD (major depressive disorder), recurrent episode, mild (F33.0) Active confirmed Vital Signs Heart Rate 120 /min 02/18/2025 Blood pressure diastolic 73 mm Hg 02/18/2025 Height-cm 165.10 cm 02/18/2025 Weight-kg 79.83 kg 02/18/2025 Height 65.00 in 02/18/2025 Blood pressure systolic 105 mm Hg 02/18/2025 Weight 176 lbs 02/18/2025 BMI 29.28 kg/m2 02/18/2025 Encounters Encounter Location Date Provider Diagnosis [facility] [address] [address] 03/15/2024 Janeth Pickens Generalized anxiety disorder F41.1 and Major depressive disorder, recurrent severe without psychotic features F33.2 [facility], [facility] [address] [place] [address] 04/24/2024 Janeth Pickens MDD (major depressiv e disorder), recurrent episode, mild F33.0 and TODD (generalized anxiety disorder) F41.1 [facility], [facility] [address] [place] [address] 05/21/2024 Janeth Pickens Major depressive disorder, recurrent severe without psychotic features F33.2 and Generalized anxiety disorder F41.1 [facility], [facility] [address] [place] [address] 02/18/2025 Janeth Pickens Encounter for screening for depression Z13.31 ; Major depressive disorder, recurrent severe without psychotic features F33.2 ; Generalized anxiety disorder F41.1 and Encounter for screening for cardiovascular disorders Z13.6 [facility], [facility] [address] [place] [address] 03/21/2024 Provider Migration [facility], [facility] [address] [place] [address] 04/07/2024 Provider Migration [facility], [facility] [address] [place] [address] 04/08/2024 Provider Migration [facility], [facility] [address] [place] [address] 05/16/2024 Janeth Pickens [facility], [facility] [address] [place] [address] 05/28/2024 Janeth Nelia [facility], [facility] [address] [place] [address] 07/03/2024 Janeth Pickens [facility], [facility] [address] [place] [address] 07/01/2024 Janeth Nelia [facility], [facility] [address] [place] [address] 10/09/2024 Janeth Pickens [facility], [facility] [address] [place] [address] 11/02/2024 Janeth Pickens [facility], [facility] [address] [place] [address] 11/02/2024 Janethdane Pickens Major depressive disorder, recurrent severe without psychotic features F33.2 [facility], [facility] [address] [place] [address] 11/02/2024 Janethdane Ramseyag [facility], [facility] [address] [place] [address] 11/23/2024 Janethdane Ramseyag [facility], [facility] [address] [place] [address] 11/26/2024 Janethdane Ramseyag [facility], [facility] [address] [place] [address] 01/25/2025 Janethdane Ramseyag [facility], [facility] [address] [place] [address] 02/15/2025 Janethdane Pickens Generalized anxiety disorder F41.1 Assessments Encounter Date [...] for screening for depression (ICD-10 - Z13.31) 03/15/2024 Major depressive disorder, recurrent severe without [...] effects of psychotropic medications. -Crisis prevention hotline 178. Plan Of Treatment Next Appt Details Provider Name:Janeth Mirna Pickens, 03/18/2025 10:30:00 AM, [address] [facility] [address], [facility] [address], [place], [address], Insurance Providers Payer Name Payer Address Payer Phone Subscriber Number Group Number Insured Name Patient Relationship to Insured Coverage Start Date Coverage End Date [facility] [address] [address] [place] [address] [id number] CORKY OBRIEN Self - patient is the insured Medical (General) History Medical History History ICD Code Problems: Generalized anxiety disorder Mild recurrent major depression Recurrent hypersomnia Severe recurrent major depression withou t psychotic features , Surgical History Surgery Date(Month/Year) Myringotomy tube placement 11/21/2000 Other 11/21/2000 Any surgical history 01/04/2022
[2025-03-08 08:06] LABS: Add Urine Microscopic? YES; Appearance Urine Clear (Clear); Bacteria Urine None Seen /hpf; Bilirubin Urine Negative (Negative); Blood Urine Negative (Negative); Color Urine Yellow (Yellow); Glucose Urine UA Negative (Negative); Ketones Urine 2+ mg/dL (Negative); Leukocyte Esterase Ur Negative LEU/UL (Negative); Nitrate Urine Negative (Negative); Non Pathogenic Casts 0-2; Protein Urine 1+ mg/dL (Negative); RBC Urine 0-2 /hpf (0-2); Specific Grav Ur 1.028 (1.001-1.035); Squamous Epithelial Cell Urine None Seen /hpf (Few); Urobilinogen Urine 0.2 mg/dL (<2.0); WBC Urine 0-5 /hpf (0-3)
== END 2025-03-08 06:59 | disposition home or self-care (01) ==
PROVIDERS: PCP Internal Medicine; Visit Provider Internal Medicine
DX: R10.9 Unspecified abdominal pain (principal)
CPT/HCPCS: 74018; 81001

== ENCOUNTER 2025-04-01 14:09 | Outpatient (CLI) | payer OTHER, SELFPAY ==
--- OUTSIDE RECORDS SUMMARY | 2025-04-01 14:14 | XMS_ITS | Clinical Summary ---
Author Organization [employer] [facility] [facility] [employer] [facility] Address [address] [place] [address] Care Team Providers Care Corporate Financial Analyst Name Role Phone Catracho Guerrero MD Primary Care Provider [phone] Libby Lopez MD Unavailable Analia connolly Source Comments [facility],non-owned Affiliates and Associated Physician Practices is amultiple site organization consisting of ambulatory clinics and hospital sitesin [place], [place], [place] and [place]. This disclosure is being madepursuant to the Care Everywhere program and may not contain all information available regarding this patient. 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 Gender Identity Not on file Sexual Orientation [...] patient's age to complete this topic Insurance /[facility] * Guarantor: CORKY MAN Account Type Relation to Patient Date of Phone Billing Address Personal/Family [address] [place] [address] [employer] SELF PAY NO INSURANCE Member Subscriber Plan / Payer (Ef fective for All Dates) Name:Corky Man Member ID:Not on file Relation to Subscriber:Not on file Name:CORKY MAN Subscriber ID:Not on file Address: [address] [place] [address] Payer ID:Not on file Group ID:Not on file Type:Self Pay Address: [place], [place] * Guarantor: CORKY MAN Account Type Relation to Patient Date of Phone Billing Address Personal/Family [address] [place] [address] HEALTH CARE SELF PAY NO INSURANCE Member Subscriber Plan / Payer (Ef fective for All Dates) Name:Corky Man Member ID:Not on file Relation to Subscriber:Not on file Name:CORKY MAN Subscriber ID:Not on file Address: [address] [place] [address] Payer ID:Not on file Group ID:Not on file Type:Self Pay Address: [place], [place] * Guarantor: CORKY MAN Account Type Relation to Patient Date of Phone Billing Address Personal/Family [address] [place] [address] [facility] SELF PAY NO INSURANCE Member Subscriber Plan / Payer (Ef fective for All Dates) Name:Corky Man Member ID:Not on file Relation to Subscriber:Not on file Name:CORKY MAN Subscriber ID:Not on file Address: [address] [place] [address] Payer ID:Not on file Group ID:Not on file Type:Self Pay Address: [place], [place] Care Teams Corporate Financial Analyst Relationship Specialty Start Date End Date Catracho Guerrero MD [address] [place] [address] PCP - General 09/05/12 Lib[place] Lopez MD [address] [place] [address] Endocrinology 01/22/14
[2025-04-01 15:05] LABS: Alanine Aminotransferase 36 U/L (6-35); Albumin Level 3.7 g/dL (3.5-5.1); Alkaline Phosphatase 73 U/L (38-126); Aspartate Amino Transferase 31 U/L (14-36); Bilirubin,Total 0.2 mg/dL (0.2-1.3)
[2025-04-03 15:09] LABS: Almond (F20) IgE <0.10 kU/L; Brazil Nut (f18) <0.10 kU/L; Brazil Nut (f18) Class 0; Cashew Nut (F202) IgE <0.10 kU/L; Cashew Nut (F202) IgE Class 0; Codfish (F3) IgE <0.10 kU/L; Codfish (F3) IgE Class 0; Cow's Milk (F2) IgE <0.10 kU/L; Cow's Milk (F2) IgE Class 0; Egg White (F1) IgE <0.10 kU/L; Egg White (F1) IgE Class 0; Hazelnut (F17) IgE <0.10 kU/L; Hazelnut (F17) IgE Class 0; Macadamia Nut (rf345) <0.10 kU/L; Macadamia Nut (rf345) Class 0; Peanut (F13) IgE <0.10 kU/L; Peanut (F13) IgE Class 0; Salmon (F41) IgE <0.10 kU/L; Salmon (F41) IgE Class 0; Scallop (F338) IgE <0.10 kU/L; Scallop (F338) IgE Class 0; Sesame Seed <0.10 kU/L; Shrimp (F24) IgE <0.10 kU/L; Soybean (F14) IgE <0.10 kU/L; Soybean (F14) IgE Class 0; Tuna (F40) <0.10 kU/L; Tuna (F40) Class 0; Walnut (F256) IgE <0.10 kU/L; Walnut (F256) IgE Class 0; Wheat (F4) IgE <0.10 kU/L; Wheat (F4) IgE Class 0
[2025-04-04 13:08] LABS: Actin Antibody (IgG) <20 U (<20)
[2025-04-04 20:44] LABS: LKM 1 Antibody <=20.0 U (<=20.0)
== END 2025-04-01 14:10 | disposition home or self-care (01) ==
LOC: ANHLAB 14:12
PROVIDERS: PCP Internal Medicine; Visit Provider Nurse Practitioner
DX: K58.1 Irritable bowel syndrome with constipation (principal); R11.14 Bilious vomiting; K76.0 Fatty (change of) liver, not elsewhere classified; K74.60 Unspecified cirrhosis of liver
CPT/HCPCS: 36415; 80076; 86003; 86364; 86376

== ENCOUNTER 2025-05-13 09:33 | Outpatient (CLI) | payer OTHER, SELFPAY ==
[2025-05-13 11:09] LABS: Basophils Percent Auto 0.3 % (0.2-1.2); Eosinophils Absolute Auto 0.1 K/mm3 (0-0.3); Eosinophils Percent Auto 1.4 % (0-4.4); Hematocrit 30.8 % (37.0-47.0); Hemoglobin 9.3 g/dL (12.0-15.0); Immature Granulocyte Absolute 0.01 K/mm3 (0.00-0.031); Immature Granulocyte Percent A 0.3 % (0-0.5); Lymphocytes Absolute Auto 1.13 K/mm3 (0.9-3.2); Lymphocytes Percent Auto 31.4 % (18.3-44.2); Mean Corpuscular HGB Conc 30.2 g/dl (32-36); Mean Corpuscular Hemoglobin 24.5 pg (26-34); Mean Corpuscular Volume 81.3 fl (80-100); Mean Platelet Volume 10.4 fl (7.4-10.4); Monocytes Absolute Auto 0.2 K/mm3 (0.1-0.6); Monocytes Percent Auto 4.4 % (2.6-8.5); Neutrophils Absolute Auto 2.2 K/mm3 (1.3-6.7); Neutrophils Percent Auto 62.2 % (45.5-73.1); Platelet Count Result 286 k/mm3 (150-375); Red Blood Count 3.79 M/mm3 (4.2-5.4); Red Cell Distribution Width 17.2 % (11.5-14.5); White Blood Count 3.6 K/mm3 (4.5-10.0)
[2025-05-13 11:48] LABS: Influenza A QL RT-PCR Negative (Negative); Influenza B QL RT-PCR Negative (Negative); RSV RNA, RT-PCR Negative (Negative); SARS-CoV-2 RNA PCR Negative (Negative)
== END 2025-05-13 09:34 | disposition home or self-care (01) ==
LOC: ANHLAB 09:34
PROVIDERS: PCP Internal Medicine; Visit Provider Internal Medicine
DX: R50.9 Fever, unspecified (principal); Z20.822 Contact with and (suspected) exposure to COVID-19
CPT/HCPCS: 36415; 85025; 87637

== ENCOUNTER 2025-07-10 07:09 | Outpatient (CLI) | payer OTHER, SELFPAY ==
[2025-07-10 08:10] LABS: Cholesterol 192 mg/dL (0-200); HDL Direct 79 mg/dL; Triglycerides 162 mg/dL (<150)
== END 2025-07-10 07:10 | disposition home or self-care (01) ==
LOC: ANHLAB 07:12
PROVIDERS: PCP Internal Medicine; Visit Provider Internal Medicine
DX: E78.5 Hyperlipidemia, unspecified (principal)
CPT/HCPCS: 36415; 80061

== ENCOUNTER 2025-07-10 07:47 | Outpatient (CLI) | payer OTHER, SELFPAY ==
--- NOTE | ~2025-07-10 | XR_ITS ---
EXAM/ PROCEDURE: XR knee LT 3V - 07/10/2025 8:00 CDT HISTORY: 45 years old Female with fall x 1 week ago, numbness throughout, bruising + swelling COMPARISON: None available TECHNIQUE: Three view(s) FINDINGS/ IMPRESSION: There are no fractures or dislocations.Joint spaces are within normal limits. Reviewed, dictated and finalized at location A.
--- OUTSIDE RECORDS SUMMARY | 2025-07-10 07:53 | XMS_ITS | Clinical Summary ---
Author Organization [facility] Address [address] [facility] [place] [address] Care Team Providers Care Tool Maker Name Role Phone Catracho Guerrero MD Primary Care Provider [phone] Libby Lopez MD Unavailable Analia connolly Source Comments [facility],non-owned Affiliates and Associated Physician Practices is amultiple site organization consisting of ambulatory clinics and hospital sitesin [place], [place], [place] and [place]. This disclosure is being madepursuant to the Care Everywhere program and may not contain all information available regarding this patient. 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 Gender Identity Not on file Sexual Orientation [...] 8:45 AM CDT Height 165.1 cm (5' 5) 09/22/2012 8:45 AM CDT Body Mass Index [...] SCREENING 1978 LIPID TESTING 1978 MAMMOGRAM 1978 HIV SCREENING 1993 HEPATITIS C SCREENING 03/06/1996 DTAP/TDAP/TD VACCINES (1 - Tdap) 1997 HEPATITIS B VACCINE (1 of 3 - 19+ 3-dose series) 1997 PAP SMEAR 1999 COVID-19 VACCINE (1 - 2023-2 5 season) 2024 DEPRESSION SCREENING 11/21/2024 INFLUENZA VACCINE (#1) 2025 ZOSTER VACCINE (1 of 2) 2028 [...] patient's age to complete this topic Insurance /[facility] Member Subscriber Plan / Payer (Ef fective 2019-Present) Name:Corky Man Relation to Subscriber:Self Name:CORKY MAN Payer ID:[id number] (NAIC) Type:PPO Address: [address] * Guarantor: CORKY MAN Account Type Relation to Patient Date of Phone Billing Address Personal/Family [address] [place] [address] SELF PAY NO INSURANCE Member Subscriber Plan / Payer (Ef fective for All Dates) Name:Corky Man Member ID:Not on file Relation to Subscriber:Not on file Name:CORKY MAN Subscriber ID:Not on file Address: [address] [place] [address] Payer ID:Not on file Group ID:Not on file Type:Self Pay Address: [facility] * Guarantor: CORKY MAN Account Type Relation to Patient Date of Phone Billing Address Personal/Family [address] [place] [address] SELF PAY NO INSURANCE Member Subscriber Plan / Payer (Ef fective for All Dates) Name:Corky Man Member ID:Not on file Relation to Subscriber:Not on file Name:CORKY MAN Subscriber ID:Not on file Address: [address] [place] [address] Payer ID:Not on file Group ID:Not on file Type:Self Pay Address: [facility] Member Subscriber Plan / Payer (Ef fective 2025-Present) Name:Corky Man Relation to Subscriber:Self Name:Corky Man Payer ID:[id number] (NAIC) Type:PPO Address: [address] * Guarantor: CORKY MAN Account Type Relation to Patient Date of Phone Billing Address Personal/Family [address] [place] [address] SELF PAY NO INSURANCE Member Subscriber Plan / Payer (Ef fective for All Dates) Name:Corky Man Member ID:Not on file Relation to Subscriber:Not on file Name:CORKY MAN Subscriber ID:Not on file Address: [place] [address] Payer ID:Not on file Group ID:Not on file Type:Self Pay Address: [facility] Care Teams Tool Maker Relationship Specialty Start Date End Date Catracho Guerrero MD [address] [place] [address] PCP - General 09/05/12 Lib[place] Lopez MD [address] [place] [address] Endocrinology 01/22/14
--- OUTSIDE RECORDS SUMMARY | 2025-07-10 07:53 | XMS_ITS | Patient Health Record ---
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 Name Role Phone Yolanda LÓPEZ, Catracho Primary Care Provider UnavailJaneth Mcdaniels Unavailable [phone] Amita Cartwright Unavailable [phone] Allergies No Known Allergies Results Component Value Reference Range Notes UDT Reviewed date:04/23/2025 12:54:56 PM Interpretation: Performing Lab: Notes/Report: THC n 0 - 50 ng/ml Cocaine n 0 - 300 ng/ml Amphetamine n 0 - 1000 ng/ml Buprenorphine (BUP) n 0 - 10 ng/ml Secobarbital (Bar) n 0 - 300 ng/ml Oxazepam (BZO) n 0 - 300 ng/ml 8-nipgloyndq-1,9-mwpmpvot-3, 3-dipheny lpyrrolidine (EDDP) n 0 - 300 ng/ml Methamphetamine (MET) n 0 - 1000 ng/ml Methylenedioxymethamphetamine (MDMA) n 0 - 500 ng/ml Morphine (MOP 300/AFR6808) n 0 - 300 ng/ml Methadone (MTD) n 0 - 300 ng/ml Phencyclidine (PCP) n 0 - 25 ng/ml Nortriptyline (TCA) n 0 - 1000 ng/ml Oxycodone n 0 - 300 ng/ml x n 0 - 300 ng/ml DRUG MONITOR, BENZO, QN, URI NE ([id number]) Reviewed date:04/01/2025 03:09:30 PM Interpretation: Performing Lab:CB, [facility] [facility], Tr [id number] Dorian Hinton, Director - [id number] [address] [facility] Notes/Report: FASTING: NO Alphahydroxyalprazolam NEGATIVE <25 ng/mL Alphahydroxymidazolam NEGATIVE <50 ng/mL Alphahydroxytriazolam NEGATIVE <50 ng/mL Aminoclonazepam NEGATIVE <25 ng/mL Hydroxyethylflurazepam NEGATIVE <50 ng/mL Lorazepam NEGATIVE <50 ng/mL Nordiazepam NEGATIVE <50 ng/mL Oxazepam NEGATIVE <50 ng/mL Temazepam NEGATIVE <50 ng/mL Benzodiazepines Comments See LDT Notes Notes and Comments This drug testing is for medical treatment only. Analysis was performed as non-forensic testing and these results should be used only by healthcare providers to render diagnosis or treatment, or to monitor progress of medical conditions. LDT Notes: Confirmation tests were developed and their analytical performance characteristics have been determined by [facility]. It has not been cleared or approved by the FDA. This assay has been validated pursuant to the CLIA regulations and is used for clinical purposes. medMATCH(R) enables providers to identify if drug use is consistent or inconsistent with a corresponding prescribed medication(s) list. Healthcare Providers needing Interpretation assistance, please contact us at [phone] ( ) M-F, 8am to 10pm EST PRESCRIBED DRUGS, medMATCH(R ) ([id number]) Reviewed date:04/01/2025 03:09:34 PM Interpretation: Performing Lab:CHERELLE, [id number] [facility], [id number] Edna Garcia MD Notes/Report: FASTING: NO medMATCH Summary Summary not applicable UDT Reviewed date:03/18/2025 11:54:19 AM Interpretation: Performing Lab: Notes/Report: THC N 0 - 50 ng/ml Cocaine N 0 - 300 ng/ml Amphetamine N 0 - 1000 ng/ml Buprenorphine (BUP) N 0 - 10 ng/ml Secobarbital (Bar) N 0 - 300 ng/ml Oxazepam (BZO) P 0 - 300 ng/ml 3-wpnruizbgw-2,6-ejgptpmc-4, 3-dipheny lpyrrolidine (EDDP) N 0 - 300 ng/ml Methamphetamine (MET) N 0 - 1000 ng/ml Methylenedioxymethamphetamine (MDMA) N 0 - 500 ng/ml Morphine (MOP 300/[id number]) N 0 - 300 ng/ml Methadone (MTD) N 0 - 300 ng/ml Phencyclidine (PCP) N 0 - 25 ng/ml Nortriptyline (TCA) N 0 - 1000 ng/ml Oxycodone N 0 - 300 ng/ml x N 0 - 300 ng/ml Reason For Referral No Information Medications Medication SIG (Take, Route, Frequency, Duration) Notes Start Date End Date Status FLUoxetine HCl 20 MG Capsule 1 capsule Orally Once a day; Duration: 90 days total daily dose 60mg daily Active hydrOXYzine HCl 25 MG Tablet 1 tablet as needed Orally three times a day; Duration: 90 days Active hydrOXYzine HCl 25 MG Tablet 1 tablet as needed Orally three times a day; Duration: 90 days As needed for anxiety Active LORazepam 0.5 MG Tablet Take 1 tablet by mouth twice daily as needed; Duration: 30 days 06/21/2025 Active FLUoxetine HCl 20 MG Capsule Take 1 capsule by mouth once daily; Duration: 90 Active FLUoxetine HCl 40 MG Capsule 1 capsule Oral Once a day; Duration: 90 days total daily dose 60mg daily Active Linzess 290 MCG Capsule Oral 03/15/2024 Not-Taking dilTIAZem HCl ER Beads 360 MG Capsule Extended Release 24 Hour Oral 03/15/2024 Not-Taking VITAMIN D3 1.25 MG (35383 UT) CAPS *Reorder from [employer] for eRx and Interaction Alerts* 03/15/2024 Active Omeprazole 40 MG Capsule Delayed Release Oral 03/15/2024 Active Ondansetron 8 MG Tablet Disintegrating Oral 03/15/2024 Active miSOPROStol 200 MCG Tablet Oral 03/15/2024 Active Ajovy 225 MG/1.5ML Solution Auto-injector as directed Subcutaneous Active Triamterene-HCTZ 37.5-25 MG Tablet Oral 03/15/2024 Active Promethazine HCl 25 MG Tablet Oral 03/15/2024 Active metFORMIN HCl ER 500 MG Tablet Extended Release 24 Hour Oral 03/15/2024 Active LORazepam 0.5 MG Tablet 1 tablet Orally twice daily; Duration: 10 days As needed 02/15/2025 Active Terbinafine HCl 250 MG Tablet Oral 03/15/2024 Active hydrOXYzine HCl 10 MG Tablet 1 tablet Orally three times a day; Duration: 30 days As needed Active Rexulti 3 MG Tablet Take 1 tablet by mouth once daily; Duration: 30 Active Cholecalciferol 1.25 MG (10800 UT) Capsule Oral 03/15/2024 Active Levothyroxine Sodium 125 MCG Tablet Oral 03/15/2024 Active Losartan Potassium-HCTZ 50-12.5 MG Tablet Oral 03/15/2024 Active Immunizations Vaccine Route Administration Date Status Comme nts COVID-19 (SARS-COV-2) vaccin e, unspecified Unknown 09/11/2021 Administered Influenza, unspecified formulation Unknown 08/21/2022 A dministered Tdap Unknown 01/18/2023 Administered Social History Tobacco Use: Social History Observation Description Date Details (start date - stop date) Never Smoker NA - NA Sex Assigned At : Social History Observation Description Sex Assigned At Female Social History Drug/Alcohol: Social Info Question Answer Notes AUDIT-C (Standard) Did you have a drink containing alcohol in the past year? Yes How often did you have six or more drinks on one occasion in the past year? Less than monthly (1 point) Tobacco Use: Social Info Question Answer Notes Tobacco Control (Standard) Tobacco use: Nonsmoker Additional Details Category Social Info Options Details Migrated Social History Migrated Social History Alcohol Intake: None 05/13/2023,Tobacco Years: Never smoker 01/17/2023 Problems Problem Type SNOMED Code ICD Code Onset Dates Problem Status W/U Status Risk Notes Problem Severe recurrent major depression without psychotic features (99016489) Major depressive disorder, recurrent severe without psychotic features (F33.2) Active confirmed Problem Generalized anxiety disorder (F41.1) Active confirmed Problem Generalized anxiety disorder (36909555) TODD (generalized anxiety disorder) (F41.1) Active confirmed Problem MDD (major depressive disorder), recurrent episode, mild (F33.0) Active confirmed Vital Signs Heart Rate 91 /min 04/23/2025 Height-cm 165.10 cm 04/23/2025 Blood pressure diastolic 86 mm Hg 04/23/2025 Weight-kg 81.65 kg 04/23/2025 Height 65.00 in 04/23/2025 Blood pressure systolic 131 mm Hg 04/23/2025 Weight 180 lbs 04/23/2025 BMI 29.95 kg/m2 04/23/2025 Encounters Encounter Location Date Provider Diagnosis [facility] [address] [place] [address] 02/18/2025 Janethdane Solorzano Encounter for screen ing for depression Z13.31 ; Major depressive disorder, recurrent severe without psychotic features F33.2 ; Generalized anxiety disorder F41.1 and Encounter for screening for cardiovascular disorders Z13.6 [facility] [address] [place] [address] 03/18/2025 Janeth Kurmike Encounter for screen ing for depression Z13.31 ; Major depressive disorder, recurrent severe without psychotic features F33.2 ; Generalized anxiety disorder F41.1 and Encounter for screening for cardiovascular disorders Z13.6 [facility], [facility] [address] [place] [address] 04/23/2025 Janeth Kurilla Major depressive disorder, recurrent severe without psychotic features F33.2 ; Generalized anxiety disorder F41.1 ; Negative depression screening Z13.31 ; Encounter for screening for cardiovascular disorders Z13.6 and Encounter for screening for depression Z13.31 [facility] [address] [place] [address] 06/21/2025 Janethdane Solorzano Major depressive disorder, recurrent severe without psychotic features F33.2 and Generalized anxiety disorder F41.1 [facility], [facility] [address] [place] [address] 05/23/2025 Amita Cartwright Generalized anxiety disorder F41.1 [facility], [facility] [address] [place] [address] 10/09/2024 Janethdane Solorzano [facility], [facility] [address] [place] [address] 11/02/2024 Janethdane Solorzano [facility], [facility] [address] [place] [address] 11/02/2024 Janethdane Solorzano Major depressive disorder, recurrent severe without psychotic features F33.2 [facility], [facility] [address] [place] [address] 11/02/2024 Janethdane Solorzano [facility], [facility] [address] [place] [address] 11/23/2024 Janeth Solorzano [facility], [facility] [address] [place] [address] 11/26/2024 [facility] [address] [place] [address] 01/25/2025 [facility] [address] [place] [address] 02/15/2025 Janeth Solorzano Generalized anxiety disorder F41.1 [facility] [address] [place] [address] 05/06/2025 Janeth Solorzano Assessments Encounter Date Diagnosis (ICD Code) Assessment Notes Treatment Notes Treatment Clinical Notes Section Notes 11/02/2024 Major depressive disorder, recurrent severe without psychotic features (ICD-10 - F33.2) 02/15/2025 Generalized anxiety disorder (ICD-10 - F41.1) 02/18/2025 Encounter for screening for depression (ICD-10 - Z13.31) 03/18/2025 Encounter for screening for depression (ICD-10 - Z13.31) 04/23/2025 Major depressive disorder, recurrent severe without psychotic features (ICD-10 - F33.2) SSRI/SNRI side effects discussed including but not limited to, gastric upset, nausea, vomiting, diarrhea and/or constipation, weight changes, sexual side effects including loss of libido, increased suicidal thoughts/behavio rs in children and young adults, and serotonin syndrome. 04/23/2025 Generalized anxiety disorder (ICD-10 - F41.1) 05/23/2025 Generalized anxiety disorder (ICD-10 - F41.1) 06/21/2025 Major depressive disorder, recurrent severe without psychotic features (ICD-10 - F33.2) SSRI/SNRI side effects discussed including but not limited to, gastric upset, nausea, vomiting, diarrhea and/or constipation, weight changes, sexual side effects including loss of libido, increased suicidal thoughts/behavio rs in children and young adults, and serotonin syndrome. 06/21/2025 Generalized anxiety disorder (ICD-10 - F41.1) 04/23/2025 Negative depression screening (ICD-10 - Z13.31) 03/18/2025 Major depressive disorder, recurrent severe without psychotic features (ICD-10 - F33.2) SSRI/SNRI side effects discussed including but not limited to, gastric upset, nausea, vomiting, diarrhea and/or constipation, weight changes, sexual side effects including loss of libido, increased suicidal thoughts/behavio rs in children and young adults, and serotonin syndrome. 02/18/2025 Major depressive disorder, recurrent severe without psychotic features (ICD-10 - F33.2) SSRI/SNRI side effects discussed including but not limited to, gastric upset, nausea, vomiting, diarrhea and/or constipation, weight changes, sexual side effects including loss of libido, increased suicidal thoughts/behavio rs in children and young adults, and serotonin syndrome. 02/18/2025 Generalized anxiety disorder (ICD-10 - F41.1) 03/18/2025 Generalized anxiety disorder (ICD-10 - F41.1) 04/23/2025 Encounter for screening for cardiovascular disorders (ICD-10 - Z13.6) 04/23/2025 Encounter for screening for depression (ICD-10 - Z13.31) 03/18/2025 Encounter for screening for cardiovascular disorders (ICD-10 - Z13.6) 02/18/2025 Encounter for screening for cardiovascular disorders (ICD-10 - Z13.6) 02/18/2025 Other Increase Rexulti to 3mg daily [...] of psychotropic medications. -Crisis prevention hotline 988. 03/18/2025 Other Stable on current medication regimen, continue at current doses. -Refills sent in today -No concerns today Patient educated on all medications including potential benefits, side effects, risks. Educated on proper dosing schedule and importance of compliance. -Assessment and treatment plan reviewed with patient. -Compliance with treatment plan importance discussed. -Discussed the risks/benefits of this medication -Discussed medication side effects. -Contact office if symptoms worsen. -Discussed that it can take up to 6-8 weeks to see full therapeutic effects of psychotropic medications. -[facility] 04/23/2025 Other Stable on current medication regimen, continue at current doses. -Refills sent in today -No concerns today Patient educated on all medications including potential [...] of psychotropic medications. -Crisis prevention hotline 988. 06/21/2025 Other Stable on current medication regimen, continue at current doses. -Refills sent in today Patient educated on all medications including potential benefits, side effects, risks. Educated on proper dosing schedule and importance of compliance. [place] PDMP report checked and consistent with prescription history, no controlled substance prescriptions from other providers. Discussed adding magnesium for sleep support, appears anxiety is related to sleep concern, will re-evaluate next apt after sleep routine modifications -Assessment and treatment plan reviewed with patient. -Compliance with treatment plan importance discussed. -Discussed the risks/benefits of this medication -Discussed medication side effects. -Contact office if symptoms worsen. -Discussed that it can take up to 6-8 weeks to see full therapeutic effects of psychotropic medications. -Crisis prevention hotline 988. Plan Of Treatment Next Appt Details Provider Name:Janeth Bradley Colette harman, 07/26/2025 08:15:00 AM, [address] [facility] [address] [facility] [address], [place], [address], Insurance Providers Payer Name Payer Address Payer Phone Subscriber Number Group Number Insured Name Patient Relationship to Insured Coverage Start Date Coverage End Date [facility] [address] [address] [place] [address] [phone] [id number] CORKY OBRIEN Self - patient is the insured Medical (General) History Medical History History ICD Code Problems: Generalized anxiety disorder Mild recurrent major depression Recurrent hypersomnia Severe recurrent major depression withou t psychotic features , Surgical History Surgery Date(Month/Year) Myringotomy tube placement 11/21/2000 Other 11/21/2000 Any surgical history 01/04/2022
== END 2025-07-10 07:48 | disposition home or self-care (01) ==
PROVIDERS: PCP Internal Medicine; Visit Provider Internal Medicine
DX: M25.462 Effusion, left knee (principal)
CPT/HCPCS: 73562

== ENCOUNTER 2025-07-10 07:52 | Outpatient (CLI) | payer OTHER, SELFPAY ==
--- NOTE | ~2025-07-10 | MM_ITS ---
EXAMINATION: MM screening [facility] BI w lizy HISTORY: Screening mammogram TECHNIQUE: Craniocaudal and mediolateral oblique 3-D tomosynthesis images were obtained and synthetic 2-D images were generated. CAD analysis was submitted and interpreted. COMPARISON: 09/05/2023, 04/23/2022, 01/14/2021 BREAST PARENCHYMAL COMPOSITION:Not Dense. There are scattered areas of fibroglandular density. FINDINGS: No suspicious mass, calcification, or architectural distortion are identified in either breast to suggest malignancy. There has been no suspicious interval change. IMPRESSION: No mammographic evidence of malignancy. Recommend routine screening mammography in one year. BI-RADS Category 1: Negative Reviewed, dictated and finalized at location .
== END 2025-07-10 07:53 | disposition home or self-care (01) ==
LOC: ANHIMG 07:52
PROVIDERS: PCP Internal Medicine; Visit Provider Obstetrics & Gynecology
DX: Z12.31 Encounter for screening mammogram for malignant neoplasm of breast (principal)
CPT/HCPCS: 77063; 77067

== ENCOUNTER 2025-08-19 06:58 | Outpatient (CLI) | payer OTHER, SELFPAY ==
--- NOTE | ~2025-08-19 | MR_ITS ---
EXAMINATION: MR knee LT wo con DATE: 08/19/2025 07:27 INDICATION: Left knee pain. TECHNIQUE: Magnetic resonance imaging (MRI) of the left knee was performed without intravenous contrast. Sequences included axial PD-weighted FS FSE, coronal PD-weighted FSE and PD-weighted FS FSE, sagittal PD-weighted FSE, and sagittal T2-weighted FS FSE. COMPARISON: Left knee radiographs 07/10/25 FINDINGS: Medial compartment: Medial meniscus is normal. Medial compartment cartilage is normal. Lateral compartment: Lateral meniscus is normal. Lateral compartment cartilage is normal. Patellofemoral compartment: There is deep partial-thickness cartilage loss of patellar median ridge. There is shallow partial-thickness cartilage loss of patellar medial and lateral facets. There is cartilage surface irregularity of trochlea. Ligaments and tendons: The anterior and posterior cruciate ligaments are normal. There are changes of prior sprains of medial collateral ligament and lateral collateral ligament characterized by thickening and increased signal intensity proximally. There is mild patellar tendinopathy. Fluid: There is a small knee joint effusion. There is a small Smith's cyst. There is moderate prepatellar and superficial infrapatellar bursitis. IMPRESSION: 1. Moderate chondrosis of patellofemoral compartment. 2. Small knee joint effusion. 3. Small Smith's cyst. 4. Moderate prepatellar and superficial infrapatellar bursitis. Reviewed, dictated and finalized at location E.
== END 2025-08-19 06:59 | disposition home or self-care (01) ==
LOC: MICIMG 06:59
PROVIDERS: PCP Internal Medicine; Visit Provider Internal Medicine
DX: M22.42 Chondromalacia patellae, left knee (principal); M25.462 Effusion, left knee; M70.42 Prepatellar bursitis, left knee; M70.52 Other bursitis of knee, left knee
CPT/HCPCS: 73721

== ENCOUNTER 2025-09-14 07:30 | Outpatient (CLI) | payer OTHER, SELFPAY ==
[2025-09-14 08:35] LABS: Hematocrit 30.6 % (37.0-47.0); Hemoglobin 9.0 g/dL (12.0-15.0); Immature Granulocyte Percent A 0.4 % (0-0.5); Lymphocytes Absolute Auto 1.40 K/mm3 (0.9-3.2); Mean Corpuscular HGB Conc 29.4 g/dl (32-36); Mean Corpuscular Hemoglobin 23.1 pg (26-34); Mean Corpuscular Volume 78.7 fl (80-100); Nucleated Red Blood Cells Absolute Auto 0.000 K/mm3 (0.0-0.012); Nucleated Red Blood Cells Perc 0.0 % (0.0-0.2); Platelet Count Result 330 k/mm3 (150-375); Red Blood Count 3.89 M/mm3 (4.2-5.4); White Blood Count 6.7 K/mm3 (4.5-10.0)
[2025-09-14 09:01] LABS: Alanine Aminotransferase 20 U/L (6-35); Bilirubin,Total 0.3 mg/dL (0.2-1.3); Glucose 78 mg/dL (65-110); Triglycerides 63 mg/dL (<150)
[2025-09-14 09:02] LABS: Anisocytosis Occasional; Hypochromasia 1+; Schistocytes None Seen
[2025-09-14 09:21] LABS: Free T4 Free Thyroxine 1.75 ng/dL (0.78-2.19)
[2025-09-14 09:22] LABS: Hemoglobin A1C 4.6 % (<5.7)
[2025-09-14 09:34] LABS: Thyroid Stimulating Hormone < 0.015 uIU/mL (0.465-4.680)
[2025-09-14 09:35] LABS: Albumin Level 3.7 g/dL (3.5-5.1); Alkaline Phosphatase 80 U/L (38-126); Anion Gap 6 mmol/L (4-12); Aspartate Amino Transferase 26 U/L (14-36); Blood Urea Nitrogen 12 mg/dL (7-17); Calcium 8.9 mg/dL (8.4-10.2); Carbon Dioxide 25 mmol/L (22-30); Chloride 105 mmol/L (98-107); Cholesterol 196 mg/dL (0-200); Estimated Glomerular Filt Rate > 60; HDL Direct 48 mg/dL; Potassium 4.0 mmol/L (3.4-5.0); Sodium 136 mmol/L (137-145); Total Protein 6.2 g/dL (6.3-8.2)
== END 2025-09-14 07:31 | disposition home or self-care (01) ==
LOC: ANHLAB 07:31
PROVIDERS: PCP Internal Medicine; Visit Provider Internal Medicine
DX: E78.5 Hyperlipidemia, unspecified (principal); I10 Essential (primary) hypertension; E03.9 Hypothyroidism, unspecified; D64.9 Anemia, unspecified; E55.9 Vitamin D deficiency, unspecified; R63.5 Abnormal weight gain; Z68.32 Body mass index [BMI] 32.0-32.9, adult; Z79.899 Other long term (current) drug therapy; Z13.1 Encounter for screening for diabetes mellitus
CPT/HCPCS: 36415; 80053; 80061; 82306; 83036; 83525; 84439; 84443; 84681; 85025

== ENCOUNTER 2025-09-17 15:35 | Outpatient (CLI) | payer OTHER, SELFPAY ==
[2025-09-17 16:46] LABS: Iron 37 ug/dL (37-170)
[2025-09-17 16:56] LABS: Percent Iron Saturation 8 % (20-50)
[2025-09-17 17:27] LABS: Ferritin 5.72 ng/mL (6.24-137)
--- OUTSIDE RECORDS SUMMARY | 2025-09-17 17:32 | XMS_ITS | Patient Health Record ---
Author Organization [facility] ComActivity [facility] Address [address] [place] [address] Care Team Providers Care Options Advisor Name Role Phone Yolanda LÓPEZ, Catracho Primary Care Provider UnavailJaneth Mcdaniels Unavailable [phone] Amita Cartwright Unavailable [phone] Allergies No Known Allergies Results Component Value Reference Range Notes UDT Reviewed date:03/18/2025 11:54:19 AM Interpretation: Performing Lab: Notes/Report: Amphetamine (AMP) N 0 - 1000 ng/ml Buprenorphine (BUP) N 0 - 10 ng/ml Oxazepam (BZO) P 0 - 300 ng/ml Cocaine (CHRISTAL) N 0 - 300 ng/ml Methamphetamine (mAMP) N 0 - 300 ng/ml Methylenedioxymethamphetamine (MDMA) N 0 - 500 ng/ml Morphine (MOP) N 0 - 25 ng/ml Methadone (MTD) N 0 - 300 ng/ml Oxycodone (OXY) N 0 - 300 ng/ml THC N 0 - 50 ng/ml x N 0 - 1000 ng/ml x N 0 - 1000 ng/ml x N 0 - 300 ng/ml x N 0 - 300 ng/ml x N 0 - 300 ng/ml UDT Reviewed date:04/23/2025 12:54:56 PM Interpretation: Performing Lab: Notes/Report: Amphetamine (AMP) n 0 - 1000 ng/ml Buprenorphine (BUP) n 0 - 10 ng/ml Oxazepam (BZO) n 0 - 300 ng/ml Cocaine (CHRISTAL) n 0 - 300 ng/ml Methamphetamine (mAMP) n 0 - 300 ng/ml Methylenedioxymethamphetamine (MDMA) n 0 - 500 ng/ml Morphine (MOP) n 0 - 25 ng/ml Methadone (MTD) n 0 - 300 ng/ml Oxycodone (OXY) n 0 - 300 ng/ml THC n 0 - 50 ng/ml x n 0 - 1000 ng/ml x n 0 - 1000 ng/ml x n 0 - 300 ng/ml x n 0 - 300 ng/ml x n 0 - 300 ng/ml DRUG MONITOR, BENZO, QN, URI NE ([id number]) Reviewed date:04/01/2025 03:09:30 PM Interpretation: Performing Lab:[facility]AMRA, [employer] [id number] [facility], [facility] [id number] Dorian Hinton, Director - [id number] [facility]Neda Notes/Report: FASTING: NO Alphahydroxyalprazolam NEGATIVE <25 ng/mL [...] analytical performance characteristics have been determined by [employer] It has not been cleared or approved by the FDA. This assay has been validated pursuant to the CLIA regulations and is used for clinical purposes. medMATCH(R) enables providers to identify if drug use is consistent or inconsistent with a corresponding prescribed medication(s) list. Healthcare Providers needing Interpretation assistance, please contact us at [phone] ( ) M-F, 8am to 10pm EST PRESCRIBED DRUGS, medMATCH(R ) ([id number]) Reviewed date:04/01/2025 03:09:34 PM Interpretation: Performing Lab:CHERELLE [employer][id number] Bernt [facility], [id number] Edna Garcia MD Notes/Report: FASTING: NO medMATCH Summary Summary not applicable Reason For Referral No Information Medications Medication SIG (Take, Route, Frequency, Duration) Notes Start Date End Date Status Levothyroxine Sodium 125 MCG Tablet Oral 03/15/2024 Active FLUoxetine HCl 20 MG Capsule 1 capsule Orally Once a day; Duration: 90 days total daily dose 60mg daily 08/26/2025 Active Omeprazole 40 MG Capsule Delayed Release Oral 03/15/2024 Active Ajovy 225 MG/1.5ML Solution Auto-injector as directed Subcutaneous Active hydrOXYzine HCl 25 MG Tablet 1 tablet as needed Orally three times a day; Duration: 90 days As needed for anxiety 08/26/2025 Active FLUoxetine HCl 40 MG Capsule 1 capsule Oral Once a day; Duration: 90 days total daily dose 60mg daily 08/26/2025 Active Rexulti 3 MG Tablet 1 tablet Oral Once a day; Duration: 30 days 08/26/2025 Active Ondansetron 8 MG Tablet Disintegrating Oral 03/15/2024 Active LORazepam 0.5 MG Tablet 1 tablet Oral three times a day; Duration: 30 days As needed Note frequency increase 08/26/2025 Active Rexulti 3 MG Tablet Take 1 tablet by mouth once daily; Duration: 30 Active Immunizations Vaccine Route Administration Date Status [...] Severe recurrent major depression without psychotic features (47002839) Major depressive disorder, recurrent severe without psychotic features (F33.2) Active confirmed Problem Generalized anxiety disorder (98284913) Generalized anxiety disorder (F41.1) Active confirmed Problem Generalized anxiety disorder (75415125) TODD (generalized anxiety disorder) (F41.1) Active confirmed Problem Mild recurrent major depression (09837597) MDD (major depressive disorder), recurrent episode, mild (F33.0) Active confirmed Vital Signs Heart Rate 89 /min 08/26/2025 Height-cm 165.1 cm 08/26/2025 Blood pressure diastolic 84 mm Hg 08/26/2025 Weight-kg 90.72 kg 08/26/2025 Height 65.00 in 08/26/2025 Blood pressure systolic 136 mm Hg 08/26/2025 Weight 200 lbs 08/26/2025 BMI 33.28 kg/m2 08/26/2025 Encounters Encounter Location Date Provider Diagnosis [facility] [address] [address] 02/18/2025 Janeth Solorzano Encounter for screen ing for depression Z13.31 ; Major depressive disorder, recurrent severe without psychotic features F33.2 ; Generalized anxiety disorder F41.1 and Encounter for screening for cardiovascular disorders Z13.6 [facility] [address] [address] 03/18/2025 Janethdane Solorzano Encounter for screen ing for depression Z13.31 ; Major depressive disorder, recurrent severe without psychotic features F33.2 ; Generalized anxiety disorder F41.1 and Encounter for screening for cardiovascular disorders Z13.6 [facility] [address] [address] 04/23/2025 Janethdane Solorzano Major depressive disorder, recurrent severe without psychotic features F33.2 ; Generalized anxiety disorder F41.1 ; Negative depression screening Z13.31 ; Encounter for screening for cardiovascular disorders Z13.6 and Encounter for screening for depression Z13.31 [facility] [employer] [facility] [address] [place] [address] 06/21/2025 Janethdane Solorzano Major depressive disorder, recurrent severe without psychotic features F33.2 and Generalized anxiety disorder F41.1 [facility] [address] [address] 07/26/2025 Janeth Kurilla Major depressive disorder, recurrent severe without psychotic features F33.2 and Generalized anxiety disorder F41.1 [facility], [facility] [address] [place] [address] 08/26/2025 Janeth Kurilla Major depressive disorder, recurrent severe without psychotic features F33.2 and Generalized anxiety disorder F41.1 [facility], [facility] [address] [place] [address] 05/23/2025 Amita Cartwright Generalized anxiety disorder F41.1 [facility], [facility] [address] [place] [address] 10/09/2024 Janeth Kurilla [facility], [facility] [address] [place] [address] 11/02/2024 Janeth Kurilla [facility], [facility] [address] [place] [address] 11/02/2024 Janeth Kurilla Major depressive disorder, recurrent severe without psychotic features F33.2 [facility], [facility] [address] [place] [address] 11/02/2024 Janeth Kurilla [facility], [facility] [address] [place] [address] 11/23/2024 Janeth Kurilla [facility], [facility] [address] [place] [address] 11/26/2024 Janeth Kurilla [facility], [facility] [address] [place] [address] 01/25/2025 Janeth Kurilla [facility], [facility] [address] [place] [address] 02/15/2025 Janeth Kurilla Generalized anxiety disorder F41.1 [facility], [facility] [address] [place] [address] 05/06/2025 Janeth Kurilla [facility], [facility] [address] [place] [address] 08/19/2025 Janeth Kurilla Generalized anxiety disorder F41.1 Assessments Encounter Date [...] children and young adults, and serotonin syndrome. 07/26/2025 Major depressive disorder, recurrent severe without psychotic features (ICD-10 - F33.2) SSRI/SNRI side effects discussed including but not limited to, gastric upset, nausea, vomiting, diarrhea and/or constipation, weight changes, sexual side effects including loss of libido, increased suicidal thoughts/behavio rs in children and young adults, and serotonin syndrome. 08/19/2025 Generalized anxiety disorder (ICD-10 - F41.1) 08/26/2025 Major depressive disorder, recurrent severe without psychotic features (ICD-10 - F33.2) SSRI/SNRI side effects discussed including but not limited to, gastric upset, nausea, vomiting, diarrhea and/or constipation, weight changes, sexual side effects including loss of libido, increased suicidal thoughts/behavio rs in children and young adults, and serotonin syndrome. 08/26/2025 Generalized anxiety disorder (ICD-10 - F41.1) 04/23/2025 Negative depression screening (ICD-10 - Z13.31) 07/26/2025 Generalized anxiety disorder (ICD-10 - F41.1) 06/21/2025 Generalized anxiety disorder (ICD-10 - F41.1) 03/18/2025 Major depressive disorder, recurrent severe without [...] full therapeutic effects of psychotropic medications. -[place] [address]. 04/23/2025 Other Stable on current medication regimen, [...] see full therapeutic effects of psychotropic medications. -[facility] 98. 06/21/2025 Other Stable on current medication regimen, [...] see full therapeutic effects of psychotropic medications. -[place] [address]. 07/26/2025 Other Stable on current medication regimen, continue [...] of psychotropic medications. -Crisis prevention hotline 988. 08/26/2025 Other Stable on current medication regimen, continue [...] Of Treatment Next Appt Details Provider Name:Janeth harman, 09/25/2025 10:15:00 AM, [address], [place], [address], Insurance Providers Payer Name Payer Address Payer Phone Subscriber Number Group Number Insured Name Patient Relationship to Insured Coverage Start Date Coverage End Date [facility] [address] [address] [place] [address] [id number] CORKY OBRIEN Self - patient is the insured Medical (General) History Medical History History ICD Code Problems: Generalized anxiety disorder Mild recurrent major depression Recurrent hypersomnia Severe recurrent major depression withou t psychotic features , Surgical History Surgery Date(Month/Year) Myringotomy tube placement 11/21/2000 Other 11/21/2000 Any surgical history 01/04/2022
--- OUTSIDE RECORDS SUMMARY | 2025-09-17 17:32 | XMS_ITS | Clinical Summary ---
Author Organization [employer] [facility] Address [address] [place] [address] Care Team Providers Care Packaging Operator Name Role Phone Cartacho Guerrero MD Primary Care Provider [phone] Libby Lopez MD Unavailable Analia connolly Source Comments [facility],non-owned Affiliates and Associated Physician Practices is amultiple site organization consisting of ambulatory clinics and hospital sitesin [place], [place], [place] and [place]. This disclosure is being madepursuant to the Care Everywhere program and may not contain all information available regarding this patient. 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 Gender Identity Not on file Sexual Orientation [...] 19+ 3-dose series) 1997 PAP SMEAR 1999 DEPRESSION SCREENING 11/21/2024 COVID-19 VACCINE (1 - 2023-2 5 season) 2025 INFLUENZA VACCINE (#1) 2025 ZOSTER VACCINE (1 [...] patient's age to complete this topic Insurance /[facility] Member Subscriber Plan / Payer (Ef fective 2019-Present) Name:Corky Man Relation to Subscriber:Self Name:CORKY MAN Payer ID:[id number] (NAIC) Type:PPO Address: [address] * Guarantor: CORKY MAN Account Type Relation to Patient Date of Phone Billing Address Personal/Family [address] [place] [address] SELF PAY NO INSURANCE Member Subscriber Plan / Payer (Ef fective for All Dates) Name:Corky Man Member ID:Not on file Relation to Subscriber:Not on file Name:CORKY MAN Subscriber ID:Not on file Address: [address] [place] [address] Payer ID:Not on file Group ID:Not on file Type:Self Pay Address: [facility] * Guarantor: CORKY MAN Account Type Relation to Patient Date of Phone Billing Address Personal/Family [address] [place] [address] SELF PAY NO INSURANCE Member Subscriber Plan / Payer (Ef fective for All Dates) Name:Corky Man Member ID:Not on file Relation to Subscriber:Not on file Name:CORKY MAN Subscriber ID:Not on file Address: [address] [place] [address] Payer ID:Not on file Group ID:Not on file Type:Self Pay Address: [facility] Member Subscriber Plan / Payer (Ef fective 2025-Present) Name:Corky Man Relation to Subscriber:Self Name:Corky Man Payer ID:[id number] (NAIC) Type:PPO Address: [address] * Guarantor: CORKY MAN Account Type Relation to Patient Date of Phone Billing Address Personal/Family [address] [place] [address] SELF PAY NO INSURANCE Member Subscriber Plan / Payer (Ef fective for All Dates) Name:Corky Man Member ID:Not on file Relation to Subscriber:Not on file Name:CORKY MAN Subscriber ID:Not on file Address: [place] [address] Payer ID:Not on file Group ID:Not on file Type:Self Pay Address: [facility] Care Teams Packaging Operator Relationship Specialty Start Date End Date Catracho Guerrero MD [address] [place] [address] PCP - General 09/05/12 Libby Lopez MD [address] [place] [address] Endocrinology 01/22/14
== END 2025-09-17 15:36 | disposition home or self-care (01) ==
LOC: ANHLAB 15:36
PROVIDERS: PCP Internal Medicine; Visit Provider Internal Medicine
DX: D64.9 Anemia, unspecified (principal)
CPT/HCPCS: 36415; 82728; 83540; 83550

== ENCOUNTER 2025-11-05 09:30 | Outpatient (CLI) | payer OTHER, SELFPAY ==
--- NOTE | ~2025-11-05 | CT_ITS ---
EXAM/PROCEDURE: CT chest abdomen pelvis w con HISTORY: IRON DEFICIENCY COMPARISON: April 27, 2023 CT of abdomen and pelvis TECHNIQUE: IV contrast enhanced CT of the chest abdomen and pelvis performed. FINDINGS: CHEST CT: Minimal bibasilar fibrotic/atelectatic appearing changes similar with no consolidation effusion or pneumothorax. Heart and great vessels stable in size and enhancement. No bulky lymphadenopathy. Central and large airways are patent. Heart size normal with no significant pericardial effusion. The bony thorax and extrathoracic soft tissues unremarkable. ABDOMEN AND PELVIS: Gastric sleeve surgical changes, and surgical clips in the left upper quadrant stable. 3 mm nonobstructing lower pole left kidney stone. Tiny right renal low density lesions or cysts unchanged. Spleen stomach and adrenal glands pancreas kidneys aorta anteflex uterus and adnexal regions otherwise appear stable. Borderline right-sided hydroureter measuring up to 1.2 cm similar to the previous exam slightly increased on today's study. No obstructing ureteral stones present. No hydronephrosis. Milder similar changes in the left ureter. Urinary bladder appears normal for technique. No bulky mesenteric or retroperitoneal lymphadenopathy or masses seen. Moderate amount of stool extends to the cecum. The bowel gas pattern is nonobstructive with no free air free fluid or pneumatosis. IMPRESSION: No acute or aggressive process identified in the chest abdomen or pelvis. Reviewed, dictated and finalized at location A. 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
--- OUTSIDE RECORDS SUMMARY | 2025-11-05 10:40 | XMS_ITS | Clinical Summary ---
Author Organization [employer] [facility] Address [address] [place] [address] Care Team Providers Care Manager Massage Department Name Role Phone Catracho Guerrero MD Primary Care Provider [phone] Libby Lopez MD Unavailable Analia connolly Source Comments [facility],non-owned Affiliates and Associated Physician Practices is amultiple site organization consisting of ambulatory clinics and hospital sitesin [place], [place], [place] and [place]. This disclosure is being madepursuant to the Care Everywhere program and may not contain all information available regarding this patient. Last updated 18.[employer] Allergies No known active allergies Medications * [...] on file Legal Sex Female 6:16 AM CARAMEL CUTTER HAND Gender Identity Not on file Sexual Orientation [...] DEPRESSION SCREENING 11/21/2024 COVID-19 VACCINE (1 - 2024-2 6 season) 2025 INFLUENZA VACCINE (#1) 2025 ZOSTER [...] complete this topic Insurance /[facility] Member Subscriber Plan / Payer (Ef fective 2019-Present) Name:Corky Man Relation to Subscriber:Self Name:CORKY MAN Payer ID:[id number] (NAIC) Type:PPO Address: [address] * Guarantor: CORKY MAN Account Type Relation to Patient Date of Phone Billing Address Personal/Family [address] [place] [address] SELF PAY NO INSURANCE Member Subscriber Plan / Payer (Ef fective for All Dates) Name:Corky Man Member ID:Not on file Relation to Subscriber:Not on file Name:CORKY MAN Subscriber ID:Not on file Address: [address] [place] [address] Payer ID:Not on file Group ID:Not on file Type:Self Pay Address: [facility] * Guarantor: CORKY MAN Account Type Relation to Patient Date of Phone Billing Address Personal/Family [address] [place] [address] SELF PAY NO INSURANCE Member Subscriber Plan / Payer (Ef fective for All Dates) Name:Corky Man Member ID:Not on file Relation to Subscriber:Not on file Name:CORKY MAN Subscriber ID:Not on file Address: [address] [place] [address] Payer ID:Not on file Group ID:Not on file Type:Self Pay Address: [facility] Member Subscriber Plan / Payer (Ef fective 2025-Present) Name:Corky Man Relation to Subscriber:Self Name:Corky Man Payer ID:[id number] (NAIC) Type:PPO Address: [address] * Guarantor: CORKY MAN Account Type Relation to Patient Date of Phone Billing Address Personal/Family [address] [place] [address] SELF PAY NO INSURANCE Member Subscriber Plan / Payer (Ef fective for All Dates) Name:Corky Man Member ID:Not on file Relation to Subscriber:Not on file Name:CORKY MAN Subscriber ID:Not on file Address: [place] [address] Payer ID:Not on file Group ID:Not on file Type:Self Pay Address: [facility] Care Teams Manager Massage Department Relationship Specialty Start Date End Date Catracho Guerrero MD [address] [place] [address] PCP - General 09/05/12 Libby Lopez MD [address] [place] [address] Endocrinology 01/22/14
--- OUTSIDE RECORDS SUMMARY | 2025-11-05 10:40 | XMS_ITS | Patient Health Record ---
Author Organization [facility] [employer] Address [address] [place] [address] Care Team Providers Care Horticultural Therapist Name Role Phone Yolanda LÓPEZ, Catracho Primary Care Provider UnavailJaneth Mcdaniels Unavailable [phone] Amita Cartwright Unavailable [phone] Allergies No Known Allergies Results Component Value [...] ng/ml DRUG MONITOR, BENZO, QN, URI [place] (34807) Reviewed date:04/01/2025 03:09:30 PM Interpretation: Performing Lab:[facility], [id number] [id number] Dorian Hinton, Director - [id number] [facility] Notes/Report: FASTING: NO Alphahydroxyalprazolam NEGATIVE <25 ng/mL [...] analytical performance characteristics have been determined by [facility]. It has not been cleared or approved by the FDA. This assay has been validated pursuant to the CLIA regulations and is used for clinical purposes. medMATCH(R) enables providers to identify if drug use is consistent or inconsistent with a corresponding prescribed medication(s) list. Healthcare Providers needing Interpretation assistance, please contact us at [phone] ( ) M-F, 8am to 10pm EST PRESCRIBED DRUGS, medMATCH(R ) ([id number]) Reviewed date:04/01/2025 03:09:34 PM Interpretation: Performing Lab:[id number] [facility], [id number] Edna Garcia MD Notes/Report: FASTING: NO medMATCH Summary Summary not applicable Reason For Referral No Information Medications Medication SIG (Take, Route, Frequency, Duration) Notes Start Date End Date Status FLUoxetine HCl 40 MG Capsule 1 capsule Oral Once a day; Duration: 90 days total daily dose 60mg daily 09/25/2025 Active Omeprazole 40 MG Capsule Delayed Release Oral 03/15/2024 Active Levothyroxine Sodium 125 MCG Tablet Oral 03/15/2024 Active Ondansetron 8 MG Tablet Disintegrating Oral 03/15/2024 Active FLUoxetine HCl 20 MG Capsule 1 capsule Orally Once a day; Duration: 90 days total daily dose 60mg daily 09/25/2025 Active Ajovy 225 MG/1.5ML Solution Auto-injector as directed Subcutaneous Active hydrOXYzine HCl 25 MG Tablet 1 tablet as needed Orally three times a day; Duration: 90 days As needed for anxiety 09/25/2025 Active LORazepam 0.5 MG Tablet 1 tablet Oral three times a day; Duration: 30 days As needed Note frequency increase 09/25/2025 Active Rexulti 3 MG Tablet Take 1 [...] Severe recurrent major depression without psychotic features (45941931) Major depressive disorder, recurrent severe without psychotic features (F33.2) Active confirmed Problem Generalized anxiety disorder (90030233) Generalized anxiety disorder (F41.1) Active confirmed Problem Generalized anxiety disorder (90052472) TODD (generalized anxiety disorder) (F41.1) Active confirmed Problem Mild recurrent major depression (04681119) MDD (major depressive disorder), recurrent episode, mild (F33.0) Active confirmed Vital Signs Heart Rate 91 /min 09/25/2025 Height-cm 165.1 cm 09/25/2025 Blood pressure diastolic 81 mm Hg 09/25/2025 Weight-kg 92.53 kg 09/25/2025 Height 65.00 in 09/25/2025 Blood pressure systolic 127 mm Hg 09/25/2025 Weight 204 lbs 09/25/2025 BMI 33.94 kg/m2 09/25/2025 Encounters Encounter Location Date Provider Diagnosis [facility] [facility] [place] [address] [address] 02/18/2025 Janethdane Solorzano Encounter for screen ing for depression Z13.31 ; Major depressive disorder, recurrent severe without psychotic features F33.2 ; Generalized anxiety disorder F41.1 and Encounter for screening for cardiovascular disorders Z13.6 [facility] [address] 03/18/2025 Janeth Kurilla Encounter for screen ing for depression Z13.31 ; Major depressive disorder, recurrent severe without psychotic features F33.2 ; Generalized anxiety disorder F41.1 and Encounter for screening for cardiovascular disorders Z13.6 [facility] [place] [address] [address] 04/23/2025 Janeth Kurilla Major depressive disorder, recurrent severe without psychotic features F33.2 ; Generalized anxiety disorder F41.1 ; Negative depression screening Z13.31 ; Encounter for screening for cardiovascular disorders Z13.6 and Encounter for screening for depression Z13.31 [facility] [employer] [address] 06/21/2025 Janeth Kurilla Major depressive disorder, recurrent severe without psychotic features F33.2 and Generalized anxiety disorder F41.1 [facility] [place] [address] [address] 07/26/2025 Janeth Kurilla Major depressive disorder, recurrent severe without psychotic features F33.2 and Generalized anxiety disorder F41.1 [facility], [employer] [facility] [address] [place] [address] 08/26/2025 Janeth Kurilla Major depressive disorder, recurrent severe without psychotic features F33.2 and Generalized anxiety disorder F41.1 [facility] [address] [place] [address] 09/25/2025 Janeth Kurilla Major depressive disorder, recurrent severe without psychotic features F33.2 and Generalized anxiety disorder F41.1 [facility], [employer] [facility] [address] [place] [address] 05/23/2025 Amita Cartwright Generalized anxiety disorder F41.1 [facility], [employer] [facility] [address] [place] [address] 10/25/2025 Janethdane Solorzano [facility], [place] [address] [place] [address] 11/23/2024 Janethdane Solorzano [facility], [facility] [facility] [address] [place] [address] 11/26/2024 Janethdane Solorzano [facility], [place] [address] [place] [address] 01/25/2025 Janethdane Solorzano [facility], [facility] [facility] [address] [place] [address] 02/15/2025 Janeth Mireilleilla Generalized anxiety disorder F41.1 [place] [address] [place] [address] 05/06/2025 Janethdane Solorzano [facility], [employer] [facility] [address] [place] [address] 08/19/2025 Janeth Kurilla Generalized anxiety disorder F41.1 Assessments Encounter Date Diagnosis (ICD Code) Assessment Notes Treatment Notes Treatment Clinical Notes Section Notes 02/15/2025 Generalized anxiety disorder (ICD-10 - F41.1) [...] 04/23/2025 Generalized anxiety disorder (ICD-10 - F41.1) 06/21/2025 [...] children and young adults, and serotonin syndrome. 09/25/2025 Major depressive disorder, recurrent severe without psychotic features (ICD-10 - F33.2) SSRI/SNRI side effects discussed including but not limited to, gastric upset, nausea, vomiting, diarrhea and/or constipation, weight changes, sexual side effects including loss of libido, increased suicidal thoughts/behavio rs in children and young adults, and serotonin syndrome. 05/23/2025 Generalized anxiety disorder (ICD-10 - F41.1) 09/25/2025 Generalized anxiety disorder (ICD-10 - F41.1) 08/26/2025 Generalized anxiety disorder (ICD-10 - F41.1) 07/26/2025 Generalized anxiety disorder (ICD-10 - F41.1) [...] therapeutic effects of psychotropic medications. -Crisis prevention [facility]. 06/21/2025 Other Stable on current medication [...] therapeutic effects of psychotropic medications. -Crisis prevention [facility]. 03/18/2025 Other Stable on current medication regimen, [...] therapeutic effects of psychotropic medications. -Crisis prevention [facility]. 04/23/2025 Other Stable on current medication regimen, [...] therapeutic effects of psychotropic medications. -Crisis prevention [facility]. 09/25/2025 Other Stable on current medication regimen, continue at current doses. -No concerns today Patient educated on all [...] of psychotropic medications. -Crisis prevention hotline 988. 07/26/2025 Other Stable on current medication regimen, [...] -Crisis prevention hotline 988. Plan Of Treatment No Information Insurance Providers Payer Name Payer Address Payer Phone Subscriber Number Group Number Insured Name Patient Relationship to Insured Coverage Start Date Coverage End Date [facility] [address] [address] [place] [address] [phone] [id number] CORKY OBRIEN Self - patient is the insured Medical (General) History Medical History History ICD Code Problems: Generalized anxiety disorder Mild recurrent major depression Recurrent hypersomnia Severe recurrent major depression withou t psychotic features , Surgical History Surgery Date(Month/Year) Myringotomy tube placement 11/21/2000 Other 11/21/2000 Any surgical history 01/04/2022
[2025-11-05 11:04] LABS: Estimated Glomerular Filt Rate > 60
== END 2025-11-05 09:31 | disposition home or self-care (01) ==
PROVIDERS: PCP Internal Medicine; Visit Provider Nurse Practitioner
DX: D50.9 Iron deficiency anemia, unspecified (principal)
CPT/HCPCS: 71260; 74177; Q9967

== ENCOUNTER 2025-11-11 10:50 | Outpatient (CLI) | payer OTHER, SELFPAY ==
--- NOTE | ~2025-11-11 | XR_ITS ---
XR chest 2V 11/11/2025 11:21 Indication: Cough Procedure: 2 view chest Comparison: 04/27/2023 Findings: There is left lower lobe atelectasis. No focal pneumonia, edema, pleural effusion or pneumothorax. No acute osseous abnormality. Heart size normal. Impression: 1: Left lower lobe atelectasis. Reviewed, dictated and finalized at location O. 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
== END 2025-11-11 10:51 | disposition home or self-care (01) ==
LOC: MICIMG 10:51
PROVIDERS: PCP Internal Medicine; Visit Provider Internal Medicine
DX: R05.9 Cough, unspecified (principal); R91.8 Other nonspecific abnormal finding of lung field
CPT/HCPCS: 71046